=== PATIENT | female | born 1955 | race Caucasian/White ===

== ENCOUNTER 2023-06-21 16:59 | Inpatient (IN) | payer MEDICARE, MEDICAID, SELFPAY ==
[2023-06-21 17:40] VITALS: BP 135/97; PULSE 112; RESP 18; TEMP 34.3; O2SAT 93
--- NOTE | 2023-06-21 18:01 | PC.ADMIT ---
Patient admitted to unit at 1720 via stretcher from [facility] through [facility]. Admitting diagnosis is unspecified depressive disorder, unspecified anxiety. Patient has HX of developmental delay, advancing dementia with associated behavioral disturbance, epilepsy and pseudoseizure. Patient had been at rehab facility due to [facility] at [facility] prior to being taken to ED. Patient was then admitted to medical unit for clearance.No significant medical findings. PMH includes HTN, HLD, Chrons, IBS. . Patient presents as disheveled wearing hospital attire. There are numerous bruises on all extremities due to fall and cut under lower lip from which sutures were removed just prior to discharge. Alert and oriented to self only. Patient is verbal but unable to answer most questions and is restless, talkative and confused. Patient is incontinent of urine and stool and requires assist of two for transfer. Due to mental status patient was unable to participate in admission process.
[2023-06-21] MEDS: hydrOXYzine HCL 25 MG TABLET PO (18:46)
[2023-06-21 19:26] VITALS: BMI 23.3
--- NOTE | 2023-06-21 19:32 | PC.NURSE ---
Patient given hydroxyzine 25 mg at 1846 for agitation. Will continue to monitor.
[2023-06-21 20:00] VITALS: BP 136/87; PULSE 92; RESP 20; TEMP 36.8; O2SAT 97
[2023-06-21] MEDS: OXcarbazepine 150 MG TABLET PO (20:03)
[2023-06-21] MEDS: OLANZapine 2.5 MG TABLET PO (20:03)
[2023-06-21] MEDS: traZODone HCL 100 MG TABLET PO (20:03)
[2023-06-21] MEDS: Mirtazapine 7.5 MG TABLET PO (20:05)
[2023-06-21] MEDS: Memantine HCl 10 MG TABLET PO (20:06)
[2023-06-21] MEDS: levETIRAcetam 500 MG TABLET 1500 MG PO (20:06)
[2023-06-21] MEDS: Donepezil HCl 10 MG TABLET PO (20:07)
[2023-06-21] MEDS: Psyllium seed 3.7 GM PACKET PO (20:07)
[2023-06-21 21:15] VITALS: BP 136/87; PULSE 92
[2023-06-21] MEDS: OXcarbazepine 300 MG TABLET PO (21:15)
[2023-06-21] MEDS: VerapamiL HCL SR 240 MG TABLET.ER PO (21:15)
[2023-06-22 08:00] VITALS: BP 134/84; PULSE 98; RESP 18; TEMP 36.7; O2SAT 95
[2023-06-22] MEDS: Docusate Sodium 100 MG CAPSULE PO (09:28)
[2023-06-22] MEDS: DULoxetine HCl 60 MG CAPSULE.DR PO (09:28)
[2023-06-22] MEDS: OLANZapine 2.5 MG TABLET PO (09:28)
[2023-06-22] MEDS: OXcarbazepine 300 MG TABLET PO (09:28)
[2023-06-22] MEDS: Memantine HCl 10 MG TABLET PO (09:28)
[2023-06-22] MEDS: Multivitamin TABLET 1 TAB PO (09:28)
[2023-06-22] MEDS: OXcarbazepine 150 MG TABLET PO (09:28)
[2023-06-22] MEDS: levETIRAcetam 500 MG TABLET 1500 MG PO (09:28)
[2023-06-22] MEDS: Psyllium seed 3.7 GM PACKET PO (09:29)
[2023-06-22] MEDS: OLANZapine 5 MG TABLET PO (11:16)
[2023-06-22] MEDS: hydrOXYzine HCL 25 MG TABLET PO (11:16)
--- NOTE | 2023-06-22 14:08 | P.HPPS_ITS ---
HPI Date of Service: 06/22/23 Chief Complaint: Depression Sources of Information: patient interviewed, chart reviewed and crisis/core team assessment reviewed HPI Subjective Notes: Morin Warning and Conditional Voluntary (By healthcare proxy) Healthcare Proxy: Yes Guardianship: Yes Narrative: The patient is a 67-year-old female, single, with no children, chronically institutionalized with pervasive developmental disorder, psychosis and dementia. She was initially transferred from her detention to the emergency room of a hospital out of our catchment area since the patient was more disruptive loud disorganized, unable to take care of herself. Apparently the patient's baseline is very poor she had been recently transferred into several facilities in the last 2 months. In the last hospital, while she was waiting for a bed for Psychiatry she was seen smearing feces, grossly disorganized. She was medically cleared and transferring to this facility for psychiatric stabilization. On intake interview, the patient was not responsive she was a very poor historian able to provide details. She was just yelling perseverative dimas cochran. At the moment of the interview, the patient was agitated, she denied having auditory or visual hallucinations but she looks disorganized responding to internal stimuli. According to the chart the patient is on Zyprexa 2.5 p.o. t.i.d.. The social insurance adviser could contact the healthcare proxy, it has been invoked and the healthcare proxy sign into the facility. The patient had been receiving DDS services most of her life and we will try to gather more collateral information. Past Psychiatric History: We have scanned records but apparently the patient had been chronically institutionalized, she has been receiving DDS services most of her life and she was in a detention [facility] contracted by [facility] [employer]. She had been admitted several times into the hospital for psychiatric stabilization. Medical Evaluation Reviewed: Yes [facility] Narrative: High blood pressure Seizure disorder Dementia Family History: Unknown Social History: Chronically institutionalized receiving services from [facility] she used to live in a detention run by [facility] [employer]. Substance History: Unknown Trauma History: Unknown Diagnostics Vital Signs (24Hr): Vital Signs - 24 hr 06/21/23 17:40 06/21/23 20:00 06/21/23 21:15 Temperature 93.7 F L 98.2 F Pulse Rate 112 H 92 92 Respiratory Rate 18 20 Blood Pressure 135/97 H 136/87 136/87 Pulse Oximetry 93 97 Oxygen Delivery Method Room Air Room Air 06/22/23 08:00 Temperature 98.0 F Pulse Rate 98 Respiratory Rate 18 Blood Pressure 134/84 Pulse Oximetry 95 Oxygen Delivery Method Room Air BMI result Body Mass Index 23.3 Meds/Allergies Meds Home Medications ?Medication ?Instructions ?Recorded ?Confirmed ?Type acetaminophen 500 mg tablet 500 mg PO Q6H PRN Pain 06/21/23 06/21/23 History calcium carbonate (Antacid 2 tab PO NEEDED 06/21/23 06/21/23 History Extra-Strength) docusate sodium 100 mg capsule 100 mg PO DAILY 06/21/23 06/21/23 History donepezil 10 mg tablet 10 mg PO BEDTIME 06/21/23 06/21/23 History duloxetine 60 mg capsule,delayed 60 mg PO DAILY 06/21/23 06/21/23 History release levetiracetam 500 mg tablet 1,500 mg PO BID 06/21/23 06/21/23 History memantine 10 mg tablet 10 mg PO BID 06/21/23 06/21/23 History mirtazapine 7.5 mg tablet 7.5 mg PO BEDTIME 06/21/23 06/21/23 History multivitamin 1 tab PO DAILY 06/21/23 06/21/23 History olanzapine 2.5 mg PO TID 06/21/23 06/21/23 History oxcarbazepine 150 mg tablet 150 mg PO BID 06/21/23 06/21/23 History oxcarbazepine 300 mg tablet 300 mg PO BID 06/21/23 06/21/23 History psyllium seed (sugar) oral powder 1 tbsp PO BID 06/21/23 06/21/23 History (Natural Fiber Laxative (sugar) oral powder) trazodone 100 mg tablet 100 mg PO BEDTIME 06/21/23 06/21/23 History verapamil 240 mg tablet,extended 240 mg PO BEDTIME 06/21/23 06/21/23 History release Allergies Allergies Allergy/AdvReac Type Severity Reaction Status Date / Time amlodipine Allergy Unknown Verified 06/21/23 17:41 aspirin Allergy Rash Verified 06/21/23 17:41 atenolol Allergy Rash Verified 06/21/23 17:41 carbamazepine Allergy Unknown Verified 06/21/23 17:41 celecoxib Allergy Unknown Verified 06/21/23 17:41 ciprofloxacin Allergy Unknown Verified 06/21/23 17:41 erythromycin base Allergy Hives Verified 06/21/23 17:41 fluvastatin Allergy Unknown Verified 06/21/23 17:41 levofloxacin Allergy Unknown Verified 06/21/23 17:41 loratadine Allergy Unknown Verified 06/21/23 17:41 mercaptopurine Allergy Unknown Verified 06/21/23 17:41 naproxen Allergy Unknown Verified 06/21/23 17:41 pantoprazole Allergy Unknown Verified 06/21/23 17:41 Quinolones Allergy Unknown Verified 06/21/23 17:41 ranitidine Allergy Unknown Verified 06/21/23 17:41 sulfamethoxazole Allergy Unknown Verified 06/21/23 17:41 trimethoprim Allergy Unknown Verified 06/21/23 17:41 Mental Status Exam Mental Status Exam Patient Appearance: Appropriate (On hospital gowns) Patient Orientation: Person Level of Consciousness: Awake and Restless Patient Behavior: Aggressive and Restless Mood Description: Withdrawn Affect Description: Labile Patient Cognition Impaired: Yes Ability to Follow Directions: Poor Hallucinations: None Delusions: Paranoid Ideation and Ideas of Reference Thought Process: Incoherent, Illogical and Distracted Thought Content: positive for Perseveration, positive for Loose Associations and positive for Thought Blocking Judgement: Poor Assessment & Plan Assessment & Plan (1) Pervasive developmental disorder: Status: Acute Code(s): F84.9 - Pervasive developmental disorder, unspecified (2) Dementia: Status: Acute Code(s): F03.90 - Unspecified dementia, unspecified severity, without behavioral disturbance, psychotic disturbance, mood disturbance, and anxiety (3) Seizure disorder: Status: Acute Code(s): G40.909 - Epilepsy, unspecified, not intractable, without status epilepticus (4) High blood pressure: Status: Acute Code(s): I10 - Essential (primary) hypertension Plan The patient is a 67-year-old female with severe pervasive developmental disorder, chronically institutionalized with services provided by [facility], with other medical comorbidities such as dementia, high blood pressure and seizure disorder who had been grossly disorganized, as per report of the other hospital, smearing feces, throwing feces and eating feces. The patient is severely impaired unable to provide too many details, we will try to gather col lateral information. Plan 1. Gather collateral information. 2. Continue medical workout. 3. Continue Zyprexa 2.5 p.o. t.i.d., we are increasing the p.r.n. up to 10 mg p.o. b.i.d. since the patient is extremely agitated. 4. We review her list of medications and we are increasing Trileptal for 400 p.o. b.i.d. up to 600 mg p.o. b.i.d. on June 21. 5. Reassessment with results. Patient educated on: diagnosis, medication risk/benefits and medical condition Reason for continued inpatient stay Substantial Risk for: inability to function, rapid decompensation and med/psych decompensation Statement Statement: I have reviewed the history and physical and performed a pertinent examination on my patient. No changes have occurred unless specified. If the History and Physical was not performed prior to admission, the Hospitalist's service will be consulted for completing the admission physical. Time Spent With Patient Time: Total time managing care of this patient today __45__ minutes.
--- NOTE | 2023-06-22 15:06 | P.CONHOSP_ITS ---
History of Present Illness Data of Consult Service Date: 06/22/23 Requesting physician: Billy Perez Primary Care Provider: Unknown Physician HPI Reason for consult: Medical H and P 67-year-old female with history of unspecified dementia, behavioral disturbance, unspecified seizure disorder, developmental delay, hypertension, hyperlipidemia, Crohn's disease, IBS admitted to Geriatric Psychiatry with consult placed to hospitalist service for medical H&P. The patient is admitted from [facility] where hematology studies were unremarkable. Renal function baseline, electrolyte levels normal. Glucose 142. Urinalysis not indicative of infection. Urine tox screen negative. EKG showed sinus tachycardia with rate [address]/T-wave abnormality. The patient is sleeping and is not agreeable to examination at this time. She will be allowed to sleep. Review of Systems Review of Systems: Yes Other (Patient not agreeable to interview/exam) [facility] Medical History Crohn's disease Hyperlipidemia Dementia Seizure disorder High blood pressure Social History Household Members: Other Household Members Other:: longterm Housing: Other Housing Other:: longterm Do you presently have visiting nurse or other home services: No Patient Tobacco Use Status: Tobacco use Unknown Use of substances other than those prescribed or required for medical reasons: Unknown Currently Displaying Signs/Symptoms of Drug Intoxication Withdrawal: No Any prior treatment program specific to substance use: No Have you been hit, kicked, punched, or otherwise hurt by someone within the past year? If so, by whom?: No (Patient unable to respond due to mental status) Do you feel safe in your current relationship?: No Current Relationship Advance Directives: No Advance Directives Information Provided: No Do you have thoughts of harming others: None Do you have a plan to hurt others: No Plan Recently lost weight without trying: Unsure Nutrition Risks: No Nutritional Risk Patient : No : No Poor oral hygiene: No Meds Allergies Allergy/AdvReac Type Severity Reaction Status Date / Time amlodipine Allergy Unknown Verified 06/21/23 17:41 aspirin Allergy Rash Verified 06/21/23 17:41 atenolol Allergy Rash Verified 06/21/23 17:41 carbamazepine Allergy Unknown Verified 06/21/23 17:41 celecoxib Allergy Unknown Verified 06/21/23 17:41 ciprofloxacin Allergy Unknown Verified 06/21/23 17:41 erythromycin base Allergy Hives Verified 06/21/23 17:41 fluvastatin Allergy Unknown Verified 06/21/23 17:41 levofloxacin Allergy Unknown Verified 06/21/23 17:41 loratadine Allergy Unknown Verified 06/21/23 17:41 mercaptopurine Allergy Unknown Verified 06/21/23 17:41 naproxen Allergy Unknown Verified 06/21/23 17:41 pantoprazole Allergy Unknown Verified 06/21/23 17:41 Quinolones Allergy Unknown Verified 06/21/23 17:41 ranitidine Allergy Unknown Verified 06/21/23 17:41 sulfamethoxazole Allergy Unknown Verified 06/21/23 17:41 trimethoprim Allergy Unknown Verified 06/21/23 17:41 Active Medications: Current Medications Acetaminophen (Acetaminophen 325 Mg Tablet) 650 mg PO Q6H PRN PRN Reason: Headache/Pain Mild Scale (1-3) Al Hydroxide/Mg Hydroxide (Magnesium Hydrox/Alum Hydrox 30 Ml Oral.Susp) 30 ml PO Q6H PRN PRN Reason: Heartburn/Nausea Calcium Carbonate (Calcium Carbonate 750 Mg Tab.Chew) 750 mg PO DAILY PRN PRN Reason: ACID REFLUX Docusate Sodium (Docusate Sodium 100 Mg Capsule) 100 mg PO DAILY [facility] Last Admin: 06/22/23 09:28 Dose: 100 mg Donepezil HCl (Donepezil Hcl 10 Mg Tablet) 10 mg PO BEDTIME [facility] Last Admin: 06/21/23 20:07 Dose: 10 mg Duloxetine HCl (Duloxetine Hcl 60 Mg Capsule.Dr) 60 mg PO DAILY [facility] Last Admin: 06/22/23 09:28 Dose: 60 mg Hydroxyzine HCl (Hydroxyzine Hcl 25 Mg Tablet) 25 mg PO Q6H PRN PRN Reason: Anxiety Last Admin: 06/22/23 11:16 Dose: 25 mg Levetiracetam (Levetiracetam 500 Mg Tablet) 1,500 mg PO BID [facility] Last Admin: 06/22/23 09:28 Dose: 1,500 mg Magnesium Hydroxide (Milk Of Magnesia 30 Ml Oral.Susp) 30 ml PO DAILY PRN PRN Reason: Constipation Memantine (Memantine Hcl 10 Mg Tablet) 10 mg PO BID [facility] Last Admin: 06/22/23 09:28 Dose: 10 mg Mirtazapine (Mirtazapine 7.5 Mg Tablet) 7.5 mg PO BEDTIME [facility] Last Admin: 06/21/23 20:05 Dose: 7.5 mg Multivitamins/Vitamin C (Multivitamin Tablet) 1 tab PO DAILY [facility] Last Admin: 06/22/23 09:28 Dose: 1 tab Olanzapine (Olanzapine 2.5 Mg Tablet) 2.5 mg PO TID [facility] Last Admin: 06/22/23 09:28 Dose: 2.5 mg Olanzapine (Olanzapine Odt 10 Mg Tab.Rapdis) 10 mg TRANSLINGU BID PRN PRN Reason: Psychosis Oxcarbazepine (Oxcarbazepine 300 Mg Tablet) 600 mg PO BID [facility] Psyllium Hydrophilic Mucilloid (Psyllium Seed 3.7 Gm Packet) 3.7 gm PO BID [facility] Last Admin: 06/22/23 09:29 Dose: 3.7 gm Trazodone HCl (Trazodone Hcl 50 Mg Tablet) 50 mg PO BEDTIME MRX1 PRN PRN Reason: Insomnia Trazodone HCl (Trazodone Hcl 100 Mg Tablet) 100 mg PO BEDTIME [facility] Last Admin: 06/21/23 20:03 Dose: 100 mg Verapamil HCl (Verapamil Hcl Sr 240 Mg Tablet.Er) 240 mg PO BEDTIME [facility]; Protocol Last Admin: 06/21/23 21:15 Dose: 240 mg Home Medications ?Medication ?Instructions ?Recorded ?Confirmed ?Last Taken ?Type acetaminophen 500 mg tablet 500 mg PO Q6H PRN Pain 06/21/23 06/21/23 Unknown History calcium carbonate (Antacid 2 tab PO NEEDED 06/21/23 06/21/23 Unknown History Extra-Strength) docusate sodium 100 mg capsule 100 mg PO DAILY 06/21/23 06/21/23 Unknown History donepezil 10 mg tablet 10 mg PO BEDTIME 06/21/23 06/21/23 Unknown History duloxetine 60 mg capsule,delayed 60 mg PO DAILY 06/21/23 06/21/23 Unknown History release levetiracetam 500 mg tablet 1,500 mg PO BID 06/21/23 06/21/23 Unknown History memantine 10 mg tablet 10 mg PO BID 06/21/23 06/21/23 Unknown History mirtazapine 7.5 mg tablet 7.5 mg PO BEDTIME 06/21/23 06/21/23 Unknown History multivitamin 1 tab PO DAILY 06/21/23 06/21/23 Unknown History olanzapine 2.5 mg PO TID 06/21/23 06/21/23 Unknown History oxcarbazepine 150 mg tablet 150 mg PO BID 06/21/23 06/21/23 Unknown History oxcarbazepine 300 mg tablet 300 mg PO BID 06/21/23 06/21/23 Unknown History psyllium seed (sugar) oral powder 1 tbsp PO BID 06/21/23 06/21/23 Unknown History (Natural Fiber Laxative (sugar) oral powder) trazodone 100 mg tablet 100 mg PO BEDTIME 06/21/23 06/21/23 Unknown History verapamil 240 mg tablet,extended 240 mg PO BEDTIME 06/21/23 06/21/23 Unknown History release Physical Exam Vital Signs and Narrative: Vital Signs: Last Vital Signs Temp 98.0 F 06/22/23 08:00 Pulse 98 06/22/23 08:00 Resp 18 06/22/23 08:00 BP 134/84 06/22/23 08:00 Pulse Ox 95 06/22/23 08:00 O2 Del Method Room Air 06/22/23 08:00 BMI result Body Mass Index 23.3 Constitutional - somnolent but arousable, No apparent distress Patient now agreeable to exam. Allowed to sleep Assessment and Plan (1) Routine medical exam: Status: Acute Plan 67-year-old female with history of unspecified dementia, behavioral disturbance, unspecified seizure disorder, developmental delay, hypertension, hyperlipidemia, Crohn's disease, IBS admitted to Geriatric Psychiatry with consult placed to hospitalist service for medical H&P. # mood disorder/dementia -plan per Psychiatry # unspecified seizure disorder -continue Keppra, Trileptal # hypertension -blood pressure reasonably controlled -continue verapamil # hyperlipidemia -statin z# Crohn's disease/ibs -no acute flare -continue bowel regimen Thank you for allowing me to participate in this consult. Signing off at this time. Please do not hesitate to call for further questions or for any acute medical concerns
[2023-06-22 20:00] VITALS: BP 134/63; PULSE 77; RESP 16; TEMP 36.4; O2SAT 96
[2023-06-22] MEDS: traZODone HCL 50 MG TABLET PO (20:52)
[2023-06-23] MEDS: hydrOXYzine HCL 25 MG TABLET PO (02:41)
[2023-06-23] MEDS: Acetaminophen 325 MG TABLET 650 MG PO (02:41)
[2023-06-23] MEDS: traZODone HCL 50 MG TABLET PO (02:41)
[2023-06-23] MEDS: OLANZapine ODT 10 MG TAB.RAPDIS TRANSLINGU ×2 (02:41→15:20)
[2023-06-23 09:06] VITALS: BP 136/91; PULSE 92; RESP 17; TEMP 36.9; O2SAT 97
[2023-06-23] MEDS: OLANZapine 2.5 MG TABLET PO ×3 (09:24→21:13)
[2023-06-23] MEDS: DULoxetine HCl 60 MG CAPSULE.DR PO (09:29)
[2023-06-23] MEDS: OXcarbazepine 300 MG TABLET 600 MG PO ×2 (09:33→21:13)
[2023-06-23] MEDS: Multivitamin TABLET 1 TAB PO (09:38)
[2023-06-23] MEDS: Memantine HCl 10 MG TABLET PO ×2 (09:38→21:13)
[2023-06-23] MEDS: Psyllium seed 3.7 GM PACKET PO ×2 (09:43→21:28)
--- NOTE | 2023-06-23 12:31 | P.PNPSI_ITS ---
Subjective Subjective Date of Service: 06/23/23 Reason For Visit: Depression Subjective Notes: Conditional Voluntary Interim History: Pt slept most of the night. She has been yelling, difficult to understand. She is incontinent of feces and urine. She was smearing feces. Review of Systems Review of Systems Yes Unobtainable due to mental status and Other (Patient not agreeable to interview/exam) Mental Status Exam Mental Status Exam Patient Appearance: Appropriate (On hospital gowns) Patient Orientation: Person Level of Consciousness: Awake and Restless Patient Behavior: Aggressive and Restless Mood Description: Withdrawn Affect Description: Labile Patient Cognition Impaired: Yes Ability to Follow Directions: Poor Diagnostics Vital Signs (24Hr): Vital Signs - 24 hr 06/22/23 20:00 06/23/23 09:06 Temperature 97.5 F 98.4 F Pulse Rate 77 92 Respiratory Rate 16 17 Blood Pressure 134/63 136/91 H Pulse Oximetry 96 97 Oxygen Delivery Method Room Air Room Air BMI result Body Mass Index 23.3 Medications Medications Current Medications Acetaminophen (Acetaminophen 325 Mg Tablet) 650 mg PO Q6H PRN PRN Reason: Headache/Pain Mild Scale (1-3) Last Admin: 06/23/23 02:41 Dose: 650 mg Al Hydroxide/Mg Hydroxide (Magnesium Hydrox/Alum Hydrox 30 Ml Oral.Susp) 30 ml PO Q6H PRN PRN Reason: Heartburn/Nausea Calcium Carbonate (Calcium Carbonate 750 Mg Tab.Chew) 750 mg PO DAILY PRN PRN Reason: ACID REFLUX Docusate Sodium (Docusate Sodium 100 Mg Capsule) 100 mg PO DAILY [facility] Last Admin: 06/23/23 09:51 Dose: Not Given Donepezil HCl (Donepezil Hcl 10 Mg Tablet) 10 mg PO BEDTIME [facility] Last Admin: 06/22/23 21:03 Dose: Not Given Duloxetine HCl (Duloxetine Hcl 60 Mg Capsule.Dr) 60 mg PO DAILY [facility] Last Admin: 06/23/23 09:29 Dose: 60 mg Hydroxyzine HCl (Hydroxyzine Hcl 25 Mg Tablet) 25 mg PO Q6H PRN PRN Reason: Anxiety Last Admin: 06/23/23 02:41 Dose: 25 mg Levetiracetam (Levetiracetam 500 Mg Tablet) 1,500 mg PO BID [facility] Last Admin: 06/23/23 09:54 Dose: Not Given Magnesium Hydroxide (Milk Of Magnesia 30 Ml Oral.Susp) 30 ml PO DAILY PRN PRN Reason: Constipation Memantine (Memantine Hcl 10 Mg Tablet) 10 mg PO BID [facility] Last Admin: 06/23/23 09:38 Dose: 10 mg Mirtazapine (Mirtazapine 7.5 Mg Tablet) 7.5 mg PO BEDTIME [facility] Last Admin: 06/22/23 21:03 Dose: Not Given Multivitamins/Vitamin C (Multivitamin Tablet) 1 tab PO DAILY [facility] Last Admin: 06/23/23 09:38 Dose: 1 tab Olanzapine (Olanzapine 2.5 Mg Tablet) 2.5 mg PO TID [facility] Last Admin: 06/23/23 09:24 Dose: 2.5 mg Olanzapine (Olanzapine Odt 10 Mg Tab.Rapdis) 10 mg TRANSLINGU BID PRN PRN Reason: Psychosis Last Admin: 06/23/23 02:41 Dose: 10 mg Oxcarbazepine (Oxcarbazepine 300 Mg Tablet) 600 mg PO BID [facility] Last Admin: 06/23/23 09:33 Dose: 600 mg Psyllium Hydrophilic Mucilloid (Psyllium Seed 3.7 Gm Packet) 3.7 gm PO BID [facility] Last Admin: 06/23/23 09:43 Dose: 3.7 gm Trazodone HCl (Trazodone Hcl 50 Mg Tablet) 50 mg PO BEDTIME MRX1 PRN PRN Reason: Insomnia Last Admin: 06/23/23 02:41 Dose: 50 mg Trazodone HCl (Trazodone Hcl 100 Mg Tablet) 100 mg PO BEDTIME [facility] Last Admin: 06/22/23 21:02 Dose: Not Given Verapamil HCl (Verapamil Hcl Sr 240 Mg Tablet.Er) 240 mg PO BEDTIME [facility]; Protocol Last Admin: 06/22/23 21:02 Dose: Not Given Allergies Allergies Allergy/AdvReac Type Severity Reaction Status Date / Time amlodipine Allergy Unknown Verified 06/21/23 17:41 aspirin Allergy Rash Verified 06/21/23 17:41 atenolol Allergy Rash Verified 06/21/23 17:41 carbamazepine Allergy Unknown Verified 06/21/23 17:41 celecoxib Allergy Unknown Verified 06/21/23 17:41 ciprofloxacin Allergy Unknown Verified 06/21/23 17:41 erythromycin base Allergy Hives Verified 06/21/23 17:41 fluvastatin Allergy Unknown Verified 06/21/23 17:41 levofloxacin Allergy Unknown Verified 06/21/23 17:41 loratadine Allergy Unknown Verified 06/21/23 17:41 mercaptopurine Allergy Unknown Verified 06/21/23 17:41 naproxen Allergy Unknown Verified 06/21/23 17:41 pantoprazole Allergy Unknown Verified 06/21/23 17:41 Quinolones Allergy Unknown Verified 06/21/23 17:41 ranitidine Allergy Unknown Verified 06/21/23 17:41 sulfamethoxazole Allergy Unknown Verified 06/21/23 17:41 trimethoprim Allergy Unknown Verified 06/21/23 17:41 Assessment & Plan Assessment & Plan (1) Pervasive developmental disorder: Status: Acute Code(s): F84.9 - Pervasive developmental disorder, unspecified (2) Dementia: Status: Acute Code(s): F03.90 - Unspecified dementia, unspecified severity, without behavioral disturbance, psychotic disturbance, mood disturbance, and anxiety Plan 06/22 continue tx. Reason for continued inpatient stay Substantial Risk for: inability to function Time Spent With Patient Time: Total time managing care of this patient today ____ minutes.
[2023-06-23 20:00] VITALS: BP 144/72; PULSE 78; RESP 16; TEMP 36.4; O2SAT 94
[2023-06-23] MEDS: traZODone HCL 100 MG TABLET PO (21:12)
[2023-06-23] MEDS: Donepezil HCl 10 MG TABLET PO (21:12)
[2023-06-23] MEDS: Mirtazapine 7.5 MG TABLET PO (21:12)
[2023-06-23] MEDS: levETIRAcetam Oral Soln 500 MG/5 ML 1500 MG PO (21:15)
[2023-06-23 22:48] VITALS: BP 144/72; PULSE 78
[2023-06-24] MEDS: Acetaminophen 325 MG TABLET 650 MG PO (04:14)
[2023-06-24] MEDS: OLANZapine ODT 10 MG TAB.RAPDIS TRANSLINGU ×2 (04:18→16:20)
[2023-06-24 09:13] VITALS: BP 144/89; PULSE 99; RESP 17; O2SAT 96
[2023-06-24] MEDS: OLANZapine 2.5 MG TABLET PO ×3 (09:17→20:57)
[2023-06-24] MEDS: DULoxetine HCl 60 MG CAPSULE.DR PO (09:18)
[2023-06-24] MEDS: levETIRAcetam Oral Soln 500 MG/5 ML 1500 MG PO ×2 (09:18→20:55)
[2023-06-24] MEDS: Memantine HCl 10 MG TABLET PO ×2 (09:19→20:57)
[2023-06-24] MEDS: Multivitamin TABLET 1 TAB PO (09:19)
[2023-06-24] MEDS: OXcarbazepine 300 MG TABLET 600 MG PO ×2 (09:25→20:56)
[2023-06-24] MEDS: Psyllium seed 3.7 GM PACKET PO ×2 (09:26→20:58)
--- NOTE | 2023-06-24 14:52 | P.PNPSI_ITS ---
Subjective Subjective Date of Service: 06/24/23 Reason For Visit: Depression Subjective Notes: Conditional Voluntary Interim History: Pt slept most of the night. She has been yelling, difficult to understand. She is incontinent of feces and urine. She was smearing feces. VS stable. Takes medications as prescribed. Review of Systems Review of Systems Yes Unobtainable due to mental status and Other (Patient not agreeable to interview/exam) Mental Status Exam Mental Status Exam Patient Appearance: Appropriate (On hospital gowns) Patient Orientation: Person Level of Consciousness: Awake and Restless Patient Behavior: Aggressive and Restless Mood Description: Withdrawn Affect Description: Labile Patient Cognition Impaired: Yes Ability to Follow Directions: Poor Diagnostics Vital Signs (24Hr): Vital Signs - 24 hr 06/23/23 20:00 06/23/23 22:48 06/24/23 09:13 Temperature 97.5 F Pulse Rate 78 78 99 Respiratory Rate 16 17 Blood Pressure 144/72 H 144/72 H 144/89 H Pulse Oximetry 94 96 Oxygen Delivery Method Room Air Room Air BMI result Body Mass Index 23.3 Medications Medications Current Medications Acetaminophen (Acetaminophen 325 Mg Tablet) 650 mg PO Q6H PRN PRN Reason: Headache/Pain Mild Scale (1-3) Last Admin: 06/24/23 04:14 Dose: 650 mg Al Hydroxide/Mg Hydroxide (Magnesium Hydrox/Alum Hydrox 30 Ml Oral.Susp) 30 ml PO Q6H PRN PRN Reason: Heartburn/Nausea Calcium Carbonate (Calcium Carbonate 750 Mg Tab.Chew) 750 mg PO DAILY PRN PRN Reason: ACID REFLUX Docusate Sodium (Docusate Sodium 100 Mg Capsule) 100 mg PO DAILY [facility] Last Admin: 06/24/23 10:13 Dose: Not Given Donepezil HCl (Donepezil Hcl 10 Mg Tablet) 10 mg PO BEDTIME [facility] Last Admin: 06/23/23 21:12 Dose: 10 mg Duloxetine HCl (Duloxetine Hcl 60 Mg Capsule.Dr) 60 mg PO DAILY [facility] Last Admin: 06/24/23 09:18 Dose: 60 mg Hydroxyzine HCl (Hydroxyzine Hcl 25 Mg Tablet) 25 mg PO Q6H PRN PRN Reason: Anxiety Last Admin: 06/23/23 02:41 Dose: 25 mg Levetiracetam (Levetiracetam Oral Soln 500 Mg/5 Ml) 1,500 mg PO BID [facility] Last Admin: 06/24/23 09:18 Dose: 1,500 mg Magnesium Hydroxide (Milk Of Magnesia 30 Ml Oral.Susp) 30 ml PO DAILY PRN PRN Reason: Constipation Memantine (Memantine Hcl 10 Mg Tablet) 10 mg PO BID [facility] Last Admin: 06/24/23 09:19 Dose: 10 mg Mirtazapine (Mirtazapine 7.5 Mg Tablet) 7.5 mg PO BEDTIME [facility] Last Admin: 06/23/23 21:12 Dose: 7.5 mg Multivitamins/Vitamin C (Multivitamin Tablet) 1 tab PO DAILY [facility] Last Admin: 06/24/23 09:19 Dose: 1 tab Olanzapine (Olanzapine 2.5 Mg Tablet) 2.5 mg PO TID [facility] Last Admin: 06/24/23 09:17 Dose: 2.5 mg Olanzapine (Olanzapine Odt 10 Mg Tab.Rapdis) 10 mg TRANSLINGU BID PRN PRN Reason: Psychosis Last Admin: 06/24/23 04:18 Dose: 10 mg Oxcarbazepine (Oxcarbazepine 300 Mg Tablet) 600 mg PO BID [facility] Last Admin: 06/24/23 09:25 Dose: 600 mg Psyllium Hydrophilic Mucilloid (Psyllium Seed 3.7 Gm Packet) 3.7 gm PO BID [facility] Last Admin: 06/24/23 09:26 Dose: 3.7 gm Trazodone HCl (Trazodone Hcl 50 Mg Tablet) 50 mg PO BEDTIME MRX1 PRN PRN Reason: Insomnia Last Admin: 06/23/23 02:41 Dose: 50 mg Trazodone HCl (Trazodone Hcl 100 Mg Tablet) 100 mg PO BEDTIME [facility] Last Admin: 06/23/23 21:12 Dose: 100 mg Verapamil HCl (Verapamil Hcl Sr 240 Mg Tablet.Er) 240 mg PO BEDTIME [facility]; Protocol Last Admin: 06/23/23 22:48 Dose: Not Given Allergies Allergies Allergy/AdvReac Type Severity Reaction Status Date / Time amlodipine Allergy Unknown Verified 06/21/23 17:41 aspirin Allergy Rash Verified 06/21/23 17:41 atenolol Allergy Rash Verified 06/21/23 17:41 carbamazepine Allergy Unknown Verified 06/21/23 17:41 celecoxib Allergy Unknown Verified 06/21/23 17:41 ciprofloxacin Allergy Unknown Verified 06/21/23 17:41 erythromycin base Allergy Hives Verified 06/21/23 17:41 fluvastatin Allergy Unknown Verified 06/21/23 17:41 levofloxacin Allergy Unknown Verified 06/21/23 17:41 loratadine Allergy Unknown Verified 06/21/23 17:41 mercaptopurine Allergy Unknown Verified 06/21/23 17:41 naproxen Allergy Unknown Verified 06/21/23 17:41 pantoprazole Allergy Unknown Verified 06/21/23 17:41 Quinolones Allergy Unknown Verified 06/21/23 17:41 ranitidine Allergy Unknown Verified 06/21/23 17:41 sulfamethoxazole Allergy Unknown Verified 06/21/23 17:41 trimethoprim Allergy Unknown Verified 06/21/23 17:41 Assessment & Plan Assessment & Plan (1) Dementia: Status: Acute Code(s): F03.90 - Unspecified dementia, unspecified severity, without behavioral disturbance, psychotic disturbance, mood disturbance, and anxiety (2) Pervasive developmental disorder: Status: Acute Code(s): F84.9 - Pervasive developmental disorder, unspecified Plan 06/23 continue tx. Reason for continued inpatient stay Substantial Risk for: inability to function Time Spent With Patient Time: Total time managing care of this patient today ____ minutes.
--- NOTE | 2023-06-24 17:33 | PC.NURSE ---
Patient was found in her room at 17:20 sitting on the floor with her legs underneath her in front of her wheelchair, incident appears to be behavioral. Patient has been screaming, combative/resistive to care throughout the shift. Patient was dry and denied needing to go to the bathroom. She had her red non skid socks on and no apparent injuries were noted upon assessment. Vitals stable: 121/69, 74HR, 96o2, T98.06 and R18. Provider Justine Stevens, patient's family and real estate sales supervisor Meagan Westfall notified.
[2023-06-24 20:00] VITALS: BP 118/73; PULSE 81; RESP 18; TEMP 36.2; O2SAT 96
[2023-06-24] MEDS: Mirtazapine 7.5 MG TABLET PO (20:56)
[2023-06-24 20:57] VITALS: BP 118/73; PULSE 81
[2023-06-24] MEDS: VerapamiL HCL SR 240 MG TABLET.ER PO (20:57)
[2023-06-24] MEDS: traZODone HCL 100 MG TABLET PO (20:57)
[2023-06-24] MEDS: traZODone HCL 50 MG TABLET PO (20:57)
[2023-06-24] MEDS: Donepezil HCl 10 MG TABLET PO (20:57)
[2023-06-24] MEDS: hydrOXYzine HCL 25 MG TABLET PO (20:57)
[2023-06-25 08:00] VITALS: BP 133/61; PULSE 65; RESP 16; TEMP 36; O2SAT 94
[2023-06-25] MEDS: Memantine HCl 10 MG TABLET PO ×2 (09:56→20:33)
[2023-06-25] MEDS: DULoxetine HCl 60 MG CAPSULE.DR PO (09:57)
[2023-06-25] MEDS: OXcarbazepine 300 MG TABLET 600 MG PO ×2 (09:57→20:33)
[2023-06-25] MEDS: Multivitamin TABLET 1 TAB PO (09:57)
[2023-06-25] MEDS: OLANZapine 2.5 MG TABLET 3.75 MG PO ×3 (10:02→20:33)
[2023-06-25] MEDS: levETIRAcetam Oral Soln 500 MG/5 ML 1500 MG PO ×2 (10:37→20:32)
[2023-06-25] MEDS: Acetaminophen 325 MG TABLET 650 MG PO ×2 (11:18→20:36)
--- NOTE | 2023-06-25 14:17 | HO.PSYCHPN ---
Subjective Subjective Date of Service: 06/25/23 Reason For Visit: Depression Subjective Notes: Conditional Voluntary (By healthcare proxy) Healthcare Proxy: Yes Guardianship: Yes Interim History: The nursing staff reported the patient was anxious, loud at times yelling and screaming. Compliant with treatment. She was seen smearing feces on his hands and eating them. Grossly disorganized. On interview the patient was sleeping, looks confused. Mental Status Exam Mental Status Exam Patient Appearance: Appropriate Patient Orientation: Person Level of Consciousness: Disoriented Patient Behavior: Guarded Mood Description: Withdrawn Affect Description: Labile Patient Cognition Impaired: Yes Ability to Follow Directions: Fair Speech Pattern: Impoverished Hallucinations: None Delusions: Not Present Thought Process: Distracted and Evasive Thought Content: positive for [place] and positive for Poverty of Content Judgement: Poor Diagnostics Vital Signs (24Hr): Vital Signs - 24 hr 06/24/23 20:00 06/24/23 20:57 06/25/23 08:00 Temperature 97.2 F 96.8 F Pulse Rate 81 81 65 Respiratory Rate 18 16 Blood Pressure 118/73 118/73 133/61 Pulse Oximetry 96 94 Oxygen Delivery Method Room Air Room Air BMI result Body Mass Index 23.3 Medications Medications Current Medications Acetaminophen (Acetaminophen 325 Mg Tablet) 650 mg PO Q6H PRN PRN Reason: Headache/Pain Mild Scale (1-3) Last Admin: 06/25/23 11:18 Dose: 650 mg Al Hydroxide/Mg Hydroxide (Magnesium Hydrox/Alum Hydrox 30 Ml Oral.Susp) 30 ml PO Q6H PRN PRN Reason: Heartburn/Nausea Calcium Carbonate (Calcium Carbonate 750 Mg Tab.Chew) 750 mg PO DAILY PRN PRN Reason: ACID REFLUX Docusate Sodium (Docusate Sodium 100 Mg Capsule) 100 mg PO DAILY [facility] Last Admin: 06/24/23 10:13 Dose: Not Given Donepezil HCl (Donepezil Hcl 10 Mg Tablet) 10 mg PO BEDTIME [facility] Last Admin: 06/24/23 20:57 Dose: 10 mg Duloxetine HCl (Duloxetine Hcl 60 Mg Capsule.Dr) 60 mg PO DAILY [facility] Last Admin: 06/25/23 09:57 Dose: 60 mg Hydroxyzine HCl (Hydroxyzine Hcl 25 Mg Tablet) 25 mg PO Q6H PRN PRN Reason: Anxiety Last Admin: 06/24/23 20:57 Dose: 25 mg Levetiracetam (Levetiracetam Oral Soln 500 Mg/5 Ml) 1,500 mg PO BID [facility] Last Admin: 06/25/23 10:37 Dose: 1,500 mg Magnesium Hydroxide (Milk Of Magnesia 30 Ml Oral.Susp) 30 ml PO DAILY PRN PRN Reason: Constipation Memantine (Memantine Hcl 10 Mg Tablet) 10 mg PO BID [facility] Last Admin: 06/25/23 09:56 Dose: 10 mg Mirtazapine (Mirtazapine 7.5 Mg Tablet) 7.5 mg PO BEDTIME [facility] Last Admin: 06/24/23 20:56 Dose: 7.5 mg Multivitamins/Vitamin C (Multivitamin Tablet) 1 tab PO DAILY [facility] Last Admin: 06/25/23 09:57 Dose: 1 tab Olanzapine (Olanzapine Odt 10 Mg Tab.Rapdis) 10 mg TRANSLINGU BID PRN PRN Reason: Psychosis Last Admin: 06/24/23 16:20 Dose: 10 mg Olanzapine (Olanzapine 2.5 Mg Tablet) 3.75 mg PO TID [facility] Last Admin: 06/25/23 10:02 Dose: 3.75 mg Oxcarbazepine (Oxcarbazepine 300 Mg Tablet) 600 mg PO BID [facility] Last Admin: 06/25/23 09:57 Dose: 600 mg Psyllium Hydrophilic Mucilloid (Psyllium Seed 3.7 Gm Packet) 3.7 gm PO BID [facility] Last Admin: 06/24/23 20:58 Dose: 3.7 gm Trazodone HCl (Trazodone Hcl 50 Mg Tablet) 50 mg PO BEDTIME MRX1 PRN PRN Reason: Insomnia Last Admin: 06/24/23 20:57 Dose: 50 mg Trazodone HCl (Trazodone Hcl 100 Mg Tablet) 100 mg PO BEDTIME [facility] Last Admin: 06/24/23 20:57 Dose: 100 mg Verapamil HCl (Verapamil Hcl Sr 240 Mg Tablet.Er) 240 mg PO BEDTIME [facility]; Protocol Last Admin: 06/24/23 20:57 Dose: 240 mg Allergies Allergies Allergy/AdvReac Type Severity Reaction Status Date / Time amlodipine Allergy Unknown Verified 06/21/23 17:41 aspirin Allergy Rash Verified 06/21/23 17:41 atenolol Allergy Rash Verified 06/21/23 17:41 carbamazepine Allergy Unknown Verified 06/21/23 17:41 celecoxib Allergy Unknown Verified 06/21/23 17:41 ciprofloxacin Allergy Unknown Verified 06/21/23 17:41 erythromycin base Allergy Hives Verified 06/21/23 17:41 fluvastatin Allergy Unknown Verified 06/21/23 17:41 levofloxacin Allergy Unknown Verified 06/21/23 17:41 loratadine Allergy Unknown Verified 06/21/23 17:41 mercaptopurine Allergy Unknown Verified 06/21/23 17:41 naproxen Allergy Unknown Verified 06/21/23 17:41 pantoprazole Allergy Unknown Verified 06/21/23 17:41 Quinolones Allergy Unknown Verified 06/21/23 17:41 ranitidine Allergy Unknown Verified 06/21/23 17:41 sulfamethoxazole Allergy Unknown Verified 06/21/23 17:41 trimethoprim Allergy Unknown Verified 06/21/23 17:41 Assessment & Plan Assessment & Plan (1) Dementia: Status: Acute Code(s): F03.90 - Unspecified dementia, unspecified severity, without behavioral disturbance, psychotic disturbance, mood disturbance, and anxiety (2) Pervasive developmental disorder: Status: Acute Code(s): F84.9 - Pervasive developmental disorder, unspecified Plan Plan 1. Continue with same Trileptal 600 mg p.o. b.i.d.. 2. Increase Zyprexa up to 3.75 p.o. t.i.d.. 3. Rest the same Reason for continued inpatient stay Substantial Risk for: inability to function, rapid decompensation and med/psych decompensation Time Spent With Patient Time: Total time managing care of this patient today __20__ minutes.
[2023-06-25] MEDS: hydrOXYzine HCL 25 MG TABLET PO (16:18)
[2023-06-25] MEDS: Mirtazapine 7.5 MG TABLET PO (20:33)
[2023-06-25] MEDS: Donepezil HCl 10 MG TABLET PO (20:33)
[2023-06-25 20:34] VITALS: BP 118/83; PULSE 93
[2023-06-25] MEDS: VerapamiL HCL SR 240 MG TABLET.ER PO (20:34)
[2023-06-25] MEDS: traZODone HCL 100 MG TABLET PO (20:34)
[2023-06-26] MEDS: Memantine HCl 10 MG TABLET PO ×2 (08:12→20:56)
[2023-06-26] MEDS: levETIRAcetam Oral Soln 500 MG/5 ML 1500 MG PO ×2 (08:12→20:53)
[2023-06-26] MEDS: OLANZapine 2.5 MG TABLET 3.75 MG PO ×3 (08:13→20:54)
[2023-06-26] MEDS: DULoxetine HCl 60 MG CAPSULE.DR PO (08:13)
[2023-06-26] MEDS: OXcarbazepine 300 MG TABLET 600 MG PO ×2 (08:13→20:55)
[2023-06-26] MEDS: Multivitamin TABLET 1 TAB PO (08:13)
[2023-06-26] MEDS: hydrOXYzine HCL 25 MG TABLET PO (11:37)
[2023-06-26] MEDS: Acetaminophen 325 MG TABLET 650 MG PO (12:37)
[2023-06-26 12:50] VITALS: BP 135/59; PULSE 104; RESP 18; TEMP 36.4; O2SAT 94
--- NOTE | 2023-06-26 16:34 | HO.PSYCHPN ---
Subjective Subjective Date of Service: 06/26/23 Reason For Visit: Depression Subjective Notes: Conditional Voluntary (by Healthcare Proxy) Healthcare Proxy: Yes Interim History: The nursing staff reported the patient has been on her room, she is on one-to-one to avoid cooperative eye here. The occupational therapist that her sister reported the patient was ambulatory. The social media intern reported that we will have a meeting with DDS next 13:00. On interview the patient denies new symptoms confused at times. Mental Status Exam Mental Status Exam Patient Appearance: Appropriate Patient Orientation: Person Level of Consciousness: Awake Patient Behavior: Guarded and Passive Mood Description: Withdrawn Affect Description: Constricted Patient Cognition Impaired: Yes Ability to Follow Directions: Good Speech Pattern: Clear Hallucinations: None Delusions: Paranoid Ideation and Ideas of Reference Thought Process: Distracted and Slowed Thinking Thought Content: positive for [place] and positive for Poverty of Content Judgement: Poor Diagnostics Vital Signs (24Hr): Vital Signs - 24 hr 06/25/23 20:34 06/26/23 12:50 Temperature 97.5 F Pulse Rate 93 104 H Respiratory Rate 18 Blood Pressure 118/83 135/59 L Pulse Oximetry 94 Oxygen Delivery Method Room Air BMI result Body Mass Index 23.3 Medications Medications Current Medications Acetaminophen (Acetaminophen 325 Mg Tablet) 650 mg PO Q6H PRN PRN Reason: Headache/Pain Mild Scale (1-3) Last Admin: 06/26/23 12:37 Dose: 650 mg Al Hydroxide/Mg Hydroxide (Magnesium Hydrox/Alum Hydrox 30 Ml Oral.Susp) 30 ml PO Q6H PRN PRN Reason: Heartburn/Nausea Calcium Carbonate (Calcium Carbonate 750 Mg Tab.Chew) 750 mg PO DAILY PRN PRN Reason: ACID REFLUX Docusate Sodium (Docusate Sodium 100 Mg Capsule) 100 mg PO DAILY [facility] Last Admin: 06/24/23 10:13 Dose: Not Given Donepezil HCl (Donepezil Hcl 10 Mg Tablet) 10 mg PO BEDTIME [facility] Last Admin: 06/25/23 20:33 Dose: 10 mg Duloxetine HCl (Duloxetine Hcl 60 Mg Capsule.Dr) 60 mg PO DAILY [facility] Last Admin: 06/26/23 08:13 Dose: 60 mg Hydroxyzine HCl (Hydroxyzine Hcl 25 Mg Tablet) 25 mg PO Q6H PRN PRN Reason: Anxiety Last Admin: 06/26/23 11:37 Dose: 25 mg Levetiracetam (Levetiracetam Oral Soln 500 Mg/5 Ml) 1,500 mg PO BID [facility] Last Admin: 06/26/23 08:12 Dose: 1,500 mg Magnesium Hydroxide (Milk Of Magnesia 30 Ml Oral.Susp) 30 ml PO DAILY PRN PRN Reason: Constipation Memantine (Memantine Hcl 10 Mg Tablet) 10 mg PO BID [facility] Last Admin: 06/26/23 08:12 Dose: 10 mg Mirtazapine (Mirtazapine 7.5 Mg Tablet) 7.5 mg PO BEDTIME [facility] Last Admin: 06/25/23 20:33 Dose: 7.5 mg Multivitamins/Vitamin C (Multivitamin Tablet) 1 tab PO DAILY [facility] Last Admin: 06/26/23 08:13 Dose: 1 tab Olanzapine (Olanzapine Odt 10 Mg Tab.Rapdis) 10 mg TRANSLINGU BID PRN PRN Reason: Psychosis Last Admin: 06/24/23 16:20 Dose: 10 mg Olanzapine (Olanzapine 2.5 Mg Tablet) 3.75 mg PO TID [facility] Last Admin: 06/26/23 15:09 Dose: 3.75 mg Oxcarbazepine (Oxcarbazepine 300 Mg Tablet) 600 mg PO BID [facility] Last Admin: 06/26/23 08:13 Dose: 600 mg Psyllium Hydrophilic Mucilloid (Psyllium Seed 3.7 Gm Packet) 3.7 gm PO BID [facility] Last Admin: 06/24/23 20:58 Dose: 3.7 gm Trazodone HCl (Trazodone Hcl 50 Mg Tablet) 50 mg PO BEDTIME MRX1 PRN PRN Reason: Insomnia Last Admin: 06/24/23 20:57 Dose: 50 mg Trazodone HCl (Trazodone Hcl 100 Mg Tablet) 100 mg PO BEDTIME [facility] Last Admin: 06/25/23 20:34 Dose: 100 mg Verapamil HCl (Verapamil Hcl Sr 240 Mg Tablet.Er) 240 mg PO BEDTIME [facility]; Protocol Last Admin: 06/25/23 20:34 Dose: 240 mg Allergies Allergies Allergy/AdvReac Type Severity Reaction Status Date / Time amlodipine Allergy Unknown Verified 06/21/23 17:41 aspirin Allergy Rash Verified 06/21/23 17:41 atenolol Allergy Rash Verified 06/21/23 17:41 carbamazepine Allergy Unknown Verified 06/21/23 17:41 celecoxib Allergy Unknown Verified 06/21/23 17:41 ciprofloxacin Allergy Unknown Verified 06/21/23 17:41 erythromycin base Allergy Hives Verified 06/21/23 17:41 fluvastatin Allergy Unknown Verified 06/21/23 17:41 levofloxacin Allergy Unknown Verified 06/21/23 17:41 loratadine Allergy Unknown Verified 06/21/23 17:41 mercaptopurine Allergy Unknown Verified 06/21/23 17:41 naproxen Allergy Unknown Verified 06/21/23 17:41 pantoprazole Allergy Unknown Verified 06/21/23 17:41 Quinolones Allergy Unknown Verified 06/21/23 17:41 ranitidine Allergy Unknown Verified 06/21/23 17:41 sulfamethoxazole Allergy Unknown Verified 06/21/23 17:41 trimethoprim Allergy Unknown Verified 06/21/23 17:41 Assessment & Plan Assessment & Plan (1) Dementia: Status: Acute Code(s): F03.90 - Unspecified dementia, unspecified severity, without behavioral disturbance, psychotic disturbance, mood disturbance, and anxiety (2) Pervasive developmental disorder: Status: Acute Code(s): F84.9 - Pervasive developmental disorder, unspecified Plan Plan 1. Continue with same Trileptal 600 mg p.o. b.i.d.. 2. Increase Zyprexa up to 3.75 p.o. t.i.d.. 3. Rest the same Reason for continued inpatient stay Substantial Risk for: inability to function, rapid decompensation and med/psych decompensation Time Spent With Patient Time: Total time managing care of this patient today __20__ minutes.
[2023-06-26] MEDS: OLANZapine ODT 10 MG TAB.RAPDIS TRANSLINGU (16:58)
[2023-06-26 20:00] VITALS: BP 136/93; PULSE 77; RESP 16; TEMP 35.8; O2SAT 92
[2023-06-26] MEDS: Mirtazapine 7.5 MG TABLET PO (20:54)
[2023-06-26] MEDS: Donepezil HCl 10 MG TABLET PO (20:56)
[2023-06-26] MEDS: traZODone HCL 100 MG TABLET PO (20:56)
[2023-06-27 08:00] VITALS: BP 129/64; PULSE 86; RESP 18; TEMP 36.7; O2SAT 92
[2023-06-27] MEDS: OXcarbazepine 300 MG TABLET 600 MG PO ×2 (08:42→22:06)
[2023-06-27] MEDS: Memantine HCl 10 MG TABLET PO ×2 (08:44→22:08)
[2023-06-27] MEDS: DULoxetine HCl 60 MG CAPSULE.DR PO (08:44)
[2023-06-27] MEDS: Multivitamin TABLET 1 TAB PO (08:45)
[2023-06-27] MEDS: OLANZapine 2.5 MG TABLET 3.75 MG PO (08:46)
[2023-06-27] MEDS: levETIRAcetam Oral Soln 500 MG/5 ML 1500 MG PO ×2 (08:48→22:08)
--- NOTE | 2023-06-27 10:25 | HO.PSYCHPN ---
Subjective Subjective Date of Service: 06/27/23 Reason For Visit: Depression Subjective Notes: Conditional Voluntary Interim History: The nursing staff reported the patient is on one-to-one. She has urinated in the toilet yesterday. She had been yelling ambulate agitated sporadically. The social secretary reported that we have a family meeting with all his providers at 13:00 tomorrow. On interview the patient remains agitated at times on one-to-one due to cooperate file here. We are going to increase Zyprexa to 5 mg p.o. t.i.d.. Mental Status Exam Mental Status Exam Patient Appearance: Appropriate (On hospital gowns) Patient Orientation: Person Level of Consciousness: Awake Patient Behavior: Guarded and Passive Mood Description: Withdrawn Affect Description: Blunted Patient Cognition Impaired: Yes Ability to Follow Directions: Good Speech Pattern: Clear Hallucinations: None Delusions: Ideas of Reference Thought Process: Distracted and Slowed Thinking Thought Content: positive for [place] and positive for Poverty of Content Judgement: Fair Diagnostics Vital Signs (24Hr): Vital Signs - 24 hr 06/26/23 12:50 06/26/23 20:00 06/27/23 08:00 Temperature 97.5 F 96.4 F L 98.1 F Pulse Rate 104 H 77 86 Respiratory Rate 18 16 18 Blood Pressure 135/59 L 136/93 H 129/64 Pulse Oximetry 94 92 92 Oxygen Delivery Method Room Air Room Air Room Air BMI result Body Mass Index 23.3 Medications Medications Current Medications Acetaminophen (Acetaminophen 325 Mg Tablet) 650 mg PO Q6H PRN PRN Reason: Headache/Pain Mild Scale (1-3) Last Admin: 06/26/23 12:37 Dose: 650 mg Al Hydroxide/Mg Hydroxide (Magnesium Hydrox/Alum Hydrox 30 Ml Oral.Susp) 30 ml PO Q6H PRN PRN Reason: Heartburn/Nausea Calcium Carbonate (Calcium Carbonate 750 Mg Tab.Chew) 750 mg PO DAILY PRN PRN Reason: ACID REFLUX Docusate Sodium (Docusate Sodium 100 Mg Capsule) 100 mg PO DAILY [facility] Last Admin: 06/24/23 10:13 Dose: Not Given Donepezil HCl (Donepezil Hcl 10 Mg Tablet) 10 mg PO BEDTIME [facility] Last Admin: 06/26/23 20:56 Dose: 10 mg Duloxetine HCl (Duloxetine Hcl 60 Mg Capsule.Dr) 60 mg PO DAILY [facility] Last Admin: 06/27/23 08:44 Dose: 60 mg Hydroxyzine HCl (Hydroxyzine Hcl 25 Mg Tablet) 25 mg PO Q6H PRN PRN Reason: Anxiety Last Admin: 06/26/23 11:37 Dose: 25 mg Levetiracetam (Levetiracetam Oral Soln 500 Mg/5 Ml) 1,500 mg PO BID [facility] Last Admin: 06/27/23 08:48 Dose: 1,500 mg Magnesium Hydroxide (Milk Of Magnesia 30 Ml Oral.Susp) 30 ml PO DAILY PRN PRN Reason: Constipation Memantine (Memantine Hcl 10 Mg Tablet) 10 mg PO BID [facility] Last Admin: 06/27/23 08:44 Dose: 10 mg Mirtazapine (Mirtazapine 7.5 Mg Tablet) 7.5 mg PO BEDTIME [facility] Last Admin: 06/26/23 20:54 Dose: 7.5 mg Multivitamins/Vitamin C (Multivitamin Tablet) 1 tab PO DAILY [facility] Last Admin: 06/27/23 08:45 Dose: 1 tab Olanzapine (Olanzapine Odt 10 Mg Tab.Rapdis) 10 mg TRANSLINGU BID PRN PRN Reason: Psychosis Last Admin: 06/26/23 16:58 Dose: 10 mg Olanzapine (Olanzapine 5 Mg Tablet) 5 mg PO TID [facility] Oxcarbazepine (Oxcarbazepine 300 Mg Tablet) 600 mg PO BID [facility] Last Admin: 06/27/23 08:42 Dose: 600 mg Psyllium Hydrophilic Mucilloid (Psyllium Seed 3.7 Gm Packet) 3.7 gm PO BID [facility] Last Admin: 06/24/23 20:58 Dose: 3.7 gm Trazodone HCl (Trazodone Hcl 50 Mg Tablet) 50 mg PO BEDTIME MRX1 PRN PRN Reason: Insomnia Last Admin: 06/24/23 20:57 Dose: 50 mg Trazodone HCl (Trazodone Hcl 100 Mg Tablet) 100 mg PO BEDTIME [facility] Last Admin: 06/26/23 20:56 Dose: 100 mg Verapamil HCl (Verapamil Hcl Sr 240 Mg Tablet.Er) 240 mg PO BEDTIME [facility]; Protocol Last Admin: 06/26/23 22:31 Dose: Not Given Allergies Allergies Allergy/AdvReac Type Severity Reaction Status Date / Time amlodipine Allergy Unknown Verified 06/21/23 17:41 aspirin Allergy Rash Verified 06/21/23 17:41 atenolol Allergy Rash Verified 06/21/23 17:41 carbamazepine Allergy Unknown Verified 06/21/23 17:41 celecoxib Allergy Unknown Verified 06/21/23 17:41 ciprofloxacin Allergy Unknown Verified 06/21/23 17:41 erythromycin base Allergy Hives Verified 06/21/23 17:41 fluvastatin Allergy Unknown Verified 06/21/23 17:41 levofloxacin Allergy Unknown Verified 06/21/23 17:41 loratadine Allergy Unknown Verified 06/21/23 17:41 mercaptopurine Allergy Unknown Verified 06/21/23 17:41 naproxen Allergy Unknown Verified 06/21/23 17:41 pantoprazole Allergy Unknown Verified 06/21/23 17:41 Quinolones Allergy Unknown Verified 06/21/23 17:41 ranitidine Allergy Unknown Verified 06/21/23 17:41 sulfamethoxazole Allergy Unknown Verified 06/21/23 17:41 trimethoprim Allergy Unknown Verified 06/21/23 17:41 Assessment & Plan Assessment & Plan (1) Dementia: Status: Acute Code(s): F03.90 - Unspecified dementia, unspecified severity, without behavioral disturbance, psychotic disturbance, mood disturbance, and anxiety (2) Pervasive developmental disorder: Status: Acute Code(s): F84.9 - Pervasive developmental disorder, unspecified Plan Plan 1. Continue with same Trileptal 600 mg p.o. b.i.d.. 2. Increase Zyprexa up to 3.75 p.o. t.i.d.. On June 26 we are going to increase to 5 mg p.o. t.i.d. 3. Rest the same Reason for continued inpatient stay Substantial Risk for: inability to function, rapid decompensation and med/psych decompensation Time Spent With Patient Time: Total time managing care of this patient today __20__ minutes.
--- NOTE | 2023-06-27 14:19 | PC.NURSE ---
Patient incontinent of an extra large amount of foul smelling loose stool with mucous . Patient cleaned with assist of 4. New order to send stool for C Diff obtained. Stool spec obtained and sent to lab.
[2023-06-27] MEDS: OLANZapine 5 MG TABLET PO ×2 (14:33→22:06)
[2023-06-27 16:16] LABS: CDiff Gene PCR NEGATIVE (Negative)
--- NOTE | 2023-06-27 17:14 | PC.NURSE ---
C Diff culture was negative for C Diff today.
[2023-06-27 20:00] VITALS: BP 135/88; PULSE 84; RESP 16; TEMP 36.6; O2SAT 95
[2023-06-27] MEDS: Loperamide HCl 2 MG CAPSULE 4 MG PO (21:56)
[2023-06-27] MEDS: Mirtazapine 7.5 MG TABLET PO (22:05)
[2023-06-27] MEDS: traZODone HCL 100 MG TABLET PO (22:06)
[2023-06-27] MEDS: Donepezil HCl 10 MG TABLET PO (22:08)
[2023-06-27] MEDS: Acetaminophen 325 MG TABLET 650 MG PO (22:51)
[2023-06-27] MEDS: hydrOXYzine HCL 25 MG TABLET PO (22:51)
[2023-06-27] MEDS: OLANZapine ODT 10 MG TAB.RAPDIS TRANSLINGU (22:52)
[2023-06-28] MEDS: traZODone HCL 50 MG TABLET PO (02:35)
[2023-06-28 07:00] VITALS: BMI 25.1
[2023-06-28] MEDS: Multivitamin TABLET 1 TAB PO (09:01)
[2023-06-28] MEDS: OLANZapine 5 MG TABLET PO ×3 (09:01→21:01)
[2023-06-28] MEDS: Memantine HCl 10 MG TABLET PO ×2 (09:01→21:00)
[2023-06-28] MEDS: DULoxetine HCl 60 MG CAPSULE.DR PO (09:01)
[2023-06-28] MEDS: OXcarbazepine 300 MG TABLET 600 MG PO ×2 (09:01→21:01)
[2023-06-28] MEDS: hydrOXYzine HCL 25 MG TABLET PO ×2 (09:01→15:16)
[2023-06-28] MEDS: levETIRAcetam Oral Soln 500 MG/5 ML 1500 MG PO ×2 (09:01→21:00)
[2023-06-28 09:41] VITALS: BP 125/81; PULSE 85; RESP 16; TEMP 36.7; O2SAT 92
[2023-06-28] MEDS: Loperamide HCl 2 MG CAPSULE 4 MG PO (12:14)
--- NOTE | 2023-06-28 13:58 | HO.PSYCHPN ---
Subjective Subjective Date of Service: 06/28/23 Reason For Visit: Depression Subjective Notes: Conditional Voluntary Healthcare Proxy: Yes Interim History: The nursing staff reported that the patient had been agitated and yelling screaming resistant with care. Her Clostridium diff easily test came back negative. She had been restless self dialogue in responding to internal stimuli agitated at times. Today we had a family meeting with all his providers and explained the treatment plan that we increase the Trileptal and increased Zyprexa with limited improvement most likely will have to add a 3rd agent next week. On interview the patient is confused but easily redirectable at this moment. Mental Status Exam Mental Status Exam Patient Appearance: Disheveled Patient Orientation: Person Level of Consciousness: Awake Patient Behavior: Guarded and Passive Mood Description: Withdrawn Affect Description: Constricted Patient Cognition Impaired: Yes Ability to Follow Directions: Poor Speech Pattern: Impoverished Hallucinations: Visual Delusions: Paranoid Ideation and Ideas of Reference Thought Process: Distracted and Slowed Thinking Thought Content: positive for [place] and positive for Poverty of Content Judgement: Poor Diagnostics Vital Signs (24Hr): Vital Signs - 24 hr 06/27/23 20:00 06/28/23 09:41 Temperature 98 F 98.1 F Pulse Rate 84 85 Respiratory Rate 16 16 Blood Pressure 135/88 125/81 Pulse Oximetry 95 92 Oxygen Delivery Method Room Air Room Air BMI result Body Mass Index 25.1 Labs Labs: Laboratory Results - last 48 hr 06/27/23 13:50 C. difficile Tox B Gene NEGATIVE Medications Medications Current Medications Acetaminophen (Acetaminophen 325 Mg Tablet) 650 mg PO Q6H PRN PRN Reason: Headache/Pain Mild Scale (1-3) Last Admin: 06/27/23 22:51 Dose: 650 mg Al Hydroxide/Mg Hydroxide (Magnesium Hydrox/Alum Hydrox 30 Ml Oral.Susp) 30 ml PO Q6H PRN PRN Reason: Heartburn/Nausea Calcium Carbonate (Calcium Carbonate 750 Mg Tab.Chew) 750 mg PO DAILY PRN PRN Reason: ACID REFLUX Docusate Sodium (Docusate Sodium 100 Mg Capsule) 100 mg PO DAILY [facility] Last Admin: 06/24/23 10:13 Dose: Not Given Donepezil HCl (Donepezil Hcl 10 Mg Tablet) 10 mg PO BEDTIME [facility] Last Admin: 06/27/23 22:08 Dose: 10 mg Duloxetine HCl (Duloxetine Hcl 60 Mg Capsule.Dr) 60 mg PO DAILY [facility] Last Admin: 06/28/23 09:01 Dose: 60 mg Hydroxyzine HCl (Hydroxyzine Hcl 25 Mg Tablet) 25 mg PO Q6H PRN PRN Reason: Anxiety Last Admin: 06/28/23 09:01 Dose: 25 mg Levetiracetam (Levetiracetam Oral Soln 500 Mg/5 Ml) 1,500 mg PO BID [facility] Last Admin: 06/28/23 09:01 Dose: 1,500 mg Loperamide HCl (Loperamide Hcl 2 Mg Capsule) 4 mg PO Q6H PRN PRN Reason: Diarrhea Last Admin: 06/28/23 12:14 Dose: 4 mg Magnesium Hydroxide (Milk Of Magnesia 30 Ml Oral.Susp) 30 ml PO DAILY PRN PRN Reason: Constipation Memantine (Memantine Hcl 10 Mg Tablet) 10 mg PO BID [facility] Last Admin: 06/28/23 09:01 Dose: 10 mg Mirtazapine (Mirtazapine 7.5 Mg Tablet) 7.5 mg PO BEDTIME [facility] Last Admin: 06/27/23 22:05 Dose: 7.5 mg Multivitamins/Vitamin C (Multivitamin Tablet) 1 tab PO DAILY [facility] Last Admin: 06/28/23 09:01 Dose: 1 tab Olanzapine (Olanzapine Odt 10 Mg Tab.Rapdis) 10 mg TRANSLINGU BID PRN PRN Reason: Psychosis Last Admin: 06/27/23 22:52 Dose: 10 mg Olanzapine (Olanzapine 5 Mg Tablet) 5 mg PO TID [facility] Last Admin: 06/28/23 09:01 Dose: 5 mg Oxcarbazepine (Oxcarbazepine 300 Mg Tablet) 600 mg PO BID [facility] Last Admin: 06/28/23 09:01 Dose: 600 mg Psyllium Hydrophilic Mucilloid (Psyllium Seed 3.7 Gm Packet) 3.7 gm PO BID [facility] Last Admin: 06/24/23 20:58 Dose: 3.7 gm Trazodone HCl (Trazodone Hcl 50 Mg Tablet) 50 mg PO BEDTIME MRX1 PRN PRN Reason: Insomnia Last Admin: 06/28/23 02:35 Dose: 50 mg Trazodone HCl (Trazodone Hcl 100 Mg Tablet) 100 mg PO BEDTIME [facility] Last Admin: 06/27/23 22:06 Dose: 100 mg Verapamil HCl (Verapamil Hcl Sr 240 Mg Tablet.Er) 240 mg PO BEDTIME [facility]; Protocol Last Admin: 06/27/23 21:04 Dose: Not Given Allergies Allergies Allergy/AdvReac Type Severity Reaction Status Date / Time amlodipine Allergy Unknown Verified 06/21/23 17:41 aspirin Allergy Rash Verified 06/21/23 17:41 atenolol Allergy Rash Verified 06/21/23 17:41 carbamazepine Allergy Unknown Verified 06/21/23 17:41 celecoxib Allergy Unknown Verified 06/21/23 17:41 ciprofloxacin Allergy Unknown Verified 06/21/23 17:41 erythromycin base Allergy Hives Verified 06/21/23 17:41 fluvastatin Allergy Unknown Verified 06/21/23 17:41 levofloxacin Allergy Unknown Verified 06/21/23 17:41 loratadine Allergy Unknown Verified 06/21/23 17:41 mercaptopurine Allergy Unknown Verified 06/21/23 17:41 naproxen Allergy Unknown Verified 06/21/23 17:41 pantoprazole Allergy Unknown Verified 06/21/23 17:41 Quinolones Allergy Unknown Verified 06/21/23 17:41 ranitidine Allergy Unknown Verified 06/21/23 17:41 sulfamethoxazole Allergy Unknown Verified 06/21/23 17:41 trimethoprim Allergy Unknown Verified 06/21/23 17:41 Assessment & Plan Assessment & Plan (1) Dementia: Status: Acute Code(s): F03.90 - Unspecified dementia, unspecified severity, without behavioral disturbance, psychotic disturbance, mood disturbance, and anxiety (2) Pervasive developmental disorder: Status: Acute Code(s): F84.9 - Pervasive developmental disorder, unspecified Plan Plan 1. Continue with same Trileptal 600 mg p.o. b.i.d.. 2. Increase Zyprexa up to 3.75 p.o. t.i.d.. On June 26 we are going to increase to 5 mg p.o. t.i.d. 3. Rest the same Reason for continued inpatient stay Substantial Risk for: inability to function, rapid decompensation and med/psych decompensation Time Spent With Patient Time: Total time managing care of this patient today _20___ minutes.
[2023-06-28 20:00] VITALS: BP 135/73; PULSE 78; RESP 17; TEMP 36.1; O2SAT 94
[2023-06-28] MEDS: Donepezil HCl 10 MG TABLET PO (20:57)
[2023-06-28] MEDS: Mirtazapine 7.5 MG TABLET PO (21:00)
[2023-06-28] MEDS: traZODone HCL 100 MG TABLET PO (21:07)
[2023-06-28] MEDS: VerapamiL HCL SR 240 MG TABLET.ER PO (21:27)
[2023-06-29 08:00] VITALS: RESP 18
[2023-06-29] MEDS: Multivitamin TABLET 1 TAB PO (10:46)
[2023-06-29] MEDS: DULoxetine HCl 60 MG CAPSULE.DR PO (10:46)
[2023-06-29] MEDS: OLANZapine 5 MG TABLET PO ×3 (10:46→21:51)
[2023-06-29] MEDS: OXcarbazepine 300 MG TABLET 600 MG PO ×2 (10:46→21:51)
[2023-06-29] MEDS: Memantine HCl 10 MG TABLET PO ×2 (10:46→21:51)
[2023-06-29] MEDS: hydrOXYzine HCL 25 MG TABLET PO (10:46)
[2023-06-29] MEDS: levETIRAcetam Oral Soln 500 MG/5 ML 1500 MG PO ×2 (10:46→21:50)
--- NOTE | 2023-06-29 13:29 | HO.PSYCHPN ---
Subjective Subjective Date of Service: 06/29/23 Reason For Visit: Depression Subjective Notes: Conditional Voluntary Interim History: The nursing staff reported the patient had been agitated at times she had a large bowel movement yesterday and she was showered she had been confused agitated and trying to hit staff. The occupational therapy reported that his mobility is impaired and apparently at baseline she is ambulatory by herself. On interview the patient is confused still responding to internal stimuli. We are ordering blood work for tomorrow Mental Status Exam Mental Status Exam Patient Appearance: Appropriate Patient Orientation: Person Level of Consciousness: Awake Patient Behavior: Guarded and Passive Mood Description: Withdrawn Affect Description: Constricted Patient Cognition Impaired: Yes Ability to Follow Directions: Good Speech Pattern: Clear Hallucinations: None Delusions: Paranoid Ideation and Ideas of Reference Thought Process: Distracted and Slowed Thinking Thought Content: positive for [place] and positive for Poverty of Content Judgement: Fair Diagnostics Vital Signs (24Hr): Vital Signs - 24 hr 06/28/23 20:00 Temperature 96.9 F Pulse Rate 78 Respiratory Rate 17 Blood Pressure 135/73 Pulse Oximetry 94 Oxygen Delivery Method Room Air BMI result Body Mass Index 25.1 Labs Labs: Laboratory Results - last 48 hr 06/27/23 13:50 C. difficile Tox B Gene NEGATIVE Medications Medications Current Medications Acetaminophen (Acetaminophen 325 Mg Tablet) 650 mg PO Q6H PRN PRN Reason: Headache/Pain Mild Scale (1-3) Last Admin: 06/27/23 22:51 Dose: 650 mg Al Hydroxide/Mg Hydroxide (Magnesium Hydrox/Alum Hydrox 30 Ml Oral.Susp) 30 ml PO Q6H PRN PRN Reason: Heartburn/Nausea Calcium Carbonate (Calcium Carbonate 750 Mg Tab.Chew) 750 mg PO DAILY PRN PRN Reason: ACID REFLUX Docusate Sodium (Docusate Sodium 100 Mg Capsule) 100 mg PO DAILY [facility] Last Admin: 06/24/23 10:13 Dose: Not Given Donepezil HCl (Donepezil Hcl 10 Mg Tablet) 10 mg PO BEDTIME [facility] Last Admin: 06/28/23 20:57 Dose: 10 mg Duloxetine HCl (Duloxetine Hcl 60 Mg Capsule.Dr) 60 mg PO DAILY [facility] Last Admin: 06/29/23 10:46 Dose: 60 mg Hydroxyzine HCl (Hydroxyzine Hcl 25 Mg Tablet) 25 mg PO Q6H PRN PRN Reason: Anxiety Last Admin: 06/29/23 10:46 Dose: 25 mg Levetiracetam (Levetiracetam Oral Soln 500 Mg/5 Ml) 1,500 mg PO BID [facility] Last Admin: 06/29/23 10:46 Dose: 1,500 mg Loperamide HCl (Loperamide Hcl 2 Mg Capsule) 4 mg PO Q6H PRN PRN Reason: Diarrhea Last Admin: 06/28/23 12:14 Dose: 4 mg Magnesium Hydroxide (Milk Of Magnesia 30 Ml Oral.Susp) 30 ml PO DAILY PRN PRN Reason: Constipation Memantine (Memantine Hcl 10 Mg Tablet) 10 mg PO BID [facility] Last Admin: 06/29/23 10:46 Dose: 10 mg Mirtazapine (Mirtazapine 7.5 Mg Tablet) 7.5 mg PO BEDTIME [facility] Last Admin: 06/28/23 21:00 Dose: 7.5 mg Multivitamins/Vitamin C (Multivitamin Tablet) 1 tab PO DAILY [facility] Last Admin: 06/29/23 10:46 Dose: 1 tab Olanzapine (Olanzapine Odt 10 Mg Tab.Rapdis) 10 mg TRANSLINGU BID PRN PRN Reason: Psychosis Last Admin: 06/27/23 22:52 Dose: 10 mg Olanzapine (Olanzapine 5 Mg Tablet) 5 mg PO TID [facility] Last Admin: 06/29/23 10:46 Dose: 5 mg Oxcarbazepine (Oxcarbazepine 300 Mg Tablet) 600 mg PO BID [facility] Last Admin: 06/29/23 10:46 Dose: 600 mg Psyllium Hydrophilic Mucilloid (Psyllium Seed 3.7 Gm Packet) 3.7 gm PO BID [facility] Last Admin: 06/24/23 20:58 Dose: 3.7 gm Trazodone HCl (Trazodone Hcl 50 Mg Tablet) 50 mg PO BEDTIME MRX1 PRN PRN Reason: Insomnia Last Admin: 06/28/23 02:35 Dose: 50 mg Trazodone HCl (Trazodone Hcl 100 Mg Tablet) 100 mg PO BEDTIME [facility] Last Admin: 06/28/23 21:07 Dose: 100 mg Verapamil HCl (Verapamil Hcl Sr 240 Mg Tablet.Er) 240 mg PO BEDTIME [facility]; Protocol Last Admin: 06/28/23 21:27 Dose: 240 mg Allergies Allergies Allergy/AdvReac Type Severity Reaction Status Date / Time amlodipine Allergy Unknown Verified 06/21/23 17:41 aspirin Allergy Rash Verified 06/21/23 17:41 atenolol Allergy Rash Verified 06/21/23 17:41 carbamazepine Allergy Unknown Verified 06/21/23 17:41 celecoxib Allergy Unknown Verified 06/21/23 17:41 ciprofloxacin Allergy Unknown Verified 06/21/23 17:41 erythromycin base Allergy Hives Verified 06/21/23 17:41 fluvastatin Allergy Unknown Verified 06/21/23 17:41 levofloxacin Allergy Unknown Verified 06/21/23 17:41 loratadine Allergy Unknown Verified 06/21/23 17:41 mercaptopurine Allergy Unknown Verified 06/21/23 17:41 naproxen Allergy Unknown Verified 06/21/23 17:41 pantoprazole Allergy Unknown Verified 06/21/23 17:41 Quinolones Allergy Unknown Verified 06/21/23 17:41 ranitidine Allergy Unknown Verified 06/21/23 17:41 sulfamethoxazole Allergy Unknown Verified 06/21/23 17:41 trimethoprim Allergy Unknown Verified 06/21/23 17:41 Assessment & Plan Assessment & Plan (1) Dementia: Status: Acute Code(s): F03.90 - Unspecified dementia, unspecified severity, without behavioral disturbance, psychotic disturbance, mood disturbance, and anxiety (2) Pervasive developmental disorder: Status: Acute Code(s): F84.9 - Pervasive developmental disorder, unspecified Plan Plan 1. Continue with same Trileptal 600 mg p.o. b.i.d.. 2. Increase Zyprexa up to 3.75 p.o. t.i.d.. On June 26 we are going to increase to 5 mg p.o. t.i.d. 3. Rest the same. 4. Blood work for tomorrow Reason for continued inpatient stay Substantial Risk for: inability to function, rapid decompensation and med/psych decompensation Time Spent With Patient Time: Total time managing care of this patient today __20__ minutes.
[2023-06-29 20:00] VITALS: BP 126/92; PULSE 107; RESP 18; TEMP 36.6; O2SAT 94
[2023-06-29] MEDS: Donepezil HCl 10 MG TABLET PO (21:50)
[2023-06-29] MEDS: traZODone HCL 100 MG TABLET PO (21:51)
[2023-06-29] MEDS: Mirtazapine 7.5 MG TABLET PO (21:51)
[2023-06-29] MEDS: VerapamiL HCL SR 240 MG TABLET.ER PO (21:53)
[2023-06-30 07:23] LABS: MANUAL DIFF FLAG NO
[2023-06-30 07:25] LABS: Basophils Percent Auto 0.5 % (0-2); Eosinophils Absolute Auto 0.2 X10*3/uL (0.0-0.4); Eosinophils Percent Auto 2.8 % (0-4); Hematocrit 39.4 % (37.0-47.0); Hemoglobin 13.2 g/dl (12.0-16.0); Imm Gran Abs Auto 0.02 X10*3/uL (0.00-0.03); Imm Gran Pct Auto 0.3 % (0.0-0.4); Lymphocytes Absolute Auto 2.2 X10*3/uL (1.2-4.9); Lymphocytes Percent Auto 29.1 % (20-40); Mean Corpuscular HGB Conc 33.5 g/dl (31.0-35.0); Mean Corpuscular Hemoglobin 32.6 pg (27.0-33.0); Mean Corpuscular Volume 97.3 fL (80.0-98.0); Mean Platelet Volume 8.7 fL (9.4-12.3); Monocytes Absolute Auto 0.6 X10*3/uL (0.1-1.2); Monocytes Percent Auto 8.6 % (2-11); Neutrophils Absolute Auto 4.4 x10*3/uL (2.0-8.3); Neutrophils Percent Auto 58.7 % (45-73); Platelet Count 241 X10*3/uL (160-400); Red Blood Count 4.05 X10*6/uL (4.20-5.50); Red Cell Distribution Width 12.3 % (11.0-16.0); White Blood Count 7.4 X10*3/uL (4.8-10.8)
[2023-06-30 07:47] LABS: Anion Gap 14 (12-20); Blood Urea Nitrogen 14 mg/dL (9-16); Calcium 9.7 mg/dL (8.4-10.2); Carbon Dioxide 26 mmol/L (22-29); Chloride 105 mmol/L (96-108); Cholesterol 229 mg/dL (<200); Creatinine Clr Calc Pharmacy 95.6; Estimated Glomerular Filt Rate > 60; Glucose Random 92 mg/dL (60-115); HDL Cholesterol 40 mg/dL (>40); LDL Cholesterol Calculated 155 mg/dL (<100); Potassium 4.6 mmol/L (3.3-5.1); Sodium 140 mmol/L (135-145); Triglycerides 170 mg/dL (<150)
[2023-06-30] MEDS: Memantine HCl 10 MG TABLET PO ×2 (08:08→20:22)
[2023-06-30] MEDS: OXcarbazepine 300 MG TABLET 600 MG PO ×2 (08:08→20:22)
[2023-06-30] MEDS: Multivitamin TABLET 1 TAB PO (08:08)
[2023-06-30] MEDS: OLANZapine 5 MG TABLET PO ×3 (08:09→20:22)
[2023-06-30] MEDS: DULoxetine HCl 60 MG CAPSULE.DR PO (08:09)
[2023-06-30] MEDS: levETIRAcetam Oral Soln 500 MG/5 ML 1500 MG PO ×2 (08:09→20:22)
--- NOTE | 2023-06-30 08:55 | P.PNPSI_ITS ---
Subjective Subjective Date of Service: 06/30/23 Reason For Visit: Depression Subjective Notes: Conditional Voluntary Interim History: The nursing staff reported the patient woke up, he has been medication compliant yelling dimas cochran all the time. She still on one-to-one. The staff reported the patient has a soft bowel movement and she is incontinent of urine and feces. Today we did blood work and came up without abnormalities the usual slight hyperlipidemia that was reported before but no new changes. On interview the patient is still very confused, the occupational therapist tried to work on her but she is severely impaired. Mental Status Exam Mental Status Exam Patient Appearance: Appropriate Patient Orientation: Person and Situation Level of Consciousness: Awake and Appropriate Patient Behavior: Guarded and Passive Mood Description: Withdrawn Affect Description: Constricted Patient Cognition Impaired: Yes Ability to Follow Directions: Good Speech Pattern: Clear Hallucinations: Auditory and Visual Delusions: Paranoid Ideation and Ideas of Reference Thought Process: Distracted and Slowed Thinking Thought Content: positive for [place] and positive for Thought Blocking Judgement: Poor Diagnostics Vital Signs (24Hr): Vital Signs - 24 hr 06/29/23 20:00 Temperature 97.8 F Pulse Rate 107 H Respiratory Rate 18 Blood Pressure 126/92 H Pulse Oximetry 94 Oxygen Delivery Method Room Air BMI result Body Mass Index 25.1 Labs 06/30/23 07:19 06/30/23 07:19 Labs: Laboratory Results - last 48 hr 06/30/23 07:19 WBC 7.4 RBC 4.05 L Hgb 13.2 Hct 39.4 MCV 97.3 MCH 32.6 MCHC 33.5 RDW 12.3 Plt Count 241 MPV 8.7 L Immature Gran % (Auto) 0.3 Neut % (Auto) 58.7 Lymph % (Auto) 29.1 [place] % (Auto) 8.6 Eos % (Auto) 2.8 Baso % (Auto) 0.5 Lymph # (Auto) 2.2 [place] # (Auto) 0.6 Eos # (Auto) 0.2 Baso # (Auto) 0.0 Abs Immat Gran (auto) 0.02 Absolute Neuts (auto) 4.4 Absolute Nucleated RBC 0.000 Nucleated RBC % (auto) 0.0 Sodium 140 Potassium 4.6 Chloride 105 Carbon Dioxide 26 Anion Gap 14 BUN 14 Creatinine 0.57 Estim Creat Clear Calc 95.6 Estimated GFR > 60 Random Glucose 92 Calcium 9.7 Triglycerides 170 H Cholesterol 229 H LDL Cholesterol, Calc 155 H HDL Cholesterol 40 L Medications Medications Current Medications Acetaminophen (Acetaminophen 325 Mg Tablet) 650 mg PO Q6H PRN PRN Reason: Headache/Pain Mild Scale (1-3) Last Admin: 06/27/23 22:51 Dose: 650 mg Al Hydroxide/Mg Hydroxide (Magnesium Hydrox/Alum Hydrox 30 Ml Oral.Susp) 30 ml PO Q6H PRN PRN Reason: Heartburn/Nausea Calcium Carbonate (Calcium Carbonate 750 Mg Tab.Chew) 750 mg PO DAILY PRN PRN Reason: ACID REFLUX Docusate Sodium (Docusate Sodium 100 Mg Capsule) 100 mg PO DAILY [facility] Last Admin: 06/24/23 10:13 Dose: Not Given Donepezil HCl (Donepezil Hcl 10 Mg Tablet) 10 mg PO BEDTIME [facility] Last Admin: 06/29/23 21:50 Dose: 10 mg Duloxetine HCl (Duloxetine Hcl 60 Mg Capsule.Dr) 60 mg PO DAILY [facility] Last Admin: 06/30/23 08:09 Dose: 60 mg Hydroxyzine HCl (Hydroxyzine Hcl 25 Mg Tablet) 25 mg PO Q6H PRN PRN Reason: Anxiety Last Admin: 06/29/23 10:46 Dose: 25 mg Levetiracetam (Levetiracetam Oral Soln 500 Mg/5 Ml) 1,500 mg PO BID [facility] Last Admin: 06/30/23 08:09 Dose: 1,500 mg Loperamide HCl (Loperamide Hcl 2 Mg Capsule) 4 mg PO Q6H PRN PRN Reason: Diarrhea Last Admin: 06/28/23 12:14 Dose: 4 mg Magnesium Hydroxide (Milk Of Magnesia 30 Ml Oral.Susp) 30 ml PO DAILY PRN PRN Reason: Constipation Memantine (Memantine Hcl 10 Mg Tablet) 10 mg PO BID [facility] Last Admin: 06/30/23 08:08 Dose: 10 mg Mirtazapine (Mirtazapine 7.5 Mg Tablet) 7.5 mg PO BEDTIME [facility] Last Admin: 06/29/23 21:51 Dose: 7.5 mg Multivitamins/Vitamin C (Multivitamin Tablet) 1 tab PO DAILY [facility] Last Admin: 06/30/23 08:08 Dose: 1 tab Olanzapine (Olanzapine Odt 10 Mg Tab.Rapdis) 10 mg TRANSLINGU BID PRN PRN Reason: Psychosis Last Admin: 06/27/23 22:52 Dose: 10 mg Olanzapine (Olanzapine 5 Mg Tablet) 5 mg PO TID [facility] Last Admin: 06/30/23 08:09 Dose: 5 mg Oxcarbazepine (Oxcarbazepine 300 Mg Tablet) 600 mg PO BID [facility] Last Admin: 06/30/23 08:08 Dose: 600 mg Psyllium Hydrophilic Mucilloid (Psyllium Seed 3.7 Gm Packet) 3.7 gm PO BID [facility] Last Admin: 06/24/23 20:58 Dose: 3.7 gm Trazodone HCl (Trazodone Hcl 50 Mg Tablet) 50 mg PO BEDTIME MRX1 PRN PRN Reason: Insomnia Last Admin: 06/28/23 02:35 Dose: 50 mg Trazodone HCl (Trazodone Hcl 100 Mg Tablet) 100 mg PO BEDTIME [facility] Last Admin: 06/29/23 21:51 Dose: 100 mg Verapamil HCl (Verapamil Hcl Sr 240 Mg Tablet.Er) 240 mg PO BEDTIME [facility]; Protocol Last Admin: 06/29/23 21:53 Dose: 240 mg Allergies Allergies Allergy/AdvReac Type Severity Reaction Status Date / Time amlodipine Allergy Unknown Verified 06/21/23 17:41 aspirin Allergy Rash Verified 06/21/23 17:41 atenolol Allergy Rash Verified 06/21/23 17:41 carbamazepine Allergy Unknown Verified 06/21/23 17:41 celecoxib Allergy Unknown Verified 06/21/23 17:41 ciprofloxacin Allergy Unknown Verified 06/21/23 17:41 erythromycin base Allergy Hives Verified 06/21/23 17:41 fluvastatin Allergy Unknown Verified 06/21/23 17:41 levofloxacin Allergy Unknown Verified 06/21/23 17:41 loratadine Allergy Unknown Verified 06/21/23 17:41 mercaptopurine Allergy Unknown Verified 06/21/23 17:41 naproxen Allergy Unknown Verified 06/21/23 17:41 pantoprazole Allergy Unknown Verified 06/21/23 17:41 Quinolones Allergy Unknown Verified 06/21/23 17:41 ranitidine Allergy Unknown Verified 06/21/23 17:41 sulfamethoxazole Allergy Unknown Verified 06/21/23 17:41 trimethoprim Allergy Unknown Verified 06/21/23 17:41 Assessment & Plan Assessment & Plan (1) Dementia: Status: Acute Code(s): F03.90 - Unspecified dementia, unspecified severity, without behavioral disturbance, psychotic disturbance, mood disturbance, and anxiety (2) Pervasive developmental disorder: Status: Acute Code(s): F84.9 - Pervasive developmental disorder, unspecified Plan Plan 1. Continue with same Trileptal 600 mg p.o. b.i.d.. 2. Increase Zyprexa up to 3.75 p.o. t.i.d.. On June 26 we are going to increase to 5 mg p.o. t.i.d. 3. Rest the same. 4. Blood work CBC and BMP within normal limits no changes slight high cholesterol Reason for continued inpatient stay Substantial Risk for: inability to function, rapid decompensation and med/psych decompensation Time Spent With Patient Time: Total time managing care of this patient today __20__ minutes.
[2023-06-30] MEDS: Acetaminophen 325 MG TABLET 650 MG PO (09:35)
[2023-06-30] MEDS: hydrOXYzine HCL 25 MG TABLET PO (09:35)
[2023-06-30 10:00] VITALS: PULSE 97; RESP 18; TEMP 36.3; O2SAT 93
[2023-06-30] MEDS: OLANZapine ODT 10 MG TAB.RAPDIS TRANSLINGU (16:30)
[2023-06-30 20:00] VITALS: BP 124/57; PULSE 83; RESP 17; TEMP 36.4; O2SAT 92
[2023-06-30] MEDS: Mirtazapine 7.5 MG TABLET PO (20:22)
[2023-06-30] MEDS: Donepezil HCl 10 MG TABLET PO (20:22)
[2023-06-30] MEDS: traZODone HCL 100 MG TABLET PO (20:22)
[2023-06-30] MEDS: VerapamiL HCL SR 240 MG TABLET.ER PO (20:22)
[2023-07-01 08:00] VITALS: BP 129/81; PULSE 100; RESP 18; TEMP 36.4; O2SAT 93
[2023-07-01] MEDS: OXcarbazepine 300 MG TABLET 600 MG PO ×2 (08:01→21:25)
[2023-07-01] MEDS: Multivitamin TABLET 1 TAB PO (08:01)
[2023-07-01] MEDS: OLANZapine 5 MG TABLET PO ×3 (08:01→21:27)
[2023-07-01] MEDS: DULoxetine HCl 60 MG CAPSULE.DR PO (08:01)
[2023-07-01] MEDS: Memantine HCl 10 MG TABLET PO ×2 (08:02→21:29)
[2023-07-01] MEDS: Acetaminophen 325 MG TABLET 650 MG PO ×3 (08:51→21:26)
[2023-07-01] MEDS: levETIRAcetam Oral Soln 500 MG/5 ML 1500 MG PO ×2 (09:17→21:12)
--- NOTE | 2023-07-01 09:44 | HO.PSYCHPN ---
Subjective Subjective Date of Service: 07/01/23 Reason For Visit: Depression Subjective Notes: Conditional Voluntary Healthcare Proxy: Yes Guardianship: Yes Interim History: The nursing staff reported has been irritable, loud at times, resistant with care. She slept 8 hours no changes in her mental status. On interview the patient is confused perseverative yelling dimas cochran . Her sister called and asked to talk with me, I called [phone] and left a message. Mental Status Exam Mental Status Exam Patient Orientation: Person Level of Consciousness: Awake Patient Behavior: Guarded Mood Description: Withdrawn Affect Description: Labile Patient Cognition Impaired: Yes Ability to Follow Directions: Fair Speech Pattern: Clear Hallucinations: None Delusions: Not Present Thought Process: Illogical Thought Content: positive for [place], positive for [place] and positive for Thought Blocking Judgement: Poor Diagnostics Vital Signs (24Hr): Vital Signs - 24 hr 06/30/23 10:00 06/30/23 20:00 07/01/23 08:00 Temperature 97.3 F 97.5 F 97.5 F Pulse Rate 97 83 100 Respiratory Rate 18 17 18 Blood Pressure 124/57 L 129/81 Pulse Oximetry 93 92 93 Oxygen Delivery Method Room Air Room Air Room Air BMI result Body Mass Index 25.1 Labs 06/30/23 07:19 06/30/23 07:19 Labs: Laboratory Results - last 48 hr 06/30/23 07:19 WBC 7.4 RBC 4.05 L Hgb 13.2 Hct 39.4 MCV 97.3 MCH 32.6 MCHC 33.5 RDW 12.3 Plt Count 241 MPV 8.7 L Immature Gran % (Auto) 0.3 Neut % (Auto) 58.7 Lymph % (Auto) 29.1 [place] % (Auto) 8.6 Eos % (Auto) 2.8 Baso % (Auto) 0.5 Lymph # (Auto) 2.2 [place] # (Auto) 0.6 Eos # (Auto) 0.2 Baso # (Auto) 0.0 Abs Immat Gran (auto) 0.02 Absolute Neuts (auto) 4.4 Absolute Nucleated RBC 0.000 Nucleated RBC % (auto) 0.0 Sodium 140 Potassium 4.6 Chloride 105 Carbon Dioxide 26 Anion Gap 14 BUN 14 Creatinine 0.57 Estim Creat Clear Calc 95.6 Estimated GFR > 60 Random Glucose 92 Calcium 9.7 Triglycerides 170 H Cholesterol 229 H LDL Cholesterol, Calc 155 H HDL Cholesterol 40 L Medications Medications Current Medications Acetaminophen (Acetaminophen 325 Mg Tablet) 650 mg PO Q6H PRN PRN Reason: Headache/Pain Mild Scale (1-3) Last Admin: 07/01/23 08:51 Dose: 650 mg Al Hydroxide/Mg Hydroxide (Magnesium Hydrox/Alum Hydrox 30 Ml Oral.Susp) 30 ml PO Q6H PRN PRN Reason: Heartburn/Nausea Calcium Carbonate (Calcium Carbonate 750 Mg Tab.Chew) 750 mg PO DAILY PRN PRN Reason: ACID REFLUX Docusate Sodium (Docusate Sodium 100 Mg Capsule) 100 mg PO DAILY [facility] Last Admin: 06/24/23 10:13 Dose: Not Given Donepezil HCl (Donepezil Hcl 10 Mg Tablet) 10 mg PO BEDTIME [facility] Last Admin: 06/30/23 20:22 Dose: 10 mg Duloxetine HCl (Duloxetine Hcl 60 Mg Capsule.Dr) 60 mg PO DAILY [facility] Last Admin: 07/01/23 08:01 Dose: 60 mg Hydroxyzine HCl (Hydroxyzine Hcl 25 Mg Tablet) 25 mg PO Q6H PRN PRN Reason: Anxiety Last Admin: 06/30/23 09:35 Dose: 25 mg Levetiracetam (Levetiracetam Oral Soln 500 Mg/5 Ml) 1,500 mg PO BID [facility] Last Admin: 07/01/23 09:17 Dose: 1,500 mg Loperamide HCl (Loperamide Hcl 2 Mg Capsule) 4 mg PO Q6H PRN PRN Reason: Diarrhea Last Admin: 06/28/23 12:14 Dose: 4 mg Magnesium Hydroxide (Milk Of Magnesia 30 Ml Oral.Susp) 30 ml PO DAILY PRN PRN Reason: Constipation Memantine (Memantine Hcl 10 Mg Tablet) 10 mg PO BID [facility] Last Admin: 07/01/23 08:02 Dose: 10 mg Mirtazapine (Mirtazapine 7.5 Mg Tablet) 7.5 mg PO BEDTIME [facility] Last Admin: 06/30/23 20:22 Dose: 7.5 mg Multivitamins/Vitamin C (Multivitamin Tablet) 1 tab PO DAILY [facility] Last Admin: 07/01/23 08:01 Dose: 1 tab Olanzapine (Olanzapine Odt 10 Mg Tab.Rapdis) 10 mg TRANSLINGU BID PRN PRN Reason: Psychosis Last Admin: 06/30/23 16:30 Dose: 10 mg Olanzapine (Olanzapine 5 Mg Tablet) 5 mg PO TID [facility] Last Admin: 07/01/23 08:01 Dose: 5 mg Oxcarbazepine (Oxcarbazepine 300 Mg Tablet) 600 mg PO BID [facility] Last Admin: 07/01/23 08:01 Dose: 600 mg Psyllium Hydrophilic Mucilloid (Psyllium Seed 3.7 Gm Packet) 3.7 gm PO BID [facility] Last Admin: 06/24/23 20:58 Dose: 3.7 gm Trazodone HCl (Trazodone Hcl 50 Mg Tablet) 50 mg PO BEDTIME MRX1 PRN PRN Reason: Insomnia Last Admin: 06/28/23 02:35 Dose: 50 mg Trazodone HCl (Trazodone Hcl 100 Mg Tablet) 100 mg PO BEDTIME [facility] Last Admin: 06/30/23 20:22 Dose: 100 mg Verapamil HCl (Verapamil Hcl Sr 240 Mg Tablet.Er) 240 mg PO BEDTIME [facility]; Protocol Last Admin: 06/30/23 20:22 Dose: 240 mg Allergies Allergies Allergy/AdvReac Type Severity Reaction Status Date / Time amlodipine Allergy Unknown Verified 06/21/23 17:41 aspirin Allergy Rash Verified 06/21/23 17:41 atenolol Allergy Rash Verified 06/21/23 17:41 carbamazepine Allergy Unknown Verified 06/21/23 17:41 celecoxib Allergy Unknown Verified 06/21/23 17:41 ciprofloxacin Allergy Unknown Verified 06/21/23 17:41 erythromycin base Allergy Hives Verified 06/21/23 17:41 fluvastatin Allergy Unknown Verified 06/21/23 17:41 levofloxacin Allergy Unknown Verified 06/21/23 17:41 loratadine Allergy Unknown Verified 06/21/23 17:41 mercaptopurine Allergy Unknown Verified 06/21/23 17:41 naproxen Allergy Unknown Verified 06/21/23 17:41 pantoprazole Allergy Unknown Verified 06/21/23 17:41 Quinolones Allergy Unknown Verified 06/21/23 17:41 ranitidine Allergy Unknown Verified 06/21/23 17:41 sulfamethoxazole Allergy Unknown Verified 06/21/23 17:41 trimethoprim Allergy Unknown Verified 06/21/23 17:41 Assessment & Plan Assessment & Plan (1) Dementia: Status: Acute Code(s): F03.90 - Unspecified dementia, unspecified severity, without behavioral disturbance, psychotic disturbance, mood disturbance, and anxiety (2) Pervasive developmental disorder: Status: Acute Code(s): F84.9 - Pervasive developmental disorder, unspecified Plan Plan 1. Continue with same Trileptal 600 mg p.o. b.i.d.. 2. Increase Zyprexa up to 3.75 p.o. t.i.d.. On June 26 we are going to increase to 5 mg p.o. t.i.d. 3. Rest the same. 4. Blood work CBC and BMP within normal limits no changes slight high cholesterol Reason for continued inpatient stay Substantial Risk for: inability to function, rapid decompensation and med/psych decompensation Time Spent With Patient Time: Total time managing care of this patient today __20__ minutes.
[2023-07-01] MEDS: hydrOXYzine HCL 25 MG TABLET PO ×2 (13:34→21:27)
[2023-07-01 20:00] VITALS: BP 134/63; PULSE 102; RESP 16; TEMP 36.7; O2SAT 94
[2023-07-01] MEDS: traZODone HCL 50 MG TABLET PO (21:26)
[2023-07-01] MEDS: traZODone HCL 100 MG TABLET PO (21:26)
[2023-07-01] MEDS: Mirtazapine 7.5 MG TABLET PO (21:27)
[2023-07-01] MEDS: Donepezil HCl 10 MG TABLET PO (21:27)
[2023-07-02] MEDS: OLANZapine ODT 10 MG TAB.RAPDIS TRANSLINGU (03:43)
[2023-07-02] MEDS: hydrOXYzine HCL 25 MG TABLET PO ×2 (03:43→20:43)
[2023-07-02] MEDS: Loperamide HCl 2 MG CAPSULE 4 MG PO (05:26)
[2023-07-02 08:00] VITALS: BP 124/60; PULSE 92; RESP 18; TEMP 36.8; O2SAT 94
[2023-07-02] MEDS: OLANZapine 5 MG TABLET PO ×3 (08:56→20:41)
[2023-07-02] MEDS: levETIRAcetam Oral Soln 500 MG/5 ML 1500 MG PO ×2 (08:56→20:41)
[2023-07-02] MEDS: Memantine HCl 10 MG TABLET PO ×2 (08:56→20:43)
[2023-07-02] MEDS: OXcarbazepine 300 MG TABLET 600 MG PO ×2 (08:56→20:41)
[2023-07-02] MEDS: Multivitamin TABLET 1 TAB PO (08:57)
[2023-07-02] MEDS: DULoxetine HCl 60 MG CAPSULE.DR PO (08:57)
--- NOTE | 2023-07-02 10:24 | HO.PSYCHPN ---
Subjective Subjective Date of Service: 07/02/23 Reason For Visit: Depression Subjective Notes: Conditional Voluntary (By healthcare proxy) Healthcare Proxy: Yes Interim History: The nursing staff reported the patient slept poorly, the occupational therapist is working on mobility. On interview the patient remains grossly disorganized but redirectable. Mental Status Exam Mental Status Exam Patient Appearance: Appropriate Patient Orientation: Person and Situation Level of Consciousness: Awake Patient Behavior: Guarded and Passive Mood Description: Withdrawn Affect Description: Constricted Patient Cognition Impaired: Yes Ability to Follow Directions: Good Speech Pattern: Clear Hallucinations: Auditory Delusions: Paranoid Ideation and Ideas of Reference Thought Process: Incoherent and Distracted Thought Content: positive for [place] and positive for Poverty of Content Judgement: Poor Diagnostics Vital Signs (24Hr): Vital Signs - 24 hr 07/01/23 20:00 07/02/23 08:00 Temperature 98.1 F 98.2 F Pulse Rate 102 H 92 Respiratory Rate 16 18 Blood Pressure 134/63 124/60 Pulse Oximetry 94 94 Oxygen Delivery Method Room Air Room Air BMI result Body Mass Index 25.1 Labs 06/30/23 07:19 06/30/23 07:19 Medications Medications Current Medications Acetaminophen (Acetaminophen 325 Mg Tablet) 650 mg PO Q6H PRN PRN Reason: Headache/Pain Mild Scale (1-3) Last Admin: 07/01/23 21:26 Dose: 650 mg Al Hydroxide/Mg Hydroxide (Magnesium Hydrox/Alum Hydrox 30 Ml Oral.Susp) 30 ml PO Q6H PRN PRN Reason: Heartburn/Nausea Calcium Carbonate (Calcium Carbonate 750 Mg Tab.Chew) 750 mg PO DAILY PRN PRN Reason: ACID REFLUX Docusate Sodium (Docusate Sodium 100 Mg Capsule) 100 mg PO DAILY [facility] Last Admin: 06/24/23 10:13 Dose: Not Given Donepezil HCl (Donepezil Hcl 10 Mg Tablet) 10 mg PO BEDTIME [facility] Last Admin: 07/01/23 21:27 Dose: 10 mg Duloxetine HCl (Duloxetine Hcl 60 Mg Capsule.Dr) 60 mg PO DAILY [facility] Last Admin: 07/02/23 08:57 Dose: 60 mg Hydroxyzine HCl (Hydroxyzine Hcl 25 Mg Tablet) 25 mg PO Q6H PRN PRN Reason: Anxiety Last Admin: 07/02/23 03:43 Dose: 25 mg Levetiracetam (Levetiracetam Oral Soln 500 Mg/5 Ml) 1,500 mg PO BID [facility] Last Admin: 07/02/23 08:56 Dose: 1,500 mg Loperamide HCl (Loperamide Hcl 2 Mg Capsule) 4 mg PO Q6H PRN PRN Reason: Diarrhea Last Admin: 07/02/23 05:26 Dose: 4 mg Magnesium Hydroxide (Milk Of Magnesia 30 Ml Oral.Susp) 30 ml PO DAILY PRN PRN Reason: Constipation Memantine (Memantine Hcl 10 Mg Tablet) 10 mg PO BID [facility] Last Admin: 07/02/23 08:56 Dose: 10 mg Mirtazapine (Mirtazapine 7.5 Mg Tablet) 7.5 mg PO BEDTIME [facility] Last Admin: 07/01/23 21:27 Dose: 7.5 mg Multivitamins/Vitamin C (Multivitamin Tablet) 1 tab PO DAILY [facility] Last Admin: 07/02/23 08:57 Dose: 1 tab Olanzapine (Olanzapine Odt 10 Mg Tab.Rapdis) 10 mg TRANSLINGU BID PRN PRN Reason: Psychosis Last Admin: 07/02/23 03:43 Dose: 10 mg Olanzapine (Olanzapine 5 Mg Tablet) 5 mg PO TID [facility] Last Admin: 07/02/23 08:56 Dose: 5 mg Oxcarbazepine (Oxcarbazepine 300 Mg Tablet) 600 mg PO BID [facility] Last Admin: 07/02/23 08:56 Dose: 600 mg Psyllium Hydrophilic Mucilloid (Psyllium Seed 3.7 Gm Packet) 3.7 gm PO BID [facility] Last Admin: 06/24/23 20:58 Dose: 3.7 gm Trazodone HCl (Trazodone Hcl 50 Mg Tablet) 50 mg PO BEDTIME MRX1 PRN PRN Reason: Insomnia Last Admin: 07/01/23 21:26 Dose: 50 mg Trazodone HCl (Trazodone Hcl 100 Mg Tablet) 100 mg PO BEDTIME [facility] Last Admin: 07/01/23 21:26 Dose: 100 mg Verapamil HCl (Verapamil Hcl Sr 240 Mg Tablet.Er) 240 mg PO BEDTIME [facility]; Protocol Last Admin: 07/01/23 21:48 Dose: Not Given Allergies Allergies Allergy/AdvReac Type Severity Reaction Status Date / Time amlodipine Allergy Unknown Verified 06/21/23 17:41 aspirin Allergy Rash Verified 06/21/23 17:41 atenolol Allergy Rash Verified 06/21/23 17:41 carbamazepine Allergy Unknown Verified 06/21/23 17:41 celecoxib Allergy Unknown Verified 06/21/23 17:41 ciprofloxacin Allergy Unknown Verified 06/21/23 17:41 erythromycin base Allergy Hives Verified 06/21/23 17:41 fluvastatin Allergy Unknown Verified 06/21/23 17:41 levofloxacin Allergy Unknown Verified 06/21/23 17:41 loratadine Allergy Unknown Verified 06/21/23 17:41 mercaptopurine Allergy Unknown Verified 06/21/23 17:41 naproxen Allergy Unknown Verified 06/21/23 17:41 pantoprazole Allergy Unknown Verified 06/21/23 17:41 Quinolones Allergy Unknown Verified 06/21/23 17:41 ranitidine Allergy Unknown Verified 06/21/23 17:41 sulfamethoxazole Allergy Unknown Verified 06/21/23 17:41 trimethoprim Allergy Unknown Verified 06/21/23 17:41 Assessment & Plan Assessment & Plan (1) Dementia: Status: Acute Code(s): F03.90 - Unspecified dementia, unspecified severity, without behavioral disturbance, psychotic disturbance, mood disturbance, and anxiety (2) Pervasive developmental disorder: Status: Acute Code(s): F84.9 - Pervasive developmental disorder, unspecified Plan Plan 1. Continue with same Trileptal 600 mg p.o. b.i.d.. 2. Increase Zyprexa up to 3.75 p.o. t.i.d.. On June 26 we are going to increase to 5 mg p.o. t.i.d. 3. Rest the same. 4. Blood work CBC and BMP within normal limits no changes slight high cholesterol Reason for continued inpatient stay Substantial Risk for: inability to function, rapid decompensation and med/psych decompensation Time Spent With Patient Time: Total time managing care of this patient today __20__ minutes.
[2023-07-02 20:00] VITALS: BP 155/88; PULSE 84; RESP 17; TEMP 36.1; O2SAT 94
[2023-07-02] MEDS: Donepezil HCl 10 MG TABLET PO (20:40)
[2023-07-02] MEDS: Mirtazapine 7.5 MG TABLET PO (20:41)
[2023-07-02] MEDS: VerapamiL HCL SR 240 MG TABLET.ER PO (20:41)
[2023-07-02] MEDS: traZODone HCL 100 MG TABLET PO (20:41)
[2023-07-02] MEDS: Acetaminophen 325 MG TABLET 650 MG PO (20:43)
[2023-07-03 08:19] VITALS: BP 151/102; PULSE 87; RESP 17; TEMP 36.8; O2SAT 94
[2023-07-03] MEDS: DULoxetine HCl 60 MG CAPSULE.DR PO (08:22)
[2023-07-03] MEDS: OLANZapine 5 MG TABLET PO ×3 (08:22→21:17)
[2023-07-03] MEDS: Multivitamin TABLET 1 TAB PO (08:22)
[2023-07-03] MEDS: OXcarbazepine 300 MG TABLET 600 MG PO ×2 (08:23→21:17)
[2023-07-03] MEDS: Memantine HCl 10 MG TABLET PO ×2 (08:23→21:17)
[2023-07-03] MEDS: levETIRAcetam Oral Soln 500 MG/5 ML 1500 MG PO ×2 (08:27→21:16)
--- NOTE | 2023-07-03 11:27 | HO.PSYCHPN ---
Subjective Subjective Date of Service: 07/03/23 Reason For Visit: Depression Subjective Notes: Conditional Voluntary (By healthcare proxy) Interim History: The nursing staff reported that yesterday the patient was better, she ate independently and walk 20 ft with help. She was yelling in the evening and she slept 8 hours. On interview the patient remains confused at times redirectable. On one-to-one for safety Mental Status Exam Mental Status Exam Patient Appearance: Appropriate Patient Orientation: Person Level of Consciousness: Awake Patient Behavior: Guarded and Suspicious Mood Description: Withdrawn Affect Description: Blunted Patient Cognition Impaired: Yes Ability to Follow Directions: Fair Speech Pattern: Impoverished and Monotone Hallucinations: None Delusions: Paranoid Ideation and Ideas of Reference Thought Process: Distracted and Slowed Thinking Thought Content: positive for [place] and positive for Poverty of Content Judgement: Poor Diagnostics Vital Signs (24Hr): Vital Signs - 24 hr 07/02/23 20:00 07/03/23 08:19 Temperature 97 F 98.2 F Pulse Rate 84 87 Respiratory Rate 17 17 Blood Pressure 155/88 H 151/102 H Pulse Oximetry 94 94 Oxygen Delivery Method Room Air Room Air BMI result Body Mass Index 25.1 Labs 06/30/23 07:19 06/30/23 07:19 Medications Medications Current Medications Acetaminophen (Acetaminophen 325 Mg Tablet) 650 mg PO Q6H PRN PRN Reason: Headache/Pain Mild Scale (1-3) Last Admin: 07/02/23 20:43 Dose: 650 mg Al Hydroxide/Mg Hydroxide (Magnesium Hydrox/Alum Hydrox 30 Ml Oral.Susp) 30 ml PO Q6H PRN PRN Reason: Heartburn/Nausea Calcium Carbonate (Calcium Carbonate 750 Mg Tab.Chew) 750 mg PO DAILY PRN PRN Reason: ACID REFLUX Docusate Sodium (Docusate Sodium 100 Mg Capsule) 100 mg PO DAILY [facility] BEDS AT [facility] Last Admin: 06/24/23 10:13 Dose: Not Given Donepezil HCl (Donepezil Hcl 10 Mg Tablet) 10 mg PO BEDTIME [facility] Last Admin: 07/02/23 20:40 Dose: 10 mg Duloxetine HCl (Duloxetine Hcl 60 Mg Capsule.Dr) 60 mg PO DAILY [facility] Last Admin: 07/03/23 08:22 Dose: 60 mg Hydroxyzine HCl (Hydroxyzine Hcl 25 Mg Tablet) 25 mg PO Q6H PRN PRN Reason: Anxiety Last Admin: 07/02/23 20:43 Dose: 25 mg Levetiracetam (Levetiracetam Oral Soln 500 Mg/5 Ml) 1,500 mg PO BID [facility]CLUDE 234 BEDS AT [facility] Last Admin: 07/03/23 08:27 Dose: 1,500 mg Loperamide HCl (Loperamide Hcl 2 Mg Capsule) 4 mg PO Q6H PRN PRN Reason: Diarrhea Last Admin: 07/02/23 05:26 Dose: 4 mg Magnesium Hydroxide (Milk Of Magnesia 30 Ml Oral.Susp) 30 ml PO DAILY PRN PRN Reason: Constipation Memantine (Memantine Hcl 10 Mg Tablet) 10 mg PO BID [facility] 234 BEDS AT [facility] Last Admin: 07/03/23 08:23 Dose: 10 mg Mirtazapine (Mirtazapine 7.5 Mg Tablet) 7.5 mg PO BEDTIME [facility] Last Admin: 07/02/23 20:41 Dose: 7.5 mg Multivitamins/Vitamin C (Multivitamin Tablet) 1 tab PO DAILY [facility] 234 BEDS AT [facility] Last Admin: 07/03/23 08:22 Dose: 1 tab Olanzapine (Olanzapine Odt 10 Mg Tab.Rapdis) 10 mg TRANSLINGU BID PRN PRN Reason: Psychosis Last Admin: 07/02/23 03:43 Dose: 10 mg Olanzapine (Olanzapine 5 Mg Tablet) 5 mg PO TID [facility] 234 BEDS AT [facility] Last Admin: 07/03/23 08:22 Dose: 5 mg Oxcarbazepine (Oxcarbazepine 300 Mg Tablet) 600 mg PO BID [facility]CLUDE 234 BEDS AT [facility] Last Admin: 07/03/23 08:23 Dose: 600 mg Psyllium Hydrophilic Mucilloid (Psyllium Seed 3.7 Gm Packet) 3.7 gm PO BID [facility] 234 BEDS AT [facility] Last Admin: 06/24/23 20:58 Dose: 3.7 gm Trazodone HCl (Trazodone Hcl 50 Mg Tablet) 50 mg PO BEDTIME MRX1 PRN PRN Reason: Insomnia Last Admin: 07/01/23 21:26 Dose: 50 mg Trazodone HCl (Trazodone Hcl 100 Mg Tablet) 100 mg PO BEDTIME [facility] Last Admin: 07/02/23 20:41 Dose: 100 mg Verapamil HCl (Verapamil Hcl Sr 240 Mg Tablet.Er) 240 mg PO BEDTIME [facility]CLUDE 234 BEDS AT [facility]; Protocol Last Admin: 07/02/23 20:41 Dose: 240 mg Allergies Allergies Allergy/AdvReac Type Severity Reaction Status Date / Time amlodipine Allergy Unknown Verified 06/21/23 17:41 aspirin Allergy Rash Verified 06/21/23 17:41 atenolol Allergy Rash Verified 06/21/23 17:41 carbamazepine Allergy Unknown Verified 06/21/23 17:41 celecoxib Allergy Unknown Verified 06/21/23 17:41 ciprofloxacin Allergy Unknown Verified 06/21/23 17:41 erythromycin base Allergy Hives Verified 06/21/23 17:41 fluvastatin Allergy Unknown Verified 06/21/23 17:41 levofloxacin Allergy Unknown Verified 06/21/23 17:41 loratadine Allergy Unknown Verified 06/21/23 17:41 mercaptopurine Allergy Unknown Verified 06/21/23 17:41 naproxen Allergy Unknown Verified 06/21/23 17:41 pantoprazole Allergy Unknown Verified 06/21/23 17:41 Quinolones Allergy Unknown Verified 06/21/23 17:41 ranitidine Allergy Unknown Verified 06/21/23 17:41 sulfamethoxazole Allergy Unknown Verified 06/21/23 17:41 trimethoprim Allergy Unknown Verified 06/21/23 17:41 Assessment & Plan Assessment & Plan (1) Dementia: Status: Acute Code(s): F03.90 - Unspecified dementia, unspecified severity, without behavioral disturbance, psychotic disturbance, mood disturbance, and anxiety (2) Pervasive developmental disorder: Status: Acute Code(s): F84.9 - Pervasive developmental disorder, unspecified Plan Plan 1. Continue with same Trileptal 600 mg p.o. b.i.d.. 2. Increase Zyprexa up to 3.75 p.o. t.i.d.. On June 26 we are going to increase to 5 mg p.o. t.i.d. 3. Rest the same. 4. Blood work CBC and BMP within normal limits no changes slight high cholesterol Reason for continued inpatient stay Substantial Risk for: inability to function, rapid decompensation and med/psych decompensation Time Spent With Patient Time: Total time managing care of this patient today __20__ minutes.
[2023-07-03 20:00] VITALS: BP 136/83; PULSE 98; RESP 18; TEMP 37; O2SAT 92
[2023-07-03] MEDS: Donepezil HCl 10 MG TABLET PO (21:16)
[2023-07-03] MEDS: VerapamiL HCL SR 240 MG TABLET.ER PO (21:17)
[2023-07-03] MEDS: traZODone HCL 100 MG TABLET PO (21:17)
[2023-07-03] MEDS: Mirtazapine 7.5 MG TABLET PO (21:17)
[2023-07-04] MEDS: Acetaminophen 325 MG TABLET 650 MG PO (06:23)
[2023-07-04] MEDS: hydrOXYzine HCL 25 MG TABLET PO ×2 (06:24→21:35)
[2023-07-04 08:00] VITALS: BP 120/65; PULSE 82; RESP 18; TEMP 36.7; O2SAT 92
[2023-07-04] MEDS: DULoxetine HCl 60 MG CAPSULE.DR PO (08:35)
[2023-07-04] MEDS: levETIRAcetam Oral Soln 500 MG/5 ML 1500 MG PO ×2 (08:35→21:31)
[2023-07-04] MEDS: OLANZapine 5 MG TABLET PO ×3 (08:35→21:36)
[2023-07-04] MEDS: Multivitamin TABLET 1 TAB PO (08:35)
[2023-07-04] MEDS: OXcarbazepine 300 MG TABLET 600 MG PO ×2 (08:35→21:34)
[2023-07-04] MEDS: Memantine HCl 10 MG TABLET PO ×2 (08:35→21:36)
--- NOTE | 2023-07-04 10:20 | P.PNPSI_ITS ---
Subjective Subjective Date of Service: 07/04/23 Reason For Visit: Depression Subjective Notes: Conditional Voluntary (By healthcare proxy) Healthcare Proxy: Yes Interim History: The patient have were all affect,, times but combative with care. The social sciences department chair reported that today the DS will come with the staff of the longterm at 11:00 o'clock. On interview the patient remains confused and blunted affect. We are adding trazodone 25 p.o. q.a.m. and q.p.m. to target irritability. Mental Status Exam Mental Status Exam Patient Appearance: Appropriate (On hospital gowns) and Unkempt Patient Orientation: Person Level of Consciousness: Awake Patient Behavior: Guarded and Passive Mood Description: Withdrawn Affect Description: Constricted Patient Cognition Impaired: Yes Ability to Follow Directions: Fair Speech Pattern: Clear Hallucinations: None Delusions: Not Present Thought Process: Distracted and Evasive Thought Content: positive for [place] and positive for Poverty of Content Judgement: Poor Diagnostics Vital Signs (24Hr): Vital Signs - 24 hr 07/03/23 20:00 07/04/23 08:00 Temperature 98.6 F 98.1 F Pulse Rate 98 82 Respiratory Rate 18 18 Blood Pressure 136/83 120/65 Pulse Oximetry 92 92 Oxygen Delivery Method Room Air BMI result Body Mass Index 25.1 Labs 06/30/23 07:19 06/30/23 07:19 Medications Medications Current Medications Acetaminophen (Acetaminophen 325 Mg Tablet) 650 mg PO Q6H PRN PRN Reason: Headache/Pain Mild Scale (1-3) Last Admin: 07/04/23 06:23 Dose: 650 mg Al Hydroxide/Mg Hydroxide (Magnesium Hydrox/Alum Hydrox 30 Ml Oral.Susp) 30 ml PO Q6H PRN PRN Reason: Heartburn/Nausea Calcium Carbonate (Calcium Carbonate 750 Mg Tab.Chew) 750 mg PO DAILY PRN PRN Reason: ACID REFLUX Docusate Sodium (Docusate Sodium 100 Mg Capsule) 100 mg PO DAILY [facility] Last Admin: 06/24/23 10:13 Dose: Not Given Donepezil HCl (Donepezil Hcl 10 Mg Tablet) 10 mg PO BEDTIME [facility] Last Admin: 07/03/23 21:16 Dose: 10 mg Duloxetine HCl (Duloxetine Hcl 60 Mg Capsule.Dr) 60 mg PO DAILY [facility] Last Admin: 07/04/23 08:35 Dose: 60 mg Hydroxyzine HCl (Hydroxyzine Hcl 25 Mg Tablet) 25 mg PO Q6H PRN PRN Reason: Anxiety Last Admin: 07/04/23 06:24 Dose: 25 mg Levetiracetam (Levetiracetam Oral Soln 500 Mg/5 Ml) 1,500 mg PO BID [facility] Last Admin: 07/04/23 08:35 Dose: 1,500 mg Loperamide HCl (Loperamide Hcl 2 Mg Capsule) 4 mg PO Q6H PRN PRN Reason: Diarrhea Last Admin: 07/02/23 05:26 Dose: 4 mg Magnesium Hydroxide (Milk Of Magnesia 30 Ml Oral.Susp) 30 ml PO DAILY PRN PRN Reason: Constipation Memantine (Memantine Hcl 10 Mg Tablet) 10 mg PO BID [facility] Last Admin: 07/04/23 08:35 Dose: 10 mg Mirtazapine (Mirtazapine 7.5 Mg Tablet) 7.5 mg PO BEDTIME [facility] Last Admin: 07/03/23 21:17 Dose: 7.5 mg Multivitamins/Vitamin C (Multivitamin Tablet) 1 tab PO DAILY [facility] Last Admin: 07/04/23 08:35 Dose: 1 tab Olanzapine (Olanzapine Odt 10 Mg Tab.Rapdis) 10 mg TRANSLINGU BID PRN PRN Reason: Psychosis Last Admin: 07/02/23 03:43 Dose: 10 mg Olanzapine (Olanzapine 5 Mg Tablet) 5 mg PO TID [facility] Last Admin: 07/04/23 08:35 Dose: 5 mg Oxcarbazepine (Oxcarbazepine 300 Mg Tablet) 600 mg PO BID [facility] Last Admin: 07/04/23 08:35 Dose: 600 mg Psyllium Hydrophilic Mucilloid (Psyllium Seed 3.7 Gm Packet) 3.7 gm PO BID [facility] Last Admin: 06/24/23 20:58 Dose: 3.7 gm Trazodone HCl (Trazodone Hcl 50 Mg Tablet) 50 mg PO BEDTIME MRX1 PRN PRN Reason: Insomnia Last Admin: 07/01/23 21:26 Dose: 50 mg Trazodone HCl (Trazodone Hcl 100 Mg Tablet) 100 mg PO BEDTIME [facility] Last Admin: 07/03/23 21:17 Dose: 100 mg Trazodone HCl (Trazodone Hcl 25 Mg Halftab) 25 mg PO BID@0830,1330 [facility] Verapamil HCl (Verapamil Hcl Sr 240 Mg Tablet.Er) 240 mg PO BEDTIME [facility]; Protocol Last Admin: 07/03/23 21:17 Dose: 240 mg Allergies Allergies Allergy/AdvReac Type Severity Reaction Status Date / Time amlodipine Allergy Unknown Verified 06/21/23 17:41 aspirin Allergy Rash Verified 06/21/23 17:41 atenolol Allergy Rash Verified 06/21/23 17:41 carbamazepine Allergy Unknown Verified 06/21/23 17:41 celecoxib Allergy Unknown Verified 06/21/23 17:41 ciprofloxacin Allergy Unknown Verified 06/21/23 17:41 erythromycin base Allergy Hives Verified 06/21/23 17:41 fluvastatin Allergy Unknown Verified 06/21/23 17:41 levofloxacin Allergy Unknown Verified 06/21/23 17:41 loratadine Allergy Unknown Verified 06/21/23 17:41 mercaptopurine Allergy Unknown Verified 06/21/23 17:41 naproxen Allergy Unknown Verified 06/21/23 17:41 pantoprazole Allergy Unknown Verified 06/21/23 17:41 Quinolones Allergy Unknown Verified 06/21/23 17:41 ranitidine Allergy Unknown Verified 06/21/23 17:41 sulfamethoxazole Allergy Unknown Verified 06/21/23 17:41 trimethoprim Allergy Unknown Verified 06/21/23 17:41 Assessment & Plan Assessment & Plan (1) Dementia: Status: Acute Code(s): F03.90 - Unspecified dementia, unspecified severity, without behavioral disturbance, psychotic disturbance, mood disturbance, and anxiety (2) Pervasive developmental disorder: Status: Acute Code(s): F84.9 - Pervasive developmental disorder, unspecified Plan Plan 1. Continue with same Trileptal 600 mg p.o. b.i.d.. 2. Increase Zyprexa up to 3.75 p.o. t.i.d.. On June 26 we are going to increase to 5 mg p.o. t.i.d. 3. Rest the same. 4. Blood work CBC and BMP within normal limits no changes slight high cholesterol. 5. Start trazodone 25 mg in the morning and in the afternoon and keep 100 at night. Started on July 03. Reason for continued inpatient stay Substantial Risk for: inability to function, rapid decompensation and med/psych decompensation Time Spent With Patient Time: Total time managing care of this patient today _20___ minutes.
[2023-07-04] MEDS: OLANZapine ODT 10 MG TAB.RAPDIS TRANSLINGU ×2 (11:02→21:30)
[2023-07-04] MEDS: traZODone HCL 25 MG HALFTAB PO (17:03)
[2023-07-04 20:00] VITALS: BP 148/69; PULSE 80; RESP 18; TEMP 36.6; O2SAT 95
[2023-07-04] MEDS: Donepezil HCl 10 MG TABLET PO (21:34)
[2023-07-04 21:35] VITALS: BP 148/69; PULSE 80
[2023-07-04] MEDS: Mirtazapine 7.5 MG TABLET PO (21:35)
[2023-07-04] MEDS: VerapamiL HCL SR 240 MG TABLET.ER PO (21:35)
[2023-07-04] MEDS: traZODone HCL 100 MG TABLET PO (21:36)
[2023-07-05 08:00] VITALS: BP 143/82; PULSE 94; RESP 18; TEMP 36.7; O2SAT 93
--- NOTE | 2023-07-05 08:11 | HO.PSYCHPN ---
Subjective Subjective Date of Service: 07/05/23 Reason For Visit: Depression Subjective Notes: Conditional Voluntary (By healthcare proxy) Healthcare Proxy: Yes Interim History: The nursing staff reported the patient remains on one-to-one for safety, she still confused and agitated, combative with care. On interview the patient denies any symptoms she looks internally preoccupied. Today we will have a meeting with his providers in the community. Mental Status Exam Mental Status Exam Patient Appearance: Appropriate Patient Orientation: Person and Situation Level of Consciousness: Awake Patient Behavior: Guarded and Passive Mood Description: Withdrawn Affect Description: Constricted Patient Cognition Impaired: Yes Ability to Follow Directions: Good Speech Pattern: Clear Hallucinations: None Delusions: Paranoid Ideation and Ideas of Reference Thought Process: Distracted and Slowed Thinking Thought Content: positive for [place], positive for Poverty of Content and positive for Thought Blocking Judgement: Poor Diagnostics Vital Signs (24Hr): Vital Signs - 24 hr 07/04/23 20:00 07/04/23 21:35 Temperature 98 F Pulse Rate 80 80 Respiratory Rate 18 Blood Pressure 148/69 H 148/69 H Pulse Oximetry 95 Oxygen Delivery Method Room Air BMI result Body Mass Index 25.1 Labs 06/30/23 07:19 06/30/23 07:19 Medications Medications Current Medications Acetaminophen (Acetaminophen 325 Mg Tablet) 650 mg PO Q6H PRN PRN Reason: Headache/Pain Mild Scale (1-3) Last Admin: 07/04/23 06:23 Dose: 650 mg Al Hydroxide/Mg Hydroxide (Magnesium Hydrox/Alum Hydrox 30 Ml Oral.Susp) 30 ml PO Q6H PRN PRN Reason: Heartburn/Nausea Calcium Carbonate (Calcium Carbonate 750 Mg Tab.Chew) 750 mg PO DAILY PRN PRN Reason: ACID REFLUX Docusate Sodium (Docusate Sodium 100 Mg Capsule) 100 mg PO DAILY [facility] Last Admin: 06/24/23 10:13 Dose: Not Given Donepezil HCl (Donepezil Hcl 10 Mg Tablet) 10 mg PO BEDTIME [facility] Last Admin: 07/04/23 21:34 Dose: 10 mg Duloxetine HCl (Duloxetine Hcl 60 Mg Capsule.Dr) 60 mg PO DAILY [facility] Last Admin: 07/04/23 08:35 Dose: 60 mg Hydroxyzine HCl (Hydroxyzine Hcl 25 Mg Tablet) 25 mg PO Q6H PRN PRN Reason: Anxiety Last Admin: 07/04/23 21:35 Dose: 25 mg Levetiracetam (Levetiracetam Oral Soln 500 Mg/5 Ml) 1,500 mg PO BID [facility] Last Admin: 07/04/23 21:31 Dose: 1,500 mg Loperamide HCl (Loperamide Hcl 2 Mg Capsule) 4 mg PO Q6H PRN PRN Reason: Diarrhea Last Admin: 07/02/23 05:26 Dose: 4 mg Magnesium Hydroxide (Milk Of Magnesia 30 Ml Oral.Susp) 30 ml PO DAILY PRN PRN Reason: Constipation Memantine (Memantine Hcl 10 Mg Tablet) 10 mg PO BID [facility] Last Admin: 07/04/23 21:36 Dose: 10 mg Mirtazapine (Mirtazapine 7.5 Mg Tablet) 7.5 mg PO BEDTIME [facility] Last Admin: 07/04/23 21:35 Dose: 7.5 mg Multivitamins/Vitamin C (Multivitamin Tablet) 1 tab PO DAILY [facility] Last Admin: 07/04/23 08:35 Dose: 1 tab Olanzapine (Olanzapine Odt 10 Mg Tab.Rapdis) 10 mg TRANSLINGU BID PRN PRN Reason: Psychosis Last Admin: 07/04/23 21:30 Dose: 10 mg Olanzapine (Olanzapine 5 Mg Tablet) 5 mg PO TID [facility] Last Admin: 07/04/23 21:36 Dose: 5 mg Oxcarbazepine (Oxcarbazepine 300 Mg Tablet) 600 mg PO BID [facility] Last Admin: 07/04/23 21:34 Dose: 600 mg Psyllium Hydrophilic Mucilloid (Psyllium Seed 3.7 Gm Packet) 3.7 gm PO BID [facility] Last Admin: 06/24/23 20:58 Dose: 3.7 gm Trazodone HCl (Trazodone Hcl 50 Mg Tablet) 50 mg PO BEDTIME MRX1 PRN PRN Reason: Insomnia Last Admin: 07/01/23 21:26 Dose: 50 mg Trazodone HCl (Trazodone Hcl 100 Mg Tablet) 100 mg PO BEDTIME [facility] Last Admin: 07/04/23 21:36 Dose: 100 mg Trazodone HCl (Trazodone Hcl 25 Mg Halftab) 25 mg PO BID@0830,1330 [facility] Last Admin: 07/04/23 17:03 Dose: 25 mg Verapamil HCl (Verapamil Hcl Sr 240 Mg Tablet.Er) 240 mg PO BEDTIME [facility]; Protocol Last Admin: 07/04/23 21:35 Dose: 240 mg Allergies Allergies Allergy/AdvReac Type Severity Reaction Status Date / Time amlodipine Allergy Unknown Verified 06/21/23 17:41 aspirin Allergy Rash Verified 06/21/23 17:41 atenolol Allergy Rash Verified 06/21/23 17:41 carbamazepine Allergy Unknown Verified 06/21/23 17:41 celecoxib Allergy Unknown Verified 06/21/23 17:41 ciprofloxacin Allergy Unknown Verified 06/21/23 17:41 erythromycin base Allergy Hives Verified 06/21/23 17:41 fluvastatin Allergy Unknown Verified 06/21/23 17:41 levofloxacin Allergy Unknown Verified 06/21/23 17:41 loratadine Allergy Unknown Verified 06/21/23 17:41 mercaptopurine Allergy Unknown Verified 06/21/23 17:41 naproxen Allergy Unknown Verified 06/21/23 17:41 pantoprazole Allergy Unknown Verified 06/21/23 17:41 Quinolones Allergy Unknown Verified 06/21/23 17:41 ranitidine Allergy Unknown Verified 06/21/23 17:41 sulfamethoxazole Allergy Unknown Verified 06/21/23 17:41 trimethoprim Allergy Unknown Verified 06/21/23 17:41 Assessment & Plan Assessment & Plan (1) Dementia: Status: Acute Code(s): F03.90 - Unspecified dementia, unspecified severity, without behavioral disturbance, psychotic disturbance, mood disturbance, and anxiety (2) Pervasive developmental disorder: Status: Acute Code(s): F84.9 - Pervasive developmental disorder, unspecified Plan Plan 1. Continue with same Trileptal 600 mg p.o. b.i.d.. 2. Increase Zyprexa up to 3.75 p.o. t.i.d.. On June 26 we are going to increase to 5 mg p.o. t.i.d. 3. Rest the same. 4. Blood work CBC and BMP within normal limits no changes slight high cholesterol. 5. Start trazodone 25 mg in the morning and in the afternoon and keep 100 at night. Started on July 03. Reason for continued inpatient stay Substantial Risk for: inability to function, rapid decompensation and med/psych decompensation Time Spent With Patient Time: Total time managing care of this patient today __20__ minutes.
[2023-07-05] MEDS: levETIRAcetam Oral Soln 500 MG/5 ML 1500 MG PO ×2 (08:41→20:42)
[2023-07-05] MEDS: OXcarbazepine 300 MG TABLET 600 MG PO ×2 (08:41→20:42)
[2023-07-05] MEDS: DULoxetine HCl 60 MG CAPSULE.DR PO (08:42)
[2023-07-05] MEDS: Multivitamin TABLET 1 TAB PO (08:42)
[2023-07-05] MEDS: OLANZapine 5 MG TABLET PO ×3 (08:42→20:45)
[2023-07-05] MEDS: Memantine HCl 10 MG TABLET PO ×2 (08:42→20:45)
[2023-07-05] MEDS: traZODone HCL 25 MG HALFTAB PO ×2 (08:42→14:38)
[2023-07-05] MEDS: hydrOXYzine HCL 25 MG TABLET PO ×2 (12:12→20:45)
[2023-07-05] MEDS: Acetaminophen 325 MG TABLET 650 MG PO (12:16)
[2023-07-05 20:00] VITALS: BP 132/90; PULSE 94; RESP 17; TEMP 35.9; O2SAT 94
[2023-07-05 20:42] VITALS: BP 132/90; PULSE 94
[2023-07-05] MEDS: VerapamiL HCL SR 240 MG TABLET.ER PO (20:42)
[2023-07-05] MEDS: Donepezil HCl 10 MG TABLET PO (20:45)
[2023-07-05] MEDS: traZODone HCL 50 MG TABLET PO (20:45)
[2023-07-05] MEDS: OLANZapine ODT 10 MG TAB.RAPDIS TRANSLINGU (20:46)
[2023-07-05] MEDS: traZODone HCL 100 MG TABLET PO (20:46)
[2023-07-05] MEDS: Mirtazapine 7.5 MG TABLET PO (20:46)
[2023-07-06 07:49] VITALS: BP 145/74; PULSE 92; RESP 18; TEMP 36.8; O2SAT 98
[2023-07-06] MEDS: traZODone HCL 25 MG HALFTAB PO ×2 (09:00→12:38)
[2023-07-06] MEDS: Multivitamin TABLET 1 TAB PO (09:00)
[2023-07-06] MEDS: Loperamide HCl 2 MG CAPSULE 4 MG PO (09:00)
[2023-07-06] MEDS: OLANZapine ODT 10 MG TAB.RAPDIS TRANSLINGU (09:00)
[2023-07-06] MEDS: OLANZapine 5 MG TABLET PO ×3 (09:00→20:15)
[2023-07-06] MEDS: Memantine HCl 10 MG TABLET PO ×2 (09:00→20:15)
[2023-07-06] MEDS: OXcarbazepine 300 MG TABLET 600 MG PO ×2 (09:00→20:14)
[2023-07-06] MEDS: DULoxetine HCl 60 MG CAPSULE.DR PO (09:00)
[2023-07-06] MEDS: levETIRAcetam Oral Soln 500 MG/5 ML 1500 MG PO ×2 (09:17→20:15)
--- NOTE | 2023-07-06 09:22 | PC.NURSE ---
Lurdes had 4 episodes of diarrhea in 2 hours and Immodium administered. She allowed BP but was would not allow HR/O2 as she becomes agitated when probe is on her finger. Justine Stevens, ASSISTANT PROGRAM MANAGER notified of diarrhea and unable to obtain of O2/HR.
--- NOTE | 2023-07-06 10:43 | HO.PSYCHPN ---
Subjective Subjective Date of Service: 07/06/23 Reason For Visit: Depression Subjective Notes: Conditional Voluntary Interim History: Pt had some difficulty sleeping at night. She finally able to sleep for about 6.5hrs. Pt with episode of loose stools today, given loperamide, awaiting results. She is mostly in bed. She reports doing well. When asked if hungry, she states she is and starts grabbing things that are not there from her lap as if grabbing food. Pt redirected to fact that food is not there. Mental Status Exam Mental Status Exam Patient Appearance: Appropriate Patient Orientation: Person and Situation Level of Consciousness: Awake Patient Behavior: Guarded and Passive Mood Description: Withdrawn Affect Description: Constricted Patient Cognition Impaired: Yes Ability to Follow Directions: Good Speech Pattern: Clear Hallucinations: None Delusions: Paranoid Ideation and Ideas of Reference Thought Process: Distracted and Slowed Thinking Thought Content: positive for [place], positive for Poverty of Content and positive for Thought Blocking Judgement: Poor Diagnostics Vital Signs (24Hr): Vital Signs - 24 hr 07/05/23 20:00 07/05/23 20:42 Temperature 96.6 F L Pulse Rate 94 94 Respiratory Rate 17 Blood Pressure 132/90 H 132/90 H Pulse Oximetry 94 Oxygen Delivery Method Room Air BMI result Body Mass Index 25.1 Labs 06/30/23 07:19 06/30/23 07:19 Medications Medications Current Medications Acetaminophen (Acetaminophen 325 Mg Tablet) 650 mg PO Q6H PRN PRN Reason: Headache/Pain Mild Scale (1-3) Last Admin: 07/05/23 12:16 Dose: 650 mg Al Hydroxide/Mg Hydroxide (Magnesium Hydrox/Alum Hydrox 30 Ml Oral.Susp) 30 ml PO Q6H PRN PRN Reason: Heartburn/Nausea Calcium Carbonate (Calcium Carbonate 750 Mg Tab.Chew) 750 mg PO DAILY PRN PRN Reason: ACID REFLUX Docusate Sodium (Docusate Sodium 100 Mg Capsule) 100 mg PO DAILY [facility] Last Admin: 06/24/23 10:13 Dose: Not Given Donepezil HCl (Donepezil Hcl 10 Mg Tablet) 10 mg PO BEDTIME [facility] Last Admin: 07/05/23 20:45 Dose: 10 mg Duloxetine HCl (Duloxetine Hcl 60 Mg Capsule.Dr) 60 mg PO DAILY [facility] Last Admin: 07/06/23 09:00 Dose: 60 mg Hydroxyzine HCl (Hydroxyzine Hcl 25 Mg Tablet) 25 mg PO Q6H PRN PRN Reason: Anxiety Last Admin: 07/05/23 20:45 Dose: 25 mg Levetiracetam (Levetiracetam Oral Soln 500 Mg/5 Ml) 1,500 mg PO BID [facility] Last Admin: 07/06/23 09:17 Dose: 1,500 mg Loperamide HCl (Loperamide Hcl 2 Mg Capsule) 4 mg PO Q6H PRN PRN Reason: Diarrhea Last Admin: 07/06/23 09:00 Dose: 4 mg Magnesium Hydroxide (Milk Of Magnesia 30 Ml Oral.Susp) 30 ml PO DAILY PRN PRN Reason: Constipation Memantine (Memantine Hcl 10 Mg Tablet) 10 mg PO BID [facility] Last Admin: 07/06/23 09:00 Dose: 10 mg Mirtazapine (Mirtazapine 7.5 Mg Tablet) 7.5 mg PO BEDTIME [facility] Last Admin: 07/05/23 20:46 Dose: 7.5 mg Multivitamins/Vitamin C (Multivitamin Tablet) 1 tab PO DAILY [facility] Last Admin: 07/06/23 09:00 Dose: 1 tab Olanzapine (Olanzapine Odt 10 Mg Tab.Rapdis) 10 mg TRANSLINGU BID PRN PRN Reason: Psychosis Last Admin: 07/06/23 09:00 Dose: 10 mg Olanzapine (Olanzapine 5 Mg Tablet) 5 mg PO TID [facility] Last Admin: 07/06/23 09:00 Dose: 5 mg Oxcarbazepine (Oxcarbazepine 300 Mg Tablet) 600 mg PO BID [facility] Last Admin: 07/06/23 09:00 Dose: 600 mg Psyllium Hydrophilic Mucilloid (Psyllium Seed 3.7 Gm Packet) 3.7 gm PO BID [facility] Last Admin: 06/24/23 20:58 Dose: 3.7 gm Trazodone HCl (Trazodone Hcl 50 Mg Tablet) 50 mg PO BEDTIME MRX1 PRN PRN Reason: Insomnia Last Admin: 07/05/23 20:45 Dose: 50 mg Trazodone HCl (Trazodone Hcl 100 Mg Tablet) 100 mg PO BEDTIME [facility] Last Admin: 07/05/23 20:46 Dose: 100 mg Trazodone HCl (Trazodone Hcl 25 Mg Halftab) 25 mg PO BID@0830,1330 [facility] Last Admin: 07/06/23 09:00 Dose: 25 mg Verapamil HCl (Verapamil Hcl Sr 240 Mg Tablet.Er) 240 mg PO BEDTIME [facility]; Protocol Last Admin: 07/05/23 20:42 Dose: 240 mg Allergies Allergies Allergy/AdvReac Type Severity Reaction Status Date / Time amlodipine Allergy Unknown Verified 06/21/23 17:41 aspirin Allergy Rash Verified 06/21/23 17:41 atenolol Allergy Rash Verified 06/21/23 17:41 carbamazepine Allergy Unknown Verified 06/21/23 17:41 celecoxib Allergy Unknown Verified 06/21/23 17:41 ciprofloxacin Allergy Unknown Verified 06/21/23 17:41 erythromycin base Allergy Hives Verified 06/21/23 17:41 fluvastatin Allergy Unknown Verified 06/21/23 17:41 levofloxacin Allergy Unknown Verified 06/21/23 17:41 loratadine Allergy Unknown Verified 06/21/23 17:41 mercaptopurine Allergy Unknown Verified 06/21/23 17:41 naproxen Allergy Unknown Verified 06/21/23 17:41 pantoprazole Allergy Unknown Verified 06/21/23 17:41 Quinolones Allergy Unknown Verified 06/21/23 17:41 ranitidine Allergy Unknown Verified 06/21/23 17:41 sulfamethoxazole Allergy Unknown Verified 06/21/23 17:41 trimethoprim Allergy Unknown Verified 06/21/23 17:41 Assessment & Plan Assessment & Plan (1) Dementia: Status: Acute Code(s): F03.90 - Unspecified dementia, unspecified severity, without behavioral disturbance, psychotic disturbance, mood disturbance, and anxiety (2) Pervasive developmental disorder: Status: Acute Code(s): F84.9 - Pervasive developmental disorder, unspecified Plan Plan 1. Continue with same Trileptal 600 mg p.o. b.i.d.. 2. Increase Zyprexa up to 3.75 p.o. t.i.d.. On June 26 we are going to increase to 5 mg p.o. t.i.d. 3. Rest the same. 4. Blood work CBC and BMP within normal limits no changes slight high cholesterol. 5. Start trazodone 25 mg in the morning and in the afternoon and keep 100 at night. Started on July 03. Reason for continued inpatient stay Substantial Risk for: inability to function Time Spent With Patient Time: Total time managing care of this patient today ____ minutes.
[2023-07-06] MEDS: Acetaminophen 325 MG TABLET 650 MG PO (12:38)
[2023-07-06 13:44] VITALS: BMI 25.0
[2023-07-06 20:00] VITALS: BP 130/84; PULSE 95; RESP 16; TEMP 36.2; O2SAT 95
[2023-07-06] MEDS: Donepezil HCl 10 MG TABLET PO (20:15)
[2023-07-06] MEDS: traZODone HCL 100 MG TABLET PO (20:15)
[2023-07-06] MEDS: Mirtazapine 7.5 MG TABLET PO (20:15)
[2023-07-06 20:19] VITALS: BP 130/84; PULSE 95
[2023-07-06] MEDS: VerapamiL HCL SR 240 MG TABLET.ER PO (20:19)
[2023-07-07 09:00] VITALS: BP 140/97; PULSE 97; RESP 18; TEMP 36.6; O2SAT 92
[2023-07-07] MEDS: Multivitamin TABLET 1 TAB PO (09:21)
[2023-07-07] MEDS: DULoxetine HCl 60 MG CAPSULE.DR PO (09:21)
[2023-07-07] MEDS: levETIRAcetam Oral Soln 500 MG/5 ML 1500 MG PO ×2 (09:21→20:48)
[2023-07-07] MEDS: Memantine HCl 10 MG TABLET PO ×2 (09:21→20:46)
[2023-07-07] MEDS: OLANZapine 5 MG TABLET PO ×3 (09:21→20:47)
[2023-07-07] MEDS: traZODone HCL 25 MG HALFTAB PO ×2 (09:21→12:58)
[2023-07-07] MEDS: OXcarbazepine 300 MG TABLET 600 MG PO ×2 (09:21→20:46)
[2023-07-07] MEDS: Loperamide HCl 2 MG CAPSULE 4 MG PO (09:56)
--- NOTE | 2023-07-07 14:34 | P.PNPSI_ITS ---
Subjective Subjective Date of Service: 07/07/23 Reason For Visit: Depression Subjective Notes: Conditional Voluntary Mental Status Exam Mental Status Exam Patient Appearance: Appropriate Patient Orientation: Person and Situation Level of Consciousness: Awake Patient Behavior: Guarded and Passive Mood Description: Withdrawn Affect Description: Constricted Patient Cognition Impaired: Yes Ability to Follow Directions: Good Speech Pattern: Clear Hallucinations: None Delusions: Paranoid Ideation and Ideas of Reference Thought Process: Distracted and Slowed Thinking Thought Content: positive for [place], positive for Poverty of Content and positive for Thought Blocking Judgement: Poor Diagnostics Vital Signs (24Hr): Vital Signs - 24 hr 07/06/23 20:00 07/06/23 20:19 07/07/23 09:00 Temperature 97.2 F 97.8 F Pulse Rate 95 95 97 Respiratory Rate 16 18 Blood Pressure 130/84 130/84 140/97 H Pulse Oximetry 95 92 Oxygen Delivery Method Room Air Room Air BMI result Body Mass Index 25.0 Labs 06/30/23 07:19 06/30/23 07:19 Medications Medications Current Medications Acetaminophen (Acetaminophen 325 Mg Tablet) 650 mg PO Q6H PRN PRN Reason: Headache/Pain Mild Scale (1-3) Last Admin: 07/06/23 12:38 Dose: 650 mg Al Hydroxide/Mg Hydroxide (Magnesium Hydrox/Alum Hydrox 30 Ml Oral.Susp) 30 ml PO Q6H PRN PRN Reason: Heartburn/Nausea Calcium Carbonate (Calcium Carbonate 750 Mg Tab.Chew) 750 mg PO DAILY PRN PRN Reason: ACID REFLUX Docusate Sodium (Docusate Sodium 100 Mg Capsule) 100 mg PO DAILY [facility] Last Admin: 06/24/23 10:13 Dose: Not Given Donepezil HCl (Donepezil Hcl 10 Mg Tablet) 10 mg PO BEDTIME [facility] Last Admin: 07/06/23 20:15 Dose: 10 mg Duloxetine HCl (Duloxetine Hcl 60 Mg Capsule.Dr) 60 mg PO DAILY [facility] Last Admin: 07/07/23 09:21 Dose: 60 mg Hydroxyzine HCl (Hydroxyzine Hcl 25 Mg Tablet) 25 mg PO Q6H PRN PRN Reason: Anxiety Last Admin: 07/05/23 20:45 Dose: 25 mg Levetiracetam (Levetiracetam Oral Soln 500 Mg/5 Ml) 1,500 mg PO BID [facility] Last Admin: 07/07/23 09:21 Dose: 1,500 mg Loperamide HCl (Loperamide Hcl 2 Mg Capsule) 4 mg PO Q6H PRN PRN Reason: Diarrhea Last Admin: 07/07/23 09:56 Dose: 4 mg Magnesium Hydroxide (Milk Of Magnesia 30 Ml Oral.Susp) 30 ml PO DAILY PRN PRN Reason: Constipation Memantine (Memantine Hcl 10 Mg Tablet) 10 mg PO BID [facility] Last Admin: 07/07/23 09:21 Dose: 10 mg Mirtazapine (Mirtazapine 7.5 Mg Tablet) 7.5 mg PO BEDTIME [facility] Last Admin: 07/06/23 20:15 Dose: 7.5 mg Multivitamins/Vitamin C (Multivitamin Tablet) 1 tab PO DAILY [facility] Last Admin: 07/07/23 09:21 Dose: 1 tab Olanzapine (Olanzapine Odt 10 Mg Tab.Rapdis) 10 mg TRANSLINGU BID PRN PRN Reason: Psychosis Last Admin: 07/06/23 09:00 Dose: 10 mg Olanzapine (Olanzapine 5 Mg Tablet) 5 mg PO TID [facility] Last Admin: 07/07/23 09:21 Dose: 5 mg Oxcarbazepine (Oxcarbazepine 300 Mg Tablet) 600 mg PO BID [facility] Last Admin: 07/07/23 09:21 Dose: 600 mg Psyllium Hydrophilic Mucilloid (Psyllium Seed 3.7 Gm Packet) 3.7 gm PO BID [facility] Last Admin: 06/24/23 20:58 Dose: 3.7 gm Trazodone HCl (Trazodone Hcl 50 Mg Tablet) 50 mg PO BEDTIME MRX1 PRN PRN Reason: Insomnia Last Admin: 07/05/23 20:45 Dose: 50 mg Trazodone HCl (Trazodone Hcl 100 Mg Tablet) 100 mg PO BEDTIME [facility] Last Admin: 07/06/23 20:15 Dose: 100 mg Trazodone HCl (Trazodone Hcl 25 Mg Halftab) 25 mg PO BID@0830,1330 [facility] Last Admin: 07/07/23 12:58 Dose: 25 mg Verapamil HCl (Verapamil Hcl Sr 240 Mg Tablet.Er) 240 mg PO BEDTIME [facility]; Protocol Last Admin: 07/06/23 20:19 Dose: 240 mg Allergies Allergies Allergy/AdvReac Type Severity Reaction Status Date / Time amlodipine Allergy Unknown Verified 06/21/23 17:41 aspirin Allergy Rash Verified 06/21/23 17:41 atenolol Allergy Rash Verified 06/21/23 17:41 carbamazepine Allergy Unknown Verified 06/21/23 17:41 celecoxib Allergy Unknown Verified 06/21/23 17:41 ciprofloxacin Allergy Unknown Verified 06/21/23 17:41 erythromycin base Allergy Hives Verified 06/21/23 17:41 fluvastatin Allergy Unknown Verified 06/21/23 17:41 levofloxacin Allergy Unknown Verified 06/21/23 17:41 loratadine Allergy Unknown Verified 06/21/23 17:41 mercaptopurine Allergy Unknown Verified 06/21/23 17:41 naproxen Allergy Unknown Verified 06/21/23 17:41 pantoprazole Allergy Unknown Verified 06/21/23 17:41 Quinolones Allergy Unknown Verified 06/21/23 17:41 ranitidine Allergy Unknown Verified 06/21/23 17:41 sulfamethoxazole Allergy Unknown Verified 06/21/23 17:41 trimethoprim Allergy Unknown Verified 06/21/23 17:41 Assessment & Plan Assessment & Plan (1) Dementia: Status: Acute Code(s): F03.90 - Unspecified dementia, unspecified severity, without behavioral disturbance, psychotic disturbance, mood disturbance, and anxiety (2) Pervasive developmental disorder: Status: Acute Code(s): F84.9 - Pervasive developmental disorder, unspecified Plan Plan 1. Continue with same Trileptal 600 mg p.o. b.i.d.. 2. Increase Zyprexa up to 3.75 p.o. t.i.d.. On June 26 we are going to increase to 5 mg p.o. t.i.d. 3. Rest the same. 4. Blood work CBC and BMP within normal limits no changes slight high cholesterol. 5. Start trazodone 25 mg in the morning and in the afternoon and keep 100 at night. Started on July 03. 07/07/2023 Patient not overly agitated some periods of diarrhea continues on Imodium Keppra Informed Consent: further education needed Reason for continued inpatient stay Substantial Risk for: inability to function Time Spent With Patient Time: Total time managing care of this patient today ____ minutes.
[2023-07-07 20:00] VITALS: BP 121/81; PULSE 93; RESP 16; TEMP 37.3; O2SAT 96
[2023-07-07 20:47] VITALS: BP 121/81; PULSE 93
[2023-07-07] MEDS: Donepezil HCl 10 MG TABLET PO (20:47)
[2023-07-07] MEDS: traZODone HCL 100 MG TABLET PO (20:47)
[2023-07-07] MEDS: Mirtazapine 7.5 MG TABLET PO (20:47)
[2023-07-07] MEDS: VerapamiL HCL SR 240 MG TABLET.ER PO (20:47)
[2023-07-07] MEDS: Acetaminophen 325 MG TABLET 650 MG PO (20:48)
[2023-07-08 09:03] VITALS: BP 137/84; PULSE 78; RESP 18; TEMP 36.3; O2SAT 96
[2023-07-08] MEDS: levETIRAcetam Oral Soln 500 MG/5 ML 1500 MG PO ×2 (09:22→21:37)
[2023-07-08] MEDS: OXcarbazepine 300 MG TABLET 600 MG PO ×2 (09:23→21:37)
[2023-07-08] MEDS: OLANZapine 5 MG TABLET PO ×3 (09:23→21:39)
[2023-07-08] MEDS: traZODone HCL 25 MG HALFTAB PO ×2 (09:23→14:01)
[2023-07-08] MEDS: Memantine HCl 10 MG TABLET PO ×2 (09:23→21:39)
[2023-07-08] MEDS: DULoxetine HCl 60 MG CAPSULE.DR PO (09:23)
[2023-07-08] MEDS: Multivitamin TABLET 1 TAB PO (09:23)
[2023-07-08 20:00] VITALS: BP 169/77; PULSE 74; RESP 16; TEMP 36.4; O2SAT 94
--- NOTE | 2023-07-08 20:45 | P.PNPSI_ITS ---
Subjective Subjective Date of Service: 07/08/23 Reason For Visit: Depression Subjective Notes: Conditional Voluntary Interim History: Patient with periods of confusion irritability Medication Compliance: Yes Mental Status Exam Mental Status Exam Patient Appearance: Appropriate Patient Orientation: Person and Situation Level of Consciousness: Awake Patient Behavior: Guarded and Passive Mood Description: Withdrawn Affect Description: Constricted Patient Cognition Impaired: Yes Ability to Follow Directions: Good Speech Pattern: Clear Hallucinations: None Delusions: Paranoid Ideation and Ideas of Reference Thought Process: Distracted and Slowed Thinking Thought Content: positive for [place], positive for Poverty of Content and positive for Thought Blocking Judgement: Poor Diagnostics Vital Signs (24Hr): Vital Signs - 24 hr 07/07/23 20:47 07/08/23 09:03 Temperature 97.3 F Pulse Rate 93 78 Respiratory Rate 18 Blood Pressure 121/81 137/84 Pulse Oximetry 96 Oxygen Delivery Method Room Air BMI result Body Mass Index 25.0 Labs 06/30/23 07:19 06/30/23 07:19 Medications Medications Current Medications Acetaminophen (Acetaminophen 325 Mg Tablet) 650 mg PO Q6H PRN PRN Reason: Headache/Pain Mild Scale (1-3) Last Admin: 07/07/23 20:48 Dose: 650 mg Al Hydroxide/Mg Hydroxide (Magnesium Hydrox/Alum Hydrox 30 Ml Oral.Susp) 30 ml PO Q6H PRN PRN Reason: Heartburn/Nausea Calcium Carbonate (Calcium Carbonate 750 Mg Tab.Chew) 750 mg PO DAILY PRN PRN Reason: ACID REFLUX Docusate Sodium (Docusate Sodium 100 Mg Capsule) 100 mg PO DAILY [facility] Last Admin: 06/24/23 10:13 Dose: Not Given Donepezil HCl (Donepezil Hcl 10 Mg Tablet) 10 mg PO BEDTIME [facility] Last Admin: 07/07/23 20:47 Dose: 10 mg Duloxetine HCl (Duloxetine Hcl 60 Mg Capsule.Dr) 60 mg PO DAILY [facility] Last Admin: 07/08/23 09:23 Dose: 60 mg Hydroxyzine HCl (Hydroxyzine Hcl 25 Mg Tablet) 25 mg PO Q6H PRN PRN Reason: Anxiety Last Admin: 07/05/23 20:45 Dose: 25 mg Levetiracetam (Levetiracetam Oral Soln 500 Mg/5 Ml) 1,500 mg PO BID [facility] Last Admin: 07/08/23 09:22 Dose: 1,500 mg Loperamide HCl (Loperamide Hcl 2 Mg Capsule) 4 mg PO Q6H PRN PRN Reason: Diarrhea Last Admin: 07/07/23 09:56 Dose: 4 mg Magnesium Hydroxide (Milk Of Magnesia 30 Ml Oral.Susp) 30 ml PO DAILY PRN PRN Reason: Constipation Memantine (Memantine Hcl 10 Mg Tablet) 10 mg PO BID [facility] Last Admin: 07/08/23 09:23 Dose: 10 mg Mirtazapine (Mirtazapine 7.5 Mg Tablet) 7.5 mg PO BEDTIME [facility] Last Admin: 07/07/23 20:47 Dose: 7.5 mg Multivitamins/Vitamin C (Multivitamin Tablet) 1 tab PO DAILY [facility] Last Admin: 07/08/23 09:23 Dose: 1 tab Olanzapine (Olanzapine Odt 10 Mg Tab.Rapdis) 10 mg TRANSLINGU BID PRN PRN Reason: Psychosis Last Admin: 07/06/23 09:00 Dose: 10 mg Olanzapine (Olanzapine 5 Mg Tablet) 5 mg PO TID [facility] Last Admin: 07/08/23 14:01 Dose: 5 mg Oxcarbazepine (Oxcarbazepine 300 Mg Tablet) 600 mg PO BID [facility] Last Admin: 07/08/23 09:23 Dose: 600 mg Psyllium Hydrophilic Mucilloid (Psyllium Seed 3.7 Gm Packet) 3.7 gm PO BID [facility] Last Admin: 06/24/23 20:58 Dose: 3.7 gm Trazodone HCl (Trazodone Hcl 50 Mg Tablet) 50 mg PO BEDTIME MRX1 PRN PRN Reason: Insomnia Last Admin: 07/05/23 20:45 Dose: 50 mg Trazodone HCl (Trazodone Hcl 100 Mg Tablet) 100 mg PO BEDTIME [facility] Last Admin: 07/07/23 20:47 Dose: 100 mg Trazodone HCl (Trazodone Hcl 25 Mg Halftab) 25 mg PO BID@0830,1330 [facility] Last Admin: 07/08/23 14:01 Dose: 25 mg Verapamil HCl (Verapamil Hcl Sr 240 Mg Tablet.Er) 240 mg PO BEDTIME [facility]; Protocol Last Admin: 07/07/23 20:47 Dose: 240 mg Allergies Allergies Allergy/AdvReac Type Severity Reaction Status Date / Time amlodipine Allergy Unknown Verified 06/21/23 17:41 aspirin Allergy Rash Verified 06/21/23 17:41 atenolol Allergy Rash Verified 06/21/23 17:41 carbamazepine Allergy Unknown Verified 06/21/23 17:41 celecoxib Allergy Unknown Verified 06/21/23 17:41 ciprofloxacin Allergy Unknown Verified 06/21/23 17:41 erythromycin base Allergy Hives Verified 06/21/23 17:41 fluvastatin Allergy Unknown Verified 06/21/23 17:41 levofloxacin Allergy Unknown Verified 06/21/23 17:41 loratadine Allergy Unknown Verified 06/21/23 17:41 mercaptopurine Allergy Unknown Verified 06/21/23 17:41 naproxen Allergy Unknown Verified 06/21/23 17:41 pantoprazole Allergy Unknown Verified 06/21/23 17:41 Quinolones Allergy Unknown Verified 06/21/23 17:41 ranitidine Allergy Unknown Verified 06/21/23 17:41 sulfamethoxazole Allergy Unknown Verified 06/21/23 17:41 trimethoprim Allergy Unknown Verified 06/21/23 17:41 Assessment & Plan Assessment & Plan (1) Dementia: Status: Acute Code(s): F03.90 - Unspecified dementia, unspecified severity, without behavioral disturbance, psychotic disturbance, mood disturbance, and anxiety (2) Pervasive developmental disorder: Status: Acute Code(s): F84.9 - Pervasive developmental disorder, unspecified Plan Plan 1. Continue with same Trileptal 600 mg p.o. b.i.d.. 2. Increase Zyprexa up to 3.75 p.o. t.i.d.. On June 26 we are going to increase to 5 mg p.o. t.i.d. 3. Rest the same. 4. Blood work CBC and BMP within normal limits no changes slight high cholesterol. 5. Start trazodone 25 mg in the morning and in the afternoon and keep 100 at night. Started on July 03. 07/07/2023 Patient not overly agitated some periods of diarrhea continues on Imodium Keppra 07/08/2003 Continue plan of care Reason for continued inpatient stay Substantial Risk for: inability to function and rapid decompensation Time Spent With Patient Time: Total time managing care of this patient today ____ minutes.
[2023-07-08] MEDS: OLANZapine ODT 10 MG TAB.RAPDIS TRANSLINGU (21:37)
[2023-07-08 21:38] VITALS: BP 169/77; PULSE 74
[2023-07-08] MEDS: VerapamiL HCL SR 240 MG TABLET.ER PO (21:38)
[2023-07-08] MEDS: Donepezil HCl 10 MG TABLET PO (21:38)
[2023-07-08] MEDS: traZODone HCL 100 MG TABLET PO (21:39)
[2023-07-08] MEDS: Mirtazapine 7.5 MG TABLET PO (21:39)
[2023-07-08] MEDS: traZODone HCL 50 MG TABLET PO (21:39)
[2023-07-09 07:41] VITALS: BP 149/83; PULSE 85; RESP 18; TEMP 35.9; O2SAT 93
[2023-07-09] MEDS: levETIRAcetam Oral Soln 500 MG/5 ML 1500 MG PO ×2 (08:55→21:00)
[2023-07-09] MEDS: Loperamide HCl 2 MG CAPSULE 4 MG PO (08:55)
[2023-07-09] MEDS: Multivitamin TABLET 1 TAB PO (08:55)
[2023-07-09] MEDS: OLANZapine ODT 10 MG TAB.RAPDIS TRANSLINGU ×2 (08:56→16:40)
[2023-07-09] MEDS: OXcarbazepine 300 MG TABLET 600 MG PO ×2 (08:56→20:59)
[2023-07-09] MEDS: hydrOXYzine HCL 25 MG TABLET PO ×2 (08:56→20:58)
[2023-07-09] MEDS: OLANZapine 5 MG TABLET PO ×3 (08:56→21:00)
[2023-07-09] MEDS: traZODone HCL 25 MG HALFTAB PO ×2 (08:56→14:19)
[2023-07-09] MEDS: DULoxetine HCl 60 MG CAPSULE.DR PO (08:56)
[2023-07-09] MEDS: Memantine HCl 10 MG TABLET PO ×2 (08:56→20:59)
--- NOTE | 2023-07-09 12:34 | HO.PSYCHPN ---
Subjective Subjective Date of Service: 07/09/23 Reason For Visit: Depression Subjective Notes: Conditional Voluntary Interim History: The nursing staff reported the patient had been medication compliant irritable at times she slept 6 hours. Remains on one-to-one for safety. On interview the patient reports stuffy nose. Mental Status Exam Mental Status Exam Patient Appearance: Appropriate Patient Orientation: Person and Situation Level of Consciousness: Awake Patient Behavior: Guarded and Passive Mood Description: Calm Affect Description: Labile Patient Cognition Impaired: Yes Ability to Follow Directions: Good Speech Pattern: Clear Hallucinations: None Delusions: Ideas of Reference Thought Process: Distracted and Slowed Thinking Thought Content: positive for [place] and positive for Poverty of Content Judgement: Poor Diagnostics Vital Signs (24Hr): Vital Signs - 24 hr 07/08/23 20:00 07/08/23 21:38 07/09/23 07:41 Temperature 97.6 F 96.7 F L Pulse Rate 74 74 85 Respiratory Rate 16 18 Blood Pressure 169/77 H 169/77 H 149/83 H Pulse Oximetry 94 93 Oxygen Delivery Method Room Air Room Air BMI result Body Mass Index 25.0 Labs 06/30/23 07:19 06/30/23 07:19 Medications Medications Current Medications Acetaminophen (Acetaminophen 325 Mg Tablet) 650 mg PO Q6H PRN PRN Reason: Headache/Pain Mild Scale (1-3) Last Admin: 07/07/23 20:48 Dose: 650 mg Al Hydroxide/Mg Hydroxide (Magnesium Hydrox/Alum Hydrox 30 Ml Oral.Susp) 30 ml PO Q6H PRN PRN Reason: Heartburn/Nausea Calcium Carbonate (Calcium Carbonate 750 Mg Tab.Chew) 750 mg PO DAILY PRN PRN Reason: ACID REFLUX Docusate Sodium (Docusate Sodium 100 Mg Capsule) 100 mg PO DAILY [facility] Last Admin: 06/24/23 10:13 Dose: Not Given Donepezil HCl (Donepezil Hcl 10 Mg Tablet) 10 mg PO BEDTIME [facility] Last Admin: 07/08/23 21:38 Dose: 10 mg Duloxetine HCl (Duloxetine Hcl 60 Mg Capsule.Dr) 60 mg PO DAILY [facility] Last Admin: 07/09/23 08:56 Dose: 60 mg Hydroxyzine HCl (Hydroxyzine Hcl 25 Mg Tablet) 25 mg PO Q6H PRN PRN Reason: Anxiety Last Admin: 07/09/23 08:56 Dose: 25 mg Levetiracetam (Levetiracetam Oral Soln 500 Mg/5 Ml) 1,500 mg PO BID [facility] Last Admin: 07/09/23 08:55 Dose: 1,500 mg Loperamide HCl (Loperamide Hcl 2 Mg Capsule) 4 mg PO Q6H PRN PRN Reason: Diarrhea Last Admin: 07/09/23 08:55 Dose: 4 mg Magnesium Hydroxide (Milk Of Magnesia 30 Ml Oral.Susp) 30 ml PO DAILY PRN PRN Reason: Constipation Memantine (Memantine Hcl 10 Mg Tablet) 10 mg PO BID [facility] Last Admin: 07/09/23 08:56 Dose: 10 mg Mirtazapine (Mirtazapine 7.5 Mg Tablet) 7.5 mg PO BEDTIME [facility] Last Admin: 07/08/23 21:39 Dose: 7.5 mg Multivitamins/Vitamin C (Multivitamin Tablet) 1 tab PO DAILY [facility] Last Admin: 07/09/23 08:55 Dose: 1 tab Olanzapine (Olanzapine Odt 10 Mg Tab.Rapdis) 10 mg TRANSLINGU BID PRN PRN Reason: Psychosis Last Admin: 07/09/23 08:56 Dose: 10 mg Olanzapine (Olanzapine 5 Mg Tablet) 5 mg PO TID [facility] Last Admin: 07/09/23 08:56 Dose: 5 mg Oxcarbazepine (Oxcarbazepine 300 Mg Tablet) 600 mg PO BID [facility] Last Admin: 07/09/23 08:56 Dose: 600 mg Psyllium Hydrophilic Mucilloid (Psyllium Seed 3.7 Gm Packet) 3.7 gm PO BID [facility] Last Admin: 06/24/23 20:58 Dose: 3.7 gm Trazodone HCl (Trazodone Hcl 50 Mg Tablet) 50 mg PO BEDTIME MRX1 PRN PRN Reason: Insomnia Last Admin: 07/08/23 21:39 Dose: 50 mg Trazodone HCl (Trazodone Hcl 100 Mg Tablet) 100 mg PO BEDTIME [facility] Last Admin: 07/08/23 21:39 Dose: 100 mg Trazodone HCl (Trazodone Hcl 25 Mg Halftab) 25 mg PO BID@0830,1330 [facility] Last Admin: 07/09/23 08:56 Dose: 25 mg Verapamil HCl (Verapamil Hcl Sr 240 Mg Tablet.Er) 240 mg PO BEDTIME [facility]; Protocol Last Admin: 07/08/23 21:38 Dose: 240 mg Allergies Allergies Allergy/AdvReac Type Severity Reaction Status Date / Time amlodipine Allergy Unknown Verified 06/21/23 17:41 aspirin Allergy Rash Verified 06/21/23 17:41 atenolol Allergy Rash Verified 06/21/23 17:41 carbamazepine Allergy Unknown Verified 06/21/23 17:41 celecoxib Allergy Unknown Verified 06/21/23 17:41 ciprofloxacin Allergy Unknown Verified 06/21/23 17:41 erythromycin base Allergy Hives Verified 06/21/23 17:41 fluvastatin Allergy Unknown Verified 06/21/23 17:41 levofloxacin Allergy Unknown Verified 06/21/23 17:41 loratadine Allergy Unknown Verified 06/21/23 17:41 mercaptopurine Allergy Unknown Verified 06/21/23 17:41 naproxen Allergy Unknown Verified 06/21/23 17:41 pantoprazole Allergy Unknown Verified 06/21/23 17:41 Quinolones Allergy Unknown Verified 06/21/23 17:41 ranitidine Allergy Unknown Verified 06/21/23 17:41 sulfamethoxazole Allergy Unknown Verified 06/21/23 17:41 trimethoprim Allergy Unknown Verified 06/21/23 17:41 Assessment & Plan Assessment & Plan (1) Dementia: Status: Acute Code(s): F03.90 - Unspecified dementia, unspecified severity, without behavioral disturbance, psychotic disturbance, mood disturbance, and anxiety (2) Pervasive developmental disorder: Status: Acute Code(s): F84.9 - Pervasive developmental disorder, unspecified Plan Plan 1. Continue with same Trileptal 600 mg p.o. b.i.d.. 2. Increase Zyprexa up to 3.75 p.o. t.i.d.. On June 26 we are going to increase to 5 mg p.o. t.i.d. 3. Rest the same. 4. Blood work CBC and BMP within normal limits no changes slight high cholesterol. 5. Start trazodone 25 mg in the morning and in the afternoon and keep 100 at night. Started on July 03. 6. We discussed with the primary team in the community with the possibility to discharge her to subacute rehab Reason for continued inpatient stay Substantial Risk for: inability to function, rapid decompensation and med/psych decompensation Time Spent With Patient Time: Total time managing care of this patient today __20__ minutes.
[2023-07-09 20:00] VITALS: BP 131/59; PULSE 72; RESP 18; TEMP 36.4; O2SAT 95
[2023-07-09 20:57] VITALS: BP 131/59; PULSE 72
[2023-07-09] MEDS: VerapamiL HCL SR 240 MG TABLET.ER PO (20:57)
[2023-07-09] MEDS: Mirtazapine 7.5 MG TABLET PO (20:58)
[2023-07-09] MEDS: Donepezil HCl 10 MG TABLET PO (20:59)
[2023-07-09] MEDS: traZODone HCL 50 MG TABLET PO (20:59)
[2023-07-09] MEDS: traZODone HCL 100 MG TABLET PO (21:00)
[2023-07-10 08:32] VITALS: BP 134/81; PULSE 97; RESP 20; TEMP 36.7; O2SAT 93
[2023-07-10] MEDS: traZODone HCL 25 MG HALFTAB PO ×2 (08:34→14:14)
[2023-07-10] MEDS: DULoxetine HCl 60 MG CAPSULE.DR PO (08:34)
[2023-07-10] MEDS: Multivitamin TABLET 1 TAB PO (08:34)
[2023-07-10] MEDS: OLANZapine 5 MG TABLET PO ×3 (08:34→21:44)
[2023-07-10] MEDS: Memantine HCl 10 MG TABLET PO ×2 (08:35→21:45)
[2023-07-10] MEDS: OXcarbazepine 300 MG TABLET 600 MG PO ×2 (08:35→21:45)
[2023-07-10] MEDS: levETIRAcetam Oral Soln 500 MG/5 ML 1500 MG PO ×2 (08:36→21:44)
[2023-07-10] MEDS: Acetaminophen 325 MG TABLET 650 MG PO (08:53)
--- NOTE | 2023-07-10 12:25 | P.PNPSI_ITS ---
Subjective Subjective Date of Service: 07/10/23 Reason For Visit: Depression Subjective Notes: Conditional Voluntary (by HCP) Healthcare Proxy: Yes Interim History: The nursing staff reported no changes on her mental status, on 1:1. Poor sleep last night, compliant with treatment. On interview, she denies new symptoms. OT reported that she was assessed for mobility and it is currently impaired. Mental Status Exam Mental Status Exam Patient Appearance: Appropriate Patient Orientation: Person and Situation Level of Consciousness: Awake Patient Behavior: Guarded and Passive Mood Description: Withdrawn Affect Description: Constricted Patient Cognition Impaired: Yes Ability to Follow Directions: Good Speech Pattern: Clear Hallucinations: None Delusions: Not Present Thought Process: Distracted and Evasive Thought Content: positive for [place] and positive for Poverty of Content Judgement: Poor Diagnostics Vital Signs (24Hr): Vital Signs - 24 hr 07/09/23 20:00 07/09/23 20:57 07/10/23 08:32 Temperature 97.6 F 98.1 F Pulse Rate 72 72 97 Respiratory Rate 18 20 Blood Pressure 131/59 L 131/59 L 134/81 Pulse Oximetry 95 93 Oxygen Delivery Method Room Air Room Air BMI result Body Mass Index 25.0 Labs 06/30/23 07:19 06/30/23 07:19 Medications Medications Current Medications Acetaminophen (Acetaminophen 325 Mg Tablet) 650 mg PO Q6H PRN PRN Reason: Headache/Pain Mild Scale (1-3) Last Admin: 07/10/23 08:53 Dose: 650 mg Al Hydroxide/Mg Hydroxide (Magnesium Hydrox/Alum Hydrox 30 Ml Oral.Susp) 30 ml PO Q6H PRN PRN Reason: Heartburn/Nausea Calcium Carbonate (Calcium Carbonate 750 Mg Tab.Chew) 750 mg PO DAILY PRN PRN Reason: ACID REFLUX Docusate Sodium (Docusate Sodium 100 Mg Capsule) 100 mg PO DAILY [facility] Last Admin: 06/24/23 10:13 Dose: Not Given Donepezil HCl (Donepezil Hcl 10 Mg Tablet) 10 mg PO BEDTIME [facility] Last Admin: 07/09/23 20:59 Dose: 10 mg Duloxetine HCl (Duloxetine Hcl 60 Mg Capsule.Dr) 60 mg PO DAILY [facility] Last Admin: 07/10/23 08:34 Dose: 60 mg Hydroxyzine HCl (Hydroxyzine Hcl 25 Mg Tablet) 25 mg PO Q6H PRN PRN Reason: Anxiety Last Admin: 07/09/23 20:58 Dose: 25 mg Levetiracetam (Levetiracetam Oral Soln 500 Mg/5 Ml) 1,500 mg PO BID [facility] Last Admin: 07/10/23 08:36 Dose: 1,500 mg Loperamide HCl (Loperamide Hcl 2 Mg Capsule) 4 mg PO Q6H PRN PRN Reason: Diarrhea Last Admin: 07/09/23 08:55 Dose: 4 mg Magnesium Hydroxide (Milk Of Magnesia 30 Ml Oral.Susp) 30 ml PO DAILY PRN PRN Reason: Constipation Memantine (Memantine Hcl 10 Mg Tablet) 10 mg PO BID [facility] Last Admin: 07/10/23 08:35 Dose: 10 mg Mirtazapine (Mirtazapine 7.5 Mg Tablet) 7.5 mg PO BEDTIME [facility] Last Admin: 07/09/23 20:58 Dose: 7.5 mg Multivitamins/Vitamin C (Multivitamin Tablet) 1 tab PO DAILY [facility] Last Admin: 07/10/23 08:34 Dose: 1 tab Olanzapine (Olanzapine Odt 10 Mg Tab.Rapdis) 10 mg TRANSLINGU BID PRN PRN Reason: Psychosis Last Admin: 07/09/23 16:40 Dose: 10 mg Olanzapine (Olanzapine 5 Mg Tablet) 5 mg PO TID [facility] Last Admin: 07/10/23 08:34 Dose: 5 mg Oxcarbazepine (Oxcarbazepine 300 Mg Tablet) 600 mg PO BID [facility] Last Admin: 07/10/23 08:35 Dose: 600 mg Psyllium Hydrophilic Mucilloid (Psyllium Seed 3.7 Gm Packet) 3.7 gm PO BID [facility] Last Admin: 06/24/23 20:58 Dose: 3.7 gm Trazodone HCl (Trazodone Hcl 50 Mg Tablet) 50 mg PO BEDTIME MRX1 PRN PRN Reason: Insomnia Last Admin: 07/09/23 20:59 Dose: 50 mg Trazodone HCl (Trazodone Hcl 100 Mg Tablet) 100 mg PO BEDTIME [facility] Last Admin: 07/09/23 21:00 Dose: 100 mg Trazodone HCl (Trazodone Hcl 25 Mg Halftab) 25 mg PO BID@0830,1330 [facility] Last Admin: 07/10/23 08:34 Dose: 25 mg Verapamil HCl (Verapamil Hcl Sr 240 Mg Tablet.Er) 240 mg PO BEDTIME [facility]; Protocol Last Admin: 07/09/23 20:57 Dose: 240 mg Allergies Allergies Allergy/AdvReac Type Severity Reaction Status Date / Time amlodipine Allergy Unknown Verified 06/21/23 17:41 aspirin Allergy Rash Verified 06/21/23 17:41 atenolol Allergy Rash Verified 06/21/23 17:41 carbamazepine Allergy Unknown Verified 06/21/23 17:41 celecoxib Allergy Unknown Verified 06/21/23 17:41 ciprofloxacin Allergy Unknown Verified 06/21/23 17:41 erythromycin base Allergy Hives Verified 06/21/23 17:41 fluvastatin Allergy Unknown Verified 06/21/23 17:41 levofloxacin Allergy Unknown Verified 06/21/23 17:41 loratadine Allergy Unknown Verified 06/21/23 17:41 mercaptopurine Allergy Unknown Verified 06/21/23 17:41 naproxen Allergy Unknown Verified 06/21/23 17:41 pantoprazole Allergy Unknown Verified 06/21/23 17:41 Quinolones Allergy Unknown Verified 06/21/23 17:41 ranitidine Allergy Unknown Verified 06/21/23 17:41 sulfamethoxazole Allergy Unknown Verified 06/21/23 17:41 trimethoprim Allergy Unknown Verified 06/21/23 17:41 Assessment & Plan Assessment & Plan (1) Dementia: Status: Acute Code(s): F03.90 - Unspecified dementia, unspecified severity, without behavioral disturbance, psychotic disturbance, mood disturbance, and anxiety (2) Pervasive developmental disorder: Status: Acute Code(s): F84.9 - Pervasive developmental disorder, unspecified Plan Plan 1. Continue with same Trileptal 600 mg p.o. b.i.d.. 2. Increase Zyprexa up to 3.75 p.o. t.i.d.. On June 26 we are going to increase to 5 mg p.o. t.i.d. 3. Rest the same. 4. Blood work CBC and BMP within normal limits no changes slight high cholesterol. 5. Start trazodone 25 mg in the morning and in the afternoon and keep 100 at night. Started on July 03. 6. We discussed with the primary team in the community with the possibility to discharge her to subacute rehab due to deconditionion. Reason for continued inpatient stay Substantial Risk for: inability to function, rapid decompensation and med/psych decompensation Time Spent With Patient Time: Total time managing care of this patient today ___20_ minutes.
[2023-07-10 20:00] VITALS: BP 104/59; PULSE 74; RESP 16; TEMP 36.6; O2SAT 93
[2023-07-10] MEDS: Mirtazapine 7.5 MG TABLET PO (21:44)
[2023-07-10] MEDS: traZODone HCL 100 MG TABLET PO (21:45)
[2023-07-10] MEDS: Donepezil HCl 10 MG TABLET PO (21:45)
[2023-07-10] MEDS: hydrOXYzine HCL 25 MG TABLET PO (21:45)
[2023-07-11 08:00] VITALS: BP 132/82; PULSE 99; RESP 20; TEMP 36.2; O2SAT 92
[2023-07-11] MEDS: DULoxetine HCl 60 MG CAPSULE.DR PO (08:24)
[2023-07-11] MEDS: Multivitamin TABLET 1 TAB PO (08:24)
[2023-07-11] MEDS: OXcarbazepine 300 MG TABLET 600 MG PO ×2 (08:24→20:43)
[2023-07-11] MEDS: traZODone HCL 25 MG HALFTAB PO ×2 (08:25→14:01)
[2023-07-11] MEDS: OLANZapine 5 MG TABLET PO ×3 (08:25→20:43)
[2023-07-11] MEDS: Memantine HCl 10 MG TABLET PO ×2 (08:25→22:14)
[2023-07-11] MEDS: levETIRAcetam Oral Soln 500 MG/5 ML 1500 MG PO ×2 (08:26→20:42)
--- NOTE | 2023-07-11 11:29 | HO.PSYCHPN ---
Subjective Subjective Date of Service: 07/11/23 Reason For Visit: Depression Subjective Notes: Conditional Voluntary Interim History: The nursing staff reported the patient had being repetitive, anxious at times, she ate well. She had been resistant to care as usual. She has some outburst but easily redirectable. She ambulated with the help of 2 staff. The hospice social worker reported that [facility] wants her now to go to hospital for rehab. On interview the patient denies new symptoms, chronically impaired. Mental Status Exam Mental Status Exam Patient Appearance: Appropriate Patient Orientation: Person Level of Consciousness: Awake Patient Behavior: Guarded and Passive Mood Description: Withdrawn Affect Description: Labile Patient Cognition Impaired: Yes Ability to Follow Directions: Good Speech Pattern: Clear Hallucinations: None Delusions: Paranoid Ideation and Ideas of Reference Thought Process: Distracted and Slowed Thinking Thought Content: positive for [place] and positive for Thought Blocking Judgement: Poor Diagnostics Vital Signs (24Hr): Vital Signs - 24 hr 07/10/23 20:00 07/11/23 08:00 Temperature 97.9 F 97.1 F Pulse Rate 74 99 Respiratory Rate 16 20 Blood Pressure 104/59 L 132/82 Pulse Oximetry 93 92 Oxygen Delivery Method Room Air Room Air BMI result Body Mass Index 25.0 Labs 06/30/23 07:19 06/30/23 07:19 Medications Medications Current Medications Acetaminophen (Acetaminophen 325 Mg Tablet) 650 mg PO Q6H PRN PRN Reason: Headache/Pain Mild Scale (1-3) Last Admin: 07/10/23 08:53 Dose: 650 mg Al Hydroxide/Mg Hydroxide (Magnesium Hydrox/Alum Hydrox 30 Ml Oral.Susp) 30 ml PO Q6H PRN PRN Reason: Heartburn/Nausea Calcium Carbonate (Calcium Carbonate 750 Mg Tab.Chew) 750 mg PO DAILY PRN PRN Reason: ACID REFLUX Docusate Sodium (Docusate Sodium 100 Mg Capsule) 100 mg PO DAILY [facility] Last Admin: 06/24/23 10:13 Dose: Not Given Donepezil HCl (Donepezil Hcl 10 Mg Tablet) 10 mg PO BEDTIME [facility] Last Admin: 07/10/23 21:45 Dose: 10 mg Duloxetine HCl (Duloxetine Hcl 60 Mg Capsule.Dr) 60 mg PO DAILY [facility] Last Admin: 07/11/23 08:24 Dose: 60 mg Hydroxyzine HCl (Hydroxyzine Hcl 25 Mg Tablet) 25 mg PO Q6H PRN PRN Reason: Anxiety Last Admin: 07/10/23 21:45 Dose: 25 mg Levetiracetam (Levetiracetam Oral Soln 500 Mg/5 Ml) 1,500 mg PO BID [facility] Last Admin: 07/11/23 08:26 Dose: 1,500 mg Loperamide HCl (Loperamide Hcl 2 Mg Capsule) 4 mg PO Q6H PRN PRN Reason: Diarrhea Last Admin: 07/09/23 08:55 Dose: 4 mg Magnesium Hydroxide (Milk Of Magnesia 30 Ml Oral.Susp) 30 ml PO DAILY PRN PRN Reason: Constipation Memantine (Memantine Hcl 10 Mg Tablet) 10 mg PO BID [facility] Last Admin: 07/11/23 08:25 Dose: 10 mg Mirtazapine (Mirtazapine 7.5 Mg Tablet) 7.5 mg PO BEDTIME [facility] Last Admin: 07/10/23 21:44 Dose: 7.5 mg Multivitamins/Vitamin C (Multivitamin Tablet) 1 tab PO DAILY [facility] Last Admin: 07/11/23 08:24 Dose: 1 tab Olanzapine (Olanzapine Odt 10 Mg Tab.Rapdis) 10 mg TRANSLINGU BID PRN PRN Reason: Psychosis Last Admin: 07/09/23 16:40 Dose: 10 mg Olanzapine (Olanzapine 5 Mg Tablet) 5 mg PO TID [facility] Last Admin: 07/11/23 08:25 Dose: 5 mg Oxcarbazepine (Oxcarbazepine 300 Mg Tablet) 600 mg PO BID [facility] Last Admin: 07/11/23 08:24 Dose: 600 mg Psyllium Hydrophilic Mucilloid (Psyllium Seed 3.7 Gm Packet) 3.7 gm PO BID [facility] Last Admin: 06/24/23 20:58 Dose: 3.7 gm Trazodone HCl (Trazodone Hcl 50 Mg Tablet) 50 mg PO BEDTIME MRX1 PRN PRN Reason: Insomnia Last Admin: 07/09/23 20:59 Dose: 50 mg Trazodone HCl (Trazodone Hcl 100 Mg Tablet) 100 mg PO BEDTIME [facility] Last Admin: 07/10/23 21:45 Dose: 100 mg Trazodone HCl (Trazodone Hcl 25 Mg Halftab) 25 mg PO BID@0830,1330 [facility] Last Admin: 05/15/24 08:25 Dose: 25 mg Verapamil HCl (Verapamil Hcl Sr 240 Mg Tablet.Er) 240 mg PO BEDTIME [facility]; Protocol Last Admin: 07/10/23 21:53 Dose: Not Given Allergies Allergies Allergy/AdvReac Type Severity Reaction Status Date / Time amlodipine Allergy Unknown Verified 06/21/23 17:41 aspirin Allergy Rash Verified 06/21/23 17:41 atenolol Allergy Rash Verified 06/21/23 17:41 carbamazepine Allergy Unknown Verified 06/21/23 17:41 celecoxib Allergy Unknown Verified 06/21/23 17:41 ciprofloxacin Allergy Unknown Verified 06/21/23 17:41 erythromycin base Allergy Hives Verified 06/21/23 17:41 fluvastatin Allergy Unknown Verified 06/21/23 17:41 levofloxacin Allergy Unknown Verified 06/21/23 17:41 loratadine Allergy Unknown Verified 06/21/23 17:41 mercaptopurine Allergy Unknown Verified 06/21/23 17:41 naproxen Allergy Unknown Verified 06/21/23 17:41 pantoprazole Allergy Unknown Verified 06/21/23 17:41 Quinolones Allergy Unknown Verified 06/21/23 17:41 ranitidine Allergy Unknown Verified 06/21/23 17:41 sulfamethoxazole Allergy Unknown Verified 06/21/23 17:41 trimethoprim Allergy Unknown Verified 06/21/23 17:41 Assessment & Plan Assessment & Plan (1) Dementia: Status: Acute Code(s): F03.90 - Unspecified dementia, unspecified severity, without behavioral disturbance, psychotic disturbance, mood disturbance, and anxiety (2) Pervasive developmental disorder: Status: Acute Code(s): F84.9 - Pervasive developmental disorder, unspecified Plan Plan 1. Continue with same Trileptal 600 mg p.o. b.i.d.. 2. Increase Zyprexa up to 3.75 p.o. t.i.d.. On June 26 we are going to increase to 5 mg p.o. t.i.d. 3. Rest the same. 4. Blood work CBC and BMP within normal limits no changes slight high cholesterol. 5. Start trazodone 25 mg in the morning and in the afternoon and keep 100 at night. Started on July 03. 6. We discussed with the primary team in the community with the possibility to discharge her to subacute rehab due to deconditionion. Reason for continued inpatient stay Substantial Risk for: inability to function, rapid decompensation and med/psych decompensation Time Spent With Patient Time: Total time managing care of this patient today __20__ minutes.
[2023-07-11 20:00] VITALS: BP 141/69; PULSE 76; RESP 16; TEMP 36.2; O2SAT 93
[2023-07-11] MEDS: traZODone HCL 100 MG TABLET PO (20:42)
[2023-07-11] MEDS: Mirtazapine 7.5 MG TABLET PO (20:42)
[2023-07-11] MEDS: hydrOXYzine HCL 25 MG TABLET PO (20:43)
[2023-07-11] MEDS: traZODone HCL 50 MG TABLET PO (21:35)
[2023-07-11] MEDS: OLANZapine ODT 10 MG TAB.RAPDIS TRANSLINGU (21:35)
[2023-07-11] MEDS: Donepezil HCl 10 MG TABLET PO (22:13)
[2023-07-11] MEDS: LORazepam 1 MG TABLET PO (22:19)
[2023-07-12 07:00] VITALS: BMI 26.6
[2023-07-12 08:00] VITALS: RESP 18; TEMP 36.7
[2023-07-12] MEDS: DULoxetine HCl 60 MG CAPSULE.DR PO (09:24)
[2023-07-12] MEDS: OXcarbazepine 300 MG TABLET 600 MG PO ×2 (09:24→20:44)
[2023-07-12] MEDS: OLANZapine 5 MG TABLET PO ×3 (09:24→20:44)
[2023-07-12] MEDS: levETIRAcetam Oral Soln 500 MG/5 ML 1500 MG PO ×2 (09:24→20:46)
[2023-07-12] MEDS: Multivitamin TABLET 1 TAB PO (09:25)
[2023-07-12] MEDS: traZODone HCL 25 MG HALFTAB PO ×2 (09:25→14:07)
[2023-07-12] MEDS: Memantine HCl 10 MG TABLET PO ×2 (09:25→20:44)
--- NOTE | 2023-07-12 13:01 | P.PNPSI_ITS ---
Subjective Subjective Date of Service: 07/12/23 Reason For Visit: Depression Subjective Notes: Conditional Voluntary Healthcare Proxy: Yes Interim History: The nursing staff reported the patient had been resistant of care, no changes in her mental status. The occupational therapist worked on her assessments and it is clear that the dementia has worsened to the point that there is problems on her gait, she needs to assist and she has problems on planning fine movements. The social media sr strategy manager reported that [facility] is planning to transfer her to another hospital for rehab. On interview the patient denies new symptoms, waiting for placement. Mental Status Exam Mental Status Exam Patient Appearance: Appropriate Patient Orientation: Person and Situation Level of Consciousness: Awake and Appropriate Patient Behavior: Guarded and Passive Mood Description: Withdrawn Affect Description: Constricted Patient Cognition Impaired: Yes Ability to Follow Directions: Good Speech Pattern: Clear Hallucinations: None Delusions: Not Present Thought Process: Illogical, Distracted and Slowed Thinking Thought Content: positive for [place] and positive for Poverty of Content Judgement: Poor Diagnostics Vital Signs (24Hr): Vital Signs - 24 hr 07/11/23 20:00 07/12/23 08:00 Temperature 97.2 F 98.1 F Pulse Rate 76 Respiratory Rate 16 18 Blood Pressure 141/69 H Pulse Oximetry 93 Oxygen Delivery Method Room Air BMI result Body Mass Index 26.6 Labs 06/30/23 07:19 06/30/23 07:19 Medications Medications Current Medications Acetaminophen (Acetaminophen 325 Mg Tablet) 650 mg PO Q6H PRN PRN Reason: Headache/Pain Mild Scale (1-3) Last Admin: 07/10/23 08:53 Dose: 650 mg Al Hydroxide/Mg Hydroxide (Magnesium Hydrox/Alum Hydrox 30 Ml Oral.Susp) 30 ml PO Q6H PRN PRN Reason: Heartburn/Nausea Calcium Carbonate (Calcium Carbonate 750 Mg Tab.Chew) 750 mg PO DAILY PRN PRN Reason: ACID REFLUX Docusate Sodium (Docusate Sodium 100 Mg Capsule) 100 mg PO DAILY [facility] Last Admin: 06/24/23 10:13 Dose: Not Given Donepezil HCl (Donepezil Hcl 10 Mg Tablet) 10 mg PO BEDTIME [facility] Last Admin: 07/11/23 22:13 Dose: 10 mg Duloxetine HCl (Duloxetine Hcl 60 Mg Capsule.Dr) 60 mg PO DAILY [facility] Last Admin: 07/12/23 09:24 Dose: 60 mg Hydroxyzine HCl (Hydroxyzine Hcl 25 Mg Tablet) 25 mg PO Q6H PRN PRN Reason: Anxiety Last Admin: 07/11/23 20:43 Dose: 25 mg Levetiracetam (Levetiracetam Oral Soln 500 Mg/5 Ml) 1,500 mg PO BID [facility] Last Admin: 07/12/23 09:24 Dose: 1,500 mg Loperamide HCl (Loperamide Hcl 2 Mg Capsule) 4 mg PO Q6H PRN PRN Reason: Diarrhea Last Admin: 07/09/23 08:55 Dose: 4 mg Lorazepam (Lorazepam 1 Mg Tablet) 1 mg PO ONCE PRN PRN Reason: anxiety/restlessness Last Admin: 07/11/23 22:19 Dose: 1 mg Magnesium Hydroxide (Milk Of Magnesia 30 Ml Oral.Susp) 30 ml PO DAILY PRN PRN Reason: Constipation Memantine (Memantine Hcl 10 Mg Tablet) 10 mg PO BID [facility] Last Admin: 07/12/23 09:25 Dose: 10 mg Mirtazapine (Mirtazapine 7.5 Mg Tablet) 7.5 mg PO BEDTIME [facility] Last Admin: 07/11/23 20:42 Dose: 7.5 mg Multivitamins/Vitamin C (Multivitamin Tablet) 1 tab PO DAILY [facility] Last Admin: 07/12/23 09:25 Dose: 1 tab Olanzapine (Olanzapine Odt 10 Mg Tab.Rapdis) 10 mg TRANSLINGU BID PRN PRN Reason: Psychosis Last Admin: 07/11/23 21:35 Dose: 10 mg Olanzapine (Olanzapine 5 Mg Tablet) 5 mg PO TID [facility] Last Admin: 07/12/23 09:24 Dose: 5 mg Oxcarbazepine (Oxcarbazepine 300 Mg Tablet) 600 mg PO BID [facility] Last Admin: 07/12/23 09:24 Dose: 600 mg Psyllium Hydrophilic Mucilloid (Psyllium Seed 3.7 Gm Packet) 3.7 gm PO BID [facility] Last Admin: 06/24/23 20:58 Dose: 3.7 gm Trazodone HCl (Trazodone Hcl 50 Mg Tablet) 50 mg PO BEDTIME MRX1 PRN PRN Reason: Insomnia Last Admin: 07/11/23 21:35 Dose: 50 mg Trazodone HCl (Trazodone Hcl 100 Mg Tablet) 100 mg PO BEDTIME [facility] Last Admin: 07/11/23 20:42 Dose: 100 mg Trazodone HCl (Trazodone Hcl 25 Mg Halftab) 25 mg PO BID@0830,1330 [facility] Last Admin: 07/12/23 09:25 Dose: 25 mg Verapamil HCl (Verapamil Hcl Sr 240 Mg Tablet.Er) 240 mg PO BEDTIME [facility]; Protocol Last Admin: 07/11/23 22:14 Dose: Not Given Allergies Allergies Allergy/AdvReac Type Severity Reaction Status Date / Time amlodipine Allergy Unknown Verified 06/21/23 17:41 aspirin Allergy Rash Verified 06/21/23 17:41 atenolol Allergy Rash Verified 06/21/23 17:41 carbamazepine Allergy Unknown Verified 06/21/23 17:41 celecoxib Allergy Unknown Verified 06/21/23 17:41 ciprofloxacin Allergy Unknown Verified 06/21/23 17:41 erythromycin base Allergy Hives Verified 06/21/23 17:41 fluvastatin Allergy Unknown Verified 06/21/23 17:41 levofloxacin Allergy Unknown Verified 06/21/23 17:41 loratadine Allergy Unknown Verified 06/21/23 17:41 mercaptopurine Allergy Unknown Verified 06/21/23 17:41 naproxen Allergy Unknown Verified 06/21/23 17:41 pantoprazole Allergy Unknown Verified 06/21/23 17:41 Quinolones Allergy Unknown Verified 06/21/23 17:41 ranitidine Allergy Unknown Verified 06/21/23 17:41 sulfamethoxazole Allergy Unknown Verified 06/21/23 17:41 trimethoprim Allergy Unknown Verified 06/21/23 17:41 Assessment & Plan Assessment & Plan (1) Dementia: Status: Acute Code(s): F03.90 - Unspecified dementia, unspecified severity, without behavioral disturbance, psychotic disturbance, mood disturbance, and anxiety (2) Pervasive developmental disorder: Status: Acute Code(s): F84.9 - Pervasive developmental disorder, unspecified Plan Plan 1. Continue with same Trileptal 600 mg p.o. b.i.d.. 2. Increase Zyprexa up to 3.75 p.o. t.i.d.. On June 26 we are going to increase to 5 mg p.o. t.i.d. 3. Rest the same. 4. Blood work CBC and BMP within normal limits no changes slight high cholesterol. 5. Start trazodone 25 mg in the morning and in the afternoon and keep 100 at night. Started on July 03. We discussed with the primary team in the community with the possibility to discharge her to subacute rehab due to deconditionion. Reason for continued inpatient stay Substantial Risk for: inability to function, rapid decompensation and med/psych decompensation Time Spent With Patient Time: Total time managing care of this patient today __20__ minutes.
[2023-07-12 20:00] VITALS: BP 128/88; PULSE 109; RESP 16; TEMP 36.5; O2SAT 96
[2023-07-12 20:44] VITALS: BP 128/88; PULSE 109
[2023-07-12] MEDS: Donepezil HCl 10 MG TABLET PO (20:44)
[2023-07-12] MEDS: VerapamiL HCL SR 240 MG TABLET.ER PO (20:44)
[2023-07-12] MEDS: Mirtazapine 7.5 MG TABLET PO (20:44)
[2023-07-12] MEDS: traZODone HCL 100 MG TABLET PO (20:44)
[2023-07-12] MEDS: Loperamide HCl 2 MG CAPSULE 4 MG PO (20:45)
[2023-07-13 08:00] VITALS: BP 170/79; PULSE 86; RESP 18; TEMP 36.2; O2SAT 95
[2023-07-13] MEDS: Memantine HCl 10 MG TABLET PO ×2 (11:19→21:13)
[2023-07-13] MEDS: DULoxetine HCl 60 MG CAPSULE.DR PO (11:20)
[2023-07-13] MEDS: Multivitamin TABLET 1 TAB PO (11:20)
[2023-07-13] MEDS: levETIRAcetam Oral Soln 500 MG/5 ML 1500 MG PO ×2 (11:20→21:12)
[2023-07-13] MEDS: OLANZapine 5 MG TABLET PO ×3 (11:20→21:23)
[2023-07-13] MEDS: OXcarbazepine 300 MG TABLET 600 MG PO ×2 (11:20→21:13)
[2023-07-13] MEDS: traZODone HCL 25 MG HALFTAB PO ×2 (11:20→13:07)
--- NOTE | 2023-07-13 12:35 | P.PNPSI_ITS ---
Subjective Subjective Date of Service: 07/13/23 Reason For Visit: Depression Subjective Notes: Conditional Voluntary (By healthcare proxy) Healthcare Proxy: Yes Interim History: The nursing staff reported the patient remains on her bed most of the time she was put on a wheelchair but she does not have control of her body and could slide down. Her appetite had been good and she had loose stools. She was fully compliant with medications. As usual, she remains in her bed, resistant to care but redirectable. Waiting for placement. Mental Status Exam Mental Status Exam Patient Appearance: Appropriate Patient Orientation: Person and Situation Level of Consciousness: Awake Patient Behavior: Guarded and Passive Mood Description: Withdrawn Affect Description: Constricted Patient Cognition Impaired: Yes Ability to Follow Directions: Good Speech Pattern: Clear Hallucinations: None Delusions: Not Present Thought Process: Distracted and Evasive Thought Content: positive for [place] and positive for Poverty of Content Judgement: Poor Diagnostics Vital Signs (24Hr): Vital Signs - 24 hr 07/12/23 20:00 07/12/23 20:44 07/13/23 08:00 Temperature 97.7 F 97.1 F Pulse Rate 109 H 109 H 86 Respiratory Rate 16 18 Blood Pressure 128/88 128/88 170/79 H Pulse Oximetry 96 95 Oxygen Delivery Method Room Air Room Air BMI result Body Mass Index 26.6 Labs 06/30/23 07:19 06/30/23 07:19 Medications Medications Current Medications Acetaminophen (Acetaminophen 325 Mg Tablet) 650 mg PO Q6H PRN PRN Reason: Headache/Pain Mild Scale (1-3) Last Admin: 07/10/23 08:53 Dose: 650 mg Al Hydroxide/Mg Hydroxide (Magnesium Hydrox/Alum Hydrox 30 Ml Oral.Susp) 30 ml PO Q6H PRN PRN Reason: Heartburn/Nausea Calcium Carbonate (Calcium Carbonate 750 Mg Tab.Chew) 750 mg PO DAILY PRN PRN Reason: ACID REFLUX Docusate Sodium (Docusate Sodium 100 Mg Capsule) 100 mg PO DAILY [facility] Last Admin: 06/24/23 10:13 Dose: Not Given Donepezil HCl (Donepezil Hcl 10 Mg Tablet) 10 mg PO BEDTIME [facility] Last Admin: 07/12/23 20:44 Dose: 10 mg Duloxetine HCl (Duloxetine Hcl 60 Mg Capsule.Dr) 60 mg PO DAILY [facility] Last Admin: 07/13/23 11:20 Dose: 60 mg Hydroxyzine HCl (Hydroxyzine Hcl 25 Mg Tablet) 25 mg PO Q6H PRN PRN Reason: Anxiety Last Admin: 07/11/23 20:43 Dose: 25 mg Levetiracetam (Levetiracetam Oral Soln 500 Mg/5 Ml) 1,500 mg PO BID [facility] Last Admin: 07/13/23 11:20 Dose: 1,500 mg Loperamide HCl (Loperamide Hcl 2 Mg Capsule) 4 mg PO Q6H PRN PRN Reason: Diarrhea Last Admin: 07/12/23 20:45 Dose: 4 mg Lorazepam (Lorazepam 1 Mg Tablet) 1 mg PO ONCE PRN PRN Reason: anxiety/restlessness Last Admin: 07/11/23 22:19 Dose: 1 mg Magnesium Hydroxide (Milk Of Magnesia 30 Ml Oral.Susp) 30 ml PO DAILY PRN PRN Reason: Constipation Memantine (Memantine Hcl 10 Mg Tablet) 10 mg PO BID [facility] Last Admin: 07/13/23 11:19 Dose: 10 mg Mirtazapine (Mirtazapine 7.5 Mg Tablet) 7.5 mg PO BEDTIME [facility] Last Admin: 07/12/23 20:44 Dose: 7.5 mg Multivitamins/Vitamin C (Multivitamin Tablet) 1 tab PO DAILY [facility] Last Admin: 07/13/23 11:20 Dose: 1 tab Olanzapine (Olanzapine Odt 10 Mg Tab.Rapdis) 10 mg TRANSLINGU BID PRN PRN Reason: Psychosis Last Admin: 07/11/23 21:35 Dose: 10 mg Olanzapine (Olanzapine 5 Mg Tablet) 5 mg PO TID [facility] Last Admin: 07/13/23 11:20 Dose: 5 mg Oxcarbazepine (Oxcarbazepine 300 Mg Tablet) 600 mg PO BID [facility] Last Admin: 07/13/23 11:20 Dose: 600 mg Psyllium Hydrophilic Mucilloid (Psyllium Seed 3.7 Gm Packet) 3.7 gm PO BID [facility] Last Admin: 06/24/23 20:58 Dose: 3.7 gm Trazodone HCl (Trazodone Hcl 50 Mg Tablet) 50 mg PO BEDTIME MRX1 PRN PRN Reason: Insomnia Last Admin: 07/11/23 21:35 Dose: 50 mg Trazodone HCl (Trazodone Hcl 100 Mg Tablet) 100 mg PO BEDTIME [facility] Last Admin: 07/12/23 20:44 Dose: 100 mg Trazodone HCl (Trazodone Hcl 25 Mg Halftab) 25 mg PO BID@0830,1330 [facility] Last Admin: 07/13/23 11:20 Dose: 25 mg Verapamil HCl (Verapamil Hcl Sr 240 Mg Tablet.Er) 240 mg PO BEDTIME [facility]; Protocol Last Admin: 07/12/23 20:44 Dose: 240 mg Allergies Allergies Allergy/AdvReac Type Severity Reaction Status Date / Time amlodipine Allergy Unknown Verified 06/21/23 17:41 aspirin Allergy Rash Verified 06/21/23 17:41 atenolol Allergy Rash Verified 06/21/23 17:41 carbamazepine Allergy Unknown Verified 06/21/23 17:41 celecoxib Allergy Unknown Verified 06/21/23 17:41 ciprofloxacin Allergy Unknown Verified 06/21/23 17:41 erythromycin base Allergy Hives Verified 06/21/23 17:41 fluvastatin Allergy Unknown Verified 06/21/23 17:41 levofloxacin Allergy Unknown Verified 06/21/23 17:41 loratadine Allergy Unknown Verified 06/21/23 17:41 mercaptopurine Allergy Unknown Verified 06/21/23 17:41 naproxen Allergy Unknown Verified 06/21/23 17:41 pantoprazole Allergy Unknown Verified 06/21/23 17:41 Quinolones Allergy Unknown Verified 06/21/23 17:41 ranitidine Allergy Unknown Verified 06/21/23 17:41 sulfamethoxazole Allergy Unknown Verified 06/21/23 17:41 trimethoprim Allergy Unknown Verified 06/21/23 17:41 Assessment & Plan Assessment & Plan (1) Dementia: Status: Acute Code(s): F03.90 - Unspecified dementia, unspecified severity, without behavioral disturbance, psychotic disturbance, mood disturbance, and anxiety (2) Pervasive developmental disorder: Status: Acute Code(s): F84.9 - Pervasive developmental disorder, unspecified Plan Plan 1. Continue with same Trileptal 600 mg p.o. b.i.d.. 2. Increase Zyprexa up to 3.75 p.o. t.i.d.. On June 26 we are going to increase to 5 mg p.o. t.i.d. 3. Rest the same. 4. Blood work CBC and BMP within normal limits no changes slight high cholesterol. 5. Start trazodone 25 mg in the morning and in the afternoon and keep 100 at night. Started on July 03. We discussed with the primary team in the community with the possibility to discharge her to subacute rehab due to deconditionion. Reason for continued inpatient stay Substantial Risk for: inability to function, rapid decompensation and med/psych decompensation Time Spent With Patient Time: Total time managing care of this patient today __20__ minutes.
[2023-07-13 20:00] VITALS: BP 141/71; PULSE 73; RESP 16; TEMP 36.3; O2SAT 92
[2023-07-13] MEDS: hydrOXYzine HCL 25 MG TABLET PO (21:13)
[2023-07-13] MEDS: traZODone HCL 50 MG TABLET PO (21:13)
[2023-07-13 21:14] VITALS: BP 141/71; PULSE 73
[2023-07-13] MEDS: VerapamiL HCL SR 240 MG TABLET.ER PO (21:14)
[2023-07-13] MEDS: traZODone HCL 100 MG TABLET PO (21:20)
[2023-07-13] MEDS: Mirtazapine 7.5 MG TABLET PO (21:21)
[2023-07-13] MEDS: OLANZapine ODT 10 MG TAB.RAPDIS TRANSLINGU (21:21)
[2023-07-13] MEDS: Donepezil HCl 10 MG TABLET PO (21:23)
[2023-07-14] MEDS: levETIRAcetam Oral Soln 500 MG/5 ML 1500 MG PO ×2 (08:23→20:31)
[2023-07-14] MEDS: DULoxetine HCl 60 MG CAPSULE.DR PO (08:24)
[2023-07-14] MEDS: OLANZapine 5 MG TABLET PO ×3 (08:24→20:32)
[2023-07-14] MEDS: Multivitamin TABLET 1 TAB PO (08:24)
[2023-07-14] MEDS: OXcarbazepine 300 MG TABLET 600 MG PO ×2 (08:24→20:32)
[2023-07-14] MEDS: Memantine HCl 10 MG TABLET PO ×2 (08:24→20:32)
[2023-07-14] MEDS: traZODone HCL 25 MG HALFTAB PO ×2 (08:24→13:22)
[2023-07-14] MEDS: Acetaminophen 325 MG TABLET 650 MG PO ×2 (08:33→16:08)
--- NOTE | 2023-07-14 10:32 | HO.PSYCHPN ---
Subjective Subjective Date of Service: 07/14/23 Reason For Visit: Depression Subjective Notes: Conditional Voluntary Interim History: Patient was seen and discussed in rounds today. Records and plans were reviewed. She continues to be mostly in her room on her bed, yelling at times. Eating and mostly sleeping adequately. No complaints or side effects. No changes were made today Review of Systems Review of Systems Yes Unobtainable due to mental status Mental Status Exam Mental Status Exam Patient Appearance: Appropriate Patient Orientation: Person and Situation Level of Consciousness: Awake Patient Behavior: Guarded and Passive Mood Description: Withdrawn Affect Description: Constricted Patient Cognition Impaired: Yes Ability to Follow Directions: Good Speech Pattern: Clear Hallucinations: None Delusions: Not Present Thought Process: Distracted and Evasive Thought Content: positive for [place] and positive for Poverty of Content Judgement: Poor Diagnostics Vital Signs (24Hr): Vital Signs - 24 hr 07/13/23 20:00 07/13/23 21:14 Temperature 97.3 F Pulse Rate 73 73 Respiratory Rate 16 Blood Pressure 141/71 H 141/71 H Pulse Oximetry 92 Oxygen Delivery Method Room Air BMI result Body Mass Index 26.6 Labs 06/30/23 07:19 06/30/23 07:19 Medications Medications Current Medications Acetaminophen (Acetaminophen 325 Mg Tablet) 650 mg PO Q6H PRN PRN Reason: Headache/Pain Mild Scale (1-3) Last Admin: 07/14/23 08:33 Dose: 650 mg Al Hydroxide/Mg Hydroxide (Magnesium Hydrox/Alum Hydrox 30 Ml Oral.Susp) 30 ml PO Q6H PRN PRN Reason: Heartburn/Nausea Calcium Carbonate (Calcium Carbonate 750 Mg Tab.Chew) 750 mg PO DAILY PRN PRN Reason: ACID REFLUX Docusate Sodium (Docusate Sodium 100 Mg Capsule) 100 mg PO DAILY [facility] Last Admin: 06/24/23 10:13 Dose: Not Given Donepezil HCl (Donepezil Hcl 10 Mg Tablet) 10 mg PO BEDTIME [facility] Last Admin: 07/13/23 21:23 Dose: 10 mg Duloxetine HCl (Duloxetine Hcl 60 Mg Capsule.Dr) 60 mg PO DAILY [facility] Last Admin: 07/14/23 08:24 Dose: 60 mg Hydroxyzine HCl (Hydroxyzine Hcl 25 Mg Tablet) 25 mg PO Q6H PRN PRN Reason: Anxiety Last Admin: 07/13/23 21:13 Dose: 25 mg Levetiracetam (Levetiracetam Oral Soln 500 Mg/5 Ml) 1,500 mg PO BID [facility] Last Admin: 07/14/23 08:23 Dose: 1,500 mg Loperamide HCl (Loperamide Hcl 2 Mg Capsule) 4 mg PO Q6H PRN PRN Reason: Diarrhea Last Admin: 07/12/23 20:45 Dose: 4 mg Lorazepam (Lorazepam 1 Mg Tablet) 1 mg PO ONCE PRN PRN Reason: anxiety/restlessness Last Admin: 07/11/23 22:19 Dose: 1 mg Magnesium Hydroxide (Milk Of Magnesia 30 Ml Oral.Susp) 30 ml PO DAILY PRN PRN Reason: Constipation Memantine (Memantine Hcl 10 Mg Tablet) 10 mg PO BID [facility] Last Admin: 07/14/23 08:24 Dose: 10 mg Mirtazapine (Mirtazapine 7.5 Mg Tablet) 7.5 mg PO BEDTIME [facility] Last Admin: 07/13/23 21:21 Dose: 7.5 mg Multivitamins/Vitamin C (Multivitamin Tablet) 1 tab PO DAILY [facility] Last Admin: 07/14/23 08:24 Dose: 1 tab Olanzapine (Olanzapine Odt 10 Mg Tab.Rapdis) 10 mg TRANSLINGU BID PRN PRN Reason: Psychosis Last Admin: 07/13/23 21:21 Dose: 10 mg Olanzapine (Olanzapine 5 Mg Tablet) 5 mg PO TID [facility] Last Admin: 07/14/23 08:24 Dose: 5 mg Oxcarbazepine (Oxcarbazepine 300 Mg Tablet) 600 mg PO BID [facility] Last Admin: 07/14/23 08:24 Dose: 600 mg Psyllium Hydrophilic Mucilloid (Psyllium Seed 3.7 Gm Packet) 3.7 gm PO BID [facility] Last Admin: 06/24/23 20:58 Dose: 3.7 gm Trazodone HCl (Trazodone Hcl 50 Mg Tablet) 50 mg PO BEDTIME MRX1 PRN PRN Reason: Insomnia Last Admin: 07/13/23 21:13 Dose: 50 mg Trazodone HCl (Trazodone Hcl 100 Mg Tablet) 100 mg PO BEDTIME [facility] Last Admin: 07/13/23 21:20 Dose: 100 mg Trazodone HCl (Trazodone Hcl 25 Mg Halftab) 25 mg PO BID@0830,1330 [facility] Last Admin: 07/14/23 08:24 Dose: 25 mg Verapamil HCl (Verapamil Hcl Sr 240 Mg Tablet.Er) 240 mg PO BEDTIME [facility]; Protocol Last Admin: 07/13/23 21:14 Dose: 240 mg Allergies Allergies Allergy/AdvReac Type Severity Reaction Status Date / Time amlodipine Allergy Unknown Verified 06/21/23 17:41 aspirin Allergy Rash Verified 06/21/23 17:41 atenolol Allergy Rash Verified 06/21/23 17:41 carbamazepine Allergy Unknown Verified 06/21/23 17:41 celecoxib Allergy Unknown Verified 06/21/23 17:41 ciprofloxacin Allergy Unknown Verified 06/21/23 17:41 erythromycin base Allergy Hives Verified 06/21/23 17:41 fluvastatin Allergy Unknown Verified 06/21/23 17:41 levofloxacin Allergy Unknown Verified 06/21/23 17:41 loratadine Allergy Unknown Verified 06/21/23 17:41 mercaptopurine Allergy Unknown Verified 06/21/23 17:41 naproxen Allergy Unknown Verified 06/21/23 17:41 pantoprazole Allergy Unknown Verified 06/21/23 17:41 Quinolones Allergy Unknown Verified 06/21/23 17:41 ranitidine Allergy Unknown Verified 06/21/23 17:41 sulfamethoxazole Allergy Unknown Verified 06/21/23 17:41 trimethoprim Allergy Unknown Verified 06/21/23 17:41 Assessment & Plan Assessment & Plan (1) Dementia: Status: Acute Code(s): F03.90 - Unspecified dementia, unspecified severity, without behavioral disturbance, psychotic disturbance, mood disturbance, and anxiety (2) Pervasive developmental disorder: Status: Acute Code(s): F84.9 - Pervasive developmental disorder, unspecified Plan Plan 1. Continue with same Trileptal 600 mg p.o. b.i.d.. 2. Increase Zyprexa up to 3.75 p.o. t.i.d.. On June 26 we are going to increase to 5 mg p.o. t.i.d. 3. Rest the same. 4. Blood work CBC and BMP within normal limits no changes slight high cholesterol. 5. Start trazodone 25 mg in the morning and in the afternoon and keep 100 at night. Started on July 03. 6. We discussed with the primary team in the community with the possibility to discharge her to subacute rehab due to deconditionion. 07/13: Continue current treatment and plan Reason for continued inpatient stay Substantial Risk for: inability to function Time Spent With Patient Time: Total time managing care of this patient today ____ minutes.
[2023-07-14] MEDS: hydrOXYzine HCL 25 MG TABLET PO ×2 (11:20→20:31)
[2023-07-14 20:00] VITALS: BP 115/73; PULSE 113; RESP 18; TEMP 35.8; O2SAT 94
[2023-07-14 20:31] VITALS: BP 115/75; PULSE 113
[2023-07-14] MEDS: VerapamiL HCL SR 240 MG TABLET.ER PO (20:31)
[2023-07-14] MEDS: Mirtazapine 7.5 MG TABLET PO (20:32)
[2023-07-14] MEDS: traZODone HCL 100 MG TABLET PO (20:32)
[2023-07-14] MEDS: Donepezil HCl 10 MG TABLET PO (20:32)
[2023-07-15] MEDS: traZODone HCL 50 MG TABLET PO ×2 (01:41→22:10)
[2023-07-15] MEDS: hydrOXYzine HCL 25 MG TABLET PO ×3 (01:41→22:10)
[2023-07-15] MEDS: OLANZapine ODT 10 MG TAB.RAPDIS TRANSLINGU ×2 (02:02→23:49)
--- NOTE | 2023-07-15 02:33 | PC.NURSE ---
Patient is restless/screaming continuously, PRN hydroxyzine 25 mg and Trazodone 50 mg administered at 0141 with no effect, olanzapine 10 mg administered 0202 pending effect, will continue to monitor
[2023-07-15 08:00] VITALS: BP 111/68; PULSE 109; RESP 18; TEMP 36.3; O2SAT 94
[2023-07-15] MEDS: DULoxetine HCl 60 MG CAPSULE.DR PO (08:16)
[2023-07-15] MEDS: traZODone HCL 25 MG HALFTAB PO ×2 (08:16→13:03)
[2023-07-15] MEDS: OXcarbazepine 300 MG TABLET 600 MG PO ×2 (08:16→20:53)
[2023-07-15] MEDS: Multivitamin TABLET 1 TAB PO (08:17)
[2023-07-15] MEDS: OLANZapine 5 MG TABLET PO ×3 (08:17→20:52)
[2023-07-15] MEDS: Memantine HCl 10 MG TABLET PO ×2 (08:17→20:53)
[2023-07-15] MEDS: levETIRAcetam Oral Soln 500 MG/5 ML 1500 MG PO ×2 (08:17→20:53)
[2023-07-15] MEDS: Acetaminophen 325 MG TABLET 650 MG PO ×2 (10:34→17:20)
--- NOTE | 2023-07-15 10:40 | HO.PSYCHPN ---
Subjective Subjective Date of Service: 07/15/23 Reason For Visit: Depression Subjective Notes: Conditional Voluntary Interim History: Patient was seen and discussed in rounds today. Records and plans were reviewed. She has not been exhibiting any changes. She is medication compliant. Restless at times. Eating and sleeping adequately. No changes were made today Review of Systems Review of Systems Yes Unobtainable due to mental status Mental Status Exam Mental Status Exam Patient Appearance: Appropriate Patient Orientation: Person and Situation Level of Consciousness: Awake Patient Behavior: Guarded and Passive Mood Description: Withdrawn Affect Description: Constricted Patient Cognition Impaired: Yes Ability to Follow Directions: Good Speech Pattern: Clear Hallucinations: None Delusions: Not Present Thought Process: Distracted and Evasive Thought Content: positive for [employer] and positive for Poverty of Content Judgement: Poor Diagnostics Vital Signs (24Hr): Vital Signs - 24 hr 07/14/23 20:00 07/14/23 20:31 Temperature 96.4 F L Pulse Rate 113 H 113 H Respiratory Rate 18 Blood Pressure 115/73 115/75 Pulse Oximetry 94 Oxygen Delivery Method Room Air BMI result Body Mass Index 26.6 Labs 06/30/23 07:19 06/30/23 07:19 Medications Medications Current Medications Acetaminophen (Acetaminophen 325 Mg Tablet) 650 mg PO Q6H PRN PRN Reason: Headache/Pain Mild Scale (1-3) Last Admin: 07/14/23 16:08 Dose: 650 mg Al Hydroxide/Mg Hydroxide (Magnesium Hydrox/Alum Hydrox 30 Ml Oral.Susp) 30 ml PO Q6H PRN PRN Reason: Heartburn/Nausea Calcium Carbonate (Calcium Carbonate 750 Mg Tab.Chew) 750 mg PO DAILY PRN PRN Reason: ACID REFLUX Docusate Sodium (Docusate Sodium 100 Mg Capsule) 100 mg PO DAILY [facility] Last Admin: 06/24/23 10:13 Dose: Not Given Donepezil HCl (Donepezil Hcl 10 Mg Tablet) 10 mg PO BEDTIME [facility] Last Admin: 07/14/23 20:32 Dose: 10 mg Duloxetine HCl (Duloxetine Hcl 60 Mg Capsule.Dr) 60 mg PO DAILY [facility] Last Admin: 07/15/23 08:16 Dose: 60 mg Hydroxyzine HCl (Hydroxyzine Hcl 25 Mg Tablet) 25 mg PO Q6H PRN PRN Reason: Anxiety Last Admin: 07/15/23 01:41 Dose: 25 mg Levetiracetam (Levetiracetam Oral Soln 500 Mg/5 Ml) 1,500 mg PO BID [facility] Last Admin: 07/15/23 08:17 Dose: 1,500 mg Loperamide HCl (Loperamide Hcl 2 Mg Capsule) 4 mg PO Q6H PRN PRN Reason: Diarrhea Last Admin: 07/12/23 20:45 Dose: 4 mg Lorazepam (Lorazepam 1 Mg Tablet) 1 mg PO ONCE PRN PRN Reason: anxiety/restlessness Last Admin: 07/11/23 22:19 Dose: 1 mg Magnesium Hydroxide (Milk Of Magnesia 30 Ml Oral.Susp) 30 ml PO DAILY PRN PRN Reason: Constipation Memantine (Memantine Hcl 10 Mg Tablet) 10 mg PO BID [facility] Last Admin: 07/15/23 08:17 Dose: 10 mg Mirtazapine (Mirtazapine 7.5 Mg Tablet) 7.5 mg PO BEDTIME [facility] Last Admin: 07/14/23 20:32 Dose: 7.5 mg Multivitamins/Vitamin C (Multivitamin Tablet) 1 tab PO DAILY [facility] Last Admin: 07/15/23 08:17 Dose: 1 tab Olanzapine (Olanzapine Odt 10 Mg Tab.Rapdis) 10 mg TRANSLINGU BID PRN PRN Reason: Psychosis Last Admin: 07/15/23 02:02 Dose: 10 mg Olanzapine (Olanzapine 5 Mg Tablet) 5 mg PO TID [facility] Last Admin: 07/15/23 08:17 Dose: 5 mg Oxcarbazepine (Oxcarbazepine 300 Mg Tablet) 600 mg PO BID [facility] Last Admin: 07/15/23 08:16 Dose: 600 mg Psyllium Hydrophilic Mucilloid (Psyllium Seed 3.7 Gm Packet) 3.7 gm PO BID [facility] Last Admin: 06/24/23 20:58 Dose: 3.7 gm Trazodone HCl (Trazodone Hcl 50 Mg Tablet) 50 mg PO BEDTIME MRX1 PRN PRN Reason: Insomnia Last Admin: 07/15/23 01:41 Dose: 50 mg Trazodone HCl (Trazodone Hcl 100 Mg Tablet) 100 mg PO BEDTIME [facility] Last Admin: 07/14/23 20:32 Dose: 100 mg Trazodone HCl (Trazodone Hcl 25 Mg Halftab) 25 mg PO BID@0830,1330 [facility] Last Admin: 07/15/23 08:16 Dose: 25 mg Verapamil HCl (Verapamil Hcl Sr 240 Mg Tablet.Er) 240 mg PO BEDTIME [facility]; Protocol Last Admin: 07/14/23 20:31 Dose: 240 mg Allergies Allergies Allergy/AdvReac Type Severity Reaction Status Date / Time amlodipine Allergy Unknown Verified 06/21/23 17:41 aspirin Allergy Rash Verified 06/21/23 17:41 atenolol Allergy Rash Verified 06/21/23 17:41 carbamazepine Allergy Unknown Verified 06/21/23 17:41 celecoxib Allergy Unknown Verified 06/21/23 17:41 ciprofloxacin Allergy Unknown Verified 06/21/23 17:41 erythromycin base Allergy Hives Verified 06/21/23 17:41 fluvastatin Allergy Unknown Verified 06/21/23 17:41 levofloxacin Allergy Unknown Verified 06/21/23 17:41 loratadine Allergy Unknown Verified 06/21/23 17:41 mercaptopurine Allergy Unknown Verified 06/21/23 17:41 naproxen Allergy Unknown Verified 06/21/23 17:41 pantoprazole Allergy Unknown Verified 06/21/23 17:41 Quinolones Allergy Unknown Verified 06/21/23 17:41 ranitidine Allergy Unknown Verified 06/21/23 17:41 sulfamethoxazole Allergy Unknown Verified 06/21/23 17:41 trimethoprim Allergy Unknown Verified 06/21/23 17:41 Assessment & Plan Assessment & Plan (1) Dementia: Status: Acute Code(s): F03.90 - Unspecified dementia, unspecified severity, without behavioral disturbance, psychotic disturbance, mood disturbance, and anxiety (2) Pervasive developmental disorder: Status: Acute Code(s): F84.9 - Pervasive developmental disorder, unspecified Plan Plan 1. Continue with same Trileptal 600 mg p.o. b.i.d.. 2. Increase Zyprexa up to 3.75 p.o. t.i.d.. On June 26 we are going to increase to 5 mg p.o. t.i.d. 3. Rest the same. 4. Blood work CBC and BMP within normal limits no changes slight high cholesterol. 5. Start trazodone 25 mg in the morning and in the afternoon and keep 100 at night. Started on July 03. 6. We discussed with the primary team in the community with the possibility to discharge her to subacute rehab due to deconditionion. 07/13: Continue current treatment and plan 07/14: Continue current regimen and plans Reason for continued inpatient stay Substantial Risk for: inability to function Time Spent With Patient Time: Total time managing care of this patient today ____ minutes.
[2023-07-15 20:00] VITALS: BP 159/79; PULSE 86; RESP 16; TEMP 36.6; O2SAT 97
[2023-07-15 20:51] VITALS: BP 159/79; PULSE 86
[2023-07-15] MEDS: VerapamiL HCL SR 240 MG TABLET.ER PO (20:51)
[2023-07-15] MEDS: Donepezil HCl 10 MG TABLET PO (20:52)
[2023-07-15] MEDS: Mirtazapine 7.5 MG TABLET PO (20:52)
[2023-07-15] MEDS: traZODone HCL 100 MG TABLET PO (20:53)
[2023-07-16 08:00] VITALS: RESP 18; TEMP 36.1
[2023-07-16] MEDS: Multivitamin TABLET 1 TAB PO (08:29)
[2023-07-16] MEDS: levETIRAcetam Oral Soln 500 MG/5 ML 1500 MG PO ×2 (08:29→20:53)
[2023-07-16] MEDS: DULoxetine HCl 60 MG CAPSULE.DR PO (08:29)
[2023-07-16] MEDS: traZODone HCL 25 MG HALFTAB PO ×2 (08:29→14:58)
[2023-07-16] MEDS: Memantine HCl 10 MG TABLET PO ×2 (08:29→20:53)
[2023-07-16] MEDS: OLANZapine 5 MG TABLET PO ×3 (08:29→20:54)
[2023-07-16] MEDS: OXcarbazepine 300 MG TABLET 600 MG PO ×2 (08:29→20:54)
--- NOTE | 2023-07-16 11:16 | HO.PSYCHPN ---
Subjective Subjective Date of Service: 07/16/23 Reason For Visit: Depression Subjective Notes: Conditional Voluntary Interim History: The nursing staff reported no changes in her mental status she slept 7 hours. Compliant with medications. On interview the patient remains confused but redirectable no changes in her mental status, waiting for placement as per S discharge plan. Mental Status Exam Mental Status Exam Patient Appearance: Appropriate Patient Orientation: Person Level of Consciousness: Awake Patient Behavior: Guarded and Passive Mood Description: Withdrawn Affect Description: Labile Patient Cognition Impaired: Yes Ability to Follow Directions: Fair Speech Pattern: Impoverished and Loud Hallucinations: None Delusions: Ideas of Reference Thought Process: Distracted and Slowed Thinking Thought Content: positive for [place] and positive for Poverty of Content Judgement: Poor Diagnostics Vital Signs (24Hr): Vital Signs - 24 hr 07/15/23 20:00 07/15/23 20:51 07/16/23 08:00 Temperature 97.8 F 97.0 F Pulse Rate 86 86 Respiratory Rate 16 18 Blood Pressure 159/79 H 159/79 H Pulse Oximetry 97 Oxygen Delivery Method Room Air BMI result Body Mass Index 26.6 Labs 06/30/23 07:19 06/30/23 07:19 Medications Medications Current Medications Acetaminophen (Acetaminophen 325 Mg Tablet) 650 mg PO Q6H PRN PRN Reason: Headache/Pain Mild Scale (1-3) Last Admin: 07/15/23 17:20 Dose: 650 mg Al Hydroxide/Mg Hydroxide (Magnesium Hydrox/Alum Hydrox 30 Ml Oral.Susp) 30 ml PO Q6H PRN PRN Reason: Heartburn/Nausea Calcium Carbonate (Calcium Carbonate 750 Mg Tab.Chew) 750 mg PO DAILY PRN PRN Reason: ACID REFLUX Docusate Sodium (Docusate Sodium 100 Mg Capsule) 100 mg PO DAILY [facility] Last Admin: 06/24/23 10:13 Dose: Not Given Donepezil HCl (Donepezil Hcl 10 Mg Tablet) 10 mg PO BEDTIME [facility] Last Admin: 07/15/23 20:52 Dose: 10 mg Duloxetine HCl (Duloxetine Hcl 60 Mg Capsule.Dr) 60 mg PO DAILY [facility] Last Admin: 07/16/23 08:29 Dose: 60 mg Hydroxyzine HCl (Hydroxyzine Hcl 25 Mg Tablet) 25 mg PO Q6H PRN PRN Reason: Anxiety Last Admin: 07/15/23 22:10 Dose: 25 mg Levetiracetam (Levetiracetam Oral Soln 500 Mg/5 Ml) 1,500 mg PO BID [facility] Last Admin: 07/16/23 08:29 Dose: 1,500 mg Loperamide HCl (Loperamide Hcl 2 Mg Capsule) 4 mg PO Q6H PRN PRN Reason: Diarrhea Last Admin: 07/12/23 20:45 Dose: 4 mg Lorazepam (Lorazepam 1 Mg Tablet) 1 mg PO ONCE PRN PRN Reason: anxiety/restlessness Last Admin: 07/11/23 22:19 Dose: 1 mg Magnesium Hydroxide (Milk Of Magnesia 30 Ml Oral.Susp) 30 ml PO DAILY PRN PRN Reason: Constipation Memantine (Memantine Hcl 10 Mg Tablet) 10 mg PO BID [facility] Last Admin: 07/16/23 08:29 Dose: 10 mg Mirtazapine (Mirtazapine 7.5 Mg Tablet) 7.5 mg PO BEDTIME [facility] Last Admin: 07/15/23 20:52 Dose: 7.5 mg Multivitamins/Vitamin C (Multivitamin Tablet) 1 tab PO DAILY [facility] Last Admin: 07/16/23 08:29 Dose: 1 tab Olanzapine (Olanzapine Odt 10 Mg Tab.Rapdis) 10 mg TRANSLINGU BID PRN PRN Reason: Psychosis Last Admin: 07/15/23 23:49 Dose: 10 mg Olanzapine (Olanzapine 5 Mg Tablet) 5 mg PO TID [facility] Last Admin: 07/16/23 08:29 Dose: 5 mg Oxcarbazepine (Oxcarbazepine 300 Mg Tablet) 600 mg PO BID [facility] Last Admin: 07/16/23 08:29 Dose: 600 mg Psyllium Hydrophilic Mucilloid (Psyllium Seed 3.7 Gm Packet) 3.7 gm PO BID [facility] Last Admin: 06/24/23 20:58 Dose: 3.7 gm Trazodone HCl (Trazodone Hcl 50 Mg Tablet) 50 mg PO BEDTIME MRX1 PRN PRN Reason: Insomnia Last Admin: 07/15/23 22:10 Dose: 50 mg Trazodone HCl (Trazodone Hcl 100 Mg Tablet) 100 mg PO BEDTIME [facility] Last Admin: 07/15/23 20:53 Dose: 100 mg Trazodone HCl (Trazodone Hcl 25 Mg Halftab) 25 mg PO BID@0830,1330 [facility] Last Admin: 07/16/23 08:29 Dose: 25 mg Verapamil HCl (Verapamil Hcl Sr 240 Mg Tablet.Er) 240 mg PO BEDTIME [facility]; Protocol Last Admin: 07/15/23 20:51 Dose: 240 mg Allergies Allergies Allergy/AdvReac Type Severity Reaction Status Date / Time amlodipine Allergy Unknown Verified 06/21/23 17:41 aspirin Allergy Rash Verified 06/21/23 17:41 atenolol Allergy Rash Verified 06/21/23 17:41 carbamazepine Allergy Unknown Verified 06/21/23 17:41 celecoxib Allergy Unknown Verified 06/21/23 17:41 ciprofloxacin Allergy Unknown Verified 06/21/23 17:41 erythromycin base Allergy Hives Verified 06/21/23 17:41 fluvastatin Allergy Unknown Verified 06/21/23 17:41 levofloxacin Allergy Unknown Verified 06/21/23 17:41 loratadine Allergy Unknown Verified 06/21/23 17:41 mercaptopurine Allergy Unknown Verified 06/21/23 17:41 naproxen Allergy Unknown Verified 06/21/23 17:41 pantoprazole Allergy Unknown Verified 06/21/23 17:41 Quinolones Allergy Unknown Verified 06/21/23 17:41 ranitidine Allergy Unknown Verified 06/21/23 17:41 sulfamethoxazole Allergy Unknown Verified 06/21/23 17:41 trimethoprim Allergy Unknown Verified 06/21/23 17:41 Assessment & Plan Assessment & Plan (1) Dementia: Status: Acute Code(s): F03.90 - Unspecified dementia, unspecified severity, without behavioral disturbance, psychotic disturbance, mood disturbance, and anxiety (2) Pervasive developmental disorder: Status: Acute Code(s): F84.9 - Pervasive developmental disorder, unspecified Plan Plan 1. Continue with same Trileptal 600 mg p.o. b.i.d.. 2. Increase Zyprexa up to 3.75 p.o. t.i.d.. On June 26 we are going to increase to 5 mg p.o. t.i.d. 3. Rest the same. 4. Blood work CBC and BMP within normal limits no changes slight high cholesterol. 5. Start trazodone 25 mg in the morning and in the afternoon and keep 100 at night. Started on July 03. 6. We discussed with the primary team in the community with the possibility to discharge her to subacute rehab due to deconditionion. DDS has applied to transferred to another hospital for rehabilitation. Waiting for placement. Reason for continued inpatient stay Substantial Risk for: inability to function, rapid decompensation and med/psych decompensation Time Spent With Patient Time: Total time managing care of this patient today __20__ minutes.
[2023-07-16] MEDS: Mirtazapine 7.5 MG TABLET PO (20:53)
[2023-07-16] MEDS: VerapamiL HCL SR 240 MG TABLET.ER PO (20:53)
[2023-07-16] MEDS: traZODone HCL 100 MG TABLET PO (20:53)
[2023-07-16] MEDS: Donepezil HCl 10 MG TABLET PO (20:54)
[2023-07-17 08:20] VITALS: BP 157/63; PULSE 96; RESP 18; TEMP 37.1; O2SAT 96
[2023-07-17] MEDS: traZODone HCL 25 MG HALFTAB PO ×2 (09:00→14:02)
[2023-07-17] MEDS: Multivitamin TABLET 1 TAB PO (09:00)
[2023-07-17] MEDS: Memantine HCl 10 MG TABLET PO ×2 (09:00→21:03)
[2023-07-17] MEDS: OXcarbazepine 300 MG TABLET 600 MG PO ×2 (09:00→21:03)
[2023-07-17] MEDS: levETIRAcetam Oral Soln 500 MG/5 ML 1500 MG PO ×2 (09:00→21:03)
[2023-07-17] MEDS: DULoxetine HCl 60 MG CAPSULE.DR PO (09:00)
[2023-07-17] MEDS: OLANZapine 5 MG TABLET PO ×3 (09:00→21:03)
--- NOTE | 2023-07-17 12:32 | HO.PSYCHPN ---
Subjective Subjective Date of Service: 07/17/23 Reason For Visit: Depression Subjective Notes: Conditional Voluntary (By healthcare proxy) Healthcare Proxy: Yes Interim History: The nursing staff reported no changes in her mental status, compliant with treatment. On interview the patient is loud at times easily redirectable, waiting for placement as per S discharge plan. Mental Status Exam Mental Status Exam Patient Appearance: Appropriate (On hospital gowns) Patient Orientation: Person Level of Consciousness: Awake Patient Behavior: Guarded and Restless Mood Description: Withdrawn Affect Description: Labile Patient Cognition Impaired: Yes Ability to Follow Directions: Good Speech Pattern: Clear and Impoverished Hallucinations: None Delusions: Not Present Thought Process: Distracted and Evasive Thought Content: positive for [place] and positive for Poverty of Content Judgement: Poor Diagnostics Vital Signs (24Hr): Vital Signs - 24 hr 07/17/23 08:20 Temperature 98.8 F Pulse Rate 96 Respiratory Rate 18 Blood Pressure 157/63 H Pulse Oximetry 96 Oxygen Delivery Method Room Air BMI result Body Mass Index 26.6 Labs 06/30/23 07:19 06/30/23 07:19 Medications Medications Current Medications Acetaminophen (Acetaminophen 325 Mg Tablet) 650 mg PO Q6H PRN PRN Reason: Headache/Pain Mild Scale (1-3) Last Admin: 07/15/23 17:20 Dose: 650 mg Al Hydroxide/Mg Hydroxide (Magnesium Hydrox/Alum Hydrox 30 Ml Oral.Susp) 30 ml PO Q6H PRN PRN Reason: Heartburn/Nausea Calcium Carbonate (Calcium Carbonate 750 Mg Tab.Chew) 750 mg PO DAILY PRN PRN Reason: ACID REFLUX Docusate Sodium (Docusate Sodium 100 Mg Capsule) 100 mg PO DAILY [facility] Last Admin: 06/24/23 10:13 Dose: Not Given Donepezil HCl (Donepezil Hcl 10 Mg Tablet) 10 mg PO BEDTIME [facility] Last Admin: 07/16/23 20:54 Dose: 10 mg Duloxetine HCl (Duloxetine Hcl 60 Mg Capsule.Dr) 60 mg PO DAILY [facility] Last Admin: 07/17/23 09:00 Dose: 60 mg Hydroxyzine HCl (Hydroxyzine Hcl 25 Mg Tablet) 25 mg PO Q6H PRN PRN Reason: Anxiety Last Admin: 07/15/23 22:10 Dose: 25 mg Levetiracetam (Levetiracetam Oral Soln 500 Mg/5 Ml) 1,500 mg PO BID [facility] Last Admin: 07/17/23 09:00 Dose: 1,500 mg Loperamide HCl (Loperamide Hcl 2 Mg Capsule) 4 mg PO Q6H PRN PRN Reason: Diarrhea Last Admin: 07/12/23 20:45 Dose: 4 mg Magnesium Hydroxide (Milk Of Magnesia 30 Ml Oral.Susp) 30 ml PO DAILY PRN PRN Reason: Constipation Memantine (Memantine Hcl 10 Mg Tablet) 10 mg PO BID [facility] Last Admin: 07/17/23 09:00 Dose: 10 mg Mirtazapine (Mirtazapine 7.5 Mg Tablet) 7.5 mg PO BEDTIME [facility] Last Admin: 07/16/23 20:53 Dose: 7.5 mg Multivitamins/Vitamin C (Multivitamin Tablet) 1 tab PO DAILY [facility] Last Admin: 07/17/23 09:00 Dose: 1 tab Olanzapine (Olanzapine Odt 10 Mg Tab.Rapdis) 10 mg TRANSLINGU BID PRN PRN Reason: Psychosis Last Admin: 07/15/23 23:49 Dose: 10 mg Olanzapine (Olanzapine 5 Mg Tablet) 5 mg PO TID [facility] Last Admin: 07/17/23 09:00 Dose: 5 mg Oxcarbazepine (Oxcarbazepine 300 Mg Tablet) 600 mg PO BID [facility] Last Admin: 07/17/23 09:00 Dose: 600 mg Psyllium Hydrophilic Mucilloid (Psyllium Seed 3.7 Gm Packet) 3.7 gm PO BID [facility] Last Admin: 06/24/23 20:58 Dose: 3.7 gm Trazodone HCl (Trazodone Hcl 50 Mg Tablet) 50 mg PO BEDTIME MRX1 PRN PRN Reason: Insomnia Last Admin: 07/15/23 22:10 Dose: 50 mg Trazodone HCl (Trazodone Hcl 100 Mg Tablet) 100 mg PO BEDTIME [facility] Last Admin: 07/16/23 20:53 Dose: 100 mg Trazodone HCl (Trazodone Hcl 25 Mg Halftab) 25 mg PO BID@0830,1330 [facility] Last Admin: 07/17/23 09:00 Dose: 25 mg Verapamil HCl (Verapamil Hcl Sr 240 Mg Tablet.Er) 240 mg PO BEDTIME [facility]; Protocol Last Admin: 07/16/23 20:53 Dose: 240 mg Allergies Allergies Allergy/AdvReac Type Severity Reaction Status Date / Time amlodipine Allergy Unknown Verified 06/21/23 17:41 aspirin Allergy Rash Verified 06/21/23 17:41 atenolol Allergy Rash Verified 06/21/23 17:41 carbamazepine Allergy Unknown Verified 06/21/23 17:41 celecoxib Allergy Unknown Verified 06/21/23 17:41 ciprofloxacin Allergy Unknown Verified 06/21/23 17:41 erythromycin base Allergy Hives Verified 06/21/23 17:41 fluvastatin Allergy Unknown Verified 06/21/23 17:41 levofloxacin Allergy Unknown Verified 06/21/23 17:41 loratadine Allergy Unknown Verified 06/21/23 17:41 mercaptopurine Allergy Unknown Verified 06/21/23 17:41 naproxen Allergy Unknown Verified 06/21/23 17:41 pantoprazole Allergy Unknown Verified 06/21/23 17:41 Quinolones Allergy Unknown Verified 06/21/23 17:41 ranitidine Allergy Unknown Verified 06/21/23 17:41 sulfamethoxazole Allergy Unknown Verified 06/21/23 17:41 trimethoprim Allergy Unknown Verified 06/21/23 17:41 Assessment & Plan Assessment & Plan (1) Dementia: Status: Acute Code(s): F03.90 - Unspecified dementia, unspecified severity, without behavioral disturbance, psychotic disturbance, mood disturbance, and anxiety (2) Pervasive developmental disorder: Status: Acute Code(s): F84.9 - Pervasive developmental disorder, unspecified Plan Plan 1. Continue with same Trileptal 600 mg p.o. b.i.d.. 2. Increase Zyprexa up to 3.75 p.o. t.i.d.. On June 26 we are going to increase to 5 mg p.o. t.i.d. 3. Rest the same. 4. Blood work CBC and BMP within normal limits no changes slight high cholesterol. 5. Start trazodone 25 mg in the morning and in the afternoon and keep 100 at night. Started on July 03. 6. We discussed with the primary team in the community with the possibility to discharge her to subacute rehab due to deconditionion. DDS has applied to transferred to another hospital for rehabilitation. Waiting for placement. Reason for continued inpatient stay Substantial Risk for: inability to function, rapid decompensation and med/psych decompensation Time Spent With Patient Time: Total time managing care of this patient today _20___ minutes.
[2023-07-17 20:00] VITALS: BP 135/77; PULSE 98; RESP 16; TEMP 37.5; O2SAT 96
[2023-07-17] MEDS: traZODone HCL 100 MG TABLET PO (21:03)
[2023-07-17] MEDS: VerapamiL HCL SR 240 MG TABLET.ER PO (21:03)
[2023-07-17] MEDS: Donepezil HCl 10 MG TABLET PO (21:03)
[2023-07-17] MEDS: Mirtazapine 7.5 MG TABLET PO (21:03)
[2023-07-18 07:55] VITALS: BP 140/73; PULSE 98; RESP 18; TEMP 36.9; O2SAT 96
[2023-07-18] MEDS: Multivitamin TABLET 1 TAB PO (08:44)
[2023-07-18] MEDS: levETIRAcetam Oral Soln 500 MG/5 ML 1500 MG PO ×2 (08:44→21:20)
[2023-07-18] MEDS: OXcarbazepine 300 MG TABLET 600 MG PO ×2 (08:44→21:21)
[2023-07-18] MEDS: OLANZapine 5 MG TABLET PO ×3 (08:44→21:21)
[2023-07-18] MEDS: DULoxetine HCl 60 MG CAPSULE.DR PO (08:44)
[2023-07-18] MEDS: traZODone HCL 25 MG HALFTAB PO ×2 (08:45→13:45)
[2023-07-18] MEDS: Memantine HCl 10 MG TABLET PO ×2 (08:45→21:21)
--- NOTE | 2023-07-18 09:39 | P.PNPSI_ITS ---
Subjective Subjective Date of Service: 07/18/23 Reason For Visit: Depression Subjective Notes: Conditional Voluntary (by healthcare proxy) Interim History: The nursing staff reported that the patient is as usual, sporadic yelling. No changes on mental status. On interview, no change of mental status. Mental Status Exam Mental Status Exam Patient Appearance: Appropriate Patient Orientation: Person and Situation Level of Consciousness: Awake and Appropriate Patient Behavior: Guarded and Passive Mood Description: Withdrawn Affect Description: Constricted Patient Cognition Impaired: Yes Ability to Follow Directions: Good Speech Pattern: Clear Hallucinations: None Delusions: Not Present Thought Process: Distracted and Slowed Thinking Thought Content: positive for [place] and positive for Poverty of Content Judgement: Poor Diagnostics Vital Signs (24Hr): Vital Signs - 24 hr 07/17/23 20:00 Temperature 99.5 F Pulse Rate 98 Respiratory Rate 16 Blood Pressure 135/77 Pulse Oximetry 96 Oxygen Delivery Method Room Air BMI result Body Mass Index 26.6 Labs 06/30/23 07:19 06/30/23 07:19 Medications Medications Current Medications Acetaminophen (Acetaminophen 325 Mg Tablet) 650 mg PO Q6H PRN PRN Reason: Headache/Pain Mild Scale (1-3) Last Admin: 07/15/23 17:20 Dose: 650 mg Al Hydroxide/Mg Hydroxide (Magnesium Hydrox/Alum Hydrox 30 Ml Oral.Susp) 30 ml PO Q6H PRN PRN Reason: Heartburn/Nausea Calcium Carbonate (Calcium Carbonate 750 Mg Tab.Chew) 750 mg PO DAILY PRN PRN Reason: ACID REFLUX Docusate Sodium (Docusate Sodium 100 Mg Capsule) 100 mg PO DAILY [facility] Last Admin: 06/24/23 10:13 Dose: Not Given Donepezil HCl (Donepezil Hcl 10 Mg Tablet) 10 mg PO BEDTIME [facility] Last Admin: 07/17/23 21:03 Dose: 10 mg Duloxetine HCl (Duloxetine Hcl 60 Mg Capsule.Dr) 60 mg PO DAILY [facility] Last Admin: 07/18/23 08:44 Dose: 60 mg Hydroxyzine HCl (Hydroxyzine Hcl 25 Mg Tablet) 25 mg PO Q6H PRN PRN Reason: Anxiety Last Admin: 07/15/23 22:10 Dose: 25 mg Levetiracetam (Levetiracetam Oral Soln 500 Mg/5 Ml) 1,500 mg PO BID [facility] Last Admin: 05/22/24 08:44 Dose: 1,500 mg Loperamide HCl (Loperamide Hcl 2 Mg Capsule) 4 mg PO Q6H PRN PRN Reason: Diarrhea Last Admin: 07/12/23 20:45 Dose: 4 mg Magnesium Hydroxide (Milk Of Magnesia 30 Ml Oral.Susp) 30 ml PO DAILY PRN PRN Reason: Constipation Memantine (Memantine Hcl 10 Mg Tablet) 10 mg PO BID [facility] Last Admin: 07/18/23 08:45 Dose: 10 mg Mirtazapine (Mirtazapine 7.5 Mg Tablet) 7.5 mg PO BEDTIME [facility] Last Admin: 07/17/23 21:03 Dose: 7.5 mg Multivitamins/Vitamin C (Multivitamin Tablet) 1 tab PO DAILY [facility] Last Admin: 07/18/23 08:44 Dose: 1 tab Olanzapine (Olanzapine Odt 10 Mg Tab.Rapdis) 10 mg TRANSLINGU BID PRN PRN Reason: Psychosis Last Admin: 07/15/23 23:49 Dose: 10 mg Olanzapine (Olanzapine 5 Mg Tablet) 5 mg PO TID [facility] Last Admin: 07/18/23 08:44 Dose: 5 mg Oxcarbazepine (Oxcarbazepine 300 Mg Tablet) 600 mg PO BID [facility] Last Admin: 07/18/23 08:44 Dose: 600 mg Psyllium Hydrophilic Mucilloid (Psyllium Seed 3.7 Gm Packet) 3.7 gm PO BID [facility] Last Admin: 06/24/23 20:58 Dose: 3.7 gm Trazodone HCl (Trazodone Hcl 50 Mg Tablet) 50 mg PO BEDTIME MRX1 PRN PRN Reason: Insomnia Last Admin: 07/15/23 22:10 Dose: 50 mg Trazodone HCl (Trazodone Hcl 100 Mg Tablet) 100 mg PO BEDTIME [facility] Last Admin: 07/17/23 21:03 Dose: 100 mg Trazodone HCl (Trazodone Hcl 25 Mg Halftab) 25 mg PO BID@0830,1330 [facility] Last Admin: 07/18/23 08:45 Dose: 25 mg Verapamil HCl (Verapamil Hcl Sr 240 Mg Tablet.Er) 240 mg PO BEDTIME [facility]; Protocol Last Admin: 07/17/23 21:03 Dose: 240 mg Allergies Allergies Allergy/AdvReac Type Severity Reaction Status Date / Time amlodipine Allergy Unknown Verified 06/21/23 17:41 aspirin Allergy Rash Verified 06/21/23 17:41 atenolol Allergy Rash Verified 06/21/23 17:41 carbamazepine Allergy Unknown Verified 06/21/23 17:41 celecoxib Allergy Unknown Verified 06/21/23 17:41 ciprofloxacin Allergy Unknown Verified 06/21/23 17:41 erythromycin base Allergy Hives Verified 06/21/23 17:41 fluvastatin Allergy Unknown Verified 06/21/23 17:41 levofloxacin Allergy Unknown Verified 06/21/23 17:41 loratadine Allergy Unknown Verified 06/21/23 17:41 mercaptopurine Allergy Unknown Verified 06/21/23 17:41 naproxen Allergy Unknown Verified 06/21/23 17:41 pantoprazole Allergy Unknown Verified 06/21/23 17:41 Quinolones Allergy Unknown Verified 06/21/23 17:41 ranitidine Allergy Unknown Verified 06/21/23 17:41 sulfamethoxazole Allergy Unknown Verified 06/21/23 17:41 trimethoprim Allergy Unknown Verified 06/21/23 17:41 Assessment & Plan Assessment & Plan (1) Dementia: Status: Acute Code(s): F03.90 - Unspecified dementia, unspecified severity, without behavioral disturbance, psychotic disturbance, mood disturbance, and anxiety (2) Pervasive developmental disorder: Status: Acute Code(s): F84.9 - Pervasive developmental disorder, unspecified Plan Plan 1. Continue with same Trileptal 600 mg p.o. b.i.d.. 2. Increase Zyprexa up to 3.75 p.o. t.i.d.. On June 26 we are going to increase to 5 mg p.o. t.i.d. 3. Rest the same. 4. Blood work CBC and BMP within normal limits no changes slight high cholesterol. 5. Start trazodone 25 mg in the morning and in the afternoon and keep 100 at night. Started on July 03. 6. We discussed with the primary team in the community with the possibility to discharge her to subacute rehab due to deconditionion. DDS has applied to transferred to another hospital for rehabilitation. Waiting for placement. Reason for continued inpatient stay Substantial Risk for: inability to function, rapid decompensation and med/psych decompensation Time Spent With Patient Time: Total time managing care of this patient today _20___ minutes.
[2023-07-18 20:00] VITALS: BP 146/81; PULSE 109; TEMP 36.8; O2SAT 91
[2023-07-18] MEDS: Donepezil HCl 10 MG TABLET PO (21:21)
[2023-07-18] MEDS: traZODone HCL 100 MG TABLET PO (21:21)
[2023-07-18] MEDS: Mirtazapine 7.5 MG TABLET PO (21:21)
[2023-07-18] MEDS: VerapamiL HCL SR 240 MG TABLET.ER PO (21:21)
[2023-07-19 08:00] VITALS: BP 177/84; PULSE 112; RESP 18; TEMP 36.9; O2SAT 94
[2023-07-19] MEDS: OXcarbazepine 300 MG TABLET 600 MG PO ×2 (09:33→20:42)
[2023-07-19] MEDS: Multivitamin TABLET 1 TAB PO (09:33)
[2023-07-19] MEDS: DULoxetine HCl 60 MG CAPSULE.DR PO (09:33)
[2023-07-19] MEDS: levETIRAcetam Oral Soln 500 MG/5 ML 1500 MG PO ×2 (09:33→20:42)
[2023-07-19] MEDS: Memantine HCl 10 MG TABLET PO ×2 (09:34→20:43)
[2023-07-19] MEDS: OLANZapine 5 MG TABLET PO ×3 (09:34→20:43)
[2023-07-19] MEDS: traZODone HCL 25 MG HALFTAB PO ×2 (09:34→13:51)
--- NOTE | 2023-07-19 13:02 | HO.PSYCHPN ---
Subjective Subjective Date of Service: 07/19/23 Reason For Visit: Depression Subjective Notes: Conditional Voluntary Interim History: The nursing staff reported flat affect no changes in her mental status. The manager social responsibility reported that the hospital denied her since they stated that they do not have the means to support her. On interview the patient denies new symptoms, waiting for placement. Mental Status Exam Mental Status Exam Patient Appearance: Appropriate Patient Orientation: Person and Situation Level of Consciousness: Awake and Appropriate Patient Behavior: Guarded and Passive Mood Description: Withdrawn Affect Description: Constricted Patient Cognition Impaired: Yes Ability to Follow Directions: Good Speech Pattern: Clear Hallucinations: None Delusions: Ideas of Reference Thought Process: Distracted Thought Content: positive for [place] and positive for Poverty of Content Judgement: Poor Diagnostics Vital Signs (24Hr): Vital Signs - 24 hr 07/18/23 20:00 07/19/23 08:00 Temperature 98.2 F 98.5 F Pulse Rate 109 H 112 H Respiratory Rate 18 Blood Pressure 146/81 H 177/84 H Pulse Oximetry 91 L 94 Oxygen Delivery Method Room Air Room Air BMI result Body Mass Index 26.6 Labs 06/30/23 07:19 06/30/23 07:19 Medications Medications Current Medications Acetaminophen (Acetaminophen 325 Mg Tablet) 650 mg PO Q6H PRN PRN Reason: Headache/Pain Mild Scale (1-3) Last Admin: 07/15/23 17:20 Dose: 650 mg Al Hydroxide/Mg Hydroxide (Magnesium Hydrox/Alum Hydrox 30 Ml Oral.Susp) 30 ml PO Q6H PRN PRN Reason: Heartburn/Nausea Calcium Carbonate (Calcium Carbonate 750 Mg Tab.Chew) 750 mg PO DAILY PRN PRN Reason: ACID REFLUX Docusate Sodium (Docusate Sodium 100 Mg Capsule) 100 mg PO DAILY [facility] Last Admin: 06/24/23 10:13 Dose: Not Given Donepezil HCl (Donepezil Hcl 10 Mg Tablet) 10 mg PO BEDTIME [facility] Last Admin: 07/18/23 21:21 Dose: 10 mg Duloxetine HCl (Duloxetine Hcl 60 Mg Capsule.Dr) 60 mg PO DAILY [facility] Last Admin: 07/19/23 09:33 Dose: 60 mg Hydroxyzine HCl (Hydroxyzine Hcl 25 Mg Tablet) 25 mg PO Q6H PRN PRN Reason: Anxiety Last Admin: 07/15/23 22:10 Dose: 25 mg Levetiracetam (Levetiracetam Oral Soln 500 Mg/5 Ml) 1,500 mg PO BID [facility] Last Admin: 07/19/23 09:33 Dose: 1,500 mg Loperamide HCl (Loperamide Hcl 2 Mg Capsule) 4 mg PO Q6H PRN PRN Reason: Diarrhea Last Admin: 07/12/23 20:45 Dose: 4 mg Magnesium Hydroxide (Milk Of Magnesia 30 Ml Oral.Susp) 30 ml PO DAILY PRN PRN Reason: Constipation Memantine (Memantine Hcl 10 Mg Tablet) 10 mg PO BID [facility] Last Admin: 07/19/23 09:34 Dose: 10 mg Mirtazapine (Mirtazapine 7.5 Mg Tablet) 7.5 mg PO BEDTIME [facility] Last Admin: 07/18/23 21:21 Dose: 7.5 mg Multivitamins/Vitamin C (Multivitamin Tablet) 1 tab PO DAILY [facility] Last Admin: 07/19/23 09:33 Dose: 1 tab Olanzapine (Olanzapine Odt 10 Mg Tab.Rapdis) 10 mg TRANSLINGU BID PRN PRN Reason: Psychosis Last Admin: 07/15/23 23:49 Dose: 10 mg Olanzapine (Olanzapine 5 Mg Tablet) 5 mg PO TID [facility] Last Admin: 07/19/23 09:34 Dose: 5 mg Oxcarbazepine (Oxcarbazepine 300 Mg Tablet) 600 mg PO BID [facility] Last Admin: 07/19/23 09:33 Dose: 600 mg Psyllium Hydrophilic Mucilloid (Psyllium Seed 3.7 Gm Packet) 3.7 gm PO BID [facility] Last Admin: 06/24/23 20:58 Dose: 3.7 gm Trazodone HCl (Trazodone Hcl 50 Mg Tablet) 50 mg PO BEDTIME MRX1 PRN PRN Reason: Insomnia Last Admin: 07/15/23 22:10 Dose: 50 mg Trazodone HCl (Trazodone Hcl 100 Mg Tablet) 100 mg PO BEDTIME [facility] Last Admin: 07/18/23 21:21 Dose: 100 mg Trazodone HCl (Trazodone Hcl 25 Mg Halftab) 25 mg PO BID@0830,1330 [facility] Last Admin: 07/19/23 09:34 Dose: 25 mg Verapamil HCl (Verapamil Hcl Sr 240 Mg Tablet.Er) 240 mg PO BEDTIME [facility]; Protocol Last Admin: 07/18/23 21:21 Dose: 240 mg Allergies Allergies Allergy/AdvReac Type Severity Reaction Status Date / Time amlodipine Allergy Unknown Verified 06/21/23 17:41 aspirin Allergy Rash Verified 06/21/23 17:41 atenolol Allergy Rash Verified 06/21/23 17:41 carbamazepine Allergy Unknown Verified 06/21/23 17:41 celecoxib Allergy Unknown Verified 06/21/23 17:41 ciprofloxacin Allergy Unknown Verified 06/21/23 17:41 erythromycin base Allergy Hives Verified 06/21/23 17:41 fluvastatin Allergy Unknown Verified 06/21/23 17:41 levofloxacin Allergy Unknown Verified 06/21/23 17:41 loratadine Allergy Unknown Verified 06/21/23 17:41 mercaptopurine Allergy Unknown Verified 06/21/23 17:41 naproxen Allergy Unknown Verified 06/21/23 17:41 pantoprazole Allergy Unknown Verified 06/21/23 17:41 Quinolones Allergy Unknown Verified 06/21/23 17:41 ranitidine Allergy Unknown Verified 06/21/23 17:41 sulfamethoxazole Allergy Unknown Verified 06/21/23 17:41 trimethoprim Allergy Unknown Verified 06/21/23 17:41 Assessment & Plan Assessment & Plan (1) Dementia: Status: Acute Code(s): F03.90 - Unspecified dementia, unspecified severity, without behavioral disturbance, psychotic disturbance, mood disturbance, and anxiety (2) Pervasive developmental disorder: Status: Acute Code(s): F84.9 - Pervasive developmental disorder, unspecified Plan Plan 1. Continue with same Trileptal 600 mg p.o. b.i.d.. 2. Increase Zyprexa up to 3.75 p.o. t.i.d.. On June 26 we are going to increase to 5 mg p.o. t.i.d. 3. Rest the same. 4. Blood work CBC and BMP within normal limits no changes slight high cholesterol. 5. Start trazodone 25 mg in the morning and in the afternoon and keep 100 at night. Started on July 03. 6. We discussed with the primary team in the community with the possibility to discharge her to subacute rehab due to deconditionion. DDS has applied to transferred to another hospital for rehabilitation but she was denied. Waiting for placement. Reason for continued inpatient stay Substantial Risk for: inability to function, rapid decompensation and med/psych decompensation Time Spent With Patient Time: Total time managing care of this patient today __20__ minutes.
[2023-07-19] MEDS: hydrOXYzine HCL 25 MG TABLET PO ×2 (17:39→23:44)
--- NOTE | 2023-07-19 17:45 | PC.NURSE ---
Hyddroxyzine administered at 1739 for anxiety. Will continue to monitor.
[2023-07-19 20:00] VITALS: BP 140/81; PULSE 80; RESP 18; TEMP 36.6; O2SAT 94
[2023-07-19 20:42] VITALS: BP 140/81; PULSE 80
[2023-07-19] MEDS: Mirtazapine 7.5 MG TABLET PO (20:42)
[2023-07-19] MEDS: VerapamiL HCL SR 240 MG TABLET.ER PO (20:42)
[2023-07-19] MEDS: traZODone HCL 100 MG TABLET PO (20:43)
[2023-07-19] MEDS: Donepezil HCl 10 MG TABLET PO (20:43)
[2023-07-19] MEDS: traZODone HCL 50 MG TABLET PO (23:43)
[2023-07-19] MEDS: OLANZapine ODT 10 MG TAB.RAPDIS TRANSLINGU (23:44)
[2023-07-20 08:00] VITALS: BP 142/78; PULSE 88; RESP 18; TEMP 36.3; O2SAT 96
[2023-07-20] MEDS: OXcarbazepine 300 MG TABLET 600 MG PO ×2 (08:30→20:59)
[2023-07-20] MEDS: levETIRAcetam Oral Soln 500 MG/5 ML 1500 MG PO ×2 (08:30→20:59)
[2023-07-20] MEDS: DULoxetine HCl 60 MG CAPSULE.DR PO (08:30)
[2023-07-20] MEDS: traZODone HCL 25 MG HALFTAB PO ×2 (08:30→12:52)
[2023-07-20] MEDS: Multivitamin TABLET 1 TAB PO (08:30)
[2023-07-20] MEDS: OLANZapine 5 MG TABLET PO ×3 (08:30→20:59)
[2023-07-20] MEDS: Memantine HCl 10 MG TABLET PO ×2 (08:31→21:00)
--- NOTE | 2023-07-20 11:32 | P.PNPSI_ITS ---
Subjective Subjective Date of Service: 07/20/23 Reason For Visit: Depression Subjective Notes: Conditional Voluntary Interim History: The nursing staff reported no changes in her mental status she gels at times but she is redirectable. She had been fully compliant with treatment. The vp digital marketing social media and crm contact DDS and since the transferred to rehab hospitalist not possible they are contemplating other discharge options. On interview the patient denies new symptoms, waiting for placement. Mental Status Exam Mental Status Exam Patient Appearance: Appropriate Patient Orientation: Person and Situation Level of Consciousness: Awake and Appropriate Patient Behavior: Guarded and Passive Mood Description: Withdrawn Affect Description: Labile Patient Cognition Impaired: Yes Ability to Follow Directions: Good Speech Pattern: Clear Hallucinations: None Delusions: Ideas of Reference Thought Process: Distracted and Slowed Thinking Thought Content: positive for [place] and positive for Circumstantial Judgement: Poor Diagnostics Vital Signs (24Hr): Vital Signs - 24 hr 07/19/23 20:00 07/19/23 20:42 07/20/23 08:00 Temperature 97.9 F 97.4 F Pulse Rate 80 80 88 Respiratory Rate 18 18 Blood Pressure 140/81 H 140/81 H 142/78 H Pulse Oximetry 94 96 Oxygen Delivery Method Room Air Room Air BMI result Body Mass Index 26.6 Labs 06/30/23 07:19 06/30/23 07:19 Medications Medications Current Medications Acetaminophen (Acetaminophen 325 Mg Tablet) 650 mg PO Q6H PRN PRN Reason: Headache/Pain Mild Scale (1-3) Last Admin: 07/15/23 17:20 Dose: 650 mg Al Hydroxide/Mg Hydroxide (Magnesium Hydrox/Alum Hydrox 30 Ml Oral.Susp) 30 ml PO Q6H PRN PRN Reason: Heartburn/Nausea Calcium Carbonate (Calcium Carbonate 750 Mg Tab.Chew) 750 mg PO DAILY PRN PRN Reason: ACID REFLUX Docusate Sodium (Docusate Sodium 100 Mg Capsule) 100 mg PO DAILY [facility] Last Admin: 06/24/23 10:13 Dose: Not Given Donepezil HCl (Donepezil Hcl 10 Mg Tablet) 10 mg PO BEDTIME [facility] Last Admin: 07/19/23 20:43 Dose: 10 mg Duloxetine HCl (Duloxetine Hcl 60 Mg Capsule.Dr) 60 mg PO DAILY [facility] Last Admin: 07/20/23 08:30 Dose: 60 mg Hydroxyzine HCl (Hydroxyzine Hcl 25 Mg Tablet) 25 mg PO Q6H PRN PRN Reason: Anxiety Last Admin: 07/19/23 23:44 Dose: 25 mg Levetiracetam (Levetiracetam Oral Soln 500 Mg/5 Ml) 1,500 mg PO BID [facility] Last Admin: 07/20/23 08:30 Dose: 1,500 mg Loperamide HCl (Loperamide Hcl 2 Mg Capsule) 4 mg PO Q6H PRN PRN Reason: Diarrhea Last Admin: 07/12/23 20:45 Dose: 4 mg Magnesium Hydroxide (Milk Of Magnesia 30 Ml Oral.Susp) 30 ml PO DAILY PRN PRN Reason: Constipation Memantine (Memantine Hcl 10 Mg Tablet) 10 mg PO BID [facility] Last Admin: 07/20/23 08:31 Dose: 10 mg Mirtazapine (Mirtazapine 7.5 Mg Tablet) 7.5 mg PO BEDTIME [facility] Last Admin: 07/19/23 20:42 Dose: 7.5 mg Multivitamins/Vitamin C (Multivitamin Tablet) 1 tab PO DAILY [facility] Last Admin: 07/20/23 08:30 Dose: 1 tab Olanzapine (Olanzapine Odt 10 Mg Tab.Rapdis) 10 mg TRANSLINGU BID PRN PRN Reason: Psychosis Last Admin: 07/19/23 23:44 Dose: 10 mg Olanzapine (Olanzapine 5 Mg Tablet) 5 mg PO TID [facility] Last Admin: 07/20/23 08:30 Dose: 5 mg Oxcarbazepine (Oxcarbazepine 300 Mg Tablet) 600 mg PO BID [facility] Last Admin: 07/20/23 08:30 Dose: 600 mg Psyllium Hydrophilic Mucilloid (Psyllium Seed 3.7 Gm Packet) 3.7 gm PO BID [facility] Last Admin: 06/24/23 20:58 Dose: 3.7 gm Trazodone HCl (Trazodone Hcl 50 Mg Tablet) 50 mg PO BEDTIME MRX1 PRN PRN Reason: Insomnia Last Admin: 07/19/23 23:43 Dose: 50 mg Trazodone HCl (Trazodone Hcl 100 Mg Tablet) 100 mg PO BEDTIME [facility] Last Admin: 07/19/23 20:43 Dose: 100 mg Trazodone HCl (Trazodone Hcl 25 Mg Halftab) 25 mg PO BID@0830,1330 [facility] Last Admin: 07/20/23 08:30 Dose: 25 mg Verapamil HCl (Verapamil Hcl Sr 240 Mg Tablet.Er) 240 mg PO BEDTIME [facility]; Protocol Last Admin: 07/19/23 20:42 Dose: 240 mg Allergies Allergies Allergy/AdvReac Type Severity Reaction Status Date / Time amlodipine Allergy Unknown Verified 06/21/23 17:41 aspirin Allergy Rash Verified 06/21/23 17:41 atenolol Allergy Rash Verified 06/21/23 17:41 carbamazepine Allergy Unknown Verified 06/21/23 17:41 celecoxib Allergy Unknown Verified 06/21/23 17:41 ciprofloxacin Allergy Unknown Verified 06/21/23 17:41 erythromycin base Allergy Hives Verified 06/21/23 17:41 fluvastatin Allergy Unknown Verified 06/21/23 17:41 levofloxacin Allergy Unknown Verified 06/21/23 17:41 loratadine Allergy Unknown Verified 06/21/23 17:41 mercaptopurine Allergy Unknown Verified 06/21/23 17:41 naproxen Allergy Unknown Verified 06/21/23 17:41 pantoprazole Allergy Unknown Verified 06/21/23 17:41 Quinolones Allergy Unknown Verified 06/21/23 17:41 ranitidine Allergy Unknown Verified 06/21/23 17:41 sulfamethoxazole Allergy Unknown Verified 06/21/23 17:41 trimethoprim Allergy Unknown Verified 06/21/23 17:41 Assessment & Plan Assessment & Plan (1) Dementia: Status: Acute Code(s): F03.90 - Unspecified dementia, unspecified severity, without behavioral disturbance, psychotic disturbance, mood disturbance, and anxiety (2) Pervasive developmental disorder: Status: Acute Code(s): F84.9 - Pervasive developmental disorder, unspecified Plan Plan 1. Continue with same Trileptal 600 mg p.o. b.i.d.. 2. Increase Zyprexa up to 3.75 p.o. t.i.d.. On June 26 we are going to increase to 5 mg p.o. t.i.d. 3. Rest the same. 4. Blood work CBC and BMP within normal limits no changes slight high cholesterol. 5. Start trazodone 25 mg in the morning and in the afternoon and keep 100 at night. Started on July 03. 6. We discussed with the primary team in the community with the possibility to discharge her to subacute rehab due to deconditionion. DDS has applied to transferred to another hospital for rehabilitation but she was denied. Waiting for placement. Reason for continued inpatient stay Substantial Risk for: inability to function, rapid decompensation and med/psych decompensation Time Spent With Patient Time: Total time managing care of this patient today __20__ minutes.
[2023-07-20] MEDS: hydrOXYzine HCL 25 MG TABLET PO (12:52)
[2023-07-20] MEDS: Loperamide HCl 2 MG CAPSULE 4 MG PO (12:52)
--- NOTE | 2023-07-20 12:58 | PC.NURSE ---
Patient medicated with Loperamide 4mg and Hydroxyzine 25 mg . Will continue to monitor.
[2023-07-20] MEDS: Acetaminophen 325 MG TABLET 650 MG PO (15:38)
[2023-07-20 20:00] VITALS: BP 139/76; PULSE 75; RESP 16; TEMP 36.6; O2SAT 95
[2023-07-20] MEDS: Mirtazapine 7.5 MG TABLET PO (20:59)
[2023-07-20] MEDS: traZODone HCL 100 MG TABLET PO (20:59)
[2023-07-20] MEDS: Donepezil HCl 10 MG TABLET PO (20:59)
[2023-07-20 21:00] VITALS: BP 139/76; PULSE 75
[2023-07-20] MEDS: VerapamiL HCL SR 240 MG TABLET.ER PO (21:00)
[2023-07-21 08:39] VITALS: BP 139/93; PULSE 88; RESP 18; TEMP 37.4; O2SAT 93
[2023-07-21] MEDS: Memantine HCl 10 MG TABLET PO ×2 (08:44→20:06)
[2023-07-21] MEDS: hydrOXYzine HCL 25 MG TABLET PO ×2 (08:44→14:09)
[2023-07-21] MEDS: OXcarbazepine 300 MG TABLET 600 MG PO ×2 (08:44→20:07)
[2023-07-21] MEDS: Multivitamin TABLET 1 TAB PO (08:44)
[2023-07-21] MEDS: traZODone HCL 25 MG HALFTAB PO ×2 (08:45→14:09)
[2023-07-21] MEDS: OLANZapine ODT 10 MG TAB.RAPDIS TRANSLINGU (08:45)
[2023-07-21] MEDS: OLANZapine 5 MG TABLET PO ×3 (08:45→20:08)
[2023-07-21] MEDS: DULoxetine HCl 60 MG CAPSULE.DR PO (08:46)
[2023-07-21] MEDS: levETIRAcetam Oral Soln 500 MG/5 ML 1500 MG PO ×2 (08:46→20:08)
--- NOTE | 2023-07-21 09:00 | P.PNPSI_ITS ---
Subjective Subjective Date of Service: 07/21/23 Reason For Visit: Depression Interim History: The nursing staff reported no changes in her mental status she gels at times but she is redirectable. She had been fully compliant with treatment. On interview the patient denies new symptoms, waiting for placement. Review of Systems Review of Systems Yes Unobtainable due to mental status and Other (Patient not agreeable to interview/exam) Mental Status Exam Mental Status Exam Patient Appearance: Appropriate Patient Orientation: Person and Situation Level of Consciousness: Awake and Appropriate Patient Behavior: Guarded and Passive Mood Description: Withdrawn Affect Description: Labile Patient Cognition Impaired: Yes Ability to Follow Directions: Good Speech Pattern: Clear Diagnostics Vital Signs (24Hr): Vital Signs - 24 hr 07/20/23 20:00 07/20/23 21:00 07/21/23 08:39 Temperature 97.9 F 99.3 F Pulse Rate 75 75 88 Respiratory Rate 16 18 Blood Pressure 139/76 139/76 139/93 H Pulse Oximetry 95 93 Oxygen Delivery Method Room Air Room Air BMI result Body Mass Index 26.6 Labs 06/30/23 07:19 06/30/23 07:19 Medications Medications Current Medications Acetaminophen (Acetaminophen 325 Mg Tablet) 650 mg PO Q6H PRN PRN Reason: Headache/Pain Mild Scale (1-3) Last Admin: 07/20/23 15:38 Dose: 650 mg Al Hydroxide/Mg Hydroxide (Magnesium Hydrox/Alum Hydrox 30 Ml Oral.Susp) 30 ml PO Q6H PRN PRN Reason: Heartburn/Nausea Calcium Carbonate (Calcium Carbonate 750 Mg Tab.Chew) 750 mg PO DAILY PRN PRN Reason: ACID REFLUX Docusate Sodium (Docusate Sodium 100 Mg Capsule) 100 mg PO DAILY [facility] Last Admin: 06/24/23 10:13 Dose: Not Given Donepezil HCl (Donepezil Hcl 10 Mg Tablet) 10 mg PO BEDTIME [facility] Last Admin: 07/20/23 20:59 Dose: 10 mg Duloxetine HCl (Duloxetine Hcl 60 Mg Capsule.Dr) 60 mg PO DAILY [facility] Last Admin: 07/21/23 08:46 Dose: 60 mg Hydroxyzine HCl (Hydroxyzine Hcl 25 Mg Tablet) 25 mg PO Q6H PRN PRN Reason: Anxiety Last Admin: 07/21/23 08:44 Dose: 25 mg Levetiracetam (Levetiracetam Oral Soln 500 Mg/5 Ml) 1,500 mg PO BID [facility] Last Admin: 07/21/23 08:46 Dose: 1,500 mg Loperamide HCl (Loperamide Hcl 2 Mg Capsule) 4 mg PO Q6H PRN PRN Reason: Diarrhea Last Admin: 07/20/23 12:52 Dose: 4 mg Magnesium Hydroxide (Milk Of Magnesia 30 Ml Oral.Susp) 30 ml PO DAILY PRN PRN Reason: Constipation Memantine (Memantine Hcl 10 Mg Tablet) 10 mg PO BID [facility] Last Admin: 07/21/23 08:44 Dose: 10 mg Mirtazapine (Mirtazapine 7.5 Mg Tablet) 7.5 mg PO BEDTIME [facility] Last Admin: 07/20/23 20:59 Dose: 7.5 mg Multivitamins/Vitamin C (Multivitamin Tablet) 1 tab PO DAILY [facility] Last Admin: 07/21/23 08:44 Dose: 1 tab Olanzapine (Olanzapine Odt 10 Mg Tab.Rapdis) 10 mg TRANSLINGU BID PRN PRN Reason: Psychosis Last Admin: 07/21/23 08:45 Dose: 10 mg Olanzapine (Olanzapine 5 Mg Tablet) 5 mg PO TID [facility] Last Admin: 07/21/23 08:45 Dose: 5 mg Oxcarbazepine (Oxcarbazepine 300 Mg Tablet) 600 mg PO BID [facility] Last Admin: 07/21/23 08:44 Dose: 600 mg Psyllium Hydrophilic Mucilloid (Psyllium Seed 3.7 Gm Packet) 3.7 gm PO BID [facility] Last Admin: 06/24/23 20:58 Dose: 3.7 gm Trazodone HCl (Trazodone Hcl 50 Mg Tablet) 50 mg PO BEDTIME MRX1 PRN PRN Reason: Insomnia Last Admin: 07/19/23 23:43 Dose: 50 mg Trazodone HCl (Trazodone Hcl 100 Mg Tablet) 100 mg PO BEDTIME [facility] Last Admin: 07/20/23 20:59 Dose: 100 mg Trazodone HCl (Trazodone Hcl 25 Mg Halftab) 25 mg PO BID@0830,1330 [facility] Last Admin: 07/21/23 08:45 Dose: 25 mg Verapamil HCl (Verapamil Hcl Sr 240 Mg Tablet.Er) 240 mg PO BEDTIME [facility]; Protocol Last Admin: 07/20/23 21:00 Dose: 240 mg Allergies Allergies Allergy/AdvReac Type Severity Reaction Status Date / Time amlodipine Allergy Unknown Verified 06/21/23 17:41 aspirin Allergy Rash Verified 06/21/23 17:41 atenolol Allergy Rash Verified 06/21/23 17:41 carbamazepine Allergy Unknown Verified 06/21/23 17:41 celecoxib Allergy Unknown Verified 06/21/23 17:41 ciprofloxacin Allergy Unknown Verified 06/21/23 17:41 erythromycin base Allergy Hives Verified 06/21/23 17:41 fluvastatin Allergy Unknown Verified 06/21/23 17:41 levofloxacin Allergy Unknown Verified 06/21/23 17:41 loratadine Allergy Unknown Verified 06/21/23 17:41 mercaptopurine Allergy Unknown Verified 06/21/23 17:41 naproxen Allergy Unknown Verified 06/21/23 17:41 pantoprazole Allergy Unknown Verified 06/21/23 17:41 Quinolones Allergy Unknown Verified 06/21/23 17:41 ranitidine Allergy Unknown Verified 06/21/23 17:41 sulfamethoxazole Allergy Unknown Verified 06/21/23 17:41 trimethoprim Allergy Unknown Verified 06/21/23 17:41 Assessment & Plan Assessment & Plan (1) Dementia: Status: Acute Code(s): F03.90 - Unspecified dementia, unspecified severity, without behavioral disturbance, psychotic disturbance, mood disturbance, and anxiety (2) Pervasive developmental disorder: Status: Acute Code(s): F84.9 - Pervasive developmental disorder, unspecified Plan Plan 1. Continue with same Trileptal 600 mg p.o. b.i.d.. 2. Increase Zyprexa up to 3.75 p.o. t.i.d.. On June 26 we are going to increase to 5 mg p.o. t.i.d. 3. Rest the same. 4. Blood work CBC and BMP within normal limits no changes slight high cholesterol. 5. Start trazodone 25 mg in the morning and in the afternoon and keep 100 at night. Started on July 03. 6. We discussed with the primary team in the community with the possibility to discharge her to subacute rehab due to deconditionion. DDAlisia has applied to transferred to another hospital for rehabilitation but she was denied. Waiting for placement. 07/20: continue current management and treatment plan. Reason for continued inpatient stay Substantial Risk for: inability to function and rapid decompensation Time Spent With Patient Time: Total time managing care of this patient today ____ minutes.
[2023-07-21 20:00] VITALS: BP 133/60; PULSE 84; RESP 16; TEMP 36.4; O2SAT 93
[2023-07-21 20:07] VITALS: BP 133/60; PULSE 84
[2023-07-21] MEDS: VerapamiL HCL SR 240 MG TABLET.ER PO (20:07)
[2023-07-21] MEDS: traZODone HCL 100 MG TABLET PO (20:08)
[2023-07-21] MEDS: Mirtazapine 7.5 MG TABLET PO (20:08)
[2023-07-21] MEDS: Donepezil HCl 10 MG TABLET PO (20:08)
[2023-07-22] MEDS: Acetaminophen 325 MG TABLET 650 MG PO ×2 (04:57→12:14)
[2023-07-22] MEDS: hydrOXYzine HCL 25 MG TABLET PO ×3 (05:04→21:39)
[2023-07-22 08:11] VITALS: BP 140/91; PULSE 91; RESP 16; TEMP 37.2; O2SAT 92
[2023-07-22] MEDS: levETIRAcetam Oral Soln 500 MG/5 ML 1500 MG PO ×2 (08:13→21:36)
[2023-07-22] MEDS: OXcarbazepine 300 MG TABLET 600 MG PO ×2 (08:13→21:37)
[2023-07-22] MEDS: Multivitamin TABLET 1 TAB PO (08:14)
[2023-07-22] MEDS: Memantine HCl 10 MG TABLET PO ×2 (08:14→21:38)
[2023-07-22] MEDS: OLANZapine 5 MG TABLET PO ×3 (08:14→21:40)
[2023-07-22] MEDS: DULoxetine HCl 60 MG CAPSULE.DR PO (08:14)
[2023-07-22] MEDS: traZODone HCL 25 MG HALFTAB PO ×3 (08:14→15:33)
[2023-07-22] MEDS: OLANZapine ODT 10 MG TAB.RAPDIS TRANSLINGU ×2 (11:24→21:39)
[2023-07-22] MEDS: LORazepam 1 MG TABLET PO (13:28)
--- NOTE | 2023-07-22 16:02 | HO.PSYCHPN ---
Subjective Subjective Date of Service: 07/22/23 Reason For Visit: Depression Interim History: The nursing staff reported she is more agitated and screaming more than usual today. She required PRN Zyprexa which was not effective. She received a dose of Ativan then Trazodone 25 mg x1. She was kicking and thrashing. She would not respond if she has pain. She had been fully compliant with treatment. On interview the patient denies new symptoms, waiting for placement. Review of Systems Review of Systems Yes Unobtainable due to mental status and Other (Patient not agreeable to interview/exam) Mental Status Exam Mental Status Exam Patient Appearance: Appropriate Patient Orientation: Person and Situation Level of Consciousness: Awake and Appropriate Patient Behavior: Guarded and Passive Mood Description: Withdrawn Affect Description: Labile Patient Cognition Impaired: Yes Ability to Follow Directions: Good Speech Pattern: Clear Diagnostics Vital Signs (24Hr): Vital Signs - 24 hr 07/21/23 20:00 07/21/23 20:07 07/22/23 08:11 Temperature 97.5 F 99.0 F Pulse Rate 84 84 91 Respiratory Rate 16 16 Blood Pressure 133/60 133/60 140/91 H Pulse Oximetry 93 92 Oxygen Delivery Method Room Air Room Air BMI result Body Mass Index 26.6 Labs 06/30/23 07:19 06/30/23 07:19 Medications Medications Current Medications Acetaminophen (Acetaminophen 325 Mg Tablet) 650 mg PO Q6H PRN PRN Reason: Headache/Pain Mild Scale (1-3) Last Admin: 07/22/23 12:14 Dose: 650 mg Al Hydroxide/Mg Hydroxide (Magnesium Hydrox/Alum Hydrox 30 Ml Oral.Susp) 30 ml PO Q6H PRN PRN Reason: Heartburn/Nausea Calcium Carbonate (Calcium Carbonate 750 Mg Tab.Chew) 750 mg PO DAILY PRN PRN Reason: ACID REFLUX Docusate Sodium (Docusate Sodium 100 Mg Capsule) 100 mg PO DAILY [facility] Last Admin: 06/24/23 10:13 Dose: Not Given Donepezil HCl (Donepezil Hcl 10 Mg Tablet) 10 mg PO BEDTIME [facility] Last Admin: 07/21/23 20:08 Dose: 10 mg Duloxetine HCl (Duloxetine Hcl 60 Mg Capsule.Dr) 60 mg PO DAILY [facility] Last Admin: 07/22/23 08:14 Dose: 60 mg Hydroxyzine HCl (Hydroxyzine Hcl 25 Mg Tablet) 25 mg PO Q6H PRN PRN Reason: Anxiety Last Admin: 07/22/23 11:24 Dose: 25 mg Levetiracetam (Levetiracetam Oral Soln 500 Mg/5 Ml) 1,500 mg PO BID [facility] Last Admin: 07/22/23 08:13 Dose: 1,500 mg Loperamide HCl (Loperamide Hcl 2 Mg Capsule) 4 mg PO Q6H PRN PRN Reason: Diarrhea Last Admin: 07/20/23 12:52 Dose: 4 mg Magnesium Hydroxide (Milk Of Magnesia 30 Ml Oral.Susp) 30 ml PO DAILY PRN PRN Reason: Constipation Memantine (Memantine Hcl 10 Mg Tablet) 10 mg PO BID [facility] Last Admin: 07/22/23 08:14 Dose: 10 mg Mirtazapine (Mirtazapine 7.5 Mg Tablet) 7.5 mg PO BEDTIME [facility] Last Admin: 07/21/23 20:08 Dose: 7.5 mg Multivitamins/Vitamin C (Multivitamin Tablet) 1 tab PO DAILY [facility] Last Admin: 07/22/23 08:14 Dose: 1 tab Olanzapine (Olanzapine Odt 10 Mg Tab.Rapdis) 10 mg TRANSLINGU BID PRN PRN Reason: Psychosis Last Admin: 07/22/23 11:24 Dose: 10 mg Olanzapine (Olanzapine 5 Mg Tablet) 5 mg PO TID [facility] Last Admin: 07/22/23 13:28 Dose: 5 mg Oxcarbazepine (Oxcarbazepine 300 Mg Tablet) 600 mg PO BID [facility] Last Admin: 07/22/23 08:13 Dose: 600 mg Psyllium Hydrophilic Mucilloid (Psyllium Seed 3.7 Gm Packet) 3.7 gm PO BID [facility] Last Admin: 06/24/23 20:58 Dose: 3.7 gm Trazodone HCl (Trazodone Hcl 50 Mg Tablet) 50 mg PO BEDTIME MRX1 PRN PRN Reason: Insomnia Last Admin: 07/19/23 23:43 Dose: 50 mg Trazodone HCl (Trazodone Hcl 100 Mg Tablet) 100 mg PO BEDTIME [facility] Last Admin: 07/21/23 20:08 Dose: 100 mg Trazodone HCl (Trazodone Hcl 25 Mg Halftab) 25 mg PO BID@0830,1330 [facility] Last Admin: 07/22/23 11:24 Dose: 25 mg Verapamil HCl (Verapamil Hcl Sr 240 Mg Tablet.Er) 240 mg PO BEDTIME [facility]; Protocol Last Admin: 07/21/23 20:07 Dose: 240 mg Allergies Allergies Allergy/AdvReac Type Severity Reaction Status Date / Time amlodipine Allergy Unknown Verified 06/21/23 17:41 aspirin Allergy Rash Verified 06/21/23 17:41 atenolol Allergy Rash Verified 06/21/23 17:41 carbamazepine Allergy Unknown Verified 06/21/23 17:41 celecoxib Allergy Unknown Verified 06/21/23 17:41 ciprofloxacin Allergy Unknown Verified 06/21/23 17:41 erythromycin base Allergy Hives Verified 06/21/23 17:41 fluvastatin Allergy Unknown Verified 06/21/23 17:41 levofloxacin Allergy Unknown Verified 06/21/23 17:41 loratadine Allergy Unknown Verified 06/21/23 17:41 mercaptopurine Allergy Unknown Verified 06/21/23 17:41 naproxen Allergy Unknown Verified 06/21/23 17:41 pantoprazole Allergy Unknown Verified 06/21/23 17:41 Quinolones Allergy Unknown Verified 06/21/23 17:41 ranitidine Allergy Unknown Verified 06/21/23 17:41 sulfamethoxazole Allergy Unknown Verified 06/21/23 17:41 trimethoprim Allergy Unknown Verified 06/21/23 17:41 Assessment & Plan Assessment & Plan (1) Dementia: Status: Acute Code(s): F03.90 - Unspecified dementia, unspecified severity, without behavioral disturbance, psychotic disturbance, mood disturbance, and anxiety (2) Pervasive developmental disorder: Status: Acute Code(s): F84.9 - Pervasive developmental disorder, unspecified Plan Plan 1. Continue with same Trileptal 600 mg p.o. b.i.d.. 2. Increase Zyprexa up to 3.75 p.o. t.i.d.. On June 26 we are going to increase to 5 mg p.o. t.i.d. 3. Rest the same. 4. Blood work CBC and BMP within normal limits no changes slight high cholesterol. 5. Start trazodone 25 mg in the morning and in the afternoon and keep 100 at night. Started on July 03. 6. We discussed with the primary team in the community with the possibility to discharge her to subacute rehab due to deconditionion. DDS has applied to transferred to another hospital for rehabilitation but she was denied. Waiting for placement. 07/20: continue current management and treatment plan. 07/21: continue current management and treatment plan. Reason for continued inpatient stay Substantial Risk for: inability to function and rapid decompensation Time Spent With Patient Time: Total time managing care of this patient today ____ minutes.
[2023-07-22 20:00] VITALS: BP 132/75; PULSE 105; RESP 18; TEMP 36.3; O2SAT 92
[2023-07-22 21:37] VITALS: BP 132/75; PULSE 105
[2023-07-22] MEDS: VerapamiL HCL SR 240 MG TABLET.ER PO (21:37)
[2023-07-22] MEDS: Donepezil HCl 10 MG TABLET PO (21:38)
[2023-07-22] MEDS: traZODone HCL 100 MG TABLET PO (21:39)
[2023-07-22] MEDS: traZODone HCL 50 MG TABLET PO (21:39)
[2023-07-22] MEDS: Mirtazapine 7.5 MG TABLET PO (21:40)
[2023-07-23 08:00] VITALS: BP 162/79; PULSE 88; RESP 18; TEMP 36.6; O2SAT 94
[2023-07-23] MEDS: OLANZapine 5 MG TABLET PO ×3 (08:43→20:08)
[2023-07-23] MEDS: DULoxetine HCl 60 MG CAPSULE.DR PO (08:43)
[2023-07-23] MEDS: traZODone HCL 25 MG HALFTAB PO ×2 (08:43→13:35)
[2023-07-23] MEDS: Multivitamin TABLET 1 TAB PO (08:43)
[2023-07-23] MEDS: OXcarbazepine 300 MG TABLET 600 MG PO ×2 (08:43→20:09)
[2023-07-23] MEDS: Memantine HCl 10 MG TABLET PO ×2 (08:43→20:08)
[2023-07-23] MEDS: levETIRAcetam Oral Soln 500 MG/5 ML 1500 MG PO ×2 (08:44→20:08)
[2023-07-23] MEDS: hydrOXYzine HCL 25 MG TABLET PO (10:22)
[2023-07-23] MEDS: Acetaminophen 325 MG TABLET 650 MG PO ×2 (10:24→20:10)
--- NOTE | 2023-07-23 10:54 | P.PNPSI_ITS ---
Subjective Subjective Date of Service: 07/23/23 Reason For Visit: Depression Interim History: The nursing staff reported she is less agitated today although she continues to scream at times. She has been fully compliant with treatment. On interview the patient denies new symptoms, waiting for placement. Review of Systems Review of Systems Yes Unobtainable due to mental status and Other (Patient not agreeable to interview/exam) Mental Status Exam Mental Status Exam Patient Appearance: Appropriate Patient Orientation: Person and Situation Level of Consciousness: Awake and Appropriate Patient Behavior: Guarded and Passive Mood Description: Withdrawn Affect Description: Labile Patient Cognition Impaired: Yes Ability to Follow Directions: Good Speech Pattern: Clear Diagnostics Vital Signs (24Hr): Vital Signs - 24 hr 07/22/23 20:00 07/22/23 21:37 Temperature 97.3 F Pulse Rate 105 H 105 H Respiratory Rate 18 Blood Pressure 132/75 132/75 Pulse Oximetry 92 Oxygen Delivery Method Room Air BMI result Body Mass Index 26.6 Labs 06/30/23 07:19 06/30/23 07:19 Medications Medications Current Medications Acetaminophen (Acetaminophen 325 Mg Tablet) 650 mg PO Q6H PRN PRN Reason: Headache/Pain Mild Scale (1-3) Last Admin: 07/23/23 10:24 Dose: 650 mg Al Hydroxide/Mg Hydroxide (Magnesium Hydrox/Alum Hydrox 30 Ml Oral.Susp) 30 ml PO Q6H PRN PRN Reason: Heartburn/Nausea Calcium Carbonate (Calcium Carbonate 750 Mg Tab.Chew) 750 mg PO DAILY PRN PRN Reason: ACID REFLUX Docusate Sodium (Docusate Sodium 100 Mg Capsule) 100 mg PO DAILY [facility] Last Admin: 06/24/23 10:13 Dose: Not Given Donepezil HCl (Donepezil Hcl 10 Mg Tablet) 10 mg PO BEDTIME [facility] Last Admin: 07/22/23 21:38 Dose: 10 mg Duloxetine HCl (Duloxetine Hcl 60 Mg Capsule.Dr) 60 mg PO DAILY [facility] Last Admin: 07/23/23 08:43 Dose: 60 mg Hydroxyzine HCl (Hydroxyzine Hcl 25 Mg Tablet) 25 mg PO Q6H PRN PRN Reason: Anxiety Last Admin: 07/23/23 10:22 Dose: 25 mg Levetiracetam (Levetiracetam Oral Soln 500 Mg/5 Ml) 1,500 mg PO BID [facility] Last Admin: 07/23/23 08:44 Dose: 1,500 mg Loperamide HCl (Loperamide Hcl 2 Mg Capsule) 4 mg PO Q6H PRN PRN Reason: Diarrhea Last Admin: 07/20/23 12:52 Dose: 4 mg Magnesium Hydroxide (Milk Of Magnesia 30 Ml Oral.Susp) 30 ml PO DAILY PRN PRN Reason: Constipation Memantine (Memantine Hcl 10 Mg Tablet) 10 mg PO BID [facility] Last Admin: 07/23/23 08:43 Dose: 10 mg Mirtazapine (Mirtazapine 7.5 Mg Tablet) 7.5 mg PO BEDTIME [facility] Last Admin: 07/22/23 21:40 Dose: 7.5 mg Multivitamins/Vitamin C (Multivitamin Tablet) 1 tab PO DAILY [facility] Last Admin: 07/23/23 08:43 Dose: 1 tab Olanzapine (Olanzapine Odt 10 Mg Tab.Rapdis) 10 mg TRANSLINGU BID PRN PRN Reason: Psychosis Last Admin: 07/22/23 21:39 Dose: 10 mg Olanzapine (Olanzapine 5 Mg Tablet) 5 mg PO TID [facility] Last Admin: 07/23/23 08:43 Dose: 5 mg Oxcarbazepine (Oxcarbazepine 300 Mg Tablet) 600 mg PO BID [facility] Last Admin: 07/23/23 08:43 Dose: 600 mg Psyllium Hydrophilic Mucilloid (Psyllium Seed 3.7 Gm Packet) 3.7 gm PO BID [facility] Last Admin: 06/24/23 20:58 Dose: 3.7 gm Trazodone HCl (Trazodone Hcl 50 Mg Tablet) 50 mg PO BEDTIME MRX1 PRN PRN Reason: Insomnia Last Admin: 07/22/23 21:39 Dose: 50 mg Trazodone HCl (Trazodone Hcl 100 Mg Tablet) 100 mg PO BEDTIME [facility] Last Admin: 07/22/23 21:39 Dose: 100 mg Trazodone HCl (Trazodone Hcl 25 Mg Halftab) 25 mg PO BID@0830,1330 [facility] Last Admin: 07/23/23 08:43 Dose: 25 mg Verapamil HCl (Verapamil Hcl Sr 240 Mg Tablet.Er) 240 mg PO BEDTIME [facility]; Protocol Last Admin: 07/22/23 21:37 Dose: 240 mg Allergies Allergies Allergy/AdvReac Type Severity Reaction Status Date / Time amlodipine Allergy Unknown Verified 06/21/23 17:41 aspirin Allergy Rash Verified 06/21/23 17:41 atenolol Allergy Rash Verified 06/21/23 17:41 carbamazepine Allergy Unknown Verified 06/21/23 17:41 celecoxib Allergy Unknown Verified 06/21/23 17:41 ciprofloxacin Allergy Unknown Verified 06/21/23 17:41 erythromycin base Allergy Hives Verified 06/21/23 17:41 fluvastatin Allergy Unknown Verified 06/21/23 17:41 levofloxacin Allergy Unknown Verified 06/21/23 17:41 loratadine Allergy Unknown Verified 06/21/23 17:41 mercaptopurine Allergy Unknown Verified 06/21/23 17:41 naproxen Allergy Unknown Verified 06/21/23 17:41 pantoprazole Allergy Unknown Verified 06/21/23 17:41 Quinolones Allergy Unknown Verified 06/21/23 17:41 ranitidine Allergy Unknown Verified 06/21/23 17:41 sulfamethoxazole Allergy Unknown Verified 06/21/23 17:41 trimethoprim Allergy Unknown Verified 06/21/23 17:41 Assessment & Plan Assessment & Plan (1) Dementia: Status: Acute Code(s): F03.90 - Unspecified dementia, unspecified severity, without behavioral disturbance, psychotic disturbance, mood disturbance, and anxiety (2) Pervasive developmental disorder: Status: Acute Code(s): F84.9 - Pervasive developmental disorder, unspecified Plan Plan 1. Continue with same Trileptal 600 mg p.o. b.i.d.. 2. Increase Zyprexa up to 3.75 p.o. t.i.d.. On June 26 we are going to increase to 5 mg p.o. t.i.d. 3. Rest the same. 4. Blood work CBC and BMP within normal limits no changes slight high cholesterol. 5. Start trazodone 25 mg in the morning and in the afternoon and keep 100 at night. Started on July 03. 6. We discussed with the primary team in the community with the possibility to discharge her to subacute rehab due to deconditionion. TYRONE has applied to transferred to another hospital for rehabilitation but she was denied. Waiting for placement. 07/20: continue current management and treatment plan. 07/21: continue current management and treatment plan. 07/22: continue current management and treatment plan. Reason for continued inpatient stay Substantial Risk for: inability to function and rapid decompensation Time Spent With Patient Time: Total time managing care of this patient today ____ minutes.
[2023-07-23 20:00] VITALS: BP 132/77; PULSE 74; RESP 18; TEMP 36.3; O2SAT 96
[2023-07-23] MEDS: Mirtazapine 7.5 MG TABLET PO (20:08)
[2023-07-23] MEDS: traZODone HCL 100 MG TABLET PO (20:08)
[2023-07-23 20:09] VITALS: BP 123/77; PULSE 74
[2023-07-23] MEDS: VerapamiL HCL SR 240 MG TABLET.ER PO (20:09)
[2023-07-23] MEDS: Donepezil HCl 10 MG TABLET PO (20:10)
[2023-07-24] MEDS: DULoxetine HCl 60 MG CAPSULE.DR PO (08:27)
[2023-07-24] MEDS: Multivitamin TABLET 1 TAB PO (08:27)
[2023-07-24] MEDS: OXcarbazepine 300 MG TABLET 600 MG PO ×2 (08:28→20:45)
[2023-07-24] MEDS: traZODone HCL 25 MG HALFTAB PO ×2 (08:28→14:45)
[2023-07-24] MEDS: Memantine HCl 10 MG TABLET PO ×2 (08:28→20:46)
[2023-07-24] MEDS: OLANZapine 5 MG TABLET PO ×3 (08:28→20:45)
[2023-07-24] MEDS: levETIRAcetam Oral Soln 500 MG/5 ML 1500 MG PO ×2 (08:28→20:45)
--- NOTE | 2023-07-24 11:51 | P.PNPSI_ITS ---
Subjective Subjective Date of Service: 07/24/23 Reason For Visit: Depression Subjective Notes: Conditional Voluntary (By healthcare proxy) Healthcare Proxy: Yes Interim History: The nursing staff reported no changes in her mental status, she needs total care. She slept well last night. On interview the patient reported that she is doing fine eating her lunch with assistance. Waiting for placement. Mental Status Exam Mental Status Exam Patient Appearance: Appropriate Patient Orientation: Person and Situation Level of Consciousness: Awake Patient Behavior: Guarded and Passive Mood Description: Withdrawn Affect Description: Constricted Patient Cognition Impaired: Yes Ability to Follow Directions: Good Speech Pattern: Clear Hallucinations: None Delusions: Not Present Thought Process: Distracted and Slowed Thinking Thought Content: positive for [place] and positive for Poverty of Content Judgement: Fair Diagnostics Vital Signs (24Hr): Vital Signs - 24 hr 07/23/23 20:00 07/23/23 20:09 Temperature 97.4 F Pulse Rate 74 74 Respiratory Rate 18 Blood Pressure 132/77 123/77 Pulse Oximetry 96 Oxygen Delivery Method Room Air BMI result Body Mass Index 26.6 Labs 06/30/23 07:19 06/30/23 07:19 Medications Medications Current Medications Acetaminophen (Acetaminophen 325 Mg Tablet) 650 mg PO Q6H PRN PRN Reason: Headache/Pain Mild Scale (1-3) Last Admin: 07/23/23 20:10 Dose: 650 mg Al Hydroxide/Mg Hydroxide (Magnesium Hydrox/Alum Hydrox 30 Ml Oral.Susp) 30 ml PO Q6H PRN PRN Reason: Heartburn/Nausea Calcium Carbonate (Calcium Carbonate 750 Mg Tab.Chew) 750 mg PO DAILY PRN PRN Reason: ACID REFLUX Docusate Sodium (Docusate Sodium 100 Mg Capsule) 100 mg PO DAILY [facility] Last Admin: 06/24/23 10:13 Dose: Not Given Donepezil HCl (Donepezil Hcl 10 Mg Tablet) 10 mg PO BEDTIME [facility] Last Admin: 07/23/23 20:10 Dose: 10 mg Duloxetine HCl (Duloxetine Hcl 60 Mg Capsule.Dr) 60 mg PO DAILY [facility] Last Admin: 07/24/23 08:27 Dose: 60 mg Hydroxyzine HCl (Hydroxyzine Hcl 25 Mg Tablet) 25 mg PO Q6H PRN PRN Reason: Anxiety Last Admin: 07/23/23 10:22 Dose: 25 mg Levetiracetam (Levetiracetam Oral Soln 500 Mg/5 Ml) 1,500 mg PO BID [facility] Last Admin: 07/24/23 08:28 Dose: 1,500 mg Loperamide HCl (Loperamide Hcl 2 Mg Capsule) 4 mg PO Q6H PRN PRN Reason: Diarrhea Last Admin: 07/20/23 12:52 Dose: 4 mg Magnesium Hydroxide (Milk Of Magnesia 30 Ml Oral.Susp) 30 ml PO DAILY PRN PRN Reason: Constipation Memantine (Memantine Hcl 10 Mg Tablet) 10 mg PO BID [facility] Last Admin: 07/24/23 08:28 Dose: 10 mg Mirtazapine (Mirtazapine 7.5 Mg Tablet) 7.5 mg PO BEDTIME [facility] Last Admin: 07/23/23 20:08 Dose: 7.5 mg Multivitamins/Vitamin C (Multivitamin Tablet) 1 tab PO DAILY [facility] Last Admin: 07/24/23 08:27 Dose: 1 tab Olanzapine (Olanzapine Odt 10 Mg Tab.Rapdis) 10 mg TRANSLINGU BID PRN PRN Reason: Psychosis Last Admin: 07/22/23 21:39 Dose: 10 mg Olanzapine (Olanzapine 5 Mg Tablet) 5 mg PO TID [facility] Last Admin: 07/24/23 08:28 Dose: 5 mg Oxcarbazepine (Oxcarbazepine 300 Mg Tablet) 600 mg PO BID [facility] Last Admin: 07/24/23 08:28 Dose: 600 mg Psyllium Hydrophilic Mucilloid (Psyllium Seed 3.7 Gm Packet) 3.7 gm PO BID [facility] Last Admin: 06/24/23 20:58 Dose: 3.7 gm Trazodone HCl (Trazodone Hcl 50 Mg Tablet) 50 mg PO BEDTIME MRX1 PRN PRN Reason: Insomnia Last Admin: 07/22/23 21:39 Dose: 50 mg Trazodone HCl (Trazodone Hcl 100 Mg Tablet) 100 mg PO BEDTIME [facility] Last Admin: 07/23/23 20:08 Dose: 100 mg Trazodone HCl (Trazodone Hcl 25 Mg Halftab) 25 mg PO BID@0830,1330 [facility] Last Admin: 07/24/23 08:28 Dose: 25 mg Verapamil HCl (Verapamil Hcl Sr 240 Mg Tablet.Er) 240 mg PO BEDTIME [facility]; Protocol Last Admin: 07/23/23 20:09 Dose: 240 mg Allergies Allergies Allergy/AdvReac Type Severity Reaction Status Date / Time amlodipine Allergy Unknown Verified 06/21/23 17:41 aspirin Allergy Rash Verified 06/21/23 17:41 atenolol Allergy Rash Verified 06/21/23 17:41 carbamazepine Allergy Unknown Verified 06/21/23 17:41 celecoxib Allergy Unknown Verified 06/21/23 17:41 ciprofloxacin Allergy Unknown Verified 06/21/23 17:41 erythromycin base Allergy Hives Verified 06/21/23 17:41 fluvastatin Allergy Unknown Verified 06/21/23 17:41 levofloxacin Allergy Unknown Verified 06/21/23 17:41 loratadine Allergy Unknown Verified 06/21/23 17:41 mercaptopurine Allergy Unknown Verified 06/21/23 17:41 naproxen Allergy Unknown Verified 06/21/23 17:41 pantoprazole Allergy Unknown Verified 06/21/23 17:41 Quinolones Allergy Unknown Verified 06/21/23 17:41 ranitidine Allergy Unknown Verified 06/21/23 17:41 sulfamethoxazole Allergy Unknown Verified 06/21/23 17:41 trimethoprim Allergy Unknown Verified 06/21/23 17:41 Assessment & Plan Assessment & Plan (1) Dementia: Status: Acute Code(s): F03.90 - Unspecified dementia, unspecified severity, without behavioral disturbance, psychotic disturbance, mood disturbance, and anxiety (2) Pervasive developmental disorder: Status: Acute Code(s): F84.9 - Pervasive developmental disorder, unspecified Plan Plan 1. Continue with same Trileptal 600 mg p.o. b.i.d.. 2. Increase Zyprexa up to 3.75 p.o. t.i.d.. On June 26 we are going to increase to 5 mg p.o. t.i.d. 3. Rest the same. 4. Blood work CBC and BMP within normal limits no changes slight high cholesterol. 5. Start trazodone 25 mg in the morning and in the afternoon and keep 100 at night. Started on July 03. 6. We discussed with the primary team in the community with the possibility to discharge her to subacute rehab due to deconditionion. DDAlisia has applied to transferred to another hospital for rehabilitation but she was denied. Waiting for placement. 7. Blood work for tomorrow Reason for continued inpatient stay Substantial Risk for: inability to function, rapid decompensation and med/psych decompensation Time Spent With Patient Time: Total time managing care of this patient today __20__ minutes.
[2023-07-24] MEDS: hydrOXYzine HCL 25 MG TABLET PO (15:35)
[2023-07-24] MEDS: Acetaminophen 325 MG TABLET 650 MG PO (15:35)
--- NOTE | 2023-07-24 15:44 | PC.NURSE ---
Patient medicated with Tylenol 650 mg and Atarax 25 mg. Will continue to monitor.
[2023-07-24 20:00] VITALS: BP 153/86; PULSE 70; RESP 18; TEMP 36.4; O2SAT 98
[2023-07-24 20:35] VITALS: BP 153/86; PULSE 70; TEMP 36.4; O2SAT 98
[2023-07-24 20:45] VITALS: BP 153/86; PULSE 70
[2023-07-24] MEDS: Mirtazapine 7.5 MG TABLET PO (20:45)
[2023-07-24] MEDS: VerapamiL HCL SR 240 MG TABLET.ER PO (20:45)
[2023-07-24] MEDS: Donepezil HCl 10 MG TABLET PO (20:46)
[2023-07-24] MEDS: traZODone HCL 100 MG TABLET PO (20:47)
[2023-07-25 08:30] VITALS: BP 154/98; PULSE 68; RESP 20; TEMP 36.2; O2SAT 96
[2023-07-25] MEDS: OLANZapine 5 MG TABLET PO ×3 (08:30→20:08)
[2023-07-25] MEDS: traZODone HCL 25 MG HALFTAB PO ×2 (08:30→13:43)
[2023-07-25] MEDS: Memantine HCl 10 MG TABLET PO ×2 (08:30→20:08)
[2023-07-25] MEDS: DULoxetine HCl 60 MG CAPSULE.DR PO (08:32)
[2023-07-25] MEDS: OXcarbazepine 300 MG TABLET 600 MG PO ×2 (08:32→20:08)
[2023-07-25] MEDS: Multivitamin TABLET 1 TAB PO (08:32)
[2023-07-25] MEDS: levETIRAcetam Oral Soln 500 MG/5 ML 1500 MG PO ×2 (08:34→20:08)
[2023-07-25 10:20] LABS: MANUAL DIFF FLAG NO
[2023-07-25 10:22] LABS: Basophils Absolute Auto 0.1 X10*3/uL (0.0-0.2); Basophils Percent Auto 0.7 % (0-2); Eosinophils Absolute Auto 0.1 X10*3/uL (0.0-0.4); Eosinophils Percent Auto 1.1 % (0-4); Hematocrit 39.1 % (37.0-47.0); Hemoglobin 13.7 g/dl (12.0-16.0); Imm Gran Abs Auto 0.04 X10*3/uL (0.00-0.03); Imm Gran Pct Auto 0.5 % (0.0-0.4); Lymphocytes Absolute Auto 1.9 X10*3/uL (1.2-4.9); Mean Corpuscular Hemoglobin 32.5 pg (27.0-33.0); Mean Corpuscular Volume 92.9 fL (80.0-98.0); Mean Platelet Volume 8.3 fL (9.4-12.3); Monocytes Absolute Auto 0.6 X10*3/uL (0.1-1.2); Monocytes Percent Auto 8.2 % (2-11); Neutrophils Absolute Auto 4.9 x10*3/uL (2.0-8.3); Neutrophils Percent Auto 64.5 % (45-73); Platelet Count 233 X10*3/uL (160-400); Red Blood Count 4.21 X10*6/uL (4.20-5.50); Red Cell Distribution Width 12.4 % (11.0-16.0); White Blood Count 7.5 X10*3/uL (4.8-10.8)
[2023-07-25 10:30] LABS: Estimated Average Glucose 100 mg/dL; Hemoglobin A1c % 5.1 % (<6.0)
[2023-07-25 10:38] LABS: Anion Gap 13 (12-20); Blood Urea Nitrogen 8 mg/dL (9-16); Calcium 9.3 mg/dL (8.4-10.2); Carbon Dioxide 24 mmol/L (22-29); Chloride 101 mmol/L (96-108); Creatinine Clr Calc Pharmacy 94.8; Estimated Glomerular Filt Rate > 60; Glucose Random 98 mg/dL (60-115); Potassium 4.3 mmol/L (3.3-5.1); Sodium 134 mmol/L (135-145)
--- NOTE | 2023-07-25 12:32 | HO.PSYCHPN ---
Subjective Subjective Date of Service: 07/25/23 Reason For Visit: Depression Subjective Notes: Conditional Voluntary (By healthcare proxy) Healthcare Proxy: Yes Interim History: The nursing staff reported that the patient have not shown no changes in her mental status, she needs total care. On interview the patient denies new symptoms. The director of social work reported that we are going to have a meeting with DDS for placement. Mental Status Exam Mental Status Exam Patient Appearance: Appropriate Patient Orientation: Person and Situation Level of Consciousness: Awake Patient Behavior: Guarded and Passive Mood Description: Withdrawn Affect Description: Labile Patient Cognition Impaired: Yes Ability to Follow Directions: Good Speech Pattern: Clear Hallucinations: None Delusions: Not Present Thought Process: Distracted and Slowed Thinking Thought Content: positive for [place] and positive for Poverty of Content Judgement: Fair Diagnostics Vital Signs (24Hr): Vital Signs - 24 hr 07/24/23 20:00 07/24/23 20:35 07/24/23 20:45 Temperature 97.6 F 97.6 F Pulse Rate 70 70 70 Respiratory Rate 18 Blood Pressure 153/86 H 153/86 H 153/86 H Pulse Oximetry 98 98 Oxygen Delivery Method Room Air Room Air 07/25/23 08:30 Temperature 97.1 F Pulse Rate 68 Respiratory Rate 20 Blood Pressure 154/98 H Pulse Oximetry 96 Oxygen Delivery Method Room Air BMI result Body Mass Index 26.6 Labs 07/25/23 10:15 07/25/23 10:15 Labs: Laboratory Results - last 48 hr 07/25/23 10:15 WBC 7.5 RBC 4.21 Hgb 13.7 Hct 39.1 MCV 92.9 MCH 32.5 MCHC 35.0 RDW 12.4 Plt Count 233 MPV 8.3 L Immature Gran % (Auto) 0.5 H Neut % (Auto) 64.5 Lymph % (Auto) 25.0 [place] % (Auto) 8.2 Eos % (Auto) 1.1 Baso % (Auto) 0.7 Lymph # (Auto) 1.9 [place] # (Auto) 0.6 Eos # (Auto) 0.1 Baso # (Auto) 0.1 Abs Immat Gran (auto) 0.04 H Absolute Neuts (auto) 4.9 Absolute Nucleated RBC 0.000 Nucleated RBC % (auto) 0.0 Sodium 134 L Potassium 4.3 Chloride 101 Carbon Dioxide 24 Anion Gap 13 BUN 8 L Creatinine 0.59 Estim Creat Clear Calc 94.8 Estimated GFR > 60 Random Glucose 98 Estimat Average Glucose 100 Hemoglobin A1c % 5.1 Calcium 9.3 Medications Medications Current Medications Acetaminophen (Acetaminophen 325 Mg Tablet) 650 mg PO Q6H PRN PRN Reason: Headache/Pain Mild Scale (1-3) Last Admin: 07/24/23 15:35 Dose: 650 mg Al Hydroxide/Mg Hydroxide (Magnesium Hydrox/Alum Hydrox 30 Ml Oral.Susp) 30 ml PO Q6H PRN PRN Reason: Heartburn/Nausea Calcium Carbonate (Calcium Carbonate 750 Mg Tab.Chew) 750 mg PO DAILY PRN PRN Reason: ACID REFLUX Docusate Sodium (Docusate Sodium 100 Mg Capsule) 100 mg PO DAILY [facility] Last Admin: 06/24/23 10:13 Dose: Not Given Donepezil HCl (Donepezil Hcl 10 Mg Tablet) 10 mg PO BEDTIME [facility] Last Admin: 07/24/23 20:46 Dose: 10 mg Duloxetine HCl (Duloxetine Hcl 60 Mg Capsule.Dr) 60 mg PO DAILY [facility] Last Admin: 07/25/23 08:32 Dose: 60 mg Hydroxyzine HCl (Hydroxyzine Hcl 25 Mg Tablet) 25 mg PO Q6H PRN PRN Reason: Anxiety Last Admin: 07/24/23 15:35 Dose: 25 mg Levetiracetam (Levetiracetam Oral Soln 500 Mg/5 Ml) 1,500 mg PO BID [facility] Last Admin: 07/25/23 08:34 Dose: 1,500 mg Loperamide HCl (Loperamide Hcl 2 Mg Capsule) 4 mg PO Q6H PRN PRN Reason: Diarrhea Last Admin: 07/20/23 12:52 Dose: 4 mg Magnesium Hydroxide (Milk Of Magnesia 30 Ml Oral.Susp) 30 ml PO DAILY PRN PRN Reason: Constipation Memantine (Memantine Hcl 10 Mg Tablet) 10 mg PO BID [facility] Last Admin: 07/25/23 08:30 Dose: 10 mg Mirtazapine (Mirtazapine 7.5 Mg Tablet) 7.5 mg PO BEDTIME [facility] Last Admin: 07/24/23 20:45 Dose: 7.5 mg Multivitamins/Vitamin C (Multivitamin Tablet) 1 tab PO DAILY [facility] Last Admin: 07/25/23 08:32 Dose: 1 tab Olanzapine (Olanzapine Odt 10 Mg Tab.Rapdis) 10 mg TRANSLINGU BID PRN PRN Reason: Psychosis Last Admin: 07/22/23 21:39 Dose: 10 mg Olanzapine (Olanzapine 5 Mg Tablet) 5 mg PO TID [facility] Last Admin: 07/25/23 08:30 Dose: 5 mg Oxcarbazepine (Oxcarbazepine 300 Mg Tablet) 600 mg PO BID [facility] Last Admin: 07/25/23 08:32 Dose: 600 mg Psyllium Hydrophilic Mucilloid (Psyllium Seed 3.7 Gm Packet) 3.7 gm PO BID [facility] Last Admin: 06/24/23 20:58 Dose: 3.7 gm Trazodone HCl (Trazodone Hcl 50 Mg Tablet) 50 mg PO BEDTIME MRX1 PRN PRN Reason: Insomnia Last Admin: 07/22/23 21:39 Dose: 50 mg Trazodone HCl (Trazodone Hcl 100 Mg Tablet) 100 mg PO BEDTIME [facility] Last Admin: 07/24/23 20:47 Dose: 100 mg Trazodone HCl (Trazodone Hcl 25 Mg Halftab) 25 mg PO BID@0830,1330 [facility] Last Admin: 07/25/23 08:30 Dose: 25 mg Verapamil HCl (Verapamil Hcl Sr 240 Mg Tablet.Er) 240 mg PO BEDTIME [facility]; Protocol Last Admin: 07/24/23 20:45 Dose: 240 mg Allergies Allergies Allergy/AdvReac Type Severity Reaction Status Date / Time amlodipine Allergy Unknown Verified 06/21/23 17:41 aspirin Allergy Rash Verified 06/21/23 17:41 atenolol Allergy Rash Verified 06/21/23 17:41 carbamazepine Allergy Unknown Verified 06/21/23 17:41 celecoxib Allergy Unknown Verified 06/21/23 17:41 ciprofloxacin Allergy Unknown Verified 06/21/23 17:41 erythromycin base Allergy Hives Verified 06/21/23 17:41 fluvastatin Allergy Unknown Verified 06/21/23 17:41 levofloxacin Allergy Unknown Verified 06/21/23 17:41 loratadine Allergy Unknown Verified 06/21/23 17:41 mercaptopurine Allergy Unknown Verified 06/21/23 17:41 naproxen Allergy Unknown Verified 06/21/23 17:41 pantoprazole Allergy Unknown Verified 06/21/23 17:41 Quinolones Allergy Unknown Verified 06/21/23 17:41 ranitidine Allergy Unknown Verified 06/21/23 17:41 sulfamethoxazole Allergy Unknown Verified 06/21/23 17:41 trimethoprim Allergy Unknown Verified 06/21/23 17:41 Assessment & Plan Assessment & Plan (1) Dementia: Status: Acute Code(s): F03.90 - Unspecified dementia, unspecified severity, without behavioral disturbance, psychotic disturbance, mood disturbance, and anxiety (2) Pervasive developmental disorder: Status: Acute Code(s): F84.9 - Pervasive developmental disorder, unspecified Plan Plan 1. Continue with same Trileptal 600 mg p.o. b.i.d.. 2. Increase Zyprexa up to 3.75 p.o. t.i.d.. On June 26 we are going to increase to 5 mg p.o. t.i.d. 3. Rest the same. 4. Blood work CBC and BMP within normal limits no changes slight high cholesterol. 5. Start trazodone 25 mg in the morning and in the afternoon and keep 100 at night. Started on July 03. 6. We discussed with the primary team in the community with the possibility to discharge her to subacute rehab due to deconditionion. DDAlisia has applied to transferred to another hospital for rehabilitation but she was denied. Waiting for placement. 7. Blood work ordered for 07/24. Reason for continued inpatient stay Substantial Risk for: inability to function, rapid decompensation and med/psych decompensation Time Spent With Patient Time: Total time managing care of this patient today __20__ minutes.
[2023-07-25 20:00] VITALS: BP 166/88; PULSE 112; RESP 18; TEMP 36.4; O2SAT 94
[2023-07-25 20:08] VITALS: BP 166/88; PULSE 112
[2023-07-25] MEDS: hydrOXYzine HCL 25 MG TABLET PO (20:08)
[2023-07-25] MEDS: Donepezil HCl 10 MG TABLET PO (20:08)
[2023-07-25] MEDS: traZODone HCL 100 MG TABLET PO (20:08)
[2023-07-25] MEDS: Mirtazapine 7.5 MG TABLET PO (20:08)
[2023-07-25] MEDS: VerapamiL HCL SR 240 MG TABLET.ER PO (20:08)
[2023-07-26 07:00] VITALS: BMI 26.8
--- NOTE | 2023-07-26 08:01 | HO.PSYCHPN ---
Subjective Subjective Date of Service: 07/26/23 Reason For Visit: Depression Subjective Notes: Conditional Voluntary (By healthcare proxy) Interim History: The nursing staff reported no changes in her mental status fully compliant with treatment. On interview the patient denies new symptoms. Today we have a meeting with DDS for discharge planning. It was clear for them that the patient is severely impaired and this is her new baseline. Mental Status Exam Mental Status Exam Patient Appearance: Appropriate Patient Orientation: Person and Situation Level of Consciousness: Awake and Appropriate Patient Behavior: Guarded and Passive Mood Description: Withdrawn Affect Description: Constricted Patient Cognition Impaired: Yes Ability to Follow Directions: Good Speech Pattern: Clear Hallucinations: None Delusions: Ideas of Reference Thought Process: Incoherent and Illogical Thought Content: positive for [place] and positive for Poverty of Content Judgement: Poor Diagnostics Vital Signs (24Hr): Vital Signs - 24 hr 07/25/23 08:30 07/25/23 20:00 07/25/23 20:08 Temperature 97.1 F 97.6 F Pulse Rate 68 112 H 112 H Respiratory Rate 20 18 Blood Pressure 154/98 H 166/88 H 166/88 H Pulse Oximetry 96 94 Oxygen Delivery Method Room Air Room Air BMI result Body Mass Index 26.6 Labs 07/25/23 10:15 07/25/23 10:15 Labs: Laboratory Results - last 48 hr 07/25/23 10:15 WBC 7.5 RBC 4.21 Hgb 13.7 Hct 39.1 MCV 92.9 MCH 32.5 MCHC 35.0 RDW 12.4 Plt Count 233 MPV 8.3 L Immature Gran % (Auto) 0.5 H Neut % (Auto) 64.5 Lymph % (Auto) 25.0 [place] % (Auto) 8.2 Eos % (Auto) 1.1 Baso % (Auto) 0.7 Lymph # (Auto) 1.9 [place] # (Auto) 0.6 Eos # (Auto) 0.1 Baso # (Auto) 0.1 Abs Immat Gran (auto) 0.04 H Absolute Neuts (auto) 4.9 Absolute Nucleated RBC 0.000 Nucleated RBC % (auto) 0.0 Sodium 134 L Potassium 4.3 Chloride 101 Carbon Dioxide 24 Anion Gap 13 BUN 8 L Creatinine 0.59 Estim Creat Clear Calc 94.8 Estimated GFR > 60 Random Glucose 98 Estimat Average Glucose 100 Hemoglobin A1c % 5.1 Calcium 9.3 Medications Medications Current Medications Acetaminophen (Acetaminophen 325 Mg Tablet) 650 mg PO Q6H PRN PRN Reason: Headache/Pain Mild Scale (1-3) Last Admin: 07/24/23 15:35 Dose: 650 mg Al Hydroxide/Mg Hydroxide (Magnesium Hydrox/Alum Hydrox 30 Ml Oral.Susp) 30 ml PO Q6H PRN PRN Reason: Heartburn/Nausea Calcium Carbonate (Calcium Carbonate 750 Mg Tab.Chew) 750 mg PO DAILY PRN PRN Reason: ACID REFLUX Docusate Sodium (Docusate Sodium 100 Mg Capsule) 100 mg PO DAILY [facility] Last Admin: 06/24/23 10:13 Dose: Not Given Donepezil HCl (Donepezil Hcl 10 Mg Tablet) 10 mg PO BEDTIME [facility] Last Admin: 07/25/23 20:08 Dose: 10 mg Duloxetine HCl (Duloxetine Hcl 60 Mg Capsule.Dr) 60 mg PO DAILY [facility] Last Admin: 07/25/23 08:32 Dose: 60 mg Hydroxyzine HCl (Hydroxyzine Hcl 25 Mg Tablet) 25 mg PO Q6H PRN PRN Reason: Anxiety Last Admin: 07/25/23 20:08 Dose: 25 mg Levetiracetam (Levetiracetam Oral Soln 500 Mg/5 Ml) 1,500 mg PO BID [facility] Last Admin: 07/25/23 20:08 Dose: 1,500 mg Loperamide HCl (Loperamide Hcl 2 Mg Capsule) 4 mg PO Q6H PRN PRN Reason: Diarrhea Last Admin: 07/20/23 12:52 Dose: 4 mg Magnesium Hydroxide (Milk Of Magnesia 30 Ml Oral.Susp) 30 ml PO DAILY PRN PRN Reason: Constipation Memantine (Memantine Hcl 10 Mg Tablet) 10 mg PO BID [facility] Last Admin: 07/25/23 20:08 Dose: 10 mg Mirtazapine (Mirtazapine 7.5 Mg Tablet) 7.5 mg PO BEDTIME [facility] Last Admin: 07/25/23 20:08 Dose: 7.5 mg Multivitamins/Vitamin C (Multivitamin Tablet) 1 tab PO DAILY [facility] Last Admin: 07/25/23 08:32 Dose: 1 tab Olanzapine (Olanzapine Odt 10 Mg Tab.Rapdis) 10 mg TRANSLINGU BID PRN PRN Reason: Psychosis Last Admin: 07/22/23 21:39 Dose: 10 mg Olanzapine (Olanzapine 5 Mg Tablet) 5 mg PO TID [facility] Last Admin: 07/25/23 20:08 Dose: 5 mg Oxcarbazepine (Oxcarbazepine 300 Mg Tablet) 600 mg PO BID [facility] Last Admin: 07/25/23 20:08 Dose: 600 mg Psyllium Hydrophilic Mucilloid (Psyllium Seed 3.7 Gm Packet) 3.7 gm PO BID [facility] Last Admin: 06/24/23 20:58 Dose: 3.7 gm Trazodone HCl (Trazodone Hcl 50 Mg Tablet) 50 mg PO BEDTIME MRX1 PRN PRN Reason: Insomnia Last Admin: 07/22/23 21:39 Dose: 50 mg Trazodone HCl (Trazodone Hcl 100 Mg Tablet) 100 mg PO BEDTIME [facility] Last Admin: 07/25/23 20:08 Dose: 100 mg Trazodone HCl (Trazodone Hcl 25 Mg Halftab) 25 mg PO BID@0830,1330 [facility] Last Admin: 07/25/23 13:43 Dose: 25 mg Verapamil HCl (Verapamil Hcl Sr 240 Mg Tablet.Er) 240 mg PO BEDTIME [facility]; Protocol Last Admin: 07/25/23 20:08 Dose: 240 mg Allergies Allergies Allergy/AdvReac Type Severity Reaction Status Date / Time amlodipine Allergy Unknown Verified 06/21/23 17:41 aspirin Allergy Rash Verified 06/21/23 17:41 atenolol Allergy Rash Verified 06/21/23 17:41 carbamazepine Allergy Unknown Verified 06/21/23 17:41 celecoxib Allergy Unknown Verified 06/21/23 17:41 ciprofloxacin Allergy Unknown Verified 06/21/23 17:41 erythromycin base Allergy Hives Verified 06/21/23 17:41 fluvastatin Allergy Unknown Verified 06/21/23 17:41 levofloxacin Allergy Unknown Verified 06/21/23 17:41 loratadine Allergy Unknown Verified 06/21/23 17:41 mercaptopurine Allergy Unknown Verified 06/21/23 17:41 naproxen Allergy Unknown Verified 06/21/23 17:41 pantoprazole Allergy Unknown Verified 06/21/23 17:41 Quinolones Allergy Unknown Verified 06/21/23 17:41 ranitidine Allergy Unknown Verified 06/21/23 17:41 sulfamethoxazole Allergy Unknown Verified 06/21/23 17:41 trimethoprim Allergy Unknown Verified 06/21/23 17:41 Assessment & Plan Assessment & Plan (1) Dementia: Status: Acute Code(s): F03.90 - Unspecified dementia, unspecified severity, without behavioral disturbance, psychotic disturbance, mood disturbance, and anxiety (2) Pervasive developmental disorder: Status: Acute Code(s): F84.9 - Pervasive developmental disorder, unspecified Plan Plan 1. Continue with same Trileptal 600 mg p.o. b.i.d.. 2. Increase Zyprexa up to 3.75 p.o. t.i.d.. On June 26 we are going to increase to 5 mg p.o. t.i.d. 3. Rest the same. 4. Blood work CBC and BMP within normal limits no changes slight high cholesterol. 5. Start trazodone 25 mg in the morning and in the afternoon and keep 100 at night. Started on July 03. 6. We discussed with the primary team in the community with the possibility to discharge her to subacute rehab due to deconditionion. DDAlisia has applied to transferred to another hospital for rehabilitation but she was denied. Waiting for placement. 7. Blood work ordered for 07/24. Results without no changes Reason for continued inpatient stay Substantial Risk for: inability to function, rapid decompensation and med/psych decompensation Time Spent With Patient Time: Total time managing care of this patient today __20__ minutes.
[2023-07-26] MEDS: Multivitamin TABLET 1 TAB PO (08:43)
[2023-07-26] MEDS: DULoxetine HCl 60 MG CAPSULE.DR PO (08:43)
[2023-07-26] MEDS: OXcarbazepine 300 MG TABLET 600 MG PO ×2 (08:43→20:20)
[2023-07-26] MEDS: traZODone HCL 25 MG HALFTAB PO ×2 (08:43→13:54)
[2023-07-26] MEDS: levETIRAcetam Oral Soln 500 MG/5 ML 1500 MG PO ×2 (08:43→20:21)
[2023-07-26] MEDS: OLANZapine 5 MG TABLET PO ×3 (08:43→20:20)
[2023-07-26] MEDS: Memantine HCl 10 MG TABLET PO ×2 (08:44→20:20)
[2023-07-26] MEDS: hydrOXYzine HCL 25 MG TABLET PO ×2 (11:31→20:21)
[2023-07-26] MEDS: Acetaminophen 325 MG TABLET 650 MG PO (11:31)
[2023-07-26 19:40] VITALS: BP 143/70; PULSE 71; RESP 16; TEMP 36.2; O2SAT 98
[2023-07-26 20:20] VITALS: BP 143/70; PULSE 71
[2023-07-26] MEDS: VerapamiL HCL SR 240 MG TABLET.ER PO (20:20)
[2023-07-26] MEDS: Mirtazapine 7.5 MG TABLET PO (20:20)
[2023-07-26] MEDS: Donepezil HCl 10 MG TABLET PO (20:20)
[2023-07-26] MEDS: traZODone HCL 100 MG TABLET PO (20:20)
[2023-07-27 08:00] VITALS: BP 158/73; PULSE 99; RESP 18; TEMP 36.5; O2SAT 98
[2023-07-27] MEDS: traZODone HCL 25 MG HALFTAB PO ×2 (08:15→13:54)
[2023-07-27] MEDS: Multivitamin TABLET 1 TAB PO (08:15)
[2023-07-27] MEDS: OLANZapine 5 MG TABLET PO ×3 (08:15→20:55)
[2023-07-27] MEDS: DULoxetine HCl 60 MG CAPSULE.DR PO (08:15)
[2023-07-27] MEDS: OXcarbazepine 300 MG TABLET 600 MG PO ×2 (08:15→20:55)
[2023-07-27] MEDS: Memantine HCl 10 MG TABLET PO ×2 (08:15→20:55)
[2023-07-27] MEDS: levETIRAcetam Oral Soln 500 MG/5 ML 1500 MG PO ×2 (08:15→20:56)
--- NOTE | 2023-07-27 12:55 | HO.PSYCHPN ---
Subjective Subjective Date of Service: 07/27/23 Reason For Visit: Depression Subjective Notes: Conditional Voluntary Interim History: Nursing staff reported no changes in his mental status, she had been compliant with treatment. DDS had a meeting yesterday for discharge planning so far no clear plan. On interview the patient remains at baseline grossly disorganized. Mental Status Exam Mental Status Exam Patient Appearance: Appropriate Patient Orientation: Person and Situation Level of Consciousness: Awake and Appropriate Patient Behavior: Guarded and Passive Mood Description: Withdrawn Affect Description: Constricted Patient Cognition Impaired: Yes Ability to Follow Directions: Good Speech Pattern: Clear Hallucinations: None Delusions: Ideas of Reference Thought Process: Distracted and Slowed Thinking Thought Content: positive for [place] and positive for Poverty of Content Judgement: Fair Diagnostics Vital Signs (24Hr): Vital Signs - 24 hr 07/26/23 19:40 07/26/23 20:20 07/27/23 08:00 Temperature 97.2 F 97.7 F Pulse Rate 71 71 99 Respiratory Rate 16 18 Blood Pressure 143/70 H 143/70 H 158/73 H Pulse Oximetry 98 98 Oxygen Delivery Method Room Air Room Air BMI result Body Mass Index 26.8 Labs 07/25/23 10:15 07/25/23 10:15 Medications Medications Current Medications Acetaminophen (Acetaminophen 325 Mg Tablet) 650 mg PO Q6H PRN PRN Reason: Headache/Pain Mild Scale (1-3) Last Admin: 07/26/23 11:31 Dose: 650 mg Al Hydroxide/Mg Hydroxide (Magnesium Hydrox/Alum Hydrox 30 Ml Oral.Susp) 30 ml PO Q6H PRN PRN Reason: Heartburn/Nausea Calcium Carbonate (Calcium Carbonate 750 Mg Tab.Chew) 750 mg PO DAILY PRN PRN Reason: ACID REFLUX Docusate Sodium (Docusate Sodium 100 Mg Capsule) 100 mg PO DAILY [facility] Last Admin: 06/24/23 10:13 Dose: Not Given Donepezil HCl (Donepezil Hcl 10 Mg Tablet) 10 mg PO BEDTIME [facility] Last Admin: 07/26/23 20:20 Dose: 10 mg Duloxetine HCl (Duloxetine Hcl 60 Mg Capsule.Dr) 60 mg PO DAILY [facility] Last Admin: 07/27/23 08:15 Dose: 60 mg Hydroxyzine HCl (Hydroxyzine Hcl 25 Mg Tablet) 25 mg PO Q6H PRN PRN Reason: Anxiety Last Admin: 05/30/24 20:21 Dose: 25 mg Levetiracetam (Levetiracetam Oral Soln 500 Mg/5 Ml) 1,500 mg PO BID [facility] Last Admin: 07/27/23 08:15 Dose: 1,500 mg Loperamide HCl (Loperamide Hcl 2 Mg Capsule) 4 mg PO Q6H PRN PRN Reason: Diarrhea Last Admin: 07/20/23 12:52 Dose: 4 mg Magnesium Hydroxide (Milk Of Magnesia 30 Ml Oral.Susp) 30 ml PO DAILY PRN PRN Reason: Constipation Memantine (Memantine Hcl 10 Mg Tablet) 10 mg PO BID [facility] Last Admin: 07/27/23 08:15 Dose: 10 mg Mirtazapine (Mirtazapine 7.5 Mg Tablet) 7.5 mg PO BEDTIME [facility] Last Admin: 07/26/23 20:20 Dose: 7.5 mg Multivitamins/Vitamin C (Multivitamin Tablet) 1 tab PO DAILY [facility] Last Admin: 07/27/23 08:15 Dose: 1 tab Olanzapine (Olanzapine Odt 10 Mg Tab.Rapdis) 10 mg TRANSLINGU BID PRN PRN Reason: Psychosis Last Admin: 07/22/23 21:39 Dose: 10 mg Olanzapine (Olanzapine 5 Mg Tablet) 5 mg PO TID [facility] Last Admin: 07/27/23 08:15 Dose: 5 mg Oxcarbazepine (Oxcarbazepine 300 Mg Tablet) 600 mg PO BID [facility] Last Admin: 07/27/23 08:15 Dose: 600 mg Psyllium Hydrophilic Mucilloid (Psyllium Seed 3.7 Gm Packet) 3.7 gm PO BID [facility] Last Admin: 06/24/23 20:58 Dose: 3.7 gm Trazodone HCl (Trazodone Hcl 50 Mg Tablet) 50 mg PO BEDTIME MRX1 PRN PRN Reason: Insomnia Last Admin: 07/22/23 21:39 Dose: 50 mg Trazodone HCl (Trazodone Hcl 100 Mg Tablet) 100 mg PO BEDTIME [facility] Last Admin: 07/26/23 20:20 Dose: 100 mg Trazodone HCl (Trazodone Hcl 25 Mg Halftab) 25 mg PO BID@0830,1330 [facility] Last Admin: 07/27/23 08:15 Dose: 25 mg Verapamil HCl (Verapamil Hcl Sr 240 Mg Tablet.Er) 240 mg PO BEDTIME [facility]; Protocol Last Admin: 07/26/23 20:20 Dose: 240 mg Allergies Allergies Allergy/AdvReac Type Severity Reaction Status Date / Time amlodipine Allergy Unknown Verified 06/21/23 17:41 aspirin Allergy Rash Verified 06/21/23 17:41 atenolol Allergy Rash Verified 06/21/23 17:41 carbamazepine Allergy Unknown Verified 06/21/23 17:41 celecoxib Allergy Unknown Verified 06/21/23 17:41 ciprofloxacin Allergy Unknown Verified 06/21/23 17:41 erythromycin base Allergy Hives Verified 06/21/23 17:41 fluvastatin Allergy Unknown Verified 06/21/23 17:41 levofloxacin Allergy Unknown Verified 06/21/23 17:41 loratadine Allergy Unknown Verified 06/21/23 17:41 mercaptopurine Allergy Unknown Verified 06/21/23 17:41 naproxen Allergy Unknown Verified 06/21/23 17:41 pantoprazole Allergy Unknown Verified 06/21/23 17:41 Quinolones Allergy Unknown Verified 06/21/23 17:41 ranitidine Allergy Unknown Verified 06/21/23 17:41 sulfamethoxazole Allergy Unknown Verified 06/21/23 17:41 trimethoprim Allergy Unknown Verified 06/21/23 17:41 Assessment & Plan Assessment & Plan (1) Dementia: Status: Acute Code(s): F03.90 - Unspecified dementia, unspecified severity, without behavioral disturbance, psychotic disturbance, mood disturbance, and anxiety (2) Pervasive developmental disorder: Status: Acute Code(s): F84.9 - Pervasive developmental disorder, unspecified Plan Plan 1. Continue with same Trileptal 600 mg p.o. b.i.d.. 2. Increase Zyprexa up to 3.75 p.o. t.i.d.. On June 26 we are going to increase to 5 mg p.o. t.i.d. 3. Rest the same. 4. Blood work CBC and BMP within normal limits no changes slight high cholesterol. 5. Start trazodone 25 mg in the morning and in the afternoon and keep 100 at night. Started on July 03. 6. We discussed with the primary team in the community with the possibility to discharge her to subacute rehab due to deconditionion. DDAlisia has applied to transferred to another hospital for rehabilitation but she was denied. Waiting for placement. 7. Blood work ordered for 07/24. Results without no changes Reason for continued inpatient stay Substantial Risk for: inability to function, rapid decompensation and med/psych decompensation Time Spent With Patient Time: Total time managing care of this patient today __20__ minutes.
[2023-07-27 20:00] VITALS: BP 132/66; PULSE 96; RESP 18; TEMP 36.6; O2SAT 94
[2023-07-27] MEDS: traZODone HCL 100 MG TABLET PO (20:54)
[2023-07-27 20:55] VITALS: BP 132/66; PULSE 96
[2023-07-27] MEDS: Donepezil HCl 10 MG TABLET PO (20:55)
[2023-07-27] MEDS: VerapamiL HCL SR 240 MG TABLET.ER PO (20:55)
[2023-07-27] MEDS: Mirtazapine 7.5 MG TABLET PO (20:56)
[2023-07-28] MEDS: hydrOXYzine HCL 25 MG TABLET PO ×3 (04:19→20:27)
[2023-07-28] MEDS: Acetaminophen 325 MG TABLET 650 MG PO ×2 (04:19→09:22)
[2023-07-28 08:00] VITALS: BP 142/78; PULSE 98; RESP 18; TEMP 36.3; O2SAT 96
[2023-07-28] MEDS: levETIRAcetam Oral Soln 500 MG/5 ML 1500 MG PO ×2 (09:22→20:26)
[2023-07-28] MEDS: OXcarbazepine 300 MG TABLET 600 MG PO ×2 (09:23→20:26)
[2023-07-28] MEDS: traZODone HCL 25 MG HALFTAB PO ×2 (09:23→13:24)
[2023-07-28] MEDS: OLANZapine 5 MG TABLET PO ×3 (09:23→20:27)
[2023-07-28] MEDS: DULoxetine HCl 60 MG CAPSULE.DR PO (09:23)
[2023-07-28] MEDS: Memantine HCl 10 MG TABLET PO ×2 (09:23→20:26)
[2023-07-28] MEDS: Multivitamin TABLET 1 TAB PO (09:23)
--- NOTE | 2023-07-28 11:11 | HO.PSYCHPN ---
Subjective Subjective Date of Service: 07/28/23 Reason For Visit: Depression Subjective Notes: Conditional Voluntary Interim History: discussed with Nursing. Attempted to meet with the patient. In the day area. Very loud with eyes closed most of the time. Baseline as per staff of yelling, with no clear focus or content. Would not engage with selling underwriter. No aggression or agitation. Medication Compliance: Yes Side effects from medications: No Attending Groups: No Review of Systems Acute medical concerns: No Review of Systems Review of Systems Yes Unobtainable due to mental status Mental Status Exam Mental Status Exam Narrative: In day area. Hospital clothing. Self-care okay. Loud. Yelling. Eyes closed. No aggression. No evidence of SI or HI. Unable to fully evaluate as not engaging with selling underwriter. Insight and judgment does appear poor Diagnostics Vital Signs (24Hr): Vital Signs - 24 hr 07/27/23 20:00 07/27/23 20:55 07/28/23 08:00 Temperature 97.8 F 97.4 F Pulse Rate 96 96 98 Respiratory Rate 18 18 Blood Pressure 132/66 132/66 142/78 H Pulse Oximetry 94 96 Oxygen Delivery Method Room Air Room Air BMI result Body Mass Index 26.8 Labs 07/25/23 10:15 07/25/23 10:15 Medications Medications Current Medications Acetaminophen (Acetaminophen 325 Mg Tablet) 650 mg PO Q6H PRN PRN Reason: Headache/Pain Mild Scale (1-3) Last Admin: 07/28/23 09:22 Dose: 650 mg Al Hydroxide/Mg Hydroxide (Magnesium Hydrox/Alum Hydrox 30 Ml Oral.Susp) 30 ml PO Q6H PRN PRN Reason: Heartburn/Nausea Calcium Carbonate (Calcium Carbonate 750 Mg Tab.Chew) 750 mg PO DAILY PRN PRN Reason: ACID REFLUX Docusate Sodium (Docusate Sodium 100 Mg Capsule) 100 mg PO DAILY [facility] Last Admin: 06/24/23 10:13 Dose: Not Given Donepezil HCl (Donepezil Hcl 10 Mg Tablet) 10 mg PO BEDTIME [facility] Last Admin: 07/27/23 20:55 Dose: 10 mg Duloxetine HCl (Duloxetine Hcl 60 Mg Capsule.Dr) 60 mg PO DAILY [facility] Last Admin: 07/28/23 09:23 Dose: 60 mg Hydroxyzine HCl (Hydroxyzine Hcl 25 Mg Tablet) 25 mg PO Q6H PRN PRN Reason: Anxiety Last Admin: 07/28/23 09:22 Dose: 25 mg Levetiracetam (Levetiracetam Oral Soln 500 Mg/5 Ml) 1,500 mg PO BID [facility] Last Admin: 07/28/23 09:22 Dose: 1,500 mg Loperamide HCl (Loperamide Hcl 2 Mg Capsule) 4 mg PO Q6H PRN PRN Reason: Diarrhea Last Admin: 07/20/23 12:52 Dose: 4 mg Magnesium Hydroxide (Milk Of Magnesia 30 Ml Oral.Susp) 30 ml PO DAILY PRN PRN Reason: Constipation Memantine (Memantine Hcl 10 Mg Tablet) 10 mg PO BID [facility] Last Admin: 07/28/23 09:23 Dose: 10 mg Mirtazapine (Mirtazapine 7.5 Mg Tablet) 7.5 mg PO BEDTIME [facility] Last Admin: 07/27/23 20:56 Dose: 7.5 mg Multivitamins/Vitamin C (Multivitamin Tablet) 1 tab PO DAILY [facility] Last Admin: 07/28/23 09:23 Dose: 1 tab Olanzapine (Olanzapine Odt 10 Mg Tab.Rapdis) 10 mg TRANSLINGU BID PRN PRN Reason: Psychosis Last Admin: 07/22/23 21:39 Dose: 10 mg Olanzapine (Olanzapine 5 Mg Tablet) 5 mg PO TID [facility] Last Admin: 07/28/23 09:23 Dose: 5 mg Oxcarbazepine (Oxcarbazepine 300 Mg Tablet) 600 mg PO BID [facility] Last Admin: 07/28/23 09:23 Dose: 600 mg Psyllium Hydrophilic Mucilloid (Psyllium Seed 3.7 Gm Packet) 3.7 gm PO BID [facility] Last Admin: 06/24/23 20:58 Dose: 3.7 gm Trazodone HCl (Trazodone Hcl 50 Mg Tablet) 50 mg PO BEDTIME MRX1 PRN PRN Reason: Insomnia Last Admin: 07/22/23 21:39 Dose: 50 mg Trazodone HCl (Trazodone Hcl 100 Mg Tablet) 100 mg PO BEDTIME [facility] Last Admin: 07/27/23 20:54 Dose: 100 mg Trazodone HCl (Trazodone Hcl 25 Mg Halftab) 25 mg PO BID@0830,1330 [facility] Last Admin: 07/28/23 09:23 Dose: 25 mg Verapamil HCl (Verapamil Hcl Sr 240 Mg Tablet.Er) 240 mg PO BEDTIME [facility]; Protocol Last Admin: 07/27/23 20:55 Dose: 240 mg Allergies Allergies Allergy/AdvReac Type Severity Reaction Status Date / Time amlodipine Allergy Unknown Verified 06/21/23 17:41 aspirin Allergy Rash Verified 06/21/23 17:41 atenolol Allergy Rash Verified 06/21/23 17:41 carbamazepine Allergy Unknown Verified 06/21/23 17:41 celecoxib Allergy Unknown Verified 06/21/23 17:41 ciprofloxacin Allergy Unknown Verified 06/21/23 17:41 erythromycin base Allergy Hives Verified 06/21/23 17:41 fluvastatin Allergy Unknown Verified 06/21/23 17:41 levofloxacin Allergy Unknown Verified 06/21/23 17:41 loratadine Allergy Unknown Verified 06/21/23 17:41 mercaptopurine Allergy Unknown Verified 06/21/23 17:41 naproxen Allergy Unknown Verified 06/21/23 17:41 pantoprazole Allergy Unknown Verified 06/21/23 17:41 Quinolones Allergy Unknown Verified 06/21/23 17:41 ranitidine Allergy Unknown Verified 06/21/23 17:41 sulfamethoxazole Allergy Unknown Verified 06/21/23 17:41 trimethoprim Allergy Unknown Verified 06/21/23 17:41 Assessment & Plan Assessment & Plan (1) Dementia: Status: Acute Code(s): F03.90 - Unspecified dementia, unspecified severity, without behavioral disturbance, psychotic disturbance, mood disturbance, and anxiety (2) Pervasive developmental disorder: Status: Acute Code(s): F84.9 - Pervasive developmental disorder, unspecified Plan Plan 1. Continue with same Trileptal 600 mg p.o. b.i.d.. 2. Increase Zyprexa up to 3.75 p.o. t.i.d.. On June 26 we are going to increase to 5 mg p.o. t.i.d. 3. Rest the same. 4. Blood work CBC and BMP within normal limits no changes slight high cholesterol. 5. Start trazodone 25 mg in the morning and in the afternoon and keep 100 at night. Started on July 03. 6. We discussed with the primary team in the community with the possibility to discharge her to subacute rehab due to deconditionion. DDAlisia has applied to transferred to another hospital for rehabilitation but she was denied. Waiting for placement. 7. Blood work ordered for 07/24. Results without no changes 07/28/2023: No changes to current plan. Team working with DDS around future placement Reason for continued inpatient stay Substantial Risk for: inability to function Time Spent With Patient Time: Total time managing care of this patient today ____ minutes.
--- NOTE | 2023-07-28 18:36 | PC.NURSE ---
Patient medicated with Atarax 25 mg and Tylenol 645
--- NOTE | 2023-07-28 18:36 | PC.NURSE ---
Patient medicated with Atarax 25 mg and Tylenol 650 mg at 0922 with minimal effect.
[2023-07-28 20:00] VITALS: BP 151/74; PULSE 117; RESP 16; TEMP 36.2; O2SAT 94
[2023-07-28] MEDS: Mirtazapine 7.5 MG TABLET PO (20:26)
[2023-07-28] MEDS: traZODone HCL 100 MG TABLET PO (20:26)
[2023-07-28 20:27] VITALS: BP 151/74; PULSE 74
[2023-07-28] MEDS: Donepezil HCl 10 MG TABLET PO (20:27)
[2023-07-28] MEDS: VerapamiL HCL SR 240 MG TABLET.ER PO (20:27)
[2023-07-28] MEDS: traZODone HCL 50 MG TABLET PO (22:31)
[2023-07-28] MEDS: OLANZapine ODT 10 MG TAB.RAPDIS TRANSLINGU (22:31)
[2023-07-28] MEDS: QUEtiapine Fumarate 100 MG TABLET PO (23:44)
--- NOTE | 2023-07-29 00:16 | PC.NURSE ---
Upon change of shift at 1900 on 07/28/23, Patient observed continuously yelling out, without being able to console or redirect. Incontinence care performed, patient repositioned, offered food and beverage and patient continues to yell out. Evening medications administered as well as PRN medications. Provider onsite health coach notified and seroquel 100mg x 1 ordered and administered at 2344 (07/28/23) with effect. Patient is resting comfortably with even, unlabored respirations as of this writing.
[2023-07-29 07:47] VITALS: BP 134/89; RESP 18; TEMP 36.9; O2SAT 94
[2023-07-29] MEDS: Multivitamin TABLET 1 TAB PO (08:47)
[2023-07-29] MEDS: hydrOXYzine HCL 25 MG TABLET PO (08:47)
[2023-07-29] MEDS: DULoxetine HCl 60 MG CAPSULE.DR PO (08:47)
[2023-07-29] MEDS: OLANZapine 5 MG TABLET PO ×3 (08:47→20:39)
[2023-07-29] MEDS: OLANZapine ODT 10 MG TAB.RAPDIS TRANSLINGU (08:47)
[2023-07-29] MEDS: OXcarbazepine 300 MG TABLET 600 MG PO ×2 (08:47→20:39)
[2023-07-29] MEDS: Memantine HCl 10 MG TABLET PO ×2 (08:47→20:39)
[2023-07-29] MEDS: Acetaminophen 325 MG TABLET 650 MG PO (08:47)
[2023-07-29] MEDS: traZODone HCL 25 MG HALFTAB PO ×2 (08:47→13:10)
[2023-07-29] MEDS: levETIRAcetam Oral Soln 500 MG/5 ML 1500 MG PO ×2 (08:48→20:39)
--- NOTE | 2023-07-29 11:02 | HO.PSYCHPN ---
Subjective Subjective Date of Service: 07/29/23 Reason For Visit: Depression Interim History: Discussed with Nursing. Did get a 1 time dose of Seroquel 100 mg last night due to ongoing, excessive yelling, that was disturbing to other patients. This did appear to have some benefit. Attempted to meet with the patient. In the day area. Very loud with eyes closed most of the time. Would not engage with technical writer and editor. No aggression or agitation. Medication Compliance: Yes Side effects from medications: No Attending Groups: No Review of Systems Acute medical concerns: No Review of Systems Review of Systems Yes Unobtainable due to mental status Mental Status Exam Mental Status Exam Narrative: In day area. Hospital clothing. Self-care okay. Loud. Yelling. Eyes closed. No aggression. No evidence of SI or HI. Unable to fully evaluate as not engaging with technical writer and editor. Insight and judgment does appear poor Patient Appearance: Appropriate Patient Orientation: Person and Situation Level of Consciousness: Awake and Appropriate Patient Behavior: Guarded and Passive Mood Description: Withdrawn Affect Description: Constricted Patient Cognition Impaired: Yes Ability to Follow Directions: Good Speech Pattern: Clear Diagnostics Vital Signs (24Hr): Vital Signs - 24 hr 07/28/23 20:00 07/28/23 20:27 07/29/23 07:47 Temperature 97.1 F 98.4 F Pulse Rate 117 H 74 Respiratory Rate 16 18 Blood Pressure 151/74 H 151/74 H 134/89 Pulse Oximetry 94 94 Oxygen Delivery Method Room Air Room Air BMI result Body Mass Index 26.8 Labs 07/25/23 10:15 07/25/23 10:15 Medications Medications Current Medications Acetaminophen (Acetaminophen 325 Mg Tablet) 650 mg PO Q6H PRN PRN Reason: Headache/Pain Mild Scale (1-3) Last Admin: 07/29/23 08:47 Dose: 650 mg Al Hydroxide/Mg Hydroxide (Magnesium Hydrox/Alum Hydrox 30 Ml Oral.Susp) 30 ml PO Q6H PRN PRN Reason: Heartburn/Nausea Calcium Carbonate (Calcium Carbonate 750 Mg Tab.Chew) 750 mg PO DAILY PRN PRN Reason: ACID REFLUX Docusate Sodium (Docusate Sodium 100 Mg Capsule) 100 mg PO DAILY [facility] Last Admin: 06/24/23 10:13 Dose: Not Given Donepezil HCl (Donepezil Hcl 10 Mg Tablet) 10 mg PO BEDTIME [facility] Last Admin: 07/28/23 20:27 Dose: 10 mg Duloxetine HCl (Duloxetine Hcl 60 Mg Capsule.Dr) 60 mg PO DAILY [facility] Last Admin: 07/29/23 08:47 Dose: 60 mg Hydroxyzine HCl (Hydroxyzine Hcl 25 Mg Tablet) 25 mg PO Q6H PRN PRN Reason: Anxiety Last Admin: 07/29/23 08:47 Dose: 25 mg Levetiracetam (Levetiracetam Oral Soln 500 Mg/5 Ml) 1,500 mg PO BID [facility] Last Admin: 07/29/23 08:48 Dose: 1,500 mg Loperamide HCl (Loperamide Hcl 2 Mg Capsule) 4 mg PO Q6H PRN PRN Reason: Diarrhea Last Admin: 07/20/23 12:52 Dose: 4 mg Magnesium Hydroxide (Milk Of Magnesia 30 Ml Oral.Susp) 30 ml PO DAILY PRN PRN Reason: Constipation Memantine (Memantine Hcl 10 Mg Tablet) 10 mg PO BID [facility] Last Admin: 07/29/23 08:47 Dose: 10 mg Mirtazapine (Mirtazapine 7.5 Mg Tablet) 7.5 mg PO BEDTIME [facility] Last Admin: 07/28/23 20:26 Dose: 7.5 mg Multivitamins/Vitamin C (Multivitamin Tablet) 1 tab PO DAILY [facility] Last Admin: 07/29/23 08:47 Dose: 1 tab Nystatin (Nystatin Powder 15 Gm Bottle) 1 appl TOPICAL BID [facility]; Protocol Olanzapine (Olanzapine Odt 10 Mg Tab.Rapdis) 10 mg TRANSLINGU BID PRN PRN Reason: Psychosis Last Admin: 07/29/23 08:47 Dose: 10 mg Olanzapine (Olanzapine 5 Mg Tablet) 5 mg PO TID [facility] Last Admin: 07/29/23 08:47 Dose: 5 mg Oxcarbazepine (Oxcarbazepine 300 Mg Tablet) 600 mg PO BID [facility] Last Admin: 07/29/23 08:47 Dose: 600 mg Psyllium Hydrophilic Mucilloid (Psyllium Seed 3.7 Gm Packet) 3.7 gm PO BID [facility] Last Admin: 06/24/23 20:58 Dose: 3.7 gm Quetiapine Fumarate (Quetiapine Fumarate 50 Mg Tablet) 50 mg PO BID@0800,1400 [facility] Trazodone HCl (Trazodone Hcl 50 Mg Tablet) 50 mg PO BEDTIME MRX1 PRN PRN Reason: Insomnia Last Admin: 07/28/23 22:31 Dose: 50 mg Trazodone HCl (Trazodone Hcl 100 Mg Tablet) 100 mg PO BEDTIME [facility] Last Admin: 07/28/23 20:26 Dose: 100 mg Trazodone HCl (Trazodone Hcl 25 Mg Halftab) 25 mg PO BID@0830,1330 [facility] Last Admin: 07/29/23 08:47 Dose: 25 mg Verapamil HCl (Verapamil Hcl Sr 240 Mg Tablet.Er) 240 mg PO BEDTIME [facility]; Protocol Last Admin: 07/28/23 20:27 Dose: 240 mg Allergies Allergies Allergy/AdvReac Type Severity Reaction Status Date / Time amlodipine Allergy Unknown Verified 06/21/23 17:41 aspirin Allergy Rash Verified 06/21/23 17:41 atenolol Allergy Rash Verified 06/21/23 17:41 carbamazepine Allergy Unknown Verified 06/21/23 17:41 celecoxib Allergy Unknown Verified 06/21/23 17:41 ciprofloxacin Allergy Unknown Verified 06/21/23 17:41 erythromycin base Allergy Hives Verified 06/21/23 17:41 fluvastatin Allergy Unknown Verified 06/21/23 17:41 levofloxacin Allergy Unknown Verified 06/21/23 17:41 loratadine Allergy Unknown Verified 06/21/23 17:41 mercaptopurine Allergy Unknown Verified 06/21/23 17:41 naproxen Allergy Unknown Verified 06/21/23 17:41 pantoprazole Allergy Unknown Verified 06/21/23 17:41 Quinolones Allergy Unknown Verified 06/21/23 17:41 ranitidine Allergy Unknown Verified 06/21/23 17:41 sulfamethoxazole Allergy Unknown Verified 06/21/23 17:41 trimethoprim Allergy Unknown Verified 06/21/23 17:41 Assessment & Plan Assessment & Plan (1) Dementia: Status: Acute Code(s): F03.90 - Unspecified dementia, unspecified severity, without behavioral disturbance, psychotic disturbance, mood disturbance, and anxiety (2) Pervasive developmental disorder: Status: Acute Code(s): F84.9 - Pervasive developmental disorder, unspecified Plan Plan 1. Continue with same Trileptal 600 mg p.o. b.i.d.. 2. Increase Zyprexa up to 3.75 p.o. t.i.d.. On June 26 we are going to increase to 5 mg p.o. t.i.d. 3. Rest the same. 4. Blood work CBC and BMP within normal limits no changes slight high cholesterol. 5. Start trazodone 25 mg in the morning and in the afternoon and keep 100 at night. Started on July 03. 6. We discussed with the primary team in the community with the possibility to discharge her to subacute rehab due to deconditionion. DDS has applied to transferred to another hospital for rehabilitation but she was denied. Waiting for placement. 7. Blood work ordered for 07/24. Results without no changes 07/28/2023: No changes to current plan. Team working with DDS around future placement 07/29/23: schedule seroquel- if effective transition from olanzapine Reason for continued inpatient stay Substantial Risk for: inability to function Time Spent With Patient Time: Total time managing care of this patient today ____ minutes.
[2023-07-29] MEDS: QUEtiapine Fumarate 50 MG TABLET PO (13:10)
[2023-07-29 20:00] VITALS: BP 143/95; PULSE 112; TEMP 37.1
[2023-07-29] MEDS: QUEtiapine Fumarate 100 MG TABLET PO (20:38)
[2023-07-29 20:39] VITALS: BP 143/93; PULSE 112
[2023-07-29] MEDS: traZODone HCL 100 MG TABLET PO (20:39)
[2023-07-29] MEDS: VerapamiL HCL SR 240 MG TABLET.ER PO (20:39)
[2023-07-29] MEDS: Donepezil HCl 10 MG TABLET PO (20:40)
[2023-07-29] MEDS: Mirtazapine 7.5 MG TABLET PO (20:42)
[2023-07-29] MEDS: Nystatin Powder 15 GM BOTTLE 1 APPL TOPICAL (20:46)
[2023-07-30 08:00] VITALS: BP 142/102; PULSE 88; RESP 18; TEMP 36.5; O2SAT 94
[2023-07-30] MEDS: levETIRAcetam Oral Soln 500 MG/5 ML 1500 MG PO ×2 (08:58→21:49)
[2023-07-30] MEDS: Memantine HCl 10 MG TABLET PO ×2 (09:00→21:50)
[2023-07-30] MEDS: OXcarbazepine 300 MG TABLET 600 MG PO ×2 (09:00→21:49)
[2023-07-30] MEDS: traZODone HCL 25 MG HALFTAB PO ×2 (09:01→14:06)
[2023-07-30] MEDS: DULoxetine HCl 60 MG CAPSULE.DR PO (09:01)
[2023-07-30] MEDS: OLANZapine 5 MG TABLET PO ×3 (09:01→21:50)
[2023-07-30] MEDS: QUEtiapine Fumarate 50 MG TABLET PO ×2 (09:01→14:05)
[2023-07-30] MEDS: Multivitamin TABLET 1 TAB PO (09:02)
[2023-07-30] MEDS: Nystatin Powder 15 GM BOTTLE 1 APPL TOPICAL (09:06)
--- NOTE | 2023-07-30 14:39 | P.PNPSI_ITS ---
Subjective Subjective Date of Service: 07/30/23 Reason For Visit: Depression Subjective Notes: Conditional Voluntary Interim History: The nursing staff reported no changes in her mental status compliant with treatment. On interview the patient denies new symptoms, waiting for placement. Mental Status Exam Mental Status Exam Patient Appearance: Appropriate Patient Orientation: Person and Situation Level of Consciousness: Awake and Appropriate Patient Behavior: Guarded and Passive Mood Description: Withdrawn Affect Description: Constricted Patient Cognition Impaired: Yes Ability to Follow Directions: Good Speech Pattern: Clear Hallucinations: None Delusions: Not Present Thought Process: Distracted Thought Content: positive for [place] and positive for Poverty of Content Judgement: Poor Diagnostics Vital Signs (24Hr): Vital Signs - 24 hr 07/29/23 20:00 07/29/23 20:39 07/30/23 08:00 Temperature 98.7 F 97.7 F Pulse Rate 112 H 112 H 88 Respiratory Rate 18 Blood Pressure 143/95 H 143/93 H 142/102 H Pulse Oximetry 94 Oxygen Delivery Method Room Air BMI result Body Mass Index 26.8 Labs 07/25/23 10:15 07/25/23 10:15 Medications Medications Current Medications Acetaminophen (Acetaminophen 325 Mg Tablet) 650 mg PO Q6H PRN PRN Reason: Headache/Pain Mild Scale (1-3) Last Admin: 07/29/23 08:47 Dose: 650 mg Al Hydroxide/Mg Hydroxide (Magnesium Hydrox/Alum Hydrox 30 Ml Oral.Susp) 30 ml PO Q6H PRN PRN Reason: Heartburn/Nausea Calcium Carbonate (Calcium Carbonate 750 Mg Tab.Chew) 750 mg PO DAILY PRN PRN Reason: ACID REFLUX Docusate Sodium (Docusate Sodium 100 Mg Capsule) 100 mg PO DAILY [facility] Last Admin: 06/24/23 10:13 Dose: Not Given Donepezil HCl (Donepezil Hcl 10 Mg Tablet) 10 mg PO BEDTIME [facility] Last Admin: 07/29/23 20:40 Dose: 10 mg Duloxetine HCl (Duloxetine Hcl 60 Mg Capsule.Dr) 60 mg PO DAILY [facility] Last Admin: 07/30/23 09:01 Dose: 60 mg Hydroxyzine HCl (Hydroxyzine Hcl 25 Mg Tablet) 25 mg PO Q6H PRN PRN Reason: Anxiety Last Admin: 07/29/23 08:47 Dose: 25 mg Levetiracetam (Levetiracetam Oral Soln 500 Mg/5 Ml) 1,500 mg PO BID [facility] Last Admin: 07/30/23 08:58 Dose: 1,500 mg Loperamide HCl (Loperamide Hcl 2 Mg Capsule) 4 mg PO Q6H PRN PRN Reason: Diarrhea Last Admin: 07/20/23 12:52 Dose: 4 mg Magnesium Hydroxide (Milk Of Magnesia 30 Ml Oral.Susp) 30 ml PO DAILY PRN PRN Reason: Constipation Memantine (Memantine Hcl 10 Mg Tablet) 10 mg PO BID [facility] Last Admin: 07/30/23 09:00 Dose: 10 mg Mirtazapine (Mirtazapine 7.5 Mg Tablet) 7.5 mg PO BEDTIME [facility] Last Admin: 07/29/23 20:42 Dose: 7.5 mg Multivitamins/Vitamin C (Multivitamin Tablet) 1 tab PO DAILY [facility] Last Admin: 07/30/23 09:02 Dose: 1 tab Nystatin (Nystatin Powder 15 Gm Bottle) 1 appl TOPICAL BID [facility]; Protocol Last Admin: 07/30/23 09:06 Dose: 1 appl Olanzapine (Olanzapine Odt 10 Mg Tab.Rapdis) 10 mg TRANSLINGU BID PRN PRN Reason: Psychosis Last Admin: 07/29/23 08:47 Dose: 10 mg Olanzapine (Olanzapine 5 Mg Tablet) 5 mg PO TID [facility] Last Admin: 07/30/23 14:05 Dose: 5 mg Oxcarbazepine (Oxcarbazepine 300 Mg Tablet) 600 mg PO BID [facility] Last Admin: 07/30/23 09:00 Dose: 600 mg Psyllium Hydrophilic Mucilloid (Psyllium Seed 3.7 Gm Packet) 3.7 gm PO BID [facility] Last Admin: 06/24/23 20:58 Dose: 3.7 gm Quetiapine Fumarate (Quetiapine Fumarate 50 Mg Tablet) 50 mg PO BID@0800,1400 [facility] Last Admin: 07/30/23 14:05 Dose: 50 mg Quetiapine Fumarate (Quetiapine Fumarate 100 Mg Tablet) 100 mg PO BEDTIME [facility] Last Admin: 07/29/23 20:38 Dose: 100 mg Trazodone HCl (Trazodone Hcl 50 Mg Tablet) 50 mg PO BEDTIME [facility]X1 PRN PRN Reason: Insomnia Last Admin: 07/28/23 22:31 Dose: 50 mg Trazodone HCl (Trazodone Hcl 100 Mg Tablet) 100 mg PO BEDTIME [facility] Last Admin: 07/29/23 20:39 Dose: 100 mg Trazodone HCl (Trazodone Hcl 25 Mg Halftab) 25 mg PO BID@0830,1330 [facility] Last Admin: 07/30/23 14:06 Dose: 25 mg Verapamil HCl (Verapamil Hcl Sr 240 Mg Tablet.Er) 240 mg PO BEDTIME [facility]; Protocol Last Admin: 07/29/23 20:39 Dose: 240 mg Allergies Allergies Allergy/AdvReac Type Severity Reaction Status Date / Time amlodipine Allergy Unknown Verified 06/21/23 17:41 aspirin Allergy Rash Verified 06/21/23 17:41 atenolol Allergy Rash Verified 06/21/23 17:41 carbamazepine Allergy Unknown Verified 06/21/23 17:41 celecoxib Allergy Unknown Verified 06/21/23 17:41 ciprofloxacin Allergy Unknown Verified 06/21/23 17:41 erythromycin base Allergy Hives Verified 06/21/23 17:41 fluvastatin Allergy Unknown Verified 06/21/23 17:41 levofloxacin Allergy Unknown Verified 06/21/23 17:41 loratadine Allergy Unknown Verified 06/21/23 17:41 mercaptopurine Allergy Unknown Verified 06/21/23 17:41 naproxen Allergy Unknown Verified 06/21/23 17:41 pantoprazole Allergy Unknown Verified 06/21/23 17:41 Quinolones Allergy Unknown Verified 06/21/23 17:41 ranitidine Allergy Unknown Verified 06/21/23 17:41 sulfamethoxazole Allergy Unknown Verified 06/21/23 17:41 trimethoprim Allergy Unknown Verified 06/21/23 17:41 Assessment & Plan Assessment & Plan (1) Dementia: Status: Acute Code(s): F03.90 - Unspecified dementia, unspecified severity, without behavioral disturbance, psychotic disturbance, mood disturbance, and anxiety (2) Pervasive developmental disorder: Status: Acute Code(s): F84.9 - Pervasive developmental disorder, unspecified Plan Plan 1. Continue with same Trileptal 600 mg p.o. b.i.d.. 2. Increase Zyprexa up to 3.75 p.o. t.i.d.. On June 26 we are going to increase to 5 mg p.o. t.i.d. 3. Rest the same. 4. Blood work CBC and BMP within normal limits no changes slight high cholesterol. 5. Start trazodone 25 mg in the morning and in the afternoon and keep 100 at night. Started on July 03. 6. We discussed with the primary team in the community with the possibility to discharge her to subacute rehab due to deconditionion. DDAlisia has applied to transferred to another hospital for rehabilitation but she was denied. Waiting for placement. 7. Blood work ordered for 07/24. Results without no changes Reason for continued inpatient stay Substantial Risk for: inability to function, rapid decompensation and med/psych decompensation Time Spent With Patient Time: Total time managing care of this patient today __20__ minutes.
[2023-07-30 20:00] VITALS: BP 153/61; PULSE 106; RESP 16; TEMP 37; O2SAT 94
[2023-07-30] MEDS: Donepezil HCl 10 MG TABLET PO (21:50)
[2023-07-30] MEDS: QUEtiapine Fumarate 100 MG TABLET PO (21:50)
[2023-07-30] MEDS: traZODone HCL 100 MG TABLET PO (21:50)
[2023-07-30] MEDS: Mirtazapine 7.5 MG TABLET PO (21:50)
[2023-07-30 21:55] VITALS: BP 153/61; PULSE 106
[2023-07-30] MEDS: VerapamiL HCL SR 240 MG TABLET.ER PO (21:55)
[2023-07-31] MEDS: OXcarbazepine 300 MG TABLET 600 MG PO ×2 (10:56→20:56)
[2023-07-31] MEDS: traZODone HCL 25 MG HALFTAB PO (10:56)
[2023-07-31] MEDS: QUEtiapine Fumarate 50 MG TABLET PO (10:57)
[2023-07-31] MEDS: Nystatin Powder 15 GM BOTTLE 1 APPL TOPICAL ×2 (10:57→20:53)
[2023-07-31] MEDS: Multivitamin TABLET 1 TAB PO (10:57)
[2023-07-31] MEDS: OLANZapine 5 MG TABLET PO ×3 (10:57→20:55)
[2023-07-31] MEDS: Memantine HCl 10 MG TABLET PO ×2 (10:57→20:55)
[2023-07-31] MEDS: levETIRAcetam Oral Soln 500 MG/5 ML 1500 MG PO ×2 (10:57→20:53)
[2023-07-31] MEDS: DULoxetine HCl 60 MG CAPSULE.DR PO (10:57)
--- NOTE | 2023-07-31 11:23 | HO.PSYCHPN ---
Subjective Subjective Date of Service: 07/31/23 Reason For Visit: Depression Subjective Notes: Conditional Voluntary Interim History: The nursing staff reported no changes in her mental status, compliant with medications. The occupational therapist reported that she had been yelling less in the last weeks. On interview the patient denies new symptoms, waiting for placement. Mental Status Exam Mental Status Exam Patient Appearance: Appropriate Patient Orientation: Person and Situation Level of Consciousness: Awake Patient Behavior: Guarded and Passive Mood Description: Withdrawn and Constricted Affect Description: Calm Patient Cognition Impaired: Yes Ability to Follow Directions: Good Speech Pattern: Clear Hallucinations: None Delusions: Not Present Thought Process: Distracted and Slowed Thinking Thought Content: positive for [place] and positive for Poverty of Content Judgement: Poor Diagnostics Vital Signs (24Hr): Vital Signs - 24 hr 07/30/23 20:00 07/30/23 21:55 Temperature 98.6 F Pulse Rate 106 H 106 H Respiratory Rate 16 Blood Pressure 153/61 H 153/61 H Pulse Oximetry 94 Oxygen Delivery Method Room Air BMI result Body Mass Index 26.8 Labs 07/25/23 10:15 07/25/23 10:15 Medications Medications Current Medications Acetaminophen (Acetaminophen 325 Mg Tablet) 650 mg PO Q6H PRN PRN Reason: Headache/Pain Mild Scale (1-3) Last Admin: 07/29/23 08:47 Dose: 650 mg Al Hydroxide/Mg Hydroxide (Magnesium Hydrox/Alum Hydrox 30 Ml Oral.Susp) 30 ml PO Q6H PRN PRN Reason: Heartburn/Nausea Calcium Carbonate (Calcium Carbonate 750 Mg Tab.Chew) 750 mg PO DAILY PRN PRN Reason: ACID REFLUX Docusate Sodium (Docusate Sodium 100 Mg Capsule) 100 mg PO DAILY [facility] Last Admin: 06/24/23 10:13 Dose: Not Given Donepezil HCl (Donepezil Hcl 10 Mg Tablet) 10 mg PO BEDTIME [facility] Last Admin: 07/30/23 21:50 Dose: 10 mg Duloxetine HCl (Duloxetine Hcl 60 Mg Capsule.Dr) 60 mg PO DAILY [facility] Last Admin: 07/31/23 10:57 Dose: 60 mg Hydroxyzine HCl (Hydroxyzine Hcl 25 Mg Tablet) 25 mg PO Q6H PRN PRN Reason: Anxiety Last Admin: 07/29/23 08:47 Dose: 25 mg Levetiracetam (Levetiracetam Oral Soln 500 Mg/5 Ml) 1,500 mg PO BID [facility] Last Admin: 07/31/23 10:57 Dose: 1,500 mg Loperamide HCl (Loperamide Hcl 2 Mg Capsule) 4 mg PO Q6H PRN PRN Reason: Diarrhea Last Admin: 07/20/23 12:52 Dose: 4 mg Magnesium Hydroxide (Milk Of Magnesia 30 Ml Oral.Susp) 30 ml PO DAILY PRN PRN Reason: Constipation Memantine (Memantine Hcl 10 Mg Tablet) 10 mg PO BID [facility] Last Admin: 07/31/23 10:57 Dose: 10 mg Mirtazapine (Mirtazapine 7.5 Mg Tablet) 7.5 mg PO BEDTIME [facility] Last Admin: 07/30/23 21:50 Dose: 7.5 mg Multivitamins/Vitamin C (Multivitamin Tablet) 1 tab PO DAILY [facility] Last Admin: 07/31/23 10:57 Dose: 1 tab Nystatin (Nystatin Powder 15 Gm Bottle) 1 appl TOPICAL BID [facility]; Protocol Last Admin: 07/31/23 10:57 Dose: 1 appl Olanzapine (Olanzapine Odt 10 Mg Tab.Rapdis) 10 mg TRANSLINGU BID PRN PRN Reason: Psychosis Last Admin: 07/29/23 08:47 Dose: 10 mg Olanzapine (Olanzapine 5 Mg Tablet) 5 mg PO TID [facility] Last Admin: 07/31/23 10:57 Dose: 5 mg Oxcarbazepine (Oxcarbazepine 300 Mg Tablet) 600 mg PO BID [facility] Last Admin: 07/31/23 10:56 Dose: 600 mg Psyllium Hydrophilic Mucilloid (Psyllium Seed 3.7 Gm Packet) 3.7 gm PO BID [facility] Last Admin: 06/24/23 20:58 Dose: 3.7 gm Quetiapine Fumarate (Quetiapine Fumarate 50 Mg Tablet) 50 mg PO BID@0800,1400 [facility] Last Admin: 07/31/23 10:57 Dose: 50 mg Quetiapine Fumarate (Quetiapine Fumarate 100 Mg Tablet) 100 mg PO BEDTIME [facility] Last Admin: 07/30/23 21:50 Dose: 100 mg Trazodone HCl (Trazodone Hcl 50 Mg Tablet) 50 mg PO BEDTIME MRX1 PRN PRN Reason: Insomnia Last Admin: 07/28/23 22:31 Dose: 50 mg Trazodone HCl (Trazodone Hcl 100 Mg Tablet) 100 mg PO BEDTIME [facility] Last Admin: 07/30/23 21:50 Dose: 100 mg Trazodone HCl (Trazodone Hcl 25 Mg Halftab) 25 mg PO BID@0830,1330 [facility] Last Admin: 07/31/23 10:56 Dose: 25 mg Verapamil HCl (Verapamil Hcl Sr 240 Mg Tablet.Er) 240 mg PO BEDTIME [facility]; Protocol Last Admin: 07/30/23 21:55 Dose: 240 mg Allergies Allergies Allergy/AdvReac Type Severity Reaction Status Date / Time amlodipine Allergy Unknown Verified 06/21/23 17:41 aspirin Allergy Rash Verified 06/21/23 17:41 atenolol Allergy Rash Verified 06/21/23 17:41 carbamazepine Allergy Unknown Verified 06/21/23 17:41 celecoxib Allergy Unknown Verified 06/21/23 17:41 ciprofloxacin Allergy Unknown Verified 06/21/23 17:41 erythromycin base Allergy Hives Verified 06/21/23 17:41 fluvastatin Allergy Unknown Verified 06/21/23 17:41 levofloxacin Allergy Unknown Verified 06/21/23 17:41 loratadine Allergy Unknown Verified 06/21/23 17:41 mercaptopurine Allergy Unknown Verified 06/21/23 17:41 naproxen Allergy Unknown Verified 06/21/23 17:41 pantoprazole Allergy Unknown Verified 06/21/23 17:41 Quinolones Allergy Unknown Verified 06/21/23 17:41 ranitidine Allergy Unknown Verified 06/21/23 17:41 sulfamethoxazole Allergy Unknown Verified 06/21/23 17:41 trimethoprim Allergy Unknown Verified 06/21/23 17:41 Assessment & Plan Assessment & Plan (1) Dementia: Status: Acute Code(s): F03.90 - Unspecified dementia, unspecified severity, without behavioral disturbance, psychotic disturbance, mood disturbance, and anxiety (2) Pervasive developmental disorder: Status: Acute Code(s): F84.9 - Pervasive developmental disorder, unspecified Plan Plan 1. Continue with same Trileptal 600 mg p.o. b.i.d.. 2. Increase Zyprexa up to 3.75 p.o. t.i.d.. On June 26 we are going to increase to 5 mg p.o. t.i.d. 3. Rest the same. 4. Blood work CBC and BMP within normal limits no changes slight high cholesterol. 5. Start trazodone 25 mg in the morning and in the afternoon and keep 100 at night. Started on July 03. 6. We discussed with the primary team in the community with the possibility to discharge her to subacute rehab due to deconditionion. TYRONE has applied to transferred to another hospital for rehabilitation but she was denied. Waiting for placement. 7. Blood work ordered for 07/24. Results without no changes Reason for continued inpatient stay Substantial Risk for: inability to function, rapid decompensation and med/psych decompensation Time Spent With Patient Time: Total time managing care of this patient today __20__ minutes.
[2023-07-31 12:45] VITALS: BP 142/64; PULSE 110; RESP 16; TEMP 36.4; O2SAT 94
[2023-07-31 20:00] VITALS: BP 139/62; PULSE 82; TEMP 36.2; O2SAT 96
[2023-07-31 20:55] VITALS: BP 139/62; PULSE 82
[2023-07-31] MEDS: Donepezil HCl 10 MG TABLET PO (20:55)
[2023-07-31] MEDS: traZODone HCL 100 MG TABLET PO (20:55)
[2023-07-31] MEDS: Mirtazapine 7.5 MG TABLET PO (20:55)
[2023-07-31] MEDS: VerapamiL HCL SR 240 MG TABLET.ER PO (20:55)
[2023-07-31] MEDS: QUEtiapine Fumarate 100 MG TABLET PO (20:56)
[2023-08-01 08:00] VITALS: BP 137/83; PULSE 92; RESP 18; TEMP 36.5; O2SAT 95
[2023-08-01] MEDS: levETIRAcetam Oral Soln 500 MG/5 ML 1500 MG PO ×2 (08:54→20:45)
[2023-08-01] MEDS: OLANZapine 5 MG TABLET PO ×3 (08:57→20:45)
[2023-08-01] MEDS: OXcarbazepine 300 MG TABLET 600 MG PO ×2 (08:57→20:46)
[2023-08-01] MEDS: DULoxetine HCl 60 MG CAPSULE.DR PO (08:58)
[2023-08-01] MEDS: QUEtiapine Fumarate 50 MG TABLET PO ×2 (08:58→14:04)
[2023-08-01] MEDS: traZODone HCL 25 MG HALFTAB PO ×2 (08:58→14:04)
[2023-08-01] MEDS: Memantine HCl 10 MG TABLET PO ×2 (08:58→20:46)
[2023-08-01] MEDS: Nystatin Powder 15 GM BOTTLE 1 APPL TOPICAL ×2 (08:59→21:05)
[2023-08-01] MEDS: Multivitamin TABLET 1 TAB PO (08:59)
--- NOTE | 2023-08-01 14:14 | HO.PSYCHPN ---
Subjective Subjective Date of Service: 08/01/23 Reason For Visit: Depression Subjective Notes: Conditional Voluntary Healthcare Proxy: Yes Interim History: The nursing staff reported the patient had been yelling less, incontinent. She showered yesterday. She slept well. Today she was yelling as usual, we are ordering regular blood work for tomorrow. On interview the patient denies new symptoms looks as usual, extremely limited and disorganized. Mental Status Exam Mental Status Exam Patient Appearance: Appropriate Patient Orientation: Person and Situation Level of Consciousness: Awake and Appropriate Patient Behavior: Guarded and Passive Mood Description: Withdrawn Affect Description: Constricted Patient Cognition Impaired: Yes Ability to Follow Directions: Good Speech Pattern: Clear Hallucinations: None Delusions: Not Present Thought Process: Distracted and Slowed Thinking Thought Content: positive for [place] and positive for Poverty of Content Judgement: Poor Diagnostics Vital Signs (24Hr): Vital Signs - 24 hr 07/31/23 20:00 07/31/23 20:55 08/01/23 08:00 Temperature 97.1 F 97.7 F Pulse Rate 82 82 92 Respiratory Rate 18 Blood Pressure 139/62 139/62 137/83 Pulse Oximetry 96 95 Oxygen Delivery Method Room Air Room Air BMI result Body Mass Index 26.8 Labs 07/25/23 10:15 07/25/23 10:15 Medications Medications Current Medications Acetaminophen (Acetaminophen 325 Mg Tablet) 650 mg PO Q6H PRN PRN Reason: Headache/Pain Mild Scale (1-3) Last Admin: 07/29/23 08:47 Dose: 650 mg Al Hydroxide/Mg Hydroxide (Magnesium Hydrox/Alum Hydrox 30 Ml Oral.Susp) 30 ml PO Q6H PRN PRN Reason: Heartburn/Nausea Calcium Carbonate (Calcium Carbonate 750 Mg Tab.Chew) 750 mg PO DAILY PRN PRN Reason: ACID REFLUX Docusate Sodium (Docusate Sodium 100 Mg Capsule) 100 mg PO DAILY [facility] Last Admin: 06/24/23 10:13 Dose: Not Given Donepezil HCl (Donepezil Hcl 10 Mg Tablet) 10 mg PO BEDTIME [facility] Last Admin: 07/31/23 20:55 Dose: 10 mg Duloxetine HCl (Duloxetine Hcl 60 Mg Capsule.Dr) 60 mg PO DAILY [facility] Last Admin: 08/01/23 08:58 Dose: 60 mg Hydroxyzine HCl (Hydroxyzine Hcl 25 Mg Tablet) 25 mg PO Q6H PRN PRN Reason: Anxiety Last Admin: 07/29/23 08:47 Dose: 25 mg Levetiracetam (Levetiracetam Oral Soln 500 Mg/5 Ml) 1,500 mg PO BID [facility] Last Admin: 08/01/23 08:54 Dose: 1,500 mg Loperamide HCl (Loperamide Hcl 2 Mg Capsule) 4 mg PO Q6H PRN PRN Reason: Diarrhea Last Admin: 07/20/23 12:52 Dose: 4 mg Magnesium Hydroxide (Milk Of Magnesia 30 Ml Oral.Susp) 30 ml PO DAILY PRN PRN Reason: Constipation Memantine (Memantine Hcl 10 Mg Tablet) 10 mg PO BID [facility] Last Admin: 08/01/23 08:58 Dose: 10 mg Mirtazapine (Mirtazapine 7.5 Mg Tablet) 7.5 mg PO BEDTIME [facility] Last Admin: 07/31/23 20:55 Dose: 7.5 mg Multivitamins/Vitamin C (Multivitamin Tablet) 1 tab PO DAILY [facility] Last Admin: 08/01/23 08:59 Dose: 1 tab Nystatin (Nystatin Powder 15 Gm Bottle) 1 appl TOPICAL BID [facility]; Protocol Last Admin: 08/01/23 08:59 Dose: 1 appl Olanzapine (Olanzapine Odt 10 Mg Tab.Rapdis) 10 mg TRANSLINGU BID PRN PRN Reason: Psychosis Last Admin: 07/29/23 08:47 Dose: 10 mg Olanzapine (Olanzapine 5 Mg Tablet) 5 mg PO TID [facility] Last Admin: 08/01/23 14:04 Dose: 5 mg Oxcarbazepine (Oxcarbazepine 300 Mg Tablet) 600 mg PO BID [facility] Last Admin: 08/01/23 08:57 Dose: 600 mg Psyllium Hydrophilic Mucilloid (Psyllium Seed 3.7 Gm Packet) 3.7 gm PO BID [facility] Last Admin: 06/24/23 20:58 Dose: 3.7 gm Quetiapine Fumarate (Quetiapine Fumarate 50 Mg Tablet) 50 mg PO BID@0800,1400 [facility] Last Admin: 08/01/23 14:04 Dose: 50 mg Quetiapine Fumarate (Quetiapine Fumarate 100 Mg Tablet) 100 mg PO BEDTIME [facility] Last Admin: 07/31/23 20:56 Dose: 100 mg Trazodone HCl (Trazodone Hcl 50 Mg Tablet) 50 mg PO BEDTIME [facility]X1 PRN PRN Reason: Insomnia Last Admin: 07/28/23 22:31 Dose: 50 mg Trazodone HCl (Trazodone Hcl 100 Mg Tablet) 100 mg PO BEDTIME [facility] Last Admin: 07/31/23 20:55 Dose: 100 mg Trazodone HCl (Trazodone Hcl 25 Mg Halftab) 25 mg PO BID@0830,1330 [facility] Last Admin: 08/01/23 14:04 Dose: 25 mg Verapamil HCl (Verapamil Hcl Sr 240 Mg Tablet.Er) 240 mg PO BEDTIME [facility]; Protocol Last Admin: 07/31/23 20:55 Dose: 240 mg Allergies Allergies Allergy/AdvReac Type Severity Reaction Status Date / Time amlodipine Allergy Unknown Verified 06/21/23 17:41 aspirin Allergy Rash Verified 06/21/23 17:41 atenolol Allergy Rash Verified 06/21/23 17:41 carbamazepine Allergy Unknown Verified 06/21/23 17:41 celecoxib Allergy Unknown Verified 06/21/23 17:41 ciprofloxacin Allergy Unknown Verified 06/21/23 17:41 erythromycin base Allergy Hives Verified 06/21/23 17:41 fluvastatin Allergy Unknown Verified 06/21/23 17:41 levofloxacin Allergy Unknown Verified 06/21/23 17:41 loratadine Allergy Unknown Verified 06/21/23 17:41 mercaptopurine Allergy Unknown Verified 06/21/23 17:41 naproxen Allergy Unknown Verified 06/21/23 17:41 pantoprazole Allergy Unknown Verified 06/21/23 17:41 Quinolones Allergy Unknown Verified 06/21/23 17:41 ranitidine Allergy Unknown Verified 06/21/23 17:41 sulfamethoxazole Allergy Unknown Verified 06/21/23 17:41 trimethoprim Allergy Unknown Verified 06/21/23 17:41 Assessment & Plan Assessment & Plan (1) Dementia: Status: Acute Code(s): F03.90 - Unspecified dementia, unspecified severity, without behavioral disturbance, psychotic disturbance, mood disturbance, and anxiety (2) Pervasive developmental disorder: Status: Acute Code(s): F84.9 - Pervasive developmental disorder, unspecified Plan Plan 1. Continue with same Trileptal 600 mg p.o. b.i.d.. 2. Increase Zyprexa up to 3.75 p.o. t.i.d.. On June 26 we are going to increase to 5 mg p.o. t.i.d. 3. Rest the same. 4. Blood work CBC and BMP within normal limits no changes slight high cholesterol. 5. Start trazodone 25 mg in the morning and in the afternoon and keep 100 at night. Started on July 03. 6. We discussed with the primary team in the community with the possibility to discharge her to subacute rehab due to deconditionion. DDAlisia has applied to transferred to another hospital for rehabilitation but she was denied. Waiting for placement. 7. Blood work ordered for 07/24. Results without no changes Reason for continued inpatient stay Substantial Risk for: inability to function, rapid decompensation and med/psych decompensation Time Spent With Patient Time: Total time managing care of this patient today __20__ minutes.
[2023-08-01 20:00] VITALS: BP 105/69; PULSE 91; RESP 16; TEMP 36.2; O2SAT 98
[2023-08-01] MEDS: Mirtazapine 7.5 MG TABLET PO (20:46)
[2023-08-01] MEDS: QUEtiapine Fumarate 100 MG TABLET PO (20:46)
[2023-08-01] MEDS: Donepezil HCl 10 MG TABLET PO (20:46)
[2023-08-01] MEDS: traZODone HCL 100 MG TABLET PO (20:46)
[2023-08-01 21:06] VITALS: BP 105/69; PULSE 91
[2023-08-01] MEDS: VerapamiL HCL SR 240 MG TABLET.ER PO (21:06)
[2023-08-02] MEDS: OXcarbazepine 300 MG TABLET 600 MG PO ×2 (09:54→20:12)
[2023-08-02] MEDS: hydrOXYzine HCL 25 MG TABLET PO (09:54)
[2023-08-02] MEDS: Multivitamin TABLET 1 TAB PO (09:54)
[2023-08-02] MEDS: Memantine HCl 10 MG TABLET PO ×2 (09:54→20:11)
[2023-08-02] MEDS: traZODone HCL 25 MG HALFTAB PO ×2 (09:54→13:03)
[2023-08-02] MEDS: OLANZapine 5 MG TABLET PO ×3 (09:54→20:11)
[2023-08-02] MEDS: DULoxetine HCl 60 MG CAPSULE.DR PO (09:54)
[2023-08-02] MEDS: levETIRAcetam Oral Soln 500 MG/5 ML 1500 MG PO ×2 (09:54→20:13)
[2023-08-02] MEDS: QUEtiapine Fumarate 50 MG TABLET PO ×2 (09:54→13:03)
[2023-08-02] MEDS: OLANZapine ODT 10 MG TAB.RAPDIS TRANSLINGU (09:54)
[2023-08-02] MEDS: Nystatin Powder 15 GM BOTTLE 1 APPL TOPICAL ×2 (09:55→20:25)
[2023-08-02 11:15] LABS: MANUAL DIFF FLAG NO
[2023-08-02 11:22] LABS: Basophils Percent Auto 0.4 % (0-2); Eosinophils Absolute Auto 0.1 X10*3/uL (0.0-0.4); Eosinophils Percent Auto 1.2 % (0-4); Hematocrit 39.5 % (37.0-47.0); Hemoglobin 13.3 g/dl (12.0-16.0); Imm Gran Abs Auto 0.02 X10*3/uL (0.00-0.03); Imm Gran Pct Auto 0.3 % (0.0-0.4); Lymphocytes Absolute Auto 1.8 X10*3/uL (1.2-4.9); Lymphocytes Percent Auto 23.8 % (20-40); Mean Corpuscular HGB Conc 33.7 g/dl (31.0-35.0); Mean Corpuscular Hemoglobin 32.4 pg (27.0-33.0); Mean Corpuscular Volume 96.1 fL (80.0-98.0); Mean Platelet Volume 8.6 fL (9.4-12.3); Monocytes Absolute Auto 0.5 X10*3/uL (0.1-1.2); Monocytes Percent Auto 6.6 % (2-11); Neutrophils Percent Auto 67.7 % (45-73); Platelet Count 205 X10*3/uL (160-400); Red Blood Count 4.11 X10*6/uL (4.20-5.50); Red Cell Distribution Width 12.6 % (11.0-16.0); White Blood Count 7.4 X10*3/uL (4.8-10.8)
[2023-08-02 11:28] LABS: Estimated Average Glucose 100 mg/dL; Hemoglobin A1c % 5.1 % (<6.0)
[2023-08-02 11:32] LABS: Alanine Aminotransferase 22 U/L (0-31); Albumin Level 3.8 g/dL (3.5-5.0); Alkaline Phosphatase 129 U/L (39-117); Anion Gap 11 (12-20); Aspartate Amino Transferase 21 U/L (5-31); Bilirubin Direct < 0.2 mg/dL (0.0-0.5); Bilirubin Total 0.2 mg/dL (0.0-1.0); Blood Urea Nitrogen 10 mg/dL (9-16); Calcium 9.7 mg/dL (8.4-10.2); Carbon Dioxide 29 mmol/L (22-29); Chloride 103 mmol/L (96-108); Creatinine Clr Calc Pharmacy 98.4; Estimated Glomerular Filt Rate > 60; Glucose Random 160 mg/dL (60-115); Potassium 3.8 mmol/L (3.3-5.1); Sodium 139 mmol/L (135-145); Total Protein 7.2 g/dL (6.5-8.0)
--- NOTE | 2023-08-02 13:20 | P.PNPSI_ITS ---
Subjective Subjective Date of Service: 08/02/23 Reason For Visit: Depression Subjective Notes: Conditional Voluntary Interim History: The nursing staff reported the patient had been compliant with treatment, she remains loud at times. Blood work came back without major concerns. On interview the patient remains grossly disorganized, waiting for placement. Mental Status Exam Mental Status Exam Patient Appearance: Appropriate Patient Orientation: Person and Situation Level of Consciousness: Awake and Appropriate Patient Behavior: Guarded and Passive Mood Description: Withdrawn Affect Description: Constricted Patient Cognition Impaired: Yes Ability to Follow Directions: Good Speech Pattern: Clear Hallucinations: None Delusions: Ideas of Reference Thought Process: Distracted and Slowed Thinking Thought Content: positive for [place] and positive for Poverty of Content Judgement: Poor Diagnostics Vital Signs (24Hr): Vital Signs - 24 hr 08/01/23 20:00 08/01/23 21:06 Temperature 97.2 F Pulse Rate 91 91 Respiratory Rate 16 Blood Pressure 105/69 105/69 Pulse Oximetry 98 Oxygen Delivery Method Room Air BMI result Body Mass Index 26.8 Labs 08/02/23 11:13 08/02/23 11:13 Labs: Laboratory Results - last 48 hr 08/02/23 11:13 WBC 7.4 RBC 4.11 L Hgb 13.3 Hct 39.5 MCV 96.1 MCH 32.4 MCHC 33.7 RDW 12.6 Plt Count 205 MPV 8.6 L Immature Gran % (Auto) 0.3 Neut % (Auto) 67.7 Lymph % (Auto) 23.8 [place] % (Auto) 6.6 Eos % (Auto) 1.2 Baso % (Auto) 0.4 Lymph # (Auto) 1.8 [place] # (Auto) 0.5 Eos # (Auto) 0.1 Baso # (Auto) 0.0 Abs Immat Gran (auto) 0.02 Absolute Neuts (auto) 5.0 Absolute Nucleated RBC 0.000 Nucleated RBC % (auto) 0.0 Sodium 139 Potassium 3.8 Chloride 103 Carbon Dioxide 29 Anion Gap 11 L BUN 10 Creatinine 0.57 Estim Creat Clear Calc 98.4 Estimated GFR > 60 Random Glucose 160 H Estimat Average Glucose 100 Hemoglobin A1c % 5.1 Calcium 9.7 Total Bilirubin 0.2 Direct Bilirubin < 0.2 AST 21 ALT 22 Alkaline Phosphatase 129 H Total Protein 7.2 Albumin 3.8 Medications Medications Current Medications Acetaminophen (Acetaminophen 325 Mg Tablet) 650 mg PO Q6H PRN PRN Reason: Headache/Pain Mild Scale (1-3) Last Admin: 07/29/23 08:47 Dose: 650 mg Al Hydroxide/Mg Hydroxide (Magnesium Hydrox/Alum Hydrox 30 Ml Oral.Susp) 30 ml PO Q6H PRN PRN Reason: Heartburn/Nausea Calcium Carbonate (Calcium Carbonate 750 Mg Tab.Chew) 750 mg PO DAILY PRN PRN Reason: ACID REFLUX Docusate Sodium (Docusate Sodium 100 Mg Capsule) 100 mg PO DAILY [facility] Last Admin: 06/24/23 10:13 Dose: Not Given Donepezil HCl (Donepezil Hcl 10 Mg Tablet) 10 mg PO BEDTIME [facility] Last Admin: 08/01/23 20:46 Dose: 10 mg Duloxetine HCl (Duloxetine Hcl 60 Mg Capsule.Dr) 60 mg PO DAILY [facility] Last Admin: 08/02/23 09:54 Dose: 60 mg Hydroxyzine HCl (Hydroxyzine Hcl 25 Mg Tablet) 25 mg PO Q6H PRN PRN Reason: Anxiety Last Admin: 08/02/23 09:54 Dose: 25 mg Levetiracetam (Levetiracetam Oral Soln 500 Mg/5 Ml) 1,500 mg PO BID [facility] Last Admin: 08/02/23 09:54 Dose: 1,500 mg Loperamide HCl (Loperamide Hcl 2 Mg Capsule) 4 mg PO Q6H PRN PRN Reason: Diarrhea Last Admin: 07/20/23 12:52 Dose: 4 mg Magnesium Hydroxide (Milk Of Magnesia 30 Ml Oral.Susp) 30 ml PO DAILY PRN PRN Reason: Constipation Memantine (Memantine Hcl 10 Mg Tablet) 10 mg PO BID [facility] Last Admin: 08/02/23 09:54 Dose: 10 mg Mirtazapine (Mirtazapine 7.5 Mg Tablet) 7.5 mg PO BEDTIME [facility] Last Admin: 08/01/23 20:46 Dose: 7.5 mg Multivitamins/Vitamin C (Multivitamin Tablet) 1 tab PO DAILY [facility] Last Admin: 08/02/23 09:54 Dose: 1 tab Nystatin (Nystatin Powder 15 Gm Bottle) 1 appl TOPICAL BID [facility]; Protocol Last Admin: 08/02/23 09:55 Dose: 1 appl Olanzapine (Olanzapine Odt 10 Mg Tab.Rapdis) 10 mg TRANSLINGU BID PRN PRN Reason: Psychosis Last Admin: 08/02/23 09:54 Dose: 10 mg Olanzapine (Olanzapine 5 Mg Tablet) 5 mg PO TID [facility] Last Admin: 08/02/23 09:54 Dose: 5 mg Oxcarbazepine (Oxcarbazepine 300 Mg Tablet) 600 mg PO BID [facility] Last Admin: 08/02/23 09:54 Dose: 600 mg Psyllium Hydrophilic Mucilloid (Psyllium Seed 3.7 Gm Packet) 3.7 gm PO BID [facility] Last Admin: 06/24/23 20:58 Dose: 3.7 gm Quetiapine Fumarate (Quetiapine Fumarate 50 Mg Tablet) 50 mg PO BID@0800,1400 [facility] Last Admin: 08/02/23 13:03 Dose: 50 mg Quetiapine Fumarate (Quetiapine Fumarate 100 Mg Tablet) 100 mg PO BEDTIME [facility] Last Admin: 08/01/23 20:46 Dose: 100 mg Trazodone HCl (Trazodone Hcl 50 Mg Tablet) 50 mg PO BEDTIME MRX1 PRN PRN Reason: Insomnia Last Admin: 07/28/23 22:31 Dose: 50 mg Trazodone HCl (Trazodone Hcl 100 Mg Tablet) 100 mg PO BEDTIME [facility] Last Admin: 08/01/23 20:46 Dose: 100 mg Trazodone HCl (Trazodone Hcl 25 Mg Halftab) 25 mg PO BID@0830,1330 [facility] Last Admin: 08/02/23 13:03 Dose: 25 mg Verapamil HCl (Verapamil Hcl Sr 240 Mg Tablet.Er) 240 mg PO BEDTIME [facility]; Protocol Last Admin: 08/01/23 21:06 Dose: 240 mg Allergies Allergies Allergy/AdvReac Type Severity Reaction Status Date / Time amlodipine Allergy Unknown Verified 06/21/23 17:41 aspirin Allergy Rash Verified 06/21/23 17:41 atenolol Allergy Rash Verified 06/21/23 17:41 carbamazepine Allergy Unknown Verified 06/21/23 17:41 celecoxib Allergy Unknown Verified 06/21/23 17:41 ciprofloxacin Allergy Unknown Verified 06/21/23 17:41 erythromycin base Allergy Hives Verified 06/21/23 17:41 fluvastatin Allergy Unknown Verified 06/21/23 17:41 levofloxacin Allergy Unknown Verified 06/21/23 17:41 loratadine Allergy Unknown Verified 06/21/23 17:41 mercaptopurine Allergy Unknown Verified 06/21/23 17:41 naproxen Allergy Unknown Verified 06/21/23 17:41 pantoprazole Allergy Unknown Verified 06/21/23 17:41 Quinolones Allergy Unknown Verified 06/21/23 17:41 ranitidine Allergy Unknown Verified 06/21/23 17:41 sulfamethoxazole Allergy Unknown Verified 06/21/23 17:41 trimethoprim Allergy Unknown Verified 06/21/23 17:41 Assessment & Plan Assessment & Plan (1) Dementia: Status: Acute Code(s): F03.90 - Unspecified dementia, unspecified severity, without behavioral disturbance, psychotic disturbance, mood disturbance, and anxiety (2) Pervasive developmental disorder: Status: Acute Code(s): F84.9 - Pervasive developmental disorder, unspecified Plan Plan 1. Continue with same Trileptal 600 mg p.o. b.i.d.. 2. Increase Zyprexa up to 3.75 p.o. t.i.d.. On June 26 we are going to increase to 5 mg p.o. t.i.d. 3. Rest the same. 4. Blood work CBC and BMP within normal limits no changes slight high cholesterol. 5. Start trazodone 25 mg in the morning and in the afternoon and keep 100 at night. Started on July 03. 6. We discussed with the primary team in the community with the possibility to discharge her to subacute rehab due to deconditionion. DDAlisia has applied to transferred to another hospital for rehabilitation but she was denied. Waiting for placement. 7. Blood work ordered for 07/24. Results without no changes Reason for continued inpatient stay Substantial Risk for: inability to function, rapid decompensation and med/psych decompensation Time Spent With Patient Time: Total time managing care of this patient today __20__ minutes.
[2023-08-02 19:48] VITALS: BP 131/80; PULSE 71; RESP 18; TEMP 36.1; O2SAT 94
[2023-08-02 20:11] VITALS: BP 131/81; PULSE 85
[2023-08-02] MEDS: QUEtiapine Fumarate 100 MG TABLET PO (20:11)
[2023-08-02] MEDS: traZODone HCL 100 MG TABLET PO (20:11)
[2023-08-02] MEDS: Donepezil HCl 10 MG TABLET PO (20:11)
[2023-08-02] MEDS: VerapamiL HCL SR 240 MG TABLET.ER PO (20:11)
[2023-08-02] MEDS: Mirtazapine 7.5 MG TABLET PO (20:11)
[2023-08-03 08:53] VITALS: BP 167/85; PULSE 109; RESP 16; TEMP 37.1; O2SAT 96
[2023-08-03] MEDS: OLANZapine 5 MG TABLET PO ×3 (08:54→20:38)
[2023-08-03] MEDS: levETIRAcetam Oral Soln 500 MG/5 ML 1500 MG PO ×2 (08:54→20:37)
[2023-08-03] MEDS: Multivitamin TABLET 1 TAB PO (08:54)
[2023-08-03] MEDS: traZODone HCL 25 MG HALFTAB PO ×2 (08:54→14:28)
[2023-08-03] MEDS: QUEtiapine Fumarate 50 MG TABLET PO ×2 (08:54→14:28)
[2023-08-03] MEDS: Memantine HCl 10 MG TABLET PO ×2 (08:54→20:38)
[2023-08-03] MEDS: OXcarbazepine 300 MG TABLET 600 MG PO ×2 (08:54→20:38)
[2023-08-03] MEDS: DULoxetine HCl 60 MG CAPSULE.DR PO (08:54)
--- NOTE | 2023-08-03 12:51 | P.PNPSI_ITS ---
Subjective Subjective Date of Service: 08/03/23 Reason For Visit: Depression Subjective Notes: Conditional Voluntary Interim History: The nursing staff reported the patient had been compliant with treatment, she had been loud as usual. The social media campaign manager reported that DDS already did the paperwork for placement in correction facility. On interview the patient denies new symptoms loud confused as usual no changes in her mental status. She is waiting for placement as per DDS plans. Mental Status Exam Mental Status Exam Patient Appearance: Appropriate Patient Orientation: Person Level of Consciousness: Awake and Appropriate Patient Behavior: Guarded and Passive Mood Description: Withdrawn Affect Description: Labile Patient Cognition Impaired: Yes Ability to Follow Directions: Fair Speech Pattern: Loud Hallucinations: None Delusions: Not Present Thought Process: Distracted and Slowed Thinking Thought Content: positive for Poverty of Content and positive for Thought Blocking Judgement: Poor Diagnostics Vital Signs (24Hr): Vital Signs - 24 hr 08/02/23 19:48 08/02/23 20:11 08/03/23 08:53 Temperature 97.0 F 98.7 F Pulse Rate 71 85 109 H Respiratory Rate 18 16 Blood Pressure 131/80 131/81 167/85 H Pulse Oximetry 94 96 Oxygen Delivery Method Room Air Room Air BMI result Body Mass Index 26.8 Labs 08/02/23 11:13 08/02/23 11:13 Labs: Laboratory Results - last 48 hr 08/02/23 11:13 WBC 7.4 RBC 4.11 L Hgb 13.3 Hct 39.5 MCV 96.1 MCH 32.4 MCHC 33.7 RDW 12.6 Plt Count 205 MPV 8.6 L Immature Gran % (Auto) 0.3 Neut % (Auto) 67.7 Lymph % (Auto) 23.8 [place] % (Auto) 6.6 Eos % (Auto) 1.2 Baso % (Auto) 0.4 Lymph # (Auto) 1.8 [place] # (Auto) 0.5 Eos # (Auto) 0.1 Baso # (Auto) 0.0 Abs Immat Gran (auto) 0.02 Absolute Neuts (auto) 5.0 Absolute Nucleated RBC 0.000 Nucleated RBC % (auto) 0.0 Sodium 139 Potassium 3.8 Chloride 103 Carbon Dioxide 29 Anion Gap 11 L BUN 10 Creatinine 0.57 Estim Creat Clear Calc 98.4 Estimated GFR > 60 Random Glucose 160 H Estimat Average Glucose 100 Hemoglobin A1c % 5.1 Calcium 9.7 Total Bilirubin 0.2 Direct Bilirubin < 0.2 AST 21 ALT 22 Alkaline Phosphatase 129 H Total Protein 7.2 Albumin 3.8 Medications Medications Current Medications Acetaminophen (Acetaminophen 325 Mg Tablet) 650 mg PO Q6H PRN PRN Reason: Headache/Pain Mild Scale (1-3) Last Admin: 07/29/23 08:47 Dose: 650 mg Al Hydroxide/Mg Hydroxide (Magnesium Hydrox/Alum Hydrox 30 Ml Oral.Susp) 30 ml PO Q6H PRN PRN Reason: Heartburn/Nausea Calcium Carbonate (Calcium Carbonate 750 Mg Tab.Chew) 750 mg PO DAILY PRN PRN Reason: ACID REFLUX Docusate Sodium (Docusate Sodium 100 Mg Capsule) 100 mg PO DAILY [facility] Last Admin: 06/24/23 10:13 Dose: Not Given Donepezil HCl (Donepezil Hcl 10 Mg Tablet) 10 mg PO BEDTIME [facility] Last Admin: 08/02/23 20:11 Dose: 10 mg Duloxetine HCl (Duloxetine Hcl 60 Mg Capsule.Dr) 60 mg PO DAILY [facility] Last Admin: 08/03/23 08:54 Dose: 60 mg Hydroxyzine HCl (Hydroxyzine Hcl 25 Mg Tablet) 25 mg PO Q6H PRN PRN Reason: Anxiety Last Admin: 08/02/23 09:54 Dose: 25 mg Levetiracetam (Levetiracetam Oral Soln 500 Mg/5 Ml) 1,500 mg PO BID [facility] Last Admin: 08/03/23 08:54 Dose: 1,500 mg Loperamide HCl (Loperamide Hcl 2 Mg Capsule) 4 mg PO Q6H PRN PRN Reason: Diarrhea Last Admin: 07/20/23 12:52 Dose: 4 mg Magnesium Hydroxide (Milk Of Magnesia 30 Ml Oral.Susp) 30 ml PO DAILY PRN PRN Reason: Constipation Memantine (Memantine Hcl 10 Mg Tablet) 10 mg PO BID [facility] Last Admin: 08/03/23 08:54 Dose: 10 mg Mirtazapine (Mirtazapine 7.5 Mg Tablet) 7.5 mg PO BEDTIME [facility] Last Admin: 08/02/23 20:11 Dose: 7.5 mg Multivitamins/Vitamin C (Multivitamin Tablet) 1 tab PO DAILY [facility] Last Admin: 08/03/23 08:54 Dose: 1 tab Nystatin (Nystatin Powder 15 Gm Bottle) 1 appl TOPICAL BID [facility]; Protocol Last Admin: 08/02/23 20:25 Dose: 1 appl Olanzapine (Olanzapine Odt 10 Mg Tab.Rapdis) 10 mg TRANSLINGU BID PRN PRN Reason: Psychosis Last Admin: 08/02/23 09:54 Dose: 10 mg Olanzapine (Olanzapine 5 Mg Tablet) 5 mg PO TID [facility] Last Admin: 08/03/23 08:54 Dose: 5 mg Oxcarbazepine (Oxcarbazepine 300 Mg Tablet) 600 mg PO BID [facility] Last Admin: 08/03/23 08:54 Dose: 600 mg Psyllium Hydrophilic Mucilloid (Psyllium Seed 3.7 Gm Packet) 3.7 gm PO BID [facility] Last Admin: 06/24/23 20:58 Dose: 3.7 gm Quetiapine Fumarate (Quetiapine Fumarate 50 Mg Tablet) 50 mg PO BID@0800,1400 [facility] Last Admin: 08/03/23 08:54 Dose: 50 mg Quetiapine Fumarate (Quetiapine Fumarate 100 Mg Tablet) 100 mg PO BEDTIME [facility] Last Admin: 08/02/23 20:11 Dose: 100 mg Trazodone HCl (Trazodone Hcl 50 Mg Tablet) 50 mg PO BEDTIME MRX1 PRN PRN Reason: Insomnia Last Admin: 07/28/23 22:31 Dose: 50 mg Trazodone HCl (Trazodone Hcl 100 Mg Tablet) 100 mg PO BEDTIME [facility] Last Admin: 08/02/23 20:11 Dose: 100 mg Trazodone HCl (Trazodone Hcl 25 Mg Halftab) 25 mg PO BID@0830,1330 [facility] Last Admin: 08/03/23 08:54 Dose: 25 mg Verapamil HCl (Verapamil Hcl Sr 240 Mg Tablet.Er) 240 mg PO BEDTIME [facility]; Protocol Last Admin: 08/02/23 20:11 Dose: 240 mg Allergies Allergies Allergy/AdvReac Type Severity Reaction Status Date / Time amlodipine Allergy Unknown Verified 06/21/23 17:41 aspirin Allergy Rash Verified 06/21/23 17:41 atenolol Allergy Rash Verified 06/21/23 17:41 carbamazepine Allergy Unknown Verified 06/21/23 17:41 celecoxib Allergy Unknown Verified 06/21/23 17:41 ciprofloxacin Allergy Unknown Verified 06/21/23 17:41 erythromycin base Allergy Hives Verified 06/21/23 17:41 fluvastatin Allergy Unknown Verified 06/21/23 17:41 levofloxacin Allergy Unknown Verified 06/21/23 17:41 loratadine Allergy Unknown Verified 06/21/23 17:41 mercaptopurine Allergy Unknown Verified 06/21/23 17:41 naproxen Allergy Unknown Verified 06/21/23 17:41 pantoprazole Allergy Unknown Verified 06/21/23 17:41 Quinolones Allergy Unknown Verified 06/21/23 17:41 ranitidine Allergy Unknown Verified 06/21/23 17:41 sulfamethoxazole Allergy Unknown Verified 06/21/23 17:41 trimethoprim Allergy Unknown Verified 06/21/23 17:41 Assessment & Plan Assessment & Plan (1) Dementia: Status: Acute Code(s): F03.90 - Unspecified dementia, unspecified severity, without behavioral disturbance, psychotic disturbance, mood disturbance, and anxiety (2) Pervasive developmental disorder: Status: Acute Code(s): F84.9 - Pervasive developmental disorder, unspecified Plan Plan 1. Continue with same Trileptal 600 mg p.o. b.i.d.. 2. Increase Zyprexa up to 3.75 p.o. t.i.d.. On June 26 we are going to increase to 5 mg p.o. t.i.d. 3. Rest the same. 4. Blood work CBC and BMP within normal limits no changes slight high cholesterol. 5. Start trazodone 25 mg in the morning and in the afternoon and keep 100 at night. Started on July 03. 6. We discussed with the primary team in the community with the possibility to discharge her to subacute rehab due to deconditionion. DDAlisia has applied to transferred to another hospital for rehabilitation but she was denied. Waiting for placement. 7. Blood work ordered for 07/24. Results without no changes Reason for continued inpatient stay Substantial Risk for: inability to function, rapid decompensation and med/psych decompensation Time Spent With Patient Time: Total time managing care of this patient today __20__ minutes.
[2023-08-03] MEDS: Nystatin Powder 15 GM BOTTLE 1 APPL TOPICAL ×2 (14:28→20:46)
[2023-08-03 20:00] VITALS: BP 131/71; PULSE 106; RESP 16; TEMP 36.5; O2SAT 94
[2023-08-03 20:37] VITALS: BP 131/71; PULSE 106
[2023-08-03] MEDS: VerapamiL HCL SR 240 MG TABLET.ER PO (20:37)
[2023-08-03] MEDS: Donepezil HCl 10 MG TABLET PO (20:38)
[2023-08-03] MEDS: Mirtazapine 7.5 MG TABLET PO (20:38)
[2023-08-03] MEDS: traZODone HCL 100 MG TABLET PO (20:38)
[2023-08-03] MEDS: QUEtiapine Fumarate 100 MG TABLET PO (20:38)
[2023-08-04 08:00] VITALS: BP 164/80; PULSE 92; RESP 18; TEMP 36.9; O2SAT 95
[2023-08-04] MEDS: levETIRAcetam Oral Soln 500 MG/5 ML 1500 MG PO ×2 (08:44→20:42)
[2023-08-04] MEDS: DULoxetine HCl 60 MG CAPSULE.DR PO (08:44)
[2023-08-04] MEDS: Memantine HCl 10 MG TABLET PO ×2 (08:44→20:41)
[2023-08-04] MEDS: OXcarbazepine 300 MG TABLET 600 MG PO ×2 (08:44→20:41)
[2023-08-04] MEDS: QUEtiapine Fumarate 50 MG TABLET PO ×2 (08:44→13:25)
[2023-08-04] MEDS: Multivitamin TABLET 1 TAB PO (08:44)
[2023-08-04] MEDS: traZODone HCL 25 MG HALFTAB PO ×2 (08:44→13:25)
[2023-08-04] MEDS: OLANZapine 5 MG TABLET PO ×3 (08:44→20:41)
--- NOTE | 2023-08-04 10:30 | HO.PSYCHPN ---
Subjective Subjective Date of Service: 08/04/23 Reason For Visit: Depression Interim History: sleeping, rousable to loud voice. no questions or complaints. per staff, in bed, slept well, no issues. Mental Status Exam Mental Status Exam Patient Appearance: Appropriate Patient Orientation: Person Level of Consciousness: Appropriate and Drowsy Patient Behavior: Guarded and Passive Mood Description: Withdrawn Affect Description: Relaxed Patient Cognition Impaired: Yes Ability to Follow Directions: Fair Speech Pattern: Appropriate Hallucinations: None Delusions: Not Present Thought Process: Distracted and Slowed Thinking Thought Content: positive for Poverty of Content and positive for Thought Blocking Judgement: Poor Diagnostics Vital Signs (24Hr): Vital Signs - 24 hr 08/03/23 20:00 08/03/23 20:37 08/04/23 08:00 Temperature 97.7 F 98.4 F Pulse Rate 106 H 106 H 92 Respiratory Rate 16 18 Blood Pressure 131/71 131/71 164/80 H Pulse Oximetry 94 95 Oxygen Delivery Method Room Air Room Air BMI result Body Mass Index 26.8 Labs 08/02/23 11:13 08/02/23 11:13 Labs: Laboratory Results - last 48 hr 08/02/23 11:13 WBC 7.4 RBC 4.11 L Hgb 13.3 Hct 39.5 MCV 96.1 MCH 32.4 MCHC 33.7 RDW 12.6 Plt Count 205 MPV 8.6 L Immature Gran % (Auto) 0.3 Neut % (Auto) 67.7 Lymph % (Auto) 23.8 [place] % (Auto) 6.6 Eos % (Auto) 1.2 Baso % (Auto) 0.4 Lymph # (Auto) 1.8 [place] # (Auto) 0.5 Eos # (Auto) 0.1 Baso # (Auto) 0.0 Abs Immat Gran (auto) 0.02 Absolute Neuts (auto) 5.0 Absolute Nucleated RBC 0.000 Nucleated RBC % (auto) 0.0 Sodium 139 Potassium 3.8 Chloride 103 Carbon Dioxide 29 Anion Gap 11 L BUN 10 Creatinine 0.57 Estim Creat Clear Calc 98.4 Estimated GFR > 60 Random Glucose 160 H Estimat Average Glucose 100 Hemoglobin A1c % 5.1 Calcium 9.7 Total Bilirubin 0.2 Direct Bilirubin < 0.2 AST 21 ALT 22 Alkaline Phosphatase 129 H Total Protein 7.2 Albumin 3.8 Medications Medications Current Medications Acetaminophen (Acetaminophen 325 Mg Tablet) 650 mg PO Q6H PRN PRN Reason: Headache/Pain Mild Scale (1-3) Last Admin: 07/29/23 08:47 Dose: 650 mg Al Hydroxide/Mg Hydroxide (Magnesium Hydrox/Alum Hydrox 30 Ml Oral.Susp) 30 ml PO Q6H PRN PRN Reason: Heartburn/Nausea Calcium Carbonate (Calcium Carbonate 750 Mg Tab.Chew) 750 mg PO DAILY PRN PRN Reason: ACID REFLUX Docusate Sodium (Docusate Sodium 100 Mg Capsule) 100 mg PO DAILY [facility] Last Admin: 06/24/23 10:13 Dose: Not Given Donepezil HCl (Donepezil Hcl 10 Mg Tablet) 10 mg PO BEDTIME [facility] Last Admin: 08/03/23 20:38 Dose: 10 mg Duloxetine HCl (Duloxetine Hcl 60 Mg Capsule.Dr) 60 mg PO DAILY [facility] Last Admin: 08/04/23 08:44 Dose: 60 mg Hydroxyzine HCl (Hydroxyzine Hcl 25 Mg Tablet) 25 mg PO Q6H PRN PRN Reason: Anxiety Last Admin: 08/02/23 09:54 Dose: 25 mg Levetiracetam (Levetiracetam Oral Soln 500 Mg/5 Ml) 1,500 mg PO BID [facility] Last Admin: 08/04/23 08:44 Dose: 1,500 mg Loperamide HCl (Loperamide Hcl 2 Mg Capsule) 4 mg PO Q6H PRN PRN Reason: Diarrhea Last Admin: 07/20/23 12:52 Dose: 4 mg Magnesium Hydroxide (Milk Of Magnesia 30 Ml Oral.Susp) 30 ml PO DAILY PRN PRN Reason: Constipation Memantine (Memantine Hcl 10 Mg Tablet) 10 mg PO BID [facility] Last Admin: 08/04/23 08:44 Dose: 10 mg Mirtazapine (Mirtazapine 7.5 Mg Tablet) 7.5 mg PO BEDTIME [facility] Last Admin: 08/03/23 20:38 Dose: 7.5 mg Multivitamins/Vitamin C (Multivitamin Tablet) 1 tab PO DAILY [facility] Last Admin: 08/04/23 08:44 Dose: 1 tab Nystatin (Nystatin Powder 15 Gm Bottle) 1 appl TOPICAL BID [facility]; Protocol Last Admin: 08/03/23 20:46 Dose: 1 appl Olanzapine (Olanzapine Odt 10 Mg Tab.Rapdis) 10 mg TRANSLINGU BID PRN PRN Reason: Psychosis Last Admin: 08/02/23 09:54 Dose: 10 mg Olanzapine (Olanzapine 5 Mg Tablet) 5 mg PO TID [facility] Last Admin: 08/04/23 08:44 Dose: 5 mg Oxcarbazepine (Oxcarbazepine 300 Mg Tablet) 600 mg PO BID [facility] Last Admin: 08/04/23 08:44 Dose: 600 mg Psyllium Hydrophilic Mucilloid (Psyllium Seed 3.7 Gm Packet) 3.7 gm PO BID [facility] Last Admin: 06/24/23 20:58 Dose: 3.7 gm Quetiapine Fumarate (Quetiapine Fumarate 50 Mg Tablet) 50 mg PO BID@0800,1400 [facility] Last Admin: 08/04/23 08:44 Dose: 50 mg Quetiapine Fumarate (Quetiapine Fumarate 100 Mg Tablet) 100 mg PO BEDTIME [facility] Last Admin: 08/03/23 20:38 Dose: 100 mg Trazodone HCl (Trazodone Hcl 50 Mg Tablet) 50 mg PO BEDTIME MRX1 PRN PRN Reason: Insomnia Last Admin: 07/28/23 22:31 Dose: 50 mg Trazodone HCl (Trazodone Hcl 100 Mg Tablet) 100 mg PO BEDTIME [facility] Last Admin: 08/03/23 20:38 Dose: 100 mg Trazodone HCl (Trazodone Hcl 25 Mg Halftab) 25 mg PO BID@0830,1330 [facility] Last Admin: 08/04/23 08:44 Dose: 25 mg Verapamil HCl (Verapamil Hcl Sr 240 Mg Tablet.Er) 240 mg PO BEDTIME [facility]; Protocol Last Admin: 08/03/23 20:37 Dose: 240 mg Allergies Allergies Allergy/AdvReac Type Severity Reaction Status Date / Time amlodipine Allergy Unknown Verified 06/21/23 17:41 aspirin Allergy Rash Verified 06/21/23 17:41 atenolol Allergy Rash Verified 06/21/23 17:41 carbamazepine Allergy Unknown Verified 06/21/23 17:41 celecoxib Allergy Unknown Verified 06/21/23 17:41 ciprofloxacin Allergy Unknown Verified 06/21/23 17:41 erythromycin base Allergy Hives Verified 06/21/23 17:41 fluvastatin Allergy Unknown Verified 06/21/23 17:41 levofloxacin Allergy Unknown Verified 06/21/23 17:41 loratadine Allergy Unknown Verified 06/21/23 17:41 mercaptopurine Allergy Unknown Verified 06/21/23 17:41 naproxen Allergy Unknown Verified 06/21/23 17:41 pantoprazole Allergy Unknown Verified 06/21/23 17:41 Quinolones Allergy Unknown Verified 06/21/23 17:41 ranitidine Allergy Unknown Verified 06/21/23 17:41 sulfamethoxazole Allergy Unknown Verified 06/21/23 17:41 trimethoprim Allergy Unknown Verified 06/21/23 17:41 Assessment & Plan Assessment & Plan (1) Dementia: Status: Acute Code(s): F03.90 - Unspecified dementia, unspecified severity, without behavioral disturbance, psychotic disturbance, mood disturbance, and anxiety (2) Pervasive developmental disorder: Status: Acute Code(s): F84.9 - Pervasive developmental disorder, unspecified Plan Plan 1. Continue with same Trileptal 600 mg p.o. b.i.d.. 2. Increase Zyprexa up to 3.75 p.o. t.i.d.. On June 26 we are going to increase to 5 mg p.o. t.i.d. 3. Rest the same. 4. Blood work CBC and BMP within normal limits no changes slight high cholesterol. 5. Start trazodone 25 mg in the morning and in the afternoon and keep 100 at night. Started on July 03. 6. We discussed with the primary team in the community with the possibility to discharge her to subacute rehab due to deconditionion. DDAlisia has applied to transferred to another hospital for rehabilitation but she was denied. Waiting for placement. 7. Blood work ordered for 07/24. Results without no changes Reason for continued inpatient stay Substantial Risk for: inability to function Time Spent With Patient Time: Total time managing care of this patient today ____ minutes.
[2023-08-04] MEDS: Nystatin Powder 15 GM BOTTLE 1 APPL TOPICAL ×2 (12:04→20:58)
[2023-08-04 20:00] VITALS: BP 166/74; PULSE 84; RESP 16; TEMP 36.4; O2SAT 94
[2023-08-04] MEDS: Donepezil HCl 10 MG TABLET PO (20:41)
[2023-08-04] MEDS: QUEtiapine Fumarate 100 MG TABLET PO (20:41)
[2023-08-04] MEDS: traZODone HCL 100 MG TABLET PO (20:41)
[2023-08-04 20:42] VITALS: BP 166/74; PULSE 84
[2023-08-04] MEDS: Mirtazapine 7.5 MG TABLET PO (20:42)
[2023-08-04] MEDS: VerapamiL HCL SR 240 MG TABLET.ER PO (20:42)
[2023-08-05 08:00] VITALS: BP 133/79; PULSE 87; RESP 18; TEMP 36.3; O2SAT 95
[2023-08-05] MEDS: traZODone HCL 25 MG HALFTAB PO ×2 (08:29→13:19)
[2023-08-05] MEDS: OXcarbazepine 300 MG TABLET 600 MG PO ×2 (08:29→20:49)
[2023-08-05] MEDS: OLANZapine 5 MG TABLET PO ×3 (08:29→20:50)
[2023-08-05] MEDS: levETIRAcetam Oral Soln 500 MG/5 ML 1500 MG PO ×2 (08:29→20:50)
[2023-08-05] MEDS: Memantine HCl 10 MG TABLET PO ×2 (08:29→20:50)
[2023-08-05] MEDS: Multivitamin TABLET 1 TAB PO (08:29)
[2023-08-05] MEDS: DULoxetine HCl 60 MG CAPSULE.DR PO (08:29)
[2023-08-05] MEDS: QUEtiapine Fumarate 50 MG TABLET PO ×2 (08:29→13:25)
[2023-08-05] MEDS: Nystatin Powder 15 GM BOTTLE 1 APPL TOPICAL ×2 (11:17→20:50)
--- NOTE | 2023-08-05 11:39 | HO.PSYCHPN ---
Subjective Subjective Date of Service: 08/05/23 Reason For Visit: Depression Interim History: no change in presentation. per staff, no change. taking meds. Mental Status Exam Mental Status Exam Patient Appearance: Appropriate Patient Orientation: Person Level of Consciousness: Appropriate and Drowsy Patient Behavior: Guarded and Passive Mood Description: Withdrawn Affect Description: Relaxed Patient Cognition Impaired: Yes Ability to Follow Directions: Fair Speech Pattern: Appropriate Hallucinations: None Delusions: Not Present Thought Process: Distracted and Slowed Thinking Thought Content: positive for Poverty of Content and positive for Thought Blocking Judgement: Poor Diagnostics Vital Signs (24Hr): Vital Signs - 24 hr 08/04/23 20:00 08/04/23 20:42 08/05/23 08:00 Temperature 97.5 F 97.4 F Pulse Rate 84 84 87 Respiratory Rate 16 18 Blood Pressure 166/74 H 166/74 H 133/79 Pulse Oximetry 94 95 Oxygen Delivery Method Room Air Room Air BMI result Body Mass Index 26.8 Labs 08/02/23 11:13 08/02/23 11:13 Medications Medications Current Medications Acetaminophen (Acetaminophen 325 Mg Tablet) 650 mg PO Q6H PRN PRN Reason: Headache/Pain Mild Scale (1-3) Last Admin: 07/29/23 08:47 Dose: 650 mg Al Hydroxide/Mg Hydroxide (Magnesium Hydrox/Alum Hydrox 30 Ml Oral.Susp) 30 ml PO Q6H PRN PRN Reason: Heartburn/Nausea Calcium Carbonate (Calcium Carbonate 750 Mg Tab.Chew) 750 mg PO DAILY PRN PRN Reason: ACID REFLUX Docusate Sodium (Docusate Sodium 100 Mg Capsule) 100 mg PO DAILY [facility] Last Admin: 06/24/23 10:13 Dose: Not Given Donepezil HCl (Donepezil Hcl 10 Mg Tablet) 10 mg PO BEDTIME [facility] Last Admin: 08/04/23 20:41 Dose: 10 mg Duloxetine HCl (Duloxetine Hcl 60 Mg Capsule.Dr) 60 mg PO DAILY [facility] Last Admin: 08/05/23 08:29 Dose: 60 mg Hydroxyzine HCl (Hydroxyzine Hcl 25 Mg Tablet) 25 mg PO Q6H PRN PRN Reason: Anxiety Last Admin: 08/02/23 09:54 Dose: 25 mg Levetiracetam (Levetiracetam Oral Soln 500 Mg/5 Ml) 1,500 mg PO BID [facility] Last Admin: 08/05/23 08:29 Dose: 1,500 mg Loperamide HCl (Loperamide Hcl 2 Mg Capsule) 4 mg PO Q6H PRN PRN Reason: Diarrhea Last Admin: 07/20/23 12:52 Dose: 4 mg Magnesium Hydroxide (Milk Of Magnesia 30 Ml Oral.Susp) 30 ml PO DAILY PRN PRN Reason: Constipation Memantine (Memantine Hcl 10 Mg Tablet) 10 mg PO BID [facility] Last Admin: 08/05/23 08:29 Dose: 10 mg Mirtazapine (Mirtazapine 7.5 Mg Tablet) 7.5 mg PO BEDTIME [place] Last Admin: 08/04/23 20:42 Dose: 7.5 mg Multivitamins/Vitamin C (Multivitamin Tablet) 1 tab PO DAILY [facility] Last Admin: 08/05/23 08:29 Dose: 1 tab Nystatin (Nystatin Powder 15 Gm Bottle) 1 appl TOPICAL BID [facility]; Protocol Last Admin: 08/05/23 11:17 Dose: 1 appl Olanzapine (Olanzapine Odt 10 Mg Tab.Rapdis) 10 mg TRANSLINGU BID PRN PRN Reason: Psychosis Last Admin: 08/02/23 09:54 Dose: 10 mg Olanzapine (Olanzapine 5 Mg Tablet) 5 mg PO TID [facility] Last Admin: 08/05/23 08:29 Dose: 5 mg Oxcarbazepine (Oxcarbazepine 300 Mg Tablet) 600 mg PO BID [facility] Last Admin: 08/05/23 08:29 Dose: 600 mg Psyllium Hydrophilic Mucilloid (Psyllium Seed 3.7 Gm Packet) 3.7 gm PO BID [facility] Last Admin: 06/24/23 20:58 Dose: 3.7 gm Quetiapine Fumarate (Quetiapine Fumarate 50 Mg Tablet) 50 mg PO BID@0800,1400 [facility] Last Admin: 08/05/23 08:29 Dose: 50 mg Quetiapine Fumarate (Quetiapine Fumarate 100 Mg Tablet) 100 mg PO BEDTIME [facility] Last Admin: 08/04/23 20:41 Dose: 100 mg Trazodone HCl (Trazodone Hcl 50 Mg Tablet) 50 mg PO BEDTIME MRX1 PRN PRN Reason: Insomnia Last Admin: 07/28/23 22:31 Dose: 50 mg Trazodone HCl (Trazodone Hcl 100 Mg Tablet) 100 mg PO BEDTIME [facility] Last Admin: 08/04/23 20:41 Dose: 100 mg Trazodone HCl (Trazodone Hcl 25 Mg Halftab) 25 mg PO BID@0830,1330 [facility] Last Admin: 08/05/23 08:29 Dose: 25 mg Verapamil HCl (Verapamil Hcl Sr 240 Mg Tablet.Er) 240 mg PO BEDTIME [facility]; Protocol Last Admin: 08/04/23 20:42 Dose: 240 mg Allergies Allergies Allergy/AdvReac Type Severity Reaction Status Date / Time amlodipine Allergy Unknown Verified 06/21/23 17:41 aspirin Allergy Rash Verified 06/21/23 17:41 atenolol Allergy Rash Verified 06/21/23 17:41 carbamazepine Allergy Unknown Verified 06/21/23 17:41 celecoxib Allergy Unknown Verified 06/21/23 17:41 ciprofloxacin Allergy Unknown Verified 06/21/23 17:41 erythromycin base Allergy Hives Verified 06/21/23 17:41 fluvastatin Allergy Unknown Verified 06/21/23 17:41 levofloxacin Allergy Unknown Verified 06/21/23 17:41 loratadine Allergy Unknown Verified 06/21/23 17:41 mercaptopurine Allergy Unknown Verified 06/21/23 17:41 naproxen Allergy Unknown Verified 06/21/23 17:41 pantoprazole Allergy Unknown Verified 06/21/23 17:41 Quinolones Allergy Unknown Verified 06/21/23 17:41 ranitidine Allergy Unknown Verified 06/21/23 17:41 sulfamethoxazole Allergy Unknown Verified 06/21/23 17:41 trimethoprim Allergy Unknown Verified 06/21/23 17:41 Assessment & Plan Assessment & Plan (1) Dementia: Status: Acute Code(s): F03.90 - Unspecified dementia, unspecified severity, without behavioral disturbance, psychotic disturbance, mood disturbance, and anxiety (2) Pervasive developmental disorder: Status: Acute Code(s): F84.9 - Pervasive developmental disorder, unspecified Plan Plan 1. Continue with same Trileptal 600 mg p.o. b.i.d.. 2. Increase Zyprexa up to 3.75 p.o. t.i.d.. On June 26 we are going to increase to 5 mg p.o. t.i.d. 3. Rest the same. 4. Blood work CBC and BMP within normal limits no changes slight high cholesterol. 5. Start trazodone 25 mg in the morning and in the afternoon and keep 100 at night. Started on July 03. 6. We discussed with the primary team in the community with the possibility to discharge her to subacute rehab due to deconditionion. DDS has applied to transferred to another hospital for rehabilitation but she was denied. Waiting for placement. 7. Blood work ordered for 07/24. Results without no changes Reason for continued inpatient stay Substantial Risk for: inability to function Time Spent With Patient Time: Total time managing care of this patient today ____ minutes.
[2023-08-05 20:00] VITALS: BP 123/67; PULSE 79; RESP 16; TEMP 36.3; O2SAT 96
[2023-08-05 20:49] VITALS: BP 123/67; PULSE 67
[2023-08-05] MEDS: VerapamiL HCL SR 240 MG TABLET.ER PO (20:49)
[2023-08-05] MEDS: Mirtazapine 7.5 MG TABLET PO (20:49)
[2023-08-05] MEDS: QUEtiapine Fumarate 100 MG TABLET PO (20:50)
[2023-08-05] MEDS: Donepezil HCl 10 MG TABLET PO (20:50)
[2023-08-05] MEDS: traZODone HCL 100 MG TABLET PO (20:50)
[2023-08-06 07:53] VITALS: BP 143/83; PULSE 93; RESP 18; TEMP 36.7; O2SAT 98
[2023-08-06] MEDS: levETIRAcetam Oral Soln 500 MG/5 ML 1500 MG PO (09:35)
[2023-08-06] MEDS: Memantine HCl 10 MG TABLET PO (09:36)
[2023-08-06] MEDS: DULoxetine HCl 60 MG CAPSULE.DR PO (09:36)
[2023-08-06] MEDS: OXcarbazepine 300 MG TABLET 600 MG PO (09:36)
[2023-08-06] MEDS: QUEtiapine Fumarate 50 MG TABLET PO ×2 (09:36→13:55)
[2023-08-06] MEDS: Acetaminophen 325 MG TABLET 650 MG PO (09:36)
[2023-08-06] MEDS: OLANZapine 5 MG TABLET PO ×2 (09:36→13:56)
[2023-08-06] MEDS: traZODone HCL 25 MG HALFTAB PO ×2 (09:36→13:55)
[2023-08-06] MEDS: Multivitamin TABLET 1 TAB PO (09:36)
[2023-08-06] MEDS: hydrOXYzine HCL 25 MG TABLET PO (09:36)
[2023-08-06] MEDS: Nystatin Powder 15 GM BOTTLE 1 APPL TOPICAL (09:41)
--- NOTE | 2023-08-06 10:37 | P.DS_ITS ---
DS: Providers Provider Date of Service: 08/06/23 Date of admission: 06/21/23 16:59 Date of discharge: 08/06/23 Primary care physician: Unknown Physician Consults: 06/21/23 17:06 Consult to Hospitalist Routine Comment: Consulting Provider: Hospitalist Reason For Exam: Direct admission Attending physician on discharge: Billy Perez DS: Diagnosis Discharge Diagnosis (1) Dementia: Status: Acute (2) Pervasive developmental disorder: Status: Acute DS: Medications Discharge Medications Home Medications: Home Medications ?Medication ?Instructions ?Recorded ?Confirmed acetaminophen 500 mg tablet 500 mg PO Q6H PRN Pain 06/21/23 06/21/23 calcium carbonate (Antacid 2 tab PO NEEDED 06/21/23 06/21/23 Extra-Strength) docusate sodium 100 mg capsule 100 mg PO DAILY 06/21/23 06/21/23 donepezil 10 mg tablet 10 mg PO BEDTIME 06/21/23 06/21/23 duloxetine 60 mg capsule,delayed 60 mg PO DAILY 06/21/23 06/21/23 release levetiracetam 500 mg tablet 1,500 mg PO BID 06/21/23 06/21/23 memantine 10 mg tablet 10 mg PO BID 06/21/23 06/21/23 mirtazapine 7.5 mg tablet 7.5 mg PO BEDTIME 06/21/23 06/21/23 multivitamin 1 tab PO DAILY 06/21/23 06/21/23 olanzapine 2.5 mg PO TID 06/21/23 06/21/23 oxcarbazepine 150 mg tablet 150 mg PO BID 06/21/23 06/21/23 oxcarbazepine 300 mg tablet 300 mg PO BID 06/21/23 06/21/23 psyllium seed (sugar) oral powder 1 tbsp PO BID 06/21/23 06/21/23 (Natural Fiber Laxative (sugar) oral powder) trazodone 100 mg tablet 100 mg PO BEDTIME 06/21/23 06/21/23 verapamil 240 mg tablet,extended 240 mg PO BEDTIME 06/21/23 06/21/23 release Mental Status Exam Mental Status Exam Patient Appearance: Appropriate Patient Orientation: Person and Situation Level of Consciousness: Awake Patient Behavior: Guarded Mood Description: Withdrawn Affect Description: Labile Patient Cognition Impaired: Yes Ability to Follow Directions: Fair Speech Pattern: Impoverished Hallucinations: None Delusions: Not Present Thought Process: Distracted and Slowed Thinking Thought Content: positive for [place], positive for Perseveration, positive for Poverty of Content and positive for Thought Blocking Judgement: Poor Data Data Completed and Pending Completed studies during hospitalization [Text1]: 08/02/23 11:13 WBC 7.4 RBC 4.11 L Hgb 13.3 Hct 39.5 MCV 96.1 MCH 32.4 MCHC 33.7 RDW 12.6 Plt Count 205 MPV 8.6 L Immature Gran % (Auto) 0.3 Neut % (Auto) 67.7 Lymph % (Auto) 23.8 [place] % (Auto) 6.6 Eos % (Auto) 1.2 Baso % (Auto) 0.4 Lymph # (Auto) 1.8 [place] # (Auto) 0.5 Eos # (Auto) 0.1 Baso # (Auto) 0.0 Abs Immat Gran (auto) 0.02 Absolute Neuts (auto) 5.0 Absolute Nucleated RBC 0.000 Nucleated RBC % (auto) 0.0 Sodium 139 Potassium 3.8 Chloride 103 Carbon Dioxide 29 Anion Gap 11 L BUN 10 Creatinine 0.57 Estim Creat Clear Calc 98.4 Estimated GFR > 60 Random Glucose 160 H Estimat Average Glucose 100 Hemoglobin A1c % 5.1 Calcium 9.7 Total Bilirubin 0.2 Direct Bilirubin < 0.2 AST 21 ALT 22 Alkaline Phosphatase 129 H Total Protein 7.2 Albumin 3.8 DS: Summary Hospital Course Hospital Course: The patient is a 67-year-old female with a past history of developmental disorder, schizoaffective disorder bipolar type and dementia was transferred to another hospital emergency room due to exacerbation of psychosis elicited by increased agitation, coprophagia, increase yelling and poor com pliance. The patient is case managed by DDS and she was assessed by crisis and transferring to this facility for psychiatric stabilization. On admission the patient was grossly disorganized, with episodes of yelling, nonsensical. We gather collateral information and according to her caregivers, her baseline is very poor due to the pervasive developmental disorder and the progression of the dementia. We review her medications and we decided to increase Trileptal up to 600 mg p.o. b.i.d. and Zyprexa up to 5 mg p.o. t.i.d. and keeping on a p.r.n. of 10 mg as needed. The patient's behavior improved, her disorganized behavior improved she was not eating feces anymore. We had several family meetings with the DDS team and caregivers. It was clear that the condition of the patient deteriorated in the last months and at this point, she was unable to take care of herself. After several weeks of waiting, the [facility] plan. On discharge, the patient remains poorly functional at baseline with sporadic episodes of yelling but less disorganized. Time spent discussing smoking cessation with patient: 3 to 10 minutes Status at Discharge Cognitive/behavioral status at discharge: Impaired at baseline Functional status at discharge: wheelchair bound Overall status at discharge: patient is back to baseline Time Spent with Patient Time attestation: Total time managing care of this patient today _30___ minutes. Time spent: Less than 30 minutes Discharge Plan Discharge Anticipated Discharge Date/Time: 08/06/23 14:00 Patient Disposition: Xfer SNF Discharge Diagnosis: Schizoaffective disorder Pervasive developmental disorder Dementia Referrals: Physician,Unknown J [Primary Care Provider] - 1 Week Discharge Medications: New olanzapine 5 mg Tablet 5 mg PO TID 30 Days Qty: 90 0RF oxcarbazepine 300 mg Tablet 600 mg PO BID 30 Days Qty: 120 0RF quetiapine 100 mg Tablet 100 mg PO BEDTIME 30 Days Qty: 30 0RF olanzapine 10 mg Tablet,Disintegrating 10 mg translingual BID PRN (Reason: Psychosis) 30 Days Qty: 60 0RF hydroxyzine HCl 25 mg Tablet 25 mg PO Q6H PRN (Reason: Anxiety) 30 Days Qty: 60 0RF quetiapine 50 mg Tablet 50 mg PO BID@0800,1400 30 Days Qty: 60 0RF levetiracetam 500 mg/5 mL (5 mL) Solution 1,500 mg PO BID 30 Days Qty: 900 0RF Hydrocil Instant Packet 1 packet PO BID 30 Days Qty: 60 0RF nystatin 100,000 unit/gram Powder 1 appl topical BID 30 Days Qty: 10 0RF Protocol: Apply to: Apply to: skin folds acetaminophen 325 mg Tablet 650 mg PO Q6H PRN (Reason: Headache/Pain Mild Scale (1-3)) 30 Days Qty: 60 0RF trazodone 50 mg tablet 25 mg PO BID@0830,1330 30 Days Qty: 30 0RF Continued multivitamin Tablet 1 tab PO DAILY 30 Days Qty: 30 0RF donepezil 10 mg tablet 10 mg PO BEDTIME 30 Days Qty: 30 0RF Antacid Extra-Strength 300 mg (750 mg) tablet,chewable 2 tab PO NEEDED 30 Days Qty: 60 0RF trazodone 100 mg tablet 100 mg PO BEDTIME 30 Days Qty: 30 0RF docusate sodium 100 mg capsule 100 mg PO DAILY 30 Days Qty: 30 0RF verapamil 240 mg tablet extended release 240 mg PO BEDTIME 30 Days Qty: 30 0RF memantine 10 mg tablet 10 mg PO BID 30 Days Qty: 60 0RF mirtazapine 7.5 mg tablet 7.5 mg PO BEDTIME 30 Days Qty: 30 0RF duloxetine 60 mg capsule,delayed release(DR/EC) 60 mg PO DAILY 30 Days Qty: 30 0RF Discontinued oxcarbazepine 150 mg tablet 150 mg PO BID Rx Instructions: Per medical record 150mg +300mg= 450mg levetiracetam 500 mg tablet 1,500 mg PO BID oxcarbazepine 300 mg tablet 300 mg PO BID Rx Instructions: Per medical record 150mg + 300mg= 450mg Natural Fiber Laxative (sugar) Powder 1 tbsp PO BID acetaminophen 500 mg tablet 500 mg PO Q6H PRN (Reason: Pain) olanzapine tablet 2.5 mg PO TID Discharge Orders: Discharge Order (Routine); Ordered 08/06/23 Ordered By: Billy Perez Diet: Advance to usual diet Activity on Discharge: As tolerated Stand Alone Forms: Patient Portal Discharge page Print Language: Korean Care Plan Goals: Care plan goals achieved in this admission Health Concerns: Continue treatment with primary care physician as an outpatient Plan of Treatment: Continue treatment as an outpatient. Assessment: Elderly female with several comorbidities such as pervasive developmental disorder, schizoaffective disorder and dementia who was brought into the facility grossly disorganized at improve with increase of Trileptal and Zyprexa. The patient has day condition it and at this moment she is going to be [facility] to [facility] as per DDS plan.
[2023-08-06] MEDS: OLANZapine ODT 10 MG TAB.RAPDIS TRANSLINGU (10:44)
== END 2023-08-06 15:23 | disposition skilled nursing facility (03) | DRG 885 ==
PROVIDERS: Admitting Provider Psychiatry & Neurology Psychiatry; Visit Provider Psychiatry & Neurology Psychiatry
DX: F25.9 Schizoaffective disorder, unspecified (principal); K50.90 Crohn's disease, unspecified, without complications; F84.9 Pervasive developmental disorder, unspecified; R19.7 Diarrhea, unspecified; I10 Essential (primary) hypertension; F03.90 Unspecified dementia, unspecified severity, without behavioral disturbance, psychotic disturbance, mood disturbance, and anxiety; E78.5 Hyperlipidemia, unspecified; G40.909 Epilepsy, unspecified, not intractable, without status epilepticus; Z75.1 Person awaiting admission to adequate facility elsewhere; Z79.899 Other long term (current) drug therapy
CPT/HCPCS: 36415; 80048; 80061; 80076; 83036; 85025; 87493

== ENCOUNTER → 2023-06-21 16:59 | Outpatient (BNV) | payer MEDICARE, MEDICAID, SELFPAY | PROVIDERS: Admitting Provider Psychiatry & Neurology Psychiatry; Visit Provider Psychiatry & Neurology Psychiatry | DX: F03.90 Unspecified dementia, unspecified severity, without behavioral disturbance, psychotic disturbance, mood disturbance, and anxiety (principal); F84.9 Pervasive developmental disorder, unspecified | CPT/HCPCS: 90792; 99231; 99232; 99238 ==

== ENCOUNTER → 2023-06-21 16:59 | Outpatient (BNV) | payer MEDICARE, MEDICAID, SELFPAY | PROVIDERS: Admitting Provider Psychiatry & Neurology Psychiatry; Visit Provider Psychiatry & Neurology Psychiatry | DX: F03.90 Unspecified dementia, unspecified severity, without behavioral disturbance, psychotic disturbance, mood disturbance, and anxiety (principal); F84.9 Pervasive developmental disorder, unspecified | CPT/HCPCS: 99231 ==

== ENCOUNTER → 2023-06-21 16:59 | Outpatient (BNV) | payer MEDICARE, MEDICAID, SELFPAY | PROVIDERS: Admitting Provider Psychiatry & Neurology Psychiatry; Visit Provider Physician Assistant | DX: Z02.2 Encounter for examination for admission to residential institution (principal) | CPT/HCPCS: 99429 ==